=== PATIENT | female | born 1940 | race Caucasian/White ===

== ENCOUNTER → 2017-10-20 09:51 | Outpatient (CLI) | payer MEDICARE, SELFPAY ==
--- NOTE | 2017-10-20 09:57 | HPBI_ITS ---
MAMMOGRAPHY - UNILATERAL SCREENING: RIGHT BREAST REASON FOR EXAM: Female, 77 years old. Routine annual screening examination (unilateral). PERTINENT HISTORY: Personal history of breast cancer. Prior left mastectomy. TECHNIQUE: Digital unilateral breast erika (3D mammographic acquisition) in the CC and MLO projections. 2-D mediolateral oblique (MLO) and craniocaudad (CC) views of both breasts were obtained. CAD: Full Field Digital Mammography with Computer Added Detection was performed. COMPARISON: Comparison is made with prior study dated October 05, 2016 and September 17, 2015. FINDINGS: Breast Composition: There are scattered areas of fibroglandular density. There are no dominant masses or suspicious calcifications. No other significant abnormalities are identified. There has been no significant change since the prior study. BI/UNILAT RT SCRN W/CAD IMPRESSION: Stable unilateral screening mammogram. Yearly follow-up mammogram recommended. (A) ASSESSMENT CATEGORY: BIRADS Category 1: Negative. A letter regarding these results will be sent to the patient by the facility within 30 days. Approximately 10% of breast cancers are not detected by mammography. A normal mammogram should not delay biopsy of a clinically suspicious abnormality. [id number] Electronically Signed: Marvin Merrill MD at 12:40 EST Tel [phone], Service support ,
== END ==
PROVIDERS: Family Provider Internal Medicine; PCP Internal Medicine; Visit Provider Internal Medicine
DX: Z12.31 Encounter for screening mammogram for malignant neoplasm of breast (principal); Z85.3 Personal history of malignant neoplasm of breast; Z90.12 Acquired absence of left breast and nipple
CPT/HCPCS: 77061; 77063; 77067; G0279

== ENCOUNTER → 2017-11-30 13:12 | Outpatient (CLI) | payer MEDICARE, SELFPAY ==
--- NOTE | 2017-11-30 13:18 | CT_ITS ---
STUDY: CT BRAIN WITH AND WITHOUT CONTRAST REASON FOR EXAM: Female, 77 years old. Memory loss. History of left breast cancer with left mastectomy. RADIATION DOSAGE (If Supplied By Facility): CTDIvol = ( 44.99 ) mGy, DLP = ( 1513.48 ) mGycm TECHNIQUE: Transaxial CT imaging of the brain was performed pre and post contrast administration. The examination was performed with intravenous administration of 50mL ml of Isovue 370 contrast material. Individualized dose optimization techniques were used for this CT. COMPARISON: None. FINDINGS: Normal soft tissue structures. Normal calvarium. There is mild cerebral atrophy with widening of the extra-axial spaces and ventricular dilatation. Normal white matter tracts of the cerebral hemispheres. Normal basal ganglia and thalami. Normal brainstem. Normal cerebellum. There is no intracranial hemorrhage. There are no findings of an acute ischemic infarction. Atherosclerotic calcification of the vertebral arteries and cavernous portions of the internal carotid arteries bilaterally. Normal visualized paranasal sinuses. CT/Brain/Head W/WO Contrast IMPRESSION: Chronic involutional changes of the brain. Electronically Signed: Marvin Merrill MD at 14:39 EDT Tel [phone], Service support ,
== END ==
PROVIDERS: Family Provider Internal Medicine; PCP Internal Medicine; Visit Provider Internal Medicine
DX: R41.3 Other amnesia (principal)
CPT/HCPCS: 70470; Q9967

== ENCOUNTER → 2018-10-04 12:49 | Outpatient (CLI) | payer MEDICARE, SELFPAY ==
[2018-10-04 14:31] LABS: Creatinine, Serum 1.44 mg/dL (0.55-1.02); EST Glomerular Filtration Rate 37 mL/min (>60); Est Glom Filt Rate - Afr Amer 45 mL/min (>60)
== END ==
PROVIDERS: Family Provider Internal Medicine; PCP Internal Medicine; Referring Provider Surgery Vascular Surgery; Visit Provider Surgery Vascular Surgery
DX: Z01.818 Encounter for other preprocedural examination (principal); I65.23 Occlusion and stenosis of bilateral carotid arteries
CPT/HCPCS: 36415; 82565

== ENCOUNTER → 2018-10-19 07:43 | Outpatient (CLI) | payer MEDICARE, SELFPAY ==
--- NOTE | 2018-10-19 07:46 | CT_ITS ---
STUDY: CTA NECK WITH CONTRAST REASON FOR EXAM: Female, 78 years old. History of carotid stenosis. RADIATION DOSAGE (If Supplied By Facility): CTDIvol = ( 14.90 ) mGy, DLP = ( 483.21 ) mGycm TECHNIQUE: CT angiography with multi-detector data acquisition was performed from the aortic arch to the skull base following intravenous administration of 75 ml of Isovue 370 contrast. MIP images were reconstructed from the axial data set. Post-processing of the angiographic images was performed, with multiplanar reformation and 3D reconstruction. Individualized dose optimization techniques were used for this CT. COMPARISON: None. FINDINGS: Subcentimeter cysts are seen in the left lobe of the thyroid. AORTIC ARCH: There is atherosclerotic calcific plaque formation of the aortic arch and great vessels arising from the aortic arch, without a hemodynamically significant stenosis. There is a normal origin of the brachiocephalic, left common carotid, and left subclavian arteries RIGHT CAROTID ARTERIES: Normal right common carotid artery (CCA). Normal right common carotid bulb. There is severe atherosclerotic plaque formation of the origin of the right internal carotid artery with a near complete occlusion. Normal visualized cervical portion of the right internal carotid artery. Normal origin of the right external carotid artery (ECA). LEFT CAROTID ARTERIES: Normal left common carotid artery (CCA). Normal left common carotid bulb. There is extensive atherosclerotic plaque formation of the origin of the left internal carotid artery with an estimated stenosis of greater than 70%. Normal visualized cervical portion of the left internal carotid artery. Normal origin of the left external carotid artery (ECA). VERTEBRAL ARTERIES: Normal bilateral vertebral arteries. CT/CTA Neck W/WO Contrast IMPRESSION: High-grade stenosis at the carotid bifurcations more prominent on the right side. Electronically Signed: Marvin Merrill MD at 9:50 EST , Service support ,
== END ==
PROVIDERS: Family Provider Internal Medicine; PCP Internal Medicine; Referring Provider Surgery Vascular Surgery; Visit Provider Surgery Vascular Surgery
DX: I65.23 Occlusion and stenosis of bilateral carotid arteries (principal)
CPT/HCPCS: 70498; Q9967

== ENCOUNTER → 2018-10-24 13:49 | Outpatient (CLI) | payer MEDICARE, SELFPAY ==
--- NOTE | 2018-10-24 13:53 | BI_ITS ---
MAMMOGRAPHY - UNILATERAL SCREENING: RIGHT BREAST REASON FOR EXAM: Female, 78 years old. Routine annual screening examination (unilateral). PERTINENT HISTORY: Personal history of breast cancer. Prior left mastectomy. TECHNIQUE: Digital unilateral breast erika (3D mammographic acquisition) in the CC and MLO projections. 2-D mediolateral oblique (MLO) and craniocaudad (CC) views of both breasts were obtained. CAD: Full Field Digital Mammography with Computer Added Detection was performed. COMPARISON: Comparison is made with prior examination dated October 20, 2017 and October 05, 2016. FINDINGS: Breast Composition: The breasts are heterogeneously dense, which may obscure small masses. There are no dominant masses or suspicious calcifications. No other significant abnormalities are identified. There has been no significant change since the prior study. BI/UNILAT RT SCRN W/CAD IMPRESSION: Stable unilateral screening mammogram. Yearly follow-up mammogram recommended. (A) ASSESSMENT CATEGORY: BIRADS Category 1: Negative. A letter regarding these results will be sent to the patient by the facility within 30 days. Approximately 10% of breast cancers are not detected by mammography. A normal mammogram should not delay biopsy of a clinically suspicious abnormality. [id number] Electronically Signed: Marvin Merrill MD at 8:35 EST , Service support ,
== END ==
PROVIDERS: Family Provider Internal Medicine; PCP Internal Medicine; Referring Provider Internal Medicine; Visit Provider Internal Medicine
DX: Z12.31 Encounter for screening mammogram for malignant neoplasm of breast (principal); Z85.3 Personal history of malignant neoplasm of breast; Z90.12 Acquired absence of left breast and nipple
CPT/HCPCS: 77061; 77063; 77067; G0279

== ENCOUNTER → 2018-11-30 09:54 | Outpatient (CLI) | payer MEDICARE, SELFPAY ==
--- NOTE | 2018-11-30 09:59 | BD_ITS ---
STUDY: DUAL ENERGY X-RAY ABSORPTIOMETRY / DXA REASON FOR EXAM: Female, 78 years old. The patient is postmenopausal. Loss of height. TECHNIQUE: Bone Mineral Density (BMD) measurements of lumbar spine and left hip were obtained. The patient is status post right hip replacement. COMPARISON: Comparison is made with prior examination dated November 26, 2016. FINDINGS: Lumbar Spine (L1-L4): g/cm2 (1.568) / T-score (3.1) / Z-score (4.9) Findings are suggestive of normal bone density with a low fracture risk. Left Femur Total: g/cm2 (1.078) / T-score (0.6) / Z-score (2.6) Left Femoral Neck: g/cm2 (1.192) / T-score (1.1) / Z-score (3.3) The T-Scores on the most recent prior examination were: Lumbar Spine (L1-L4): There has been worsening of bone density since the previous examination. Left Femur Total: which represents a worsening of 0.3%. BD/Dexa Bone Density Study IMPRESSION: The patient is considered normal as outlined below according to World [employer] Organization (WHO) criteria with a low fracture risk. There has been worsening of bone density since the previous examination. Reference Information: The T-score is the number of standard deviations above or below the standard which is normal for young adults at their peak bone mineral density. The World Health Organization (WHO) interprets the T-scores as follows: Above -1 Normal bone density Between -1 and -2.5 Osteopenia Equal to / or below -2.5 Osteoporosis As a practical clinical guideline, osteopenia may be graded as follows: Mild -1 through -1.5 Moderate -1.6 through -2.0 Severe -2.1 through -2.4 The Z-score is the number of standard deviations above or below age-matched controls. A Z-score of less than -1.5 would be considered abnormal. References: 1. NIH Osteoporosis and Related Bone Diseases http://www.osteo.org 2. International Society for Clinical Densitometry http://www.iscd.org 3. National Osteoporosis Foundation http://www.nof.org Electronically Signed: Marvin Merrill, at 14:59 EDT , Service support ,
== END ==
PROVIDERS: Family Provider Internal Medicine; PCP Internal Medicine; Visit Provider Internal Medicine
DX: Z78.0 Asymptomatic menopausal state (principal)
CPT/HCPCS: 77080

== ENCOUNTER → 2019-08-10 10:28 | Outpatient (CLI) | payer MEDICARE, SELFPAY ==
--- NOTE | 2019-08-10 10:31 | RAD_ITS ---
STUDY: X-RAY - LUMBAR SPINE REASON FOR EXAM: Female, 79 years old. Radiculopathy TECHNIQUE: 5 view(s) of the lumbar spine were obtained. COMPARISON: None FINDINGS: Normal lumbar lordosis. There is no substantial scoliosis. There is a grade 1 anterolisthesis of L4 relative to L5. There is old moderately severe compression deformity of L3. There is diffuse endplate spondylosis and generalized osteopenia. There is multi-level degenerative disc disease with multi-level disc space narrowing. There are calcified plaques of the abdominal aorta. RAD/L/S Spine Min 4 Views IMPRESSION: Grade 1 anterolisthesis of L4 relative to L5. Old moderately severe compression deformity of L3. Multilevel degenerative changes and disc space narrowing as detailed above. Electronically Signed: Agustín Durand MD at 23:01 EST , Service support ,
== END ==
PROVIDERS: Family Provider Internal Medicine; PCP Internal Medicine; Referring Provider Anesthesiology Pain Medicine; Visit Provider Anesthesiology Pain Medicine
DX: M51.16 Intervertebral disc disorders with radiculopathy, lumbar region (principal)
CPT/HCPCS: 72110

== ENCOUNTER → 2019-10-19 09:45 | Outpatient (CLI) | payer MEDICARE, SELFPAY ==
--- NOTE | 2019-10-19 09:49 | CDU_ITS ---
Reason For Study: Bilateral carotid stenosis Rt. Velocities/BP Lt. Velocities/BP Prox CCA 82.6/9.5 cm/sec. Prox CCA 80.9/11.5 cm/sec. Mid CCA 78.6/12.1 cm/sec. Mid CCA 58.6/6.9 cm/sec. Dist CCA 83.8/10.2 cm/sec. Dist CCA 57.5/80 cm/sec. Prox ICA 132.3/24.8 cm/sec. Prox ICA 66.2/17.9 cm/sec. Mid ICA 243.4/46.2 cm/sec. Mid ICA 112/18.8 cm/sec. Dist ICA 256.3/30.1 cm/sec. Dist ICA 86.3/21.2 cm/sec. Rt. ICA/CCA = 3.10. Lt. ICA/CCA = 1.91. Prox ECA 272.5/7.4 cm/sec. Prox ECA 76.1 cm/sec. Rt. Vert. 54.2/9.1 cm/sec. Lt. Vert. 64.1/10.2 cm/sec. Right Extracranial There is intimal thickening but no significant atherosclerotic plaque noted in the right common carotid artery. There is heterogeneous, irregular atherosclerotic plaque noted in the right internal carotid artery. There is heterogeneous, irregular atherosclerotic plaque noted in the right external carotid artery. Antegrade flow is noted in the right vertebral artery. Left Extracranial There is homogeneous, smooth atherosclerotic plaque noted in the left common carotid artery. There is heterogeneous, irregular atherosclerotic plaque noted in the left internal carotid artery. The atherosclerotic plaque causes acoustic shadowing. There is no significant atherosclerotic plaque noted in the left external carotid artery. Antegrade flow is noted in the left vertebral artery. Procedure Carotid Duplex [id number]. Exam performed in department. Interpretation Summary Moderate (50-69%) stenosis right extracranial internal carotid. Mild (<50%) stenosis left extracranial internal carotid. Flow within the vertebral arteries is antegrade bilaterally. Ordering Physician: John Ramirez Referring Physician: Cat Sauceda M.D. Performed By: Perla Lopez RVT
== END ==
PROVIDERS: PCP Internal Medicine; Referring Provider Surgery Vascular Surgery; Visit Provider Surgery Vascular Surgery
DX: I65.23 Occlusion and stenosis of bilateral carotid arteries (principal)
CPT/HCPCS: 93880

== ENCOUNTER → 2019-10-25 10:55 | Outpatient (CLI) | payer MEDICARE, SELFPAY ==
--- NOTE | 2019-10-25 11:03 | MRI_ITS ---
STUDY: MRI LUMBAR SPINE WITHOUT CONTRAST REASON FOR EXAM: Female, 79 years old. RT LEG NUMBNESS -- NKI, pain low back and rt leg numbness x several months TECHNIQUE: Standardized fat and water weighted pulse sequences were obtained in the sagittal and axial planes. COMPARISON: 02/27/2010 FINDINGS: T12-L1: Normal endplates. Normal disc height, hydration and morphology. Normal bilateral facet joints. Normal central canal and bilateral lateral recesses. Normal bilateral intervertebral neural foramina. Normal lumbar lordosis. Mild levoscoliosis. Normal conus medullaris that terminates at the T12/L1. Interval development of a moderate compression fracture of L3 without marrow edema consistent with a chronic compression fracture. No retropulsion into the spinal canal. L1-2: Interval development of mild bilobed disc protrusion which produces mild spinal stenosis and mild bilateral neural foraminal stenosis. L2-3: Moderate bilateral facet hypertrophy and ligament flavum hypertrophy. Worsening broad disc osteophyte complex produces moderate spinal stenosis with moderate bilateral lateral recess stenosis and mild bilateral neural foraminal stenosis. L3-4: Moderate the lateral facet hypertrophy with fluid in the facet joints consistent with instability and severe ligament flavum hypertrophy. Worsening broad disc protrusion which is now moderate in size with moderate spinal stenosis and moderate bilateral lateral recess stenosis and mild bilateral neural foraminal stenosis. L4-5: Severe bilateral facet hypertrophy and moderate ligament flavum hypertrophy. Increase in the anterolisthesis of L4 and L5 from 5 mm to 8 mm with a moderate broad disc protrusion which produces severe spinal stenosis and severe bilateral lateral recess stenosis with effacement of the L5 nerve roots bilaterally as well as moderate bilateral neural foraminal stenosis with abutment of the exiting L4 nerve roots bilaterally. L5-S1: Normal endplates. Normal disc height, hydration and morphology. Normal bilateral facet joints. Normal central canal and bilateral lateral recesses. Normal bilateral intervertebral neural foramina. Normal visualized sacral ala. Normal visualized paraspinous soft tissue structures. MRI/Spine Lumbar (Routine) IMPRESSION: Interval development of a chronic moderate compression fracture of L3 without retropulsion into the spinal canal. Worsening degenerative disc disease throughout the lumbar spine particularly at L4/L5 with worsening anterolisthesis of L4 on L5. Electronically Signed: Trey Cedillo MD at 15:52 EST Tel , Service support ,
--- NOTE | 2019-10-25 14:18 | US_ITS ---
STUDY: RENAL ULTRASOUND - COMPLETE REASON FOR EXAM: Female, 79 years old. CKD3 TECHNIQUE: Ultrasound evaluation of the kidneys was performed with real-time and static restrepo-scale imaging. COMPARISON: None. FINDINGS: RIGHT KIDNEY: Normal location of the right kidney, which is normal in size. The right kidney measures 9.8 cm in length. There is a normal cortex of the right kidney. There is no right renal mass or cyst. There are no right renal calculi. There is no right hydronephrosis. DISTAL RIGHT URETER: There is no demonstrated right ureteral jet. LEFT KIDNEY: Normal location of the left kidney, which is normal in size. The left kidney measures 10.4 cm in length. There is a normal cortex of the left kidney. There is no left renal mass or cyst. There are no left renal calculi. There is no left hydronephrosis. DISTAL LEFT URETER: There is a visualized left ureteral jet. BLADDER: The incompletely distended urinary bladder has a volume of 54.4 ml. There is a normal wall thickness of the distended urinary bladder. There is no demonstrated mass within the urinary bladder. There are no demonstrated bladder calculi. US/Kidney and Bladder IMPRESSION: Within normal limits ultrasound of the kidneys and urinary bladder. Electronically Signed: Magdalena Muhammad MD at 23:16 EST Tel , Service support ,
== END ==
PROVIDERS: PCP Internal Medicine; Referring Provider Anesthesiology Pain Medicine; Visit Provider Anesthesiology Pain Medicine
DX: M51.37 Other intervertebral disc degeneration, lumbosacral region (principal); R20.0 Anesthesia of skin; N18.9 Chronic kidney disease, unspecified
CPT/HCPCS: 72148; 76770

== ENCOUNTER → 2019-10-30 13:35 | Outpatient (CLI) | payer MEDICARE, SELFPAY ==
--- NOTE | 2019-10-30 13:38 | BI_ITS ---
MAMMOGRAPHY - UNILATERAL SCREENING: RIGHT BREAST REASON FOR EXAM: Female, 79 years old. Routine annual screening examination (unilateral). PERTINENT HISTORY: Personal history of breast cancer. Prior left mastectomy. TECHNIQUE: Digital unilateral breast jagruti (3D mammographic acquisition) in the CC and MLO projections. 2-D mediolateral oblique (MLO) and craniocaudad (CC) views of both breasts were obtained. CAD: Full Field Digital Mammography with Computer Added Detection was performed. COMPARISON: Comparison is made with prior examination dated October 24, 2018 and April 19, 2018. FINDINGS: Breast Composition: The breasts are heterogeneously dense, which may obscure small masses. There are no dominant masses or suspicious calcifications. No other significant abnormalities are identified. There has been no significant change since the prior study. BI/SCREEN MAMM (CAD) W/JAGRUTI UNI R IMPRESSION: Stable unilateral screening mammogram. Yearly follow-up mammogram recommended. (A) ASSESSMENT CATEGORY: BIRADS Category 1: Negative. A letter regarding these results will be sent to the patient by the facility within 30 days. Approximately 10% of breast cancers are not detected by mammography. A normal mammogram should not delay biopsy of a clinically suspicious abnormality. [id number] Electronically Signed: Marvin Merrill, at 14:33 EST , Service support ,
== END ==
PROVIDERS: PCP Internal Medicine; Referring Provider Internal Medicine; Visit Provider Internal Medicine
DX: Z12.31 Encounter for screening mammogram for malignant neoplasm of breast (principal); Z85.3 Personal history of malignant neoplasm of breast; Z90.12 Acquired absence of left breast and nipple
CPT/HCPCS: 77063; 77067

== ENCOUNTER → 2019-11-16 10:56 | Outpatient (CLI) | payer MEDICARE, SELFPAY ==
[2019-11-20 20:07] LABS: Cytoplasmic Ab (C-ANCA) <1:20 titer (Neg:<1:20); PROEL- A/G Ratio 1.2 (0.7-1.7); PROEL- Albumin 3.7 g/dL (2.9-4.4); PROEL- Alpha-1 Globulin 0.2 g/dL (0.0-0.4); PROEL- Beta Globulin 1.2 g/dL (0.7-1.3); PROEL- Gamma Globulin 0.6 g/dL (0.4-1.8); PROEL- TOTAL PROTEIN 6.7 g/dL (6.0-8.5)
[2019-11-20 20:28] LABS: Complement C3 129 mg/dL (82-167); Perinuclear Ab (P-ANCA) <1:20 titer (Neg:<1:20)
== END ==
PROVIDERS: PCP Internal Medicine; Referring Provider Internal Medicine Nephrology; Visit Provider Internal Medicine Nephrology
DX: N18.3 Chronic kidney disease, stage 3 (moderate) (principal); R39.9 Unspecified symptoms and signs involving the genitourinary system
CPT/HCPCS: 36415; 84165; 86160; 86256; 87086; 87088

== ENCOUNTER → 2020-02-14 08:05 | Outpatient (CLI) | payer MEDICARE, SELFPAY ==
[2020-02-14 08:48] LABS: Protein, Urine (Random) 11.3 mg/dL (<11.9); Protein:Creat Ratio 117 mg/g CRE (0-200)
[2020-02-14 09:02] LABS: Anion Gap 7 (5-15); BUN 27 mg/dL (7-18); BUN/Creat Ratio 17.2 RATIO (10-20); Calcium,Total 9.1 mg/dL (8.5-10.1); Chloride 103 mmol/L (98-107); Creatinine, Serum 1.57 mg/dL (0.55-1.02); EST Glomerular Filtration Rate 34 mL/min (>60); Est Glom Filt Rate - Afr Amer 41 mL/min (>60); Glucose 107 mg/dL (74-106); Potassium 3.9 mmol/L (3.5-5.1); Sodium Level 138 mmol/L (136-145)
== END ==
PROVIDERS: PCP Internal Medicine; Referring Provider Internal Medicine Nephrology; Visit Provider Internal Medicine Nephrology
DX: N18.3 Chronic kidney disease, stage 3 (moderate) (principal)
CPT/HCPCS: 36415; 80048; 82570; 84156

== ENCOUNTER → 2020-02-21 13:53 | Outpatient (CLI) | payer MEDICARE, SELFPAY ==
--- NOTE | 2020-02-21 13:54 | ECHOD_ITS ---
Reason For Study: AORTIC STENOSIS Procedure This was a 2D Doppler, Color Flow transthoracic echocardiogram. Exam performed in department. Left Ventricle Normal size and thickness. The estimated ejection fraction is 65 %. Stage 1 diastolic dysfunction. No regional wall motion abnormalities noted. Right Ventricle Normal size and thickness. Normal systolic function. Atria Normal left atrium. Normal right atrium. Normal atrial septum. Mitral Valve The mitral valve is structurally normal. No prolapse or stenosis seen. Tricuspid Valve Normal tricuspid valve. Unable to estimate RV systolic pressure due to insufficient tricuspid regurgitant envelope. Aortic Valve Trisinus/trileaflet aortic valve. Mild diffuse aortic valve thickening. Moderate focal aortic valve thickening. Mild restriction of the aortic valve. Mild to moderate aortic stenosis. Peak aortic valve gradient 27 mmHg. Mean aortic valve gradient 18 mmHg. Calculated aortic valve area (continuity equation) is 1.4 cm2. Pulmonic Valve Normal pulmonic valve. Great Vessels Normal aortic root. Moderate atherosclerosis of the aortic arch. Normal inferior vena cava. Inferior vena cava collapse with sniff. Pericardium/Pleural No pericardial effusion. MMode/2D Measurements & Calculations LVIDd: 4.7 cm IVSd: 1.1 cm LVOT diam: 1.9 cm LVIDs: 2.9 cm LVPWd: 1.2 cm LVOT area: 2.9 cm2 RVDd: 3.2 cm FS: 38.4 % Ao root diam: 2.7 cm LAV(MOD-bp): 50.1 ml LA A4 area: 18.4 cm2 LAV(MOD-bp) Indexed: 28.6 ml/m2 LAV(MOD-sp2): 51.0 ml LAV(MOD-sp4): 47.7 ml LA dimension(2D): 4.0 cm RA A4 area: 13.7 cm2 Time Measurements MV dec time: 0.25 sec Doppler Measurements & Calculations MV E max [place]: 88.5 cm/sec Lat Peak E' [place]: 5.6 cm/sec Med Peak E' [place]: 5.8 cm/sec MV A max [place]: 115.2 cm/sec E/E' lat: 15.8 E/E' med: 15.4 MV E/A: 0.77 Ao V2 max: 254.6 cm/sec LV V1 max: 124.3 cm/sec SV(LVOT): 80.7 ml Ao max P.6 mmHg LV V1 max P.2 mmHg Ao V2 mean: 189.0 cm/sec LV V1 mean P.7 mmHg Ao mean P.5 mmHg LV V1 mean: 92.3 cm/sec Ao V2 VTI: 55.8 cm LV V1 VTI: 28.1 cm ARMANDO(I,D): 1.4 cm2 ARMANDO(V,D): 1.4 cm2 PA V2 max: 158.7 cm/sec PA V2 mean: 105.8 cm/sec PA V2 VTI: 30.9 cm Interpretation Summary The estimated ejection fraction is 65 %. Stage 1 diastolic dysfunction. Unable to estimate RV systolic pressure due to insufficient tricuspid regurgitant envelope. Mild to moderate aortic stenosis. Apparent fised non coronary cusp. Peak aortic valve gradient 27 mmHg. Mean aortic valve gradient 18 mmHg. Calculated aortic valve area (continuity equation) is 1.4 cm2. Echo report dated 01/01/2017, no appreciable changes noted. Ordering Physician: Cat Sauceda Referring Physician: Cat Sauceda Performed By: Lisa Hernandez, ANGELINA, RVT
== END ==
PROVIDERS: PCP Internal Medicine; Referring Provider Internal Medicine; Visit Provider Internal Medicine
DX: I35.0 Nonrheumatic aortic (valve) stenosis (principal)
CPT/HCPCS: 93306

== ENCOUNTER → 2020-08-19 09:15 | Outpatient (CLI) | payer MEDICARE, SELFPAY ==
[2020-08-19 09:40] LABS: Absolute Lymphocyte Count 2.34 X10^3/uL (0.83-4.51); Absolute Neutrophil Count 4.8 X10^3/uL (2.0-7.7); Basophil# 0.06 X10^3/uL; Basophil% 0.7 % (0-1); Eosinophils% 1.2 % (0-5); Hematocrit 38.8 % (37-47); Hemoglobin 11.8 g/dL (12.0-15.0); Lymphocyte # 2.34 X10^3/ul (4.0); Mean Corp Hgb Conc 30.4 g/dL (32-36); Mean Corpuscular Hgb 27.3 pg (27.0-32.0); Mean Corpuscular Volume 89.6 fL (81-99); Mean Platelet Vol. 8.4 fl (6.2-12.0); Monocyte# 0.76 X10^3/uL; Monocyte% 9.4 % (0-10); NRBC Flagged by Analyzer 0 % (0-5); Neutrophil % 59.5 % (47-70); Platelet Count 278 K/mm3 (150-450); RBC Distribution Width CV 13.8 % (11.6-14.6); RBC Distribution Width SD 45.4 fl (35.1-43.9); Red Blood Count 4.33 M/mm3 (4.2-5.4); White Blood Count 8.1 K/mm3 (4.4-11.0)
[2020-08-19 09:51] LABS: Protein, Urine (Random) 13.2 mg/dL (<11.9); Protein:Creat Ratio 143 mg/g CRE (0-200)
[2020-08-19 10:00] LABS: Albumin, Serum 3.6 g/dL (3.2-5.0); BUN 27 mg/dL (7-18); BUN/Creat Ratio 18.6 RATIO (10-20); Calcium,Total 9.4 mg/dL (8.5-10.1); Chloride 106 mmol/L (98-107); Creatinine, Serum 1.45 mg/dL (0.55-1.02); EST Glomerular Filtration Rate 37 mL/min (>60); Est Glom Filt Rate - Afr Amer 45 mL/min (>60); Glucose 101 mg/dL (74-106); Phosphorus 3.4 mg/dL (2.5-4.9); Sodium Level 139 mmol/L (136-145)
[2020-08-19 10:02] LABS: PTHIN 51.5 pg/mL (18.4-80.1)
== END ==
PROVIDERS: PCP Internal Medicine; Referring Provider Internal Medicine Nephrology; Visit Provider Internal Medicine Nephrology
DX: N18.30 Chronic kidney disease, stage 3 unspecified (principal)
CPT/HCPCS: 36415; 80069; 82306; 82570; 83970; 84156; 85025

== ENCOUNTER → 2020-11-04 11:25 | Outpatient (CLI) | payer MEDICARE, SELFPAY ==
--- NOTE | 2020-11-04 11:31 | BI_ITS ---
MAMMOGRAPHY - UNILATERAL SCREENING: RIGHT BREAST REASON FOR EXAM: Female, 80 years old. Routine annual screening examination (unilateral). PERTINENT HISTORY: Personal history of breast cancer. Prior left mastectomy. TECHNIQUE: Digital unilateral breast jagruti (3D mammographic acquisition) in the CC and MLO projections. 2-D mediolateral oblique (MLO) and craniocaudad (CC) views of both breasts were obtained. CAD: Full Field Digital Mammography with Computer Added Detection was performed. COMPARISON: Comparison is made with prior study dated 10/30/2019 and 10/24/2018. FINDINGS: Breast Composition: The breasts are heterogeneously dense, which may obscure small masses. There are no dominant masses or suspicious calcifications. No other significant abnormalities are identified. There has been no significant change since the prior study. BI/SCREEN MAMM (CAD) W/JAGRUTI UNI R IMPRESSION: Stable unilateral screening mammogram. Yearly follow-up mammogram recommended. (A) ASSESSMENT CATEGORY: BIRADS Category 1: Negative. A letter regarding these results will be sent to the patient by the facility within 30 days. Approximately 10% of breast cancers are not detected by mammography. A normal mammogram should not delay biopsy of a clinically suspicious abnormality. [id number] Electronically Signed: Marvin Merrill MD at 12:02 EST , Service support ,
== END ==
PROVIDERS: PCP Internal Medicine; Referring Provider Internal Medicine; Visit Provider Internal Medicine
DX: Z12.31 Encounter for screening mammogram for malignant neoplasm of breast (principal)
CPT/HCPCS: 77063; 77067

== ENCOUNTER → 2020-11-26 09:44 | Outpatient (CLI) | payer MEDICARE, SELFPAY ==
--- NOTE | 2020-11-26 09:46 | CDU_ITS ---
Reason For Study: Bilateral carotid stenosis Rt. Velocities/BP Lt. Velocities/BP Prox CCA 89.1/16 cm/sec. Prox CCA 79.5/11.3 cm/sec. Mid CCA 78.6/14.7 cm/sec. Mid CCA 83.8/16.8 cm/sec. Dist CCA 65.6/13.4 cm/sec. Dist CCA 82.7/16.8 cm/sec. Prox ICA 166.6/34.5 cm/sec. Prox ICA 115.6/24.3 cm/sec. Mid ICA 243.4/55.9 cm/sec. Mid ICA 137.5/29.8 cm/sec. Dist ICA 245/63.1 cm/sec. Dist ICA 141.2/33.6 cm/sec. Rt. ICA/CCA = 3.12. Lt. ICA/CCA = 1.71. Prox ECA 282.1/7.4 cm/sec. Prox ECA 71.7/5.8 cm/sec. Rt. Vert. 73.6/13.3 cm/sec. Lt. Vert. 59.7/13.5 cm/sec. Right Extracranial There is intimal thickening but no significant atherosclerotic plaque noted in the right common carotid artery. There is heterogeneous, irregular atherosclerotic plaque noted in the right internal carotid artery. There is heterogeneous, irregular atherosclerotic plaque noted in the right external carotid artery. Antegrade flow is noted in the right vertebral artery. Left Extracranial There is homogeneous, smooth atherosclerotic plaque noted in the left common carotid artery. There is heterogeneous, irregular atherosclerotic plaque noted in the left internal carotid artery. The atherosclerotic plaque causes acoustic shadowing. There is intimal thickening but no significant atherosclerotic plaque noted in the left external carotid artery. Antegrade flow is noted in the left vertebral artery. Procedure Carotid Duplex [id number]. This is a Carotid Duplex examination using B-mode, color flow and specral Doppler. Exam performed in department. Interpretation Summary Moderate (50-69%) stenosis right extracranial internal carotid. Moderate (50-69%) stenosis left extracranial internal carotid. Flow within the vertebral arteries is antegrade bilaterally. Ordering Physician: John Ramirez Referring Physician: Cat Sauceda M.D. Performed By: Perla Lopez RVT
== END ==
PROVIDERS: PCP Internal Medicine; Referring Provider Surgery Vascular Surgery; Visit Provider Surgery Vascular Surgery
DX: I65.23 Occlusion and stenosis of bilateral carotid arteries (principal)
CPT/HCPCS: 93880

== ENCOUNTER 2020-12-07 04:54 | Inpatient (IN) | payer MEDICARE, SELFPAY ==
[2020-12-07] VITALS (14 sets, daily range): BP systolic 136–151; BP diastolic 48–89; PULSE 56–81; RESP 15–18; TEMP 36.4–37.4; O2SAT 95–97; BMI 34.3; BMI 32.8
--- NOTE | 2020-12-07 04:55 | ED.RN ---
CALLED FOR EKG, PULLED OLD EKGS FOR
--- NOTE | 2020-12-07 04:57 | EKG12_ITS ---
Test Reason : CP Blood Pressure : / mmHG Vent. Rate : 079 BPM Atrial Rate : 079 BPM P-R Int : 164 ms QRS Dur : 084 ms QT Int : 348 ms P-R-T Axes : 073 -02 020 degrees QTc Int : 399 ms Normal sinus rhythm Possible Left atrial enlargement Nonspecific ST abnormality Abnormal ECG Confirmed by MAICOL RENTERIA, CARROL ([id number]), offline editor IZABEL MICHEL ([id number]) on 12/10/2020 8:50:31 AM Referred By: FREYA Confirmed By:CARROL MILIAN MD
[2020-12-07 05:03] LABS: Absolute Lymphocyte Count 2.59 X10^3/uL (0.83-4.51); Absolute Neutrophil Count 17.1 X10^3/uL (2.0-7.7); Basophil# 0.02 X10^3/uL; Basophil% 0.1 % (0-1); Hematocrit 38.4 % (37-47); Hemoglobin 12.3 g/dL (12.0-15.0); Lymphocyte # 2.59 X10^3/ul (4.0); Lymphocyte % 12.7 % (19-41); Mean Corpuscular Hgb 28.2 pg (27.0-32.0); Mean Corpuscular Volume 88.1 fL (81-99); Mean Platelet Vol. 8.9 fl (6.2-12.0); Monocyte# 0.57 X10^3/uL; Monocyte% 2.8 % (0-10); NRBC Flagged by Analyzer 0 % (0-5); Neutrophil % 83.6 % (47-70); Platelet Count 383 K/mm3 (150-450); RBC Distribution Width CV 14.3 % (11.6-14.6); RBC Distribution Width SD 46.4 fl (35.1-43.9); Red Blood Count 4.36 M/mm3 (4.2-5.4); White Blood Count 20.4 K/mm3 (4.4-11.0)
--- NOTE | 2020-12-07 05:06 | ED.VISSUMM ---
- ER Visit Summary Date of Service: 12/07/20 Chief Complaint: Chest pain History of Present Illness: The patient is a [address] Sauceda. She reports that at 3:00 this morning she was awakened from sleep by a left-sided chest pain that she describes as dull and aching. It was 7 out of 10 at worst and she is pain-free currently. Was worsened by nothing including exertion, deep breaths, or movement of her torso. It was also relieved by nothing. She denies any radiation of the pain. No associated nausea, vomiting, diaphoresis, or shortness of breath. Patient denies any chest pain or change in dyspnea exertion in the past month. She has never had a stress test or heart catheterization. Physical Examination: Vitals: Stable. Afebrile. General: Well-nourished and well-developed. Head: Normocephalic atraumatic. Neck: Supple, no lymphadenopathy. No JVD. Nontender. Cardiovascular: Regular rate and rhythm. 3 out of 6 systolic murmur. Respiratory: No respiratory distress. Clear to auscultation bilaterally. Abdominal: Soft, nontender, nondistended, normal bowel sounds. No guarding, rebound, or peritoneal signs. Back: Nontender. Extremities: Nontender, no edema. Skin: Normal color, no rash. Neurologic: Alert and oriented ?3. Cranial nerves II through XII are intact. Normal strength and sensation. Psych: Normal affect. Test Results: EKG is sinus at [address] depression. This is a change from 2012. CBC shows a white count of 20.4 with 84 segmented neutrophils and 13 lymphocytes. Chem-7 shows a BUN of 38, creatinine 1.59, glucose 168. Troponin is 0.653. Chest x-ray shows chronic changes. Emergency Department Course and Treatment: Patient received aspirin by EMS. This was not repeated in the emergency department. She is resting comfortably and is pain-free. When the patient's troponin returned she was discussed with cardiology and will be started on heparin with a bolus. Treatment Plan: Patient will be discussed with Dr. Schmidt and admitted to the hospital for further evaluation and treatment. Disposition: Admitted in improved condition. Impression: 1. Non-ST elevation OR. 2. Heart score of 9. 3. Critical care time 33 minutes. This note was generated with Dragon dictation software. It may contain incorrect words, spelling, and punctuation that were not noted in review of the chart prior to signing ED Disposition - Plan for ED Patient: Referrals: Cat Sauceda DO [Primary Care Provider] -
--- NOTE | 2020-12-07 05:08 | RAD_ITS ---
STUDY: X-RAY CHEST REASON FOR EXAM: Female, 80 years old. Chest pain TECHNIQUE: Single AP portable view of the chest. COMPARISON: None. FINDINGS: The lungs are clear and expanded. There is no demonstrated pleural abnormality. Normal size heart. Normal mediastinum and tiki. Normal visualized pulmonary arteries. There is atherosclerotic calcification of the aortic arch with tortuosity. There are diffuse degenerative changes of the visualized thoracic spine. There is degenerative osteoarthritis of the bilateral shoulders. There is no demonstrated abnormality of the visualized soft tissue structures of the upper abdomen. RAD/Chest 1 View (Portable) IMPRESSION: Degenerative changes, as described above. No demonstrated acute cardiopulmonary process. Electronically Signed: Claire Piedra MD at 5:36 EDT Tel , Service support ,
[2020-12-07 05:27] LABS: Anion Gap 10 (5-15); BUN 38 mg/dL (7-18); BUN/Creat Ratio 23.9 RATIO (10-20); Calcium,Total 9.3 mg/dL (8.5-10.1); Chloride 104 mmol/L (98-107); Creatinine, Serum 1.59 mg/dL (0.55-1.02); EST Glomerular Filtration Rate 33 mL/min (>60); Est Glom Filt Rate - Afr Amer 40 mL/min (>60); Estimated Creatinine Clearance 20.58 ml/min; Glucose 168 mg/dL (74-106); Potassium 4.1 mmol/L (3.5-5.1); Sodium Level 138 mmol/L (136-145)
[2020-12-07 05:50] LABS: Partial Thromboplast Time 27.1 Seconds (24.1-36.2)
--- NOTE | 2020-12-07 05:52 | PCM.HP.STD ---
Problem List (1) NSTEMI (non-ST elevated myocardial infarction) Status: Acute (2) HTN (hypertension) Status: Chronic (3) Hypothyroidism Status: Chronic History of Present Illness Date of Admission: 12/07/20 Chief Complaint: chest pain The patient is a 80 year old F with a significant history of hypertension; hyperlipidemia; hypothyroidism; left breast cancer status post mastectomy who presents to emergency department with excruciating pain under her left breast area. The pain woke her from her sleep at about 3 AM. The pain was steady and it improved with aspirin and nitroglycerin given by paramedics. She denies any aggravating factors to the pain. The pain was nonradiating. She denies any nausea, vomiting, diaphoresis or shortness of breath. Of note patient's mother had more than 1 heart attacks with her first heart attack in her 40s. Patient's father had heart attack when he was about 45. Patient sister had heart attack in her late 50s. Past Medical History Past Medical History (Chronic Problems): Chronic Problems HTN (hypertension) (Chronic) Hypothyroidism (Chronic) Allergies No Known Allergies Allergy (Verified 12/07/20 05:00) Home Medications: Ambulatory Orders Medication Instructions Recorded Ezetimibe [Zetia] 10 mg PO DAILY 06/19/13 Folic Acid 1 mg PO DAILY@0800 06/19/13 Hydrochlorothiazide [Hctz] 25 mg PO DAILY 06/19/13 Levothyroxine [Synthroid] 25 mcg PO DAILY 06/19/13 Multivitamins,Ther W-Minerals 1 tablet PO DAILY 06/19/13 [Multivitamin With Minerals ([facility])] Niacin SA [Niaspan] 500 mg PO QHS 06/19/13 Ranitidine [Zantac] 150 mg PO DAILY 06/19/13 Rosuvastatin Calcium [Crestor] 40 mg PO DAILY 06/19/13 Verapamil HCl [Verelan] 240 mg PO DAILY 06/19/13 Aspirin E.C. [Ecotrin] 81 mg PO DAILY@0800 #0 06/21/13 Hydrocodone Bitart/Apap 5-325 1 - 2 tablet PO Q6H PRN PRN #30 06/21/13 [[place] 5/325] tablet Naproxen Sodium [Aleve] 220 mg PO Q12H PRN PRN #0 06/21/13 Loratadine [Claritin] 10 mg PO DAILY 05/18/14 Surgical History: total hip arthroplasty - Right hip, total knee arthroplasty - Bilateral, - - Left breast mastectomy Smoking Status: Never smoker - *Family History Maternal Family History: Family History (Last Updated 12/07/20 @ 06:[address] Alfredo Schmidt MD) Father Myocardial infarction Mother Myocardial infarction Hypertension Sister Myocardial infarction Review of Systems Constitutional: Denies: Chills, Fever, Weight Change HEENT: Denies: Head Aches, Sinus Congestion, Sinus Drainage Cardiovascular: Reports: Chest Pain. Denies: Palpitations Respiratory: Denies: Cough, Shortness of breath at rest, Sputum production Gastrointestinal: Denies: Abdominal Pain, Nausea, Vomiting Genitourinary: Denies: Dysuria Musculoskeletal: Denies: Joint Pain, Joint Tenderness Skin: Denies: Rash, Wounds Neurological: Denies: Numbness, Tingling, Focal weakness Psychiatric: Denies: Anxiety, Depression, Homicidal Ideations, Suicidal Ideations Hematologic/ Lymphatic: Denies: Easy Bruising, Easy Bleeding VTE Information - Inpt Only VTE Present on Admission: No VTE Mechan Device Prophylaxis: None VTE Pharm Prophylaxis ordered?: No Reason prophylaxis not ordered:: Treatment Not Indicated - Started on heparin drip for non-ST elevation [place] Patient Problems: Active and Suspected Problems NSTEMI (non-ST elevated myocardial infarction) (Acute) - Physical Exam Vitals/I&O's: Vital Signs Temp Pulse Resp BP Pulse Ox 99.3 F H 81 16 150/64 H 97 12/07/20 04:55 12/07/20 04:55 12/07/20 04:55 12/07/20 04:55 12/07/20 05:01 Oxygen Delivery Method Room Air Weight: 82.5 kg Body Mass Index (BMI) 34.3 General: Alert, Oriented x3, Cooperative HEENT: Atraumatic, PERRLA, EOMI, Normocephalic Neck: Supple, No JVD, Negative Carotid Bruits Lungs: Clear to auscultation, Normal air movement Cardiovascular: Regular rate, Normal S2, Murmur Abdomen: Bowel Sounds Present, Soft, Non Tender Extremities: No edema, Capillary Refill Less than 3 Seconds Skin: No rashes, No breakdown Musculoskeletal: No Tenderness to Palpation of Joints or Extremities Neurological: Cranial nerves II-XII grossly intact Psych/Mental Status: Normal Affect, Appropriate Laboratory Results 12/07/20 04:42: WBC 20.4 H, RBC 4.36, Hgb 12.3, Hct 38.4, MCV 88.1, MCH 28.2, MCHC 32.0, RDW Std Deviation 46.4 H, RDW Coeff of [place] 14.3, Plt Count 383, MPV 8.9, Immature Gran % (Auto) 0.800, Neut % (Auto) 83.6 H, Lymph % (Auto) 12.7 L, [place] % (Auto) 2.8, Eos % (Auto) 0.0, Baso % (Auto) 0.1, Absolute Neuts (auto) 17.1 H, Absolute Lymphs (auto) 2.59, Nucleated RBC % 0 12/07/20 04:42: Sodium 138, Potassium 4.1, Chloride 104, Carbon Dioxide 24.0, Anion Gap 10, BUN 38 H, Creatinine 1.59 H, Estim Creat Clear Calc 20.58, Est GFR (MDRD) Af Amer 40 L, Est GFR (MDRD) Non-Af 33 L, BUN/Creatinine Ratio 23.9 H, Glucose 168 H, Calcium 9.3, Troponin I 0.653 H* 12/07/20 04:42: APTT 27.1 Current Medications Heparin Sodium (Porcine) (Heparin Injection (Vial) 5,000 Unit/Ml Vial) 0 unit IV UD PRN; Protocol PRN Reason: dose adjustment Heparin Sodium/Dextrose () 25,000 units in 250 mls @ 12 mls/hr IV .[id number] RAVIN; Protocol Assessment/Plan All Active Problems NSTEMI (non-ST elevated myocardial infarction) (Acute) The patient is a 80 year old F with a significant history of hypertension; hyperlipidemia; hypothyroidism; left breast cancer status post mastectomy who presents to the emergency department with non radiating excruciating pain under her left breast area and with severely elevated troponin. Non-STEMI Chest pain. Review of medical department labs show troponin of 0.653; trend We will admit to progressive care unit. Radiologist impression of chest x-ray: Degenerative changes. No demonstrated acute abdominal process. Actual CXR image was independently visualized. No acute cardiopulmonary process was noted. Of note patient has atherosclerotic calcification of the aortic with tortuosity also seen on chest x-ray. Actual EKG tracing was independently visualized. EKG tracing showed ST depressions in inferolateral leads. EKG from [facility] also showed ST depression inferior lateral leads more prominent than one obtained at emergency department. Reportedly received full dose of aspirin and nitroglycerin from paramedics. ASA 81 mg p.o. daily continued. Nitro paste ordered at the emergency department and continued. We will check lipid panel. Stat EKG as needed for chest pain Emergent department doctor discussed the case with cardiology who will recommended heparin drip and accepted to follow patient while inpatient. Cardiology consult placed. Continue heparin drip started emergency department. Leukocytosis with low-grade fever Likely reactive Trend CBC Rapid Covid test ordered emergency department. Patient symptomatology does not look like Covid. Chest x-ray does not look like Covid. Urinalysis ordered at the emergency department; follow. 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 Stable Elevated BUN BUN of 38. Review of old records shows that this is above baseline. Likely secondary to dehydration. Will start gentle IV hydration. Trend BMP Hypertension Blood pressure is stable in regard to her age. Continue home blood pressure medications. Trend blood pressure and adjust blood pressure medications. Hyperlipidemia Continue home lipid-lowering agents. Check fasting lipids. Hypothyroidism Continue home thyroid medications. DVT prophylaxis Heparin drip started for non-STEMI Inpatient E&M: 11086 Init Hosp L3
[2020-12-07] MEDS: Heparin Injection (Vial) 5,000 UNIT/ML VIAL 6000 UNIT IV (05:54)
[2020-12-07] MEDS: HEPARIN/D5w 25,000 UNITS 25,000 UNITS/250 ML IV.SOLN. 12 UNITS IV (05:57)
[2020-12-07] MEDS: Nitroglycerin Oint 1 INCH PACKET TD ×4 (06:11→23:21)
--- NOTE | 2020-12-07 06:45 | EKG12_ITS ---
Test Reason : PCI Blood Pressure : / mmHG Vent. Rate : 058 BPM Atrial Rate : 058 BPM P-R Int : 162 ms QRS Dur : 080 ms QT Int : 392 ms P-R-T Axes : 065 000 031 degrees QTc Int : 384 ms Sinus bradycardia Otherwise normal ECG When compared with ECG of 09-DEC-2020 05:14, MANUAL COMPARISON REQUIRED, DATA IS UNCONFIRMED Confirmed by MAICOL RENTERIA, CARROL ([id number]), slot editor IZABEL MICHEL ([id number]) on 12/10/2020 9:07:39 AM Referred By: MAICOL Confirmed By:CARROL MILIAN MD
[2020-12-07] MEDS: 0.9% Normal Saline 1,000 ML 75 ML IV ×2 (07:10→19:09)
[2020-12-07] MEDS: Aspirin E.C. 81 MG Tablet PO (07:48)
[2020-12-07 09:18] LABS: Partial Thromboplast Time > 250.0 Seconds (24.1-36.2)
[2020-12-07] MEDS: Carvedilol 3.125 MG TABLET PO ×2 (09:29→21:27)
--- NOTE | 2020-12-07 10:07 | ECHOCS_ITS ---
Reason For Study: Elevated Troponins Procedure This was a 2D Doppler, Color Flow transthoracic echocardiogram. The study was technically difficult. Contrast injection was performed. Exam performed portable in patient room. Left Ventricle Mild concentric left ventricular hypertrophy. The estimated ejection fraction is EF 55-60% %. Right Ventricle Normal right ventricle. Normal systolic function. Atria Normal left atrium. Normal right atrium. Mitral Valve There is mild to moderate mitral annular calcification. No mitral valve insufficiency. Tricuspid Valve Normal tricuspid valve. Aortic Valve Aortic valve area Mild -Moderate calcific AV stenosis.ARMANDO 1,2 cm2 . Pulmonic Valve The pulmonic valve is not well visualized. Great Vessels Normal aortic root. Normal inferior vena cava. Pericardium/Pleural No pericardial effusion. Medication Diluted definity 3ml given slow IV push to enhance endocardial definition. MMode/2D Measurements & Calculations LVIDd: 4.5 cm IVSd: 1.4 cm LVOT diam: 1.9 cm LVIDs: 3.0 cm LVPWd: 1.0 cm FS: 32.1 % LVOT area: 2.7 cm2 Ao root diam: 2.8 cm LAV(MOD-bp): 50.4 ml LA A4 area: 16.5 cm2 LA dimension: 3.9 cm LAV(MOD-bp) Indexed: 28.4 ml/m2 LAV(MOD-sp2): 59.1 ml LAV(MOD-sp4): 40.6 ml RA A4 area: 16.0 cm2 Time Measurements MV dec time: 0.23 sec Doppler Measurements & Calculations MV E max [place]: 92.6 cm/sec Lat Peak E' [place]: 6.7 cm/sec Med Peak E' [place]: 5.7 cm/sec MV A max [place]: 118.1 cm/sec E/E' lat: 13.8 E/E' med: 16.3 MV E/A: 0.78 MV V2 max: 146.4 cm/sec MV P1/2t max [place]: 133.9 cm/sec Ao V2 max: 258.6 cm/sec MV max P.6 mmHg MV P1/2t: 91.8 msec Ao max P.8 mmHg MV V2 mean: 72.8 cm/sec MV dec slope: 426.9 cm/sec2 Ao V2 mean: 168.7 cm/sec MV mean P.6 mmHg Ao mean P.4 mmHg MV V2 VTI: 43.2 cm MVA(P1/2t): 2.4 cm2 Ao V2 VTI: 58.6 cm MVA(VTI): 1.6 cm2 ARMANDO(I,D): 1.2 cm2 ARMANDO(V,D): 1.2 cm2 LV V1 max: 110.7 cm/sec SV(LVOT): 68.6 ml PA V2 max: 101.1 cm/sec LV V1 max P.0 mmHg LV V1 mean P.4 mmHg LV V1 mean: 70.4 cm/sec LV V1 VTI: 25.2 cm Interpretation Summary Normal LV systolic function The estimated ejection fraction is EF 55-60% %. Aortic valve area Mild -Moderate calcific AV stenosis.ARMANDO 1,2 cm2 . in comparison to previous echo February 2020 Mild change in ARMANDO area Ordering Physician: Hector Whitman Referring Physician: Cat Sauceda M.D. Performed By: Mateo Arrington RCS
--- NOTE | 2020-12-07 12:20 | PCM.PN.BLA ---
Progress Note This is an 80 years old female patient admitted for acute non-ST elevation [place]. This morning, she mentioned that her chest pain is getting better, still kind of mild nagging pain. Denied shortness of breath. Her EKG revealed no acute ST elevation. Troponin is elevated and trending up. Her vital signs are stable. She is on IV heparin drip. Cardiology consulted. 2D echocardiogram ordered. Plan to add aspirin, statins and Coreg. STROKE Vital Signs/Narrative: Vital Signs Pulse BP 12/07/20 11:14 60 138/66 H
--- NOTE | 2020-12-07 12:44 | CON.PCM_ITS ---
Reason for Consult Date of Consultation: 12/07/20 History of Present Illness: The patient is a 80 year old F [] Past Medical History Allergies/Adverse Reactions: Allergies No Known Allergies Allergy (Verified 12/07/20 05:00) Home Medications: Ambulatory Orders Medication Instructions Recorded Folic Acid 1 mg PO DAILY@0800 06/19/13 Hydrochlorothiazide [Hctz] 25 mg PO DAILY 06/19/13 Levothyroxine [Synthroid] 37.5 mcg PO DAILY 06/19/13 Multivitamins,Ther W-Minerals 1 tablet PO DAILY 06/19/13 [Multivitamin With Minerals ([facility])] Niacin SA [Niaspan] 500 mg PO QHS 06/19/13 Naproxen Sodium [Aleve] 220 mg PO Q12H PRN PRN #0 06/21/13 Aspirin E.C. [Ecotrin] 81 mg PO DAILY@0800 12/07/20 Atorvastatin Calcium [Lipitor] 40 mg PO QHS 12/07/20 Diltiazem HCl [Cartia Xt] 120 mg PO DAILY 12/07/20 Donepezil HCl 5 mg PO DAILY 12/07/20 Vitamin B6 100 mg PO DAILY 12/07/20 Vitamin D3 1,000 iu PO DAILY 12/07/20 Past Medical History (Chronic Problems): Chronic Problems HTN (hypertension) (Chronic) Hypothyroidism (Chronic) Surgical History: total hip arthroplasty - Right hip, total knee arthroplasty - Bilateral, - - Left breast mastectomy - *Family History Maternal Family History: Family History (Last Updated 12/07/20 @ 06:[address] Alfredo Schmidt MD) Father Myocardial infarction Mother Myocardial infarction Hypertension Sister Myocardial infarction Smoking Status: Never smoker Objective: Vital Signs Temp Pulse Resp BP Pulse Ox 98.5 F 60 16 138/66 H 95 12/07/20 06:12 12/07/20 11:14 12/07/20 06:17 12/07/20 11:14 12/07/20 08:17 Oxygen Delivery Method Room Air Weight: 173 lb 8.061 oz Body Mass Index (BMI) 32.8 Intake and Output for Last 24 Hours 12/05/20 12/06/20 12/07/20 23:59 23:59 23:59 Intake Total 441.6 / 441.6 Balance 441.6 / 441.6 General: Awake, Alert, Oriented x 3 HEENT: PERRL, EOMI, Sclera Non Icteric Neck: Supple, Good ROM, No Lymph Node Enlargement Lungs: Clear to auscultation Cardiovascular: Regular Rhythm, Normal S1, Normal S2, No Murmurs, No Rubs, No Gallops Abdomen: Bowel Sounds Present, Soft, Non Tender, No HSM, No Organomegaly Extremities: No Cyanosis, No Clubbing, No edema Neurological: No Focal Motor or Sensory Deficit 12/07/20 04:42: WBC 20.4 H, RBC 4.36, Hgb 12.3, Hct 38.4, MCV 88.1, MCH 28.2, MCHC 32.0, Plt Count 383, MPV 8.9, Immature Gran % (Auto) 0.800, Neut % (Auto) 83.6 H, Lymph % (Auto) 12.7 L, [place] % (Auto) 2.8, Eos % (Auto) 0.0, Baso % (Auto) 0.1, Absolute Neuts (auto) 17.1 H, Nucleated RBC % 0 12/07/20 04:42: Sodium 138, Potassium 4.1, Chloride 104, Carbon Dioxide 24.0, Anion Gap 10, BUN 38 H, Creatinine 1.59 H, Est GFR (MDRD) Af Amer 40 L, Est GFR (MDRD) Non-Af 33 L, BUN/Creatinine Ratio 23.9 H, Glucose 168 H, Calcium 9.3, Troponin I 0.653 H* 12/07/20 04:42: APTT 27.1 12/07/20 08:20: Troponin I 1.780 H* 12/07/20 08:20: APTT > 250.0 H* 12/07/20 10:52: Troponin I 3.120 H* Rhythm: Sinus rhythm EKG: ST depression noted in the inferior lead. ECHO: Function preserved with ejection fraction in the range of 55-60%, mild to moderate calcific aortic valve stenosis as a specified Aortic valve area calculated 1.2 cm?, with a mean gradient of 13 and a maximum gradient across aortic valve of 26. Assessment/Plan 80 year-old female, cardiac consultation requested to evaluate for CAD as patient has a symptoms of chest pain on presentation described as left-sided with Radiation to the left neck. Mild elevation of cardiac biomarkers with high sensitive troponin I also patient had change in the EKG which is nonspecific T wave abnormality mainly in the inferior leads including V2 [address] depression. Her symptoms of chest pain improved since admission she had a very mild left- sided chest discomfort with some radiation to the neck also patient had a history of carotid artery disease and awaiting further evaluation by the vascular surgeon. at bedside he is a patient of her Dr. Urbano and also had a history of CAD Other medical problems include history of hypertension, Patient denied any symptoms of dizziness lightheadedness or palpitation prior echocardiogram showed mild to moderate aortic stenosis at that time aortic valve area was 1.4 She had history of aortic valve stenosis on a prior echocardiogram and a repeat echocardiogram today revealed LV systolic function is preserved with mild to moderate aortic valve stenosis/calcific aortic valve stenosis with aortic valve area of 1.2 cm? with a mean gradient of 13,and maximum gradient across aortic valve area is a 26 mmHg. On physical exam she had an ejection systolic murmur, in the aortic valve area and her cardiac nurse specialist showed underlying normal sinus rhythm Assessment and plan;. 1. We will continue on the current medical treatment with heparin IV rest of her current medication. Including aspirin and statin. We will check a cardiac biomarker high sensitive troponin in the morning Echocardiographic evaluation showed LV function is preserved there is mild to moderate aortic valve stenosis Patient will need further evaluation with cardiac catheterization on Wednesday by pipeline gang supervisor
--- NOTE | 2020-12-07 14:44 | CM.UR ---
RN CM Assessment Introduced role of RN CM to patient.? Patient is alert, oriented and able?to participate in RN CM Assessment. ? at bedside. Care providers, pharmacy, and demographics verified. Presentation: Chest pain Admit Dx: NSTEMI Re-Admit: No Barriers/Issues: none PCP: [facility] Specialists: renal, couldn't remember his name. Dr. Ramirez Preferred Pharmacy: [facility] Insurance: [employer] MCR Rx Benefit:? Yes ?LNOK: , Francesco LW/HPOA: Yes , Francesco is HCPOA Living Arrangements:? 2 story home with 2nd floor bedroom. ADL?s: Independent Transportation: self/ DME: Walker, elevated toilet seat, shower chair, grab bars. No preference for company if DME is needed HHC: None SNF: none Goal: Home DC PLAN: Home, no needs anticipated. Did discussed potential order or expensive medication and how we handle that process. Alerted patient that case management will remain available should any needs arise. Verb understanding. Yaneth Blanca RN, CCM.
[2020-12-07] MEDS: Atorvastatin Calcium 40 MG Tablet PO (21:27)
[2020-12-08] VITALS (13 sets, daily range): BP systolic 108–164; BP diastolic 46–53; PULSE 50–68; RESP 18; TEMP 36.4–36.7; O2SAT 94–99
[2020-12-08 01:31] LABS: Bacteria 0 SEEN /hpf (None Seen); Mucous, Urine 0 SEEN /hpf (<or=2+); Red Blood Cells-Urine 0 SEEN /hpf (0-5); Squamous Epithelial Cells - UA 0 SEEN /hpf (5-10); White Blood Cells 0 SEEN /hpf (0-5)
[2020-12-08 01:45] LABS: Absolute Lymphocyte Count 1.86 X10^3/uL (0.83-4.51); Absolute Neutrophil Count 12.6 X10^3/uL (2.0-7.7); Basophil# 0.02 X10^3/uL; Basophil% 0.1 % (0-1); Hematocrit 33.3 % (37-47); Hemoglobin 10.8 g/dL (12.0-15.0); Lymphocyte # 1.86 X10^3/ul (4.0); Mean Corp Hgb Conc 32.4 g/dL (32-36); Mean Corpuscular Hgb 28.9 pg (27.0-32.0); Mean Platelet Vol. 8.8 fl (6.2-12.0); Monocyte% 5.8 % (0-10); NRBC Flagged by Analyzer 0 % (0-5); Neutrophil # 12.64 X10^3/uL (2.7-7.7); Neutrophil % 81.6 % (47-70); Platelet Count 306 K/mm3 (150-450); RBC Distribution Width CV 14.6 % (11.6-14.6); RBC Distribution Width SD 48.1 fl (35.1-43.9); Red Blood Count 3.74 M/mm3 (4.2-5.4); White Blood Count 15.5 K/mm3 (4.4-11.0)
[2020-12-08 01:51] LABS: Color, Urine Yellow (Yellow); Glucose, Dipstick NEGATIVE (Normal); Ketone-Dipstick Negative (Negative); Leukocyte Esterase-Dipstick 25 /ul (Negative); Nitrite-Dipstick Negative (Negative); Occult Blood-Urine Negative /ul (Negative); Protein-Dipstick Negative (Negative); Urine Bilirubin Dipstick Negative (Negative); Urine Clarity Clear (Clear); Urine Urobilinogen Normal (Normal); Urine pH 6.5 (5.0 - 8.0)
[2020-12-08 02:07] LABS: Anion Gap 8 (5-15); BUN 41 mg/dL (7-18); BUN/Creat Ratio 23.7 RATIO (10-20); Calcium,Total 8.4 mg/dL (8.5-10.1); Chloride 111 mmol/L (98-107); Cholesterol 177 mg/dL (200); Creatinine, Serum 1.73 mg/dL (0.55-1.02); EST Glomerular Filtration Rate 30 mL/min (>60); Est Glom Filt Rate - Afr Amer 36 mL/min (>60); Estimated Creatinine Clearance 18.92 ml/min; Glucose 116 mg/dL (74-106); High Density Lipoprotein 70 mg/dL; Potassium 4.3 mmol/L (3.5-5.1); Sodium Level 141 mmol/L (136-145); Triglycerides 122 mg/dL; Very Low Density Lipoprotein 24 mg/dL (5-40)
[2020-12-08 02:09] LABS: Partial Thromboplast Time 55.9 Seconds (24.1-36.2)
[2020-12-08] MEDS: Nitroglycerin Oint 1 INCH PACKET TD ×4 (05:16→23:08)
[2020-12-08] MEDS: 0.9% Normal Saline 1,000 ML 75 ML IV ×2 (07:55→21:04)
[2020-12-08] MEDS: Aspirin E.C. 81 MG Tablet PO (07:55)
--- NOTE | 2020-12-08 08:03 | PN_ITS ---
Patient Problems: Active and Suspected Problems NSTEMI (non-ST elevated myocardial infarction) (Acute) Subjective: Chief complaint: Follow-up after admission for acute non-ST elevation UT. Patient seen and examined. No acute events overnight. Today, she has no more chest pain. No shortness of breath. No other complaints. She is on IV heparin drip. Apart from mild bradycardia, other vital signs are stable, afebrile, on room air. - Physical Exam Vitals/I&O's: Vital Signs Temp Pulse Resp BP Pulse Ox 97.8 F 51 L 18 122/53 H 98 12/08/20 03:25 12/08/20 06:34 12/08/20 03:25 12/08/20 03:25 12/08/20 03:25 Oxygen Delivery Method Room Air Weight: 173 lb 8.061 oz Body Mass Index (BMI) 32.8 Intake and Output for Last 24 Hours 12/06/20 12/07/20 12/08/20 23:59 23:59 23:59 Intake Total 1799.60 / 1799.60 997.5 / 997.5 Balance 1799.60 / 1799.60 997.5 / 997.5 General: Alert, Oriented x3, Cooperative, No apparent distress HEENT: Atraumatic, PERRLA, EOMI, Normocephalic Oral: Moist Mucosa, No Gingival or Mucosal Lesions/ Ulcerations Neck: Supple, No JVD, Negative Carotid Bruits, Trachea Midline, Thyroid Normal Size and Texture Lungs: Clear to auscultation, No rhonchi, No wheeze, No rales, Diminished Cardiovascular: Regular rate, Normal S1, Normal S2, PMI Normal, Murmur - Systolic murmur. Abdomen: Bowel Sounds Present, Soft, Non Tender, Non-Distended, No Hepato- splenomegaly Extremities: No clubbing, No cyanosis, No edema Skin: No rashes, No breakdown Lymphatic: No Cervical, Supraclavicular, or Inguinal Adenopathy Neurological: Cranial nerves II-XII grossly intact, Neuro grossly intact Psych/Mental Status: Normal Affect, Appropriate, Alert and oriented to time, place, person, mood and affect Microbiology Past 72 Hours 12/07/20 06:15 Mucosa - Nasopharyngeal SARS-CoV-2 Antigen (Rapid) - Final Laboratory Results 12/07/20 08:20: Troponin I 1.780 H* 12/07/20 08:20: APTT > 250.0 H* 12/07/20 10:52: Troponin I 3.120 H* 12/07/20 17:18: APTT 163.0 H* 12/08/20 01:25: Urine Color Yellow, Urine Clarity Clear, Urine pH 6.5, Ur Specific [place] 1.010, Urine Protein Negative, Urine Glucose (UA) NEGATIVE, Urine Ketones Negative, Urine Occult Blood Negative, Urine Nitrite Negative, Urine Bilirubin Negative, Urine Urobilinogen Normal, Ur Leukocyte Esterase 25 H, Urine RBC 0 SEEN, Urine WBC 0 SEEN, Ur Squamous Epith Cells 0 SEEN, Urine Bacteria 0 SEEN, Urine Mucus 0 SEEN 12/08/20 01:30: WBC 15.5 H, RBC 3.74 L, Hgb 10.8 L, Hct 33.3 L, MCV 89.0, MCH 28.9, MCHC 32.4, RDW Std Deviation 48.1 H, RDW Coeff of [place] 14.6, Plt Count 306, MPV 8.8, Immature Gran % (Auto) 0.500, Neut % (Auto) 81.6 H, Lymph % (Auto) 12.0 L, [place] % (Auto) 5.8, Eos % (Auto) 0.0, Baso % (Auto) 0.1, Absolute Neuts (auto) 12.6 H, Absolute Lymphs (auto) 1.86, Nucleated RBC % 0 12/08/20 01:30: Sodium 141, Potassium 4.3, Chloride 111 H, Carbon Dioxide 22.0, Anion Gap 8, BUN 41 H, Creatinine 1.73 H, Estim Creat Clear Calc 18.92, Est GFR (MDRD) Af Amer 36 L, Est GFR (MDRD) Non-Af 30 L, BUN/Creatinine Ratio 23.7 H, Glucose 116 H, Calcium 8.4 L, Troponin I 3.810 H*, Triglycerides 122, Cholesterol 177, LDL Cholesterol 83, VLDL Cholesterol 24, HDL Cholesterol 70 12/08/20 01:30: APTT 55.9 H 12/08/20 07:45: APTT Pending Current Medications Acetaminophen (Acetaminophen 325 Mg Tablet) 650 mg PO Q6H PRN PRN PRN Reason: Pain Score 1-10/Temp > 100.7 F Aspirin (Aspirin E.C. 81 Mg Tablet) 81 mg PO DAILY@0800 [facility] Last Admin: 12/08/20 07:55 Dose: 81 mg Documented by: Atorvastatin Calcium (Atorvastatin Calcium 40 Mg Tablet) 40 mg PO QHS [facility] Last Admin: 12/07/20 21:27 Dose: 40 mg Documented by: Carvedilol (Carvedilol 3.125 Mg Tablet) 3.125 mg PO BID [facility] Last Admin: 12/07/20 21:27 Dose: 3.125 mg Documented by: Heparin Sodium (Porcine) (Heparin Injection (Vial) 5,000 Unit/Ml Vial) 0 unit IV UD PRN; Protocol PRN Reason: dose adjustment Heparin Sodium/Dextrose () 25,000 units in 250 mls @ 12 mls/hr IV .[id number] [facility]; Protocol Last Titration: 12/08/20 02:40 Dose: 600 units/hr, 6 mls/hr Documented by: Sodium Chloride () 1,000 mls @ 75 mls/hr IV .[id number] [facility] Last Admin: 12/08/20 07:55 Dose: 75 mls/hr Documented by: Sodium Chloride () 250 mls @ 15 mls/hr IV .[id number] PRN PRN Reason: Saline Flush Influenza Virus Vaccine Quadrival (Influenza Vaccine (6mos+)/Pf 0.5 Ml Syringe) 0.5 ml IM .ONCE ONE Stop: 12/08/20 10:01 Melatonin (Melatonin 3 Mg Tablet) 3 mg PO QHS PRN PRN PRN Reason: INSOMNIA Nitroglycerin (Nitroglycerin Oint 1 Inch Packet) 1 inch TD Q6 [facility] Last Admin: 12/08/20 05:16 Dose: 1 inch Documented by: Ondansetron HCl (Ondansetron 4 Mg/2 Ml Vial) 4 mg IV Q8H PRN PRN PRN Reason: NAUSEA/VOMITING Senna/Docusate Sodium (Senna/Docusate Sodium 1 Tablet) 2 tablet PO BID PRN PRN PRN Reason: Constipation Sodium Chloride (0.9% Saline Lock 10 Ml Syringe) 10 - 40 ml IV UD PRN PRN Reason: SALINE FLUSH Medical Necessity - Tobacco Use Smoking Status: Never smoker Assessment/Plan All Active Problems NSTEMI (non-ST elevated myocardial infarction) (Acute) This is an 80 years old female patient presented to the emergency room because of chest pain, found to have acute non-ST elevation UT. #1 acute non-ST elevation UT: She is on IV heparin drip, aspirin, statins and Coreg. EKG without acute ischemic changes. Troponin is elevated, last troponin was 3.81. She is chest pain-free this morning. Her vitals are stable. 2D echocardiogram revealed ejection fraction of 55 to 60%, mild to moderate aortic stenosis. Cardiology on the case, plan for cardiac catheterization tomorrow morning. #2 hypertension: Blood pressure stable, continue Coreg. She was on HCTZ and Cardizem at home and both are on hold. #3 stage IIIb chronic kidney disease: Baseline creatinine has been around 1.1 to 1.5 mg/dL. Today's creatinine is 1.73, slightly up from baseline. Patient is already on IV fluids. Nephrotoxic drugs held. Plan to repeat BMP tomorrow morning. #4 hyperlipidemia: Stable, continue statins. #5 hypothyroidism: Continue levothyroxine. #6 DVT prophylaxis: She is on IV heparin drip. This note was generated with [employer] dictation software. It may contain incorrect words, spelling, and punctuation that were not noted in checking the note before signing. Inpatient E&M: 02237 Subs Hosp L2
[2020-12-08 08:21] LABS: Partial Thromboplast Time 58.7 Seconds (24.1-36.2)
[2020-12-08] MEDS: Carvedilol 3.125 MG TABLET PO ×2 (09:48→21:03)
[2020-12-08] MEDS: Donepezil HCl 5 MG Tablet PO (09:49)
--- NOTE | 2020-12-08 11:28 | PN.CARD_ITS ---
Objective: Vital Signs Temp Pulse Resp BP Pulse Ox 97.8 F 61 18 137/51 H 99 12/08/20 09:43 12/08/20 09:43 12/08/20 09:43 12/08/20 09:43 12/08/20 09:43 Oxygen Delivery Method Room Air Weight: 173 lb 8.061 oz Body Mass Index (BMI) 32.8 Intake and Output for Last 24 Hours 12/06/20 12/07/20 12/08/20 23:59 23:59 23:59 Intake Total 1799.60 / 1799.60 997.5 / 997.5 Balance 1799.60 / 1799.60 997.5 / 997.5 General: Awake, Alert, Oriented x 3 HEENT: PERRL, EOMI, Sclera Non Icteric Neck: Supple, Good ROM, No Lymph Node Enlargement Lungs: Clear to auscultation Cardiovascular: Regular Rhythm, Normal S1, Normal S2, No Murmurs, No Rubs, No Gallops Abdomen: Bowel Sounds Present, Soft, Non Tender, No HSM, No Organomegaly Extremities: No Cyanosis, No Clubbing, No edema Neurological: No Focal Motor or Sensory Deficit Psych/Mental Status: Appropriate 12/07/20 10:52: Troponin I 3.120 H* 12/07/20 17:18: APTT 163.0 H* 12/08/20 01:25: Urine Color Yellow, Urine Clarity Clear, Urine pH 6.5, Ur Specific [place] 1.010, Urine Protein Negative, Urine Glucose (UA) NEGATIVE, Urine Ketones Negative, Urine Occult Blood Negative, Urine Nitrite Negative, Urine Bilirubin Negative, Urine Urobilinogen Normal, Ur Leukocyte Esterase 25 H, Urine RBC 0 SEEN, Urine WBC 0 SEEN 12/08/20 01:30: WBC 15.5 H, RBC 3.74 L, Hgb 10.8 L, Hct 33.3 L, MCV 89.0, MCH 28.9, MCHC 32.4, Plt Count 306, MPV 8.8, Immature Gran % (Auto) 0.500, Neut % (Auto) 81.6 H, Lymph % (Auto) 12.0 L, [place] % (Auto) 5.8, Eos % (Auto) 0.0, Baso % (Auto) 0.1, Absolute Neuts (auto) 12.6 H, Nucleated RBC % 0 12/08/20 01:30: Sodium 141, Potassium 4.3, Chloride 111 H, Carbon Dioxide 22.0, Anion Gap 8, BUN 41 H, Creatinine 1.73 H, Est GFR (MDRD) Af Amer 36 L, Est GFR (MDRD) Non-Af 30 L, BUN/Creatinine Ratio 23.7 H, Glucose 116 H, Calcium 8.4 L, Troponin I 3.810 H*, Triglycerides 122, Cholesterol 177, LDL Cholesterol 83, VLDL Cholesterol 24, HDL Cholesterol 70 12/08/20 01:30: APTT 55.9 H 12/08/20 07:45: APTT 58.7 H Rhythm: EKG: ECHO: Stress Test: Cardiac Cath: PCI: CT Surgery: Holter monitor: EPS: PPM: CXR: Chest CT Scan: Medical Necessity - Tobacco Use Smoking Status: Never smoker Assessment/Plan 80-year-old patient seen and evaluated today at bedside along with the nursing staff Patient presented with symptoms of chest pain And a clinical diagnosis of CAD with non-ST elevation myocardial infarction On the echocardiogram her LV function is preserved She has mild to moderate aortic valve stenosis with aortic valve area of 1.2 Today she denied any symptoms of chest pain Assessment and plan;. 1. I discussed current medication in detail Continue current treatment Patient is scheduled to undergo further evaluation by left heart catheterization. Risk and benefit of the procedure explained in detail to the patient and she is scheduled in the morning.
[2020-12-08] MEDS: HEPARIN/D5w 25,000 UNITS 25,000 UNITS/250 ML IV.SOLN. 6 UNITS IV (18:02)
[2020-12-08] MEDS: Atorvastatin Calcium 40 MG Tablet PO (21:03)
[2020-12-08] MEDS: 0.9% Saline Lock 10 ML Syringe IV (23:07)
[2020-12-09] VITALS (21 sets, daily range): BP systolic 125–179; BP diastolic 50–64; PULSE 54–76; RESP 14–20; TEMP 36.4–37.2; O2SAT 94–98
--- NOTE | 2020-12-09 05:00 | EKG12_ITS ---
Test Reason : AM EKG Blood Pressure : / mmHG Vent. Rate : 059 BPM Atrial Rate : 059 BPM P-R Int : 156 ms QRS Dur : 074 ms QT Int : 370 ms P-R-T Axes : 075 010 022 degrees QTc Int : 366 ms Sinus bradycardia Septal infarct , age undetermined Abnormal ECG When compared with ECG of 07-DEC-2020 07:14, MANUAL COMPARISON REQUIRED, DATA IS UNCONFIRMED Confirmed by MAICOL RENTERIA, CARROL ([id number]), acquisitions editor IZABEL MICHEL ([id number]) on 12/10/2020 9:09:03 AM Referred By: BRIDGETT Confirmed By:CARROL MILIAN MD
[2020-12-09] MEDS: Nitroglycerin Oint 1 INCH PACKET TD ×2 (06:04→11:17)
[2020-12-09] MEDS: Aspirin E.C. 81 MG Tablet PO (06:04)
[2020-12-09] MEDS: Levothyroxine 75 MCG Tablet 37.5 MCG PO (06:04)
[2020-12-09] MEDS: Carvedilol 3.125 MG TABLET PO ×2 (06:04→21:11)
[2020-12-09 06:47] LABS: Absolute Neutrophil Count 8.5 X10^3/uL (2.0-7.7); Basophil# 0.03 X10^3/uL; Basophil% 0.2 % (0-1); Eosinophil# 0.14 X10^3/uL; Eosinophils% 1.1 % (0-5); Hematocrit 34.5 % (37-47); Hemoglobin 10.8 g/dL (12.0-15.0); Lymphocyte % 19.3 % (19-41); Mean Corp Hgb Conc 31.3 g/dL (32-36); Mean Corpuscular Hgb 28.1 pg (27.0-32.0); Mean Corpuscular Volume 89.6 fL (81-99); Monocyte# 1.29 X10^3/uL; Monocyte% 10.4 % (0-10); NRBC Flagged by Analyzer 0 % (0-5); Neutrophil % 68.5 % (47-70); Platelet Count 293 K/mm3 (150-450); RBC Distribution Width CV 14.7 % (11.6-14.6); Red Blood Count 3.85 M/mm3 (4.2-5.4); White Blood Count 12.4 K/mm3 (4.4-11.0)
[2020-12-09 06:56] LABS: Partial Thromboplast Time 47.3 Seconds (24.1-36.2)
[2020-12-09 07:10] LABS: Anion Gap 7 (5-15); BUN 33 mg/dL (7-18); BUN/Creat Ratio 26.8 RATIO (10-20); Calcium,Total 8.2 mg/dL (8.5-10.1); Chloride 113 mmol/L (98-107); Creatinine, Serum 1.23 mg/dL (0.55-1.02); EST Glomerular Filtration Rate 44 mL/min (>60); Est Glom Filt Rate - Afr Amer 54 mL/min (>60); Estimated Creatinine Clearance 26.61 ml/min; Glucose 92 mg/dL (74-106); Potassium 4.6 mmol/L (3.5-5.1); Sodium Level 142 mmol/L (136-145)
[2020-12-09] MEDS: Heparin Injection (Vial) 5,000 UNIT/ML VIAL IV (07:24)
[2020-12-09] MEDS: Acetaminophen 325 MG Tablet 650 MG PO (07:25)
--- NOTE | 2020-12-09 08:16 | PN.CARD_ITS ---
Subjectve: Patient seen and evaluated. Underwent cardiac catheterization today. Objective: Vital Signs Temp Pulse Resp BP Pulse Ox 97.8 F 74 18 152/61 H 95 12/09/20 06:00 12/09/20 07:29 12/09/20 06:00 12/09/20 06:04 12/09/20 07:00 Oxygen Delivery Method Room Air Weight: 173 lb 8.061 oz Body Mass Index (BMI) 32.8 Intake and Output for Last 24 Hours 12/07/20 12/08/20 12/09/20 23:59 23:59 23:59 Intake Total 1799.60 / 1799.60 2875.95 / 2995.95 261.48 / 261.48 Balance 1799.60 / 1799.60 2875.95 / 2995.95 261.48 / 261.48 General: Awake, Alert, Oriented x 3 HEENT: PERRL, EOMI, Sclera Non Icteric Neck: Supple, Good ROM, No Lymph Node Enlargement Lungs: Clear to auscultation Cardiovascular: Regular Rhythm, Normal S1, Normal S2, No Murmurs, No Rubs, No Gallops Vascular: No Carotid Bruits, Normal Femoral Pulses, Normal Radial Pulses, Normal Dorsalis Pedal Pulse, Normal Posterior Tibial Pulses Abdomen: Bowel Sounds Present, Soft, Non Tender, No HSM, No Organomegaly Extremities: No Cyanosis, No Clubbing, No edema Neurological: No Focal Motor or Sensory Deficit 12/08/20 07:45: APTT 58.7 H 12/09/20 05:40: WBC 12.4 H, RBC 3.85 L, Hgb 10.8 L, Hct 34.5 L, MCV 89.6, MCH 28.1, MCHC 31.3 L, Plt Count 293, MPV 9.0, Immature Gran % (Auto) 0.500, Neut % (Auto) 68.5, Lymph % (Auto) 19.3, [place] % (Auto) 10.4 H, Eos % (Auto) 1.1, Baso % (Auto) 0.2, Absolute Neuts (auto) 8.5 H, Nucleated RBC % 0 12/09/20 05:40: Sodium 142, Potassium 4.6, Chloride 113 H, Carbon Dioxide 22.0, Anion Gap 7, BUN 33 H, Creatinine 1.23 H, Est GFR (MDRD) Af Amer 54 L, Est GFR (MDRD) Non-Af 44 L, BUN/Creatinine Ratio 26.8 H, Glucose 92, Calcium 8.2 L 12/09/20 05:40: PT 13.0, INR 1.0, APTT 47.3 H Rhythm: EKG: ECHO: Stress Test: Cardiac Cath: PCI: CT Surgery: Holter monitor: EPS: PPM: CXR: Chest CT Scan: Medical Necessity - Tobacco Use Smoking Status: Never smoker Assessment/Plan 1. Abnormal cardiac enzymes non-ST elevation myocardial infarction * Patient underwent cardiac catheterization which demonstrated the following. * Normal left main coronary artery * Left anterior descending artery with moderate calcification and mild obstructive coronary disease * Left circumflex artery with no high-grade stenosis * Dominant right coronary artery with mid 95% stenosis and distal 80% stenosis and 70% stenosis of the ostium of the posterior descending artery * Preserved ejection fraction estimated at 75% * Will consider PCI to the right coronary artery * 2. Hypertension * We will continue with aggressive blood pressure reduction * 3. Hyperlipidemia * Continue aggressive risk factor modification * * Thank you for allowing me to participate in the care of your patient. Please don't hesitate to call if any issues arise.
--- NOTE | 2020-12-09 08:23 | CL.D_ITS ---
Patient Name: STORM MENCHACA Study Date: 12/09/2020 Performing: Torres Urbano MD Ht: 61.02 inches 155 cm : 1940 Wt: 174.17 lbs 79 kg Age: 80 Gender: female BSA: 1.78 PROCEDURE(S) PERFORMED [id number]/LV CLINICAL PROFILE AND INDICATIONS Indications: ACS <= 24 hrs Heart Failure: None Stress/Imaging Stress/Image Study Performed: No CONCLUSIONS Significant single-vessel disease involving the right coronary artery with a high-grade mid 90 to 95% stenosis in the distal 80% stenosis involving the main distal RCA as well as the ostium of the poste rior descending artery. Preserved ejection fraction. RECOMMENDATIONS Referred for immediate PCI DESCRIPTION OF PROCEDURE The patient arrived to the procedure lab. The risks and benefits of the procedure as well as a full d escription of our services here and current unavailability of surgical backup were fully explained to the patient and/or their significant other prior to the catheterization. The Timeout was completed, verifying the correct patient and procedure. The patient's procedural site was prepped and draped in the usual fashion. Local anesthetic was given subcutaneously to right radial region with Lidocaine 2% . Using a modified Seldinger technique, arterial access was obtained via the right radial artery, a 6 Fr sheath was inserted. Left Coronary Artery selective angiography was performed in multiple views u sing a 5 Fr. 4.0 [place] catheter. Right Coronary Artery selective angiography was then performed in mu ltiple views using a 5 Fr. 4.0 [place] catheter. Left Ventriculography was performed in PEÑA projection using a 5 Fr. Pigtail catheter. LV to AO pullback pressures were then recorded. CORONARY ANGIOGRAPHY DOMINANCE: Right Dominant LEFT HEART ASSESSMENT Left Ventricular Ejection Fraction: by LV Gram 75 % Normal LV wall motion Normal Left Ventricular systolic function LEFT MAIN: Mild calcification, Angiographically normal LEFT ANTERIOR DESCENDING ARTERY: Moderate calcification MID LAD: Mild luminal irregularities less than 30% CIRCUMFLEX ARTERY: Mild calcification, Mild luminal irregularities RIGHT CORONARY ARTERY: MID RCA: 95 % Stenosis DISTAL RCA: 80 % Stenosis RT PDA: Ostial - 70 % Stenosis COMPLICATIONS PROCEDURE MEDICATIONS Versed 1 mg IV Fentanyl 50 mcg IV Versed 1 mg IV Oxygen: 2 L/min via nasal cannula Heparin diluted in 23cc Heparinized saline. Patient given 10cc IA of this solution. 12/09/2020 08:00: 59 Heparin 4000 unit(s) IV 12/09/2020 08:18:34 Verapamil 2.5mg, Ntg 100mcgs, 2000 units of Heparin diluted in 23cc Heparinized saline. Patient give n 10cc IA of this solution. 12/09/2020 08:00:59 SUMMARY OF HEMODYNAMIC DATA Time AIR REST ECG 07:51:23 AO 137/55 (83) SA 08:05:46 LV 173/8, 18 08:11:00 LV 169/8, 21 08:11:06 LV 163/11, 22 08:11:36 LVp 149/21, 33 08:11:43 AOp 164/61 (99) 08:11:48 Signed By Torres Urbano MD On 12/09/2020 08:22:55 Torres Urbano MD
[2020-12-09] MEDS: 0.9% Normal Saline 1,000 ML 80 ML IV (09:20)
--- NOTE | 2020-12-09 10:03 | EKG12_ITS ---
Test Reason : ADMISSION Blood Pressure : / mmHG Vent. Rate : 059 BPM Atrial Rate : 059 BPM P-R Int : 160 ms QRS Dur : 080 ms QT Int : 386 ms P-R-T Axes : 067 002 -01 degrees QTc Int : 382 ms Sinus bradycardia Nonspecific ST abnormality Abnormal ECG When compared with ECG of 07-DEC-2020 04:57, MANUAL COMPARISON REQUIRED, DATA IS UNCONFIRMED Confirmed by MAICOL RENTERIA, CARROL ([id number]), manager editorial IZABEL MICHEL ([id number]) on 12/10/2020 9:10:51 AM Referred By: SKY Confirmed By:CARROL MILIAN MD
--- NOTE | 2020-12-09 10:08 | CL.I_ITS ---
Patient Name: STORM MENCHACA Study Date: 12/09/2020 Performing: Kacy Delgado MD Ht: 61 inches 155 cm : 1940 Wt: 174.4 lbs 79 kg Age: 80 Gender: female BSA: 1.78 PROCEDURE(S) PERFORMED [id number] W OR WO PTCA, SINGLE CORONARY ARTERY [id number] W OR WO PTCA, EACH ADD'L ARTERY, SAME MAJOR CLINICAL PROFILE AND CO-MORBIDITIES Indications: ACS <= 24 hrs Heart Failure: None Stress/Imaging Stress/Image Study Performed: No CONCLUSIONS Successful SARA to mid RCA, distal RCA and ostial RPDA RECOMMENDATIONS ASA Indefinitley Brilinta for at least 12 months DESCRIPTION OF PROCEDURE The patient arrived to the procedure lab. The risks and benefits of the procedure as well as a full d escription of our services here and current unavailability of surgical backup were fully explained to the patient and/or their significant other prior to the catheterization. The Timeout was completed, verifying the correct patient and procedure. The patient's procedural site was prepped and draped in the usual fashion. Local anesthetic was given subcutaneously to right radial region with Lidocaine 2% Using a modified Seldinger technique,arterial access was obtained via the right radial artery, a 6Fr sheath was inserted. Left Coronary Artery selective angiography was performed in multiple views usin g a 5 Fr. 4.0 [place] catheter. Right Coronary Artery selective angiography was then performed in multi ple views using a 5 Fr. 4.0 [place] catheter. Left Ventriculography was performed in PEÑA projection usi ng a 5 Fr. Pigtail catheter. LV to AO pullback pressures were then recorded.The images were reviewed and options discussed. A decision was then made to proceed with an Intervention, IVUS o r other adjunct procedure. AR 1.0 Guide catheter was inserted and engaged into the RCA. BMW Guide wire was advanced to the R CA. 2 x 12 Emerge Balloon catheter was advanced across lesion in the right coronary, mid. Angiogram p erformed pre balloon dilatation. PTCA balloon inflated at 10 atms for 14 secs. Balloon catheter was r epositioned to additional lesion in the right coronary, distal. PTCA balloon inflated at 8 atms for 3 0 secs. PTCA balloon inflated at 10 atms for 15 secs. 2.25 x 8 Synergy Drug Eluting stent was inserte d. Drug Eluting stent was advanced across the lesion in the posterior descending, ostial. Angiogram p erformed pre stent deployment. Angiogram performed post stent deployment. Balloon catheter was reposi tioned to additional lesion in the right coronary, distal. Angiogram performed post balloon dilatatio n. 2.75 x 16 Synergy Drug Eluting stent was inserted. Drug Eluting stent was advanced across the lesi on in the right coronary, mid. Angiogram performed pre stent deployment. Angiogram performed post stent deployment. 2.5 x 12 Synergy Drug Eluting stent was inserted. Drug Eluting stent was advanced across the lesion in the right coronary, distal. Angiogram performed post stent deploym ent. 3.0 x 38 Synergy Drug Eluting stent was inserted. Drug Eluting stent was advanced across the les ion in the right coronary, mid. Angiogram performed post stent deployment. 3.0 x 30 NC Emerge Balloon catheter was inserted post stent. Angiogram performed post balloon dilatation. The arterial sheath was pulled and a TR Band was applied for hemostasis INTERVENTION INFORMATION LESION SITE: RCA (Mid) Lesion Complexity: High/C, chronic total occlusion: No, lesion at bifurcation: No, thrombus present: No, lesion length: 15 mm, culprit lesion: Yes, Previously treated lesion: No Pre Stenosis: 95 % Pre intervention GENARO flow: 3 PROCEDURE: Drug Eluting Stent with pre and post dilatation Post Stenosis: 0 % Post intervention GENARO flow: 3 Lesion Devices: [place] .014 BMW [place] Straight 190cm Cardinal 6 Fr AR1 100cm Guide Catheter [employer] Solutions 6 Kenyan GuideLiner Kevin Sci EMERGE MR 2.00x12 BALLOON Kevin Sci Synergy MR SARA 2.75x16 Kevin Sci Synergy MR SARA 3.00x38 Kevin Sci NC EMERGE MR 3.00x30 BALLOON LESION SITE: RCA (Distal) Lesion Complexity: High/C, chronic total occlusion: No, lesion at bifurcation: No, thrombus present: No, lesion length: 7 mm, culprit lesion: Yes, Previously treated lesion: No Pre Stenosis: 80 % Pre intervention GENARO flow: 3 PROCEDURE: Drug Eluting Stent with pre dilatation. Post Stenosis: 0 % Post intervention GENARO flow: 3 Lesion Devices: [place] .014 BMW [place] Straight 190cm Cardinal 6 Fr AR1 100cm Guide Catheter [employer] 6 Kenyan GuideLiner Kevin Sci EMERGE MR 2.00x12 BALLOON Kevin Sci Synergy MR SARA 2.50x12 LESION SITE: RT PDA (Ostial) Lesion Complexity: High/C, chronic total occlusion: No, lesion at bifurcation: Yes, thrombus present: No, lesion length: 7 mm, culprit lesion: Yes, Previously treated lesion: No Pre Stenosis: 90 % Pre intervention GENARO flow: 3 PROCEDURE: Drug Eluting Stent with pre dilatation. 0 % Post intervention GENARO flow: 3 Lesion Devices: [place] .014 BMW [place] Straight 190cm Cardinal 6 Fr AR1 100cm Guide Catheter [employer] 6 [place]yan GuideLiner Kevin Sci EMERGE MR 2.00x12 BALLOON Kevin Sci Synergy MR SARA 2.25x08 COMPLICATIONS No Complications PROCEDURE MEDICATIONS Versed 1 mg IV Fentanyl 50 mcg IV Versed 1 mg IV Oxygen: 2 L/min via nasal cannula Brilinta 180 mg PO @ 12/09/2020 09:14:20 Heparin diluted in 23cc Heparinized saline. Patient given 10cc IA of this solution. 12/09/2020 08:00: 59 Heparin 4000 unit(s) IV 12/09/2020 08:18:34 Verapamil 2.5mg, Ntg 100mcgs, 2000 units of Heparin diluted in 23cc Heparinized saline. Patient give n 10cc IA of this solution. 12/09/2020 08:00:59 SUMMARY OF HEMODYNAMIC DATA Time AIR REST ECG 07:51:23 AO 137/55 (83) SA 08:05:46 LV 173/8, 18 08:11:00 LV 169/8, 21 08:11:06 LV 163/11, 22 08:11:36 LVp 149/21, 33 08:11:43 AOp 164/61 (99) 08:11:48 Signed By Kacy Delgado MD On 12/09/2020 10:07:23 Kacy Delgado MD
[2020-12-09 10:12] LABS: Hemoglobin 10.7 g/dL (12.0-15.0); Mean Corp Hgb Conc 31.5 g/dL (32-36); Mean Corpuscular Hgb 28.1 pg (27.0-32.0); Mean Corpuscular Volume 89.2 fL (81-99); Mean Platelet Vol. 8.7 fl (6.2-12.0); Platelet Count 285 K/mm3 (150-450); RBC Distribution Width CV 14.8 % (11.6-14.6); RBC Distribution Width SD 48.2 fl (35.1-43.9); Red Blood Count 3.81 M/mm3 (4.2-5.4); White Blood Count 12.5 K/mm3 (4.4-11.0)
[2020-12-09] MEDS: Donepezil HCl 5 MG Tablet PO (10:44)
--- NOTE | 2020-12-09 10:51 | CASEMGMT ---
RN CM Note: [facility] Tertiary care facilities if transfer is recommended. [facility], [facility], [facility], [facility], [facility], [place], [facility]
[2020-12-09 13:43] LABS: Partial Thromboplast Time 34.7 Seconds (24.1-36.2)
--- NOTE | 2020-12-09 13:46 | CRPHASE1_ITS ---
Patient Communication PHII Cardiac Rehab Discussed with Patient:: Yes Cardiac Rehab Facility Choice List Given to Patient:: Yes Choice Program [facility] CR PHII:: Communication Given to CR, Refer to [facility] Personal Care Assistant:: Ted Delgado Cardiac Rehabilitation Info Cardiac Rehabilitation Program Information: Cardiac Rehabilitation is important for patients like you who are recovering from a heart problem. Cardiac rehabilitation programs are recognized as integral to the continued care of the patient with coronary heart disease. The cardiac rehabilitation program is designed to optimize a patient's physical, psychological, and social functioning. Health career advisor work in cardiac rehabilitation programs and assist you with getting the treatments you need to get stronger and healthier - like exercise, healthy eating habits, and medications. Cardiac rehabilitation has been show to help people with heart problems live longer and have better life enjoyment than people who do not go to cardiac rehabilitation. Please contact the Cardiac Rehabilitation Program at [facility] at in two weeks if you have not heard from them.
--- NOTE | 2020-12-09 13:46 | CRPHASE1_ITS ---
Patient Communication PHII Cardiac Rehab Discussed with Patient:: Yes Guide to Cardiac Rehab Given to Patient:: Yes Cardiac Rehab Facility Choice List Given to Patient:: Yes Choice Program [facility] PHII:: Communication Given to CR, Refer to [facility] Title Examiner:: Ted Delgado - Intervention doctor Refer Phase II Cardiac Rehab:: Yes Sessions:: 36 sessions - 3 days/wk, 12 weeks Cardiac Rehabilitation Info Cardiac Rehabilitation Program Information: Cardiac Rehabilitation is important for patients like you who are recovering from a heart problem. Cardiac rehabilitation programs are recognized as integral to the continued care of the patient with coronary heart disease. The cardiac rehabilitation program is designed to optimize a patient's physical, psychological, and social functioning. Health manager long term care work in cardiac rehabilitation programs and assist you with getting the treatments you need to get stronger and healthier - like exercise, healthy eating habits, and medications. Cardiac rehabilitation has been show to help people with heart problems live longer and have better life enjoyment than people who do not go to cardiac rehabilitation. Please contact the Cardiac Rehabilitation Program at [facility] at in two weeks if you have not heard from them.
--- NOTE | 2020-12-09 13:48 | CRPH1.INSTRU ---
General Education CAD and cardiac anatomy and function:: Patient communicates acknowledgment Explanation of diagnoses and procedures:: Patient communicates acknowledgment Sign/Symptoms of SC:: Patient communicates acknowledgment Antiplatelet therapy: Patient communicates acknowledgment Proper use of NTG-SL: Patient communicates acknowledgment Emergency procedures and activation of EMS: Patient communicates acknowledgment Compliance of all prescribed medications: Patient communicates acknowledgment Dyslipidemia Patient Dyslipidemia Risk Factors Are:: Total Cholesterol - 177, Triglycerides - 122, HDL - 70, LDL - 83 Recommendations Include:: Lipid profile provided, Reviewed NCEP/ATP guidelines, Therapeutic Lifestyle Change dietary guidelines Dyslipidemia Response Code:: Patient communicates acknowledgment Overweight/Obesity Patient Overweight/Obesity Risk Factors Are:: Obesity - > or = 30 Recommendations Include:: Weight loss of 5-10%, Reduced calorie diet, Exercise 5-7 times/week Overweight/Obesity:: Patient communicates acknowledgment Hypertension Recommendations Include:: Maintain BP <130/85, DASH dietary guidelines, Decrease/maintain normal body weight, Moderation of ETOH Hypertension:: Patient communicates acknowledgment Heart Disease Patient Heart Disease Risk Factors Are:: Family history of heart disease < 65 years old Recommendations Include:: Educated family members of their risk, Educated family members of importance of prevention of heart disease Heart Disease Response Code:: Patient communicates acknowledgment Sedentary Recommendations Include:: Aerobic exercise 5-7 times/week for 20-30 minutes continuously, Benefits of regular exercise, Discussed home walking program, Monitored Outpatient Cardiac Rehab Sedentary Response Code:: Patient communicates acknowledgment
--- NOTE | 2020-12-09 14:18 | CASEMGMT ---
Pt had informed RN upon admission that Francesco is medical POA. Forms not on file, pt had indicated at time of admission would bring in the forms. ARABELLA Dominguez
--- NOTE | 2020-12-09 14:18 | CASEMGMT ---
SARKIS CM Note: reviewed Brilinta on dc and savings card given to patient and explained. 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 Discussed importance of compliant medication regimine with this medication. Judith SHARMA RN ACM
[2020-12-09] MEDS: 0.9% Normal Saline 1,000 ML 75 ML IV (15:17)
--- NOTE | 2020-12-09 18:03 | PN_ITS ---
Patient Problems: Active and Suspected Problems (Last Updated 12/09/20 @ 09:15 by Teresita Rust) NSTEMI (non-ST elevated myocardial infarction) (Acute 12/07/20) Subjective: Patient was seen and examined today, she underwent cardiac catheterization with insertion of stents in the right coronary artery today, it appears that a total of 3 stents were placed-1 in the med RCA, 1 in the distal RCA, and 1 in the ostial right posterior descending artery. Patient denies any chest discomfort at this time or any shortness of breath. Patient's is in the room at the time of my examination. - Physical Exam Vitals/I&O's: Vital Signs Temp Pulse Resp BP Pulse Ox 98 F 62 14 156/59 H 97 12/09/20 11:29 12/09/20 15:46 12/09/20 11:47 12/09/20 11:47 12/09/20 11:47 Oxygen Delivery Method Room Air Weight: 78.7 kg Body Mass Index (BMI) 32.8 Intake and Output for Last 24 Hours 12/07/20 12/08/20 12/09/20 23:59 23:59 23:59 Intake Total 1799.60 / 1799.60 2875.95 / 2995.95 2223.25 / 2223.25 Balance 1799.60 / 1799.60 2875.95 / 2995.95 2223.25 / 2223.25 General: Alert, Oriented x3, Cooperative, No apparent distress, Well developed, Well nourished HEENT: Atraumatic, PERRLA, EOMI, Normocephalic Oral: Moist Mucosa Neck: Supple, No JVD, No Nuchal Rigidity, Trachea Midline, Thyroid Normal Size and Texture Lungs: Clear to auscultation, Normal air movement, No rhonchi, No wheeze, No rales Cardiovascular: Regular rate, Regular Rhythm, Normal S1, Normal S2, No murmurs Abdomen: Bowel Sounds Present, Soft, Non Tender, Non-Distended Extremities: No clubbing, No cyanosis, No edema, Capillary Refill Less than 3 Seconds Skin: No rashes, No breakdown Musculoskeletal: No Tenderness to Palpation of Joints or Extremities Neurological: Cranial nerves II-XII grossly intact, Neuro grossly intact, Sensory exam intact to light touch and pain Psych/Mental Status: Normal Affect, Appropriate, Alert and oriented to time, place, person, mood and affect Microbiology Past 72 Hours 12/07/20 06:15 Mucosa - Nasopharyngeal SARS-CoV-2 Antigen (Rapid) - Final Laboratory Results 12/09/20 05:40: WBC 12.4 H, RBC 3.85 L, Hgb 10.8 L, Hct 34.5 L, MCV 89.6, MCH 28.1, MCHC 31.3 L, RDW Std Deviation 48.0 H, RDW Coeff of Troy 14.7 H, Plt Count 293, MPV 9.0, Immature Gran % (Auto) 0.500, Neut % (Auto) 68.5, Lymph % (Auto) 19.3, [place] % (Auto) 10.4 H, Eos % (Auto) 1.1, Baso % (Auto) 0.2, Absolute Neuts (auto) 8.5 H, Absolute Lymphs (auto) 2.40, Nucleated RBC % 0 12/09/20 05:40: Sodium 142, Potassium 4.6, Chloride 113 H, Carbon Dioxide 22.0, Anion Gap 7, BUN 33 H, Creatinine 1.23 H, Estim Creat Clear Calc 26.61, Est GFR (MDRD) Af Amer 54 L, Est GFR (MDRD) Non-Af 44 L, BUN/Creatinine Ratio 26.8 H, Glucose 92, Calcium 8.2 L 12/09/20 05:40: PT 13.0, INR 1.0, APTT 47.3 H 12/09/20 10:04: WBC 12.5 H, RBC 3.81 L, Hgb 10.7 L, Hct 34.0 L, MCV 89.2, MCH 28.1, MCHC 31.5 L, RDW Std Deviation 48.2 H, RDW Coeff of [place] 14.8 H, Plt Count 285, MPV 8.7 12/09/20 13:25: APTT 34.7 Current Medications Acetaminophen (Acetaminophen 325 Mg Tablet) 650 mg PO Q6H PRN PRN PRN Reason: Pain Score 1-10/Temp > 100.7 F Last Admin: 12/09/20 07:25 Dose: 650 mg Documented by: Aspirin (Aspirin E.C. 81 Mg Tablet) 81 mg PO DAILY@0800 RAVIN Last Admin: 12/09/20 06:04 Dose: 81 mg Documented by: Atorvastatin Calcium (Atorvastatin Calcium 40 Mg Tablet) 40 mg PO QHS [facility] Last Admin: 12/08/20 21:03 Dose: 40 mg Documented by: Atropine Sulfate (Atropine Sulfate 1 Mg/10 Ml Syringe) 0.5 mg IV UD PRN PRN Reason: HR <50 bpm Carvedilol (Carvedilol 3.125 Mg Tablet) 3.125 mg PO BID [facility] Last Admin: 12/09/20 06:04 Dose: 3.125 mg Documented by: Donepezil HCl (Donepezil Hcl 5 Mg Tablet) 5 mg PO DAILY [facility] Last Admin: 12/09/20 10:44 Dose: 5 mg Documented by: Heparin Sodium (Beef Lung) (Heparin Lock 500 Unit/5 Ml In 10 Ml Syringe) 500 unit IV UD PRN PRN Reason: HEPARIN FLUSH Sodium Chloride () 1,000 mls @ 75 mls/hr IV .[id number] [facility] Last Admin: 12/09/20 15:17 Dose: 75 mls/hr Documented by: Sodium Chloride () 250 mls @ 15 mls/hr IV .[id number] PRN PRN Reason: Saline Flush Sodium Chloride () 1,000 mls @ 0 mls/hr IV .Q0M [facility] Labetalol HCl (Labetalol (Prefilled) 20 Mg/4 Ml) 5 mg IV X1 PRN PRN Reason: SBP >160 when pulling sheath Stop: 12/11/20 09:42 Levothyroxine Sodium (Levothyroxine 75 Mcg Tablet) 37.5 mcg PO DAILY@0600 [facility] Last Admin: 12/09/20 06:04 Dose: 37.5 mcg Documented by: Melatonin (Melatonin 3 Mg Tablet) 3 mg PO QHS PRN PRN PRN Reason: INSOMNIA Nitroglycerin (Nitroglycerin Oint 1 Inch Packet) 1 inch TD Q6 [facility] Last Admin: 12/09/20 11:17 Dose: 1 inch Documented by: Ondansetron HCl (Ondansetron 4 Mg/2 Ml Vial) 4 mg IV Q8H PRN PRN PRN Reason: NAUSEA/VOMITING Senna/Docusate Sodium (Senna/Docusate Sodium 1 Tablet) 2 tablet PO BID PRN PRN PRN Reason: Constipation Sodium Chloride (0.9% Saline Lock 10 Ml Syringe) 10 - 40 ml IV UD PRN PRN Reason: SALINE FLUSH Last Admin: 12/08/20 23:07 Dose: 10 ml Documented by: Sodium Chloride (0.9% Normal Saline 500 Ml Iv.Soln.) 500 ml IV BOLUS PRN PRN Reason: VASO-VAGAL PROTOCOL Ticagrelor (Ticagrelor 90 Mg Tablet) 90 mg PO BID RAVIN Medical Necessity - Tobacco Use Smoking Status: Never smoker Assessment/Plan All Active Problems (Last Updated 12/09/20 @ 09:15 by Teresita Rust) History of coronary artery stent placement (Acute 12/09/20) NSTEMI (non-ST elevated myocardial infarction) (Acute 12/07/20) #1 non-STEMI #2 obstructive coronary artery disease with SARA placement in the right coronary artery in 3 different areas-patient will need to remain on aspirin and Brilinta as well as a statin #3 chronic kidney disease stage IIIb #4 hypothyroidism #5 essential hypertension #6 hyperlipidemia Inpatient E&M: 48183 Subs Hosp L2
[2020-12-09] MEDS: Isosorbide Mononitrate 60 MG Tablet PO (18:56)
[2020-12-09] MEDS: TICAGRELOR 90 MG TABLET PO (21:11)
[2020-12-09] MEDS: Atorvastatin Calcium 40 MG Tablet PO (21:11)
[2020-12-10 03:00] VITALS: PULSE 58
[2020-12-10 03:05] VITALS: BP 129/46; PULSE 64; RESP 16; TEMP 36.7; O2SAT 97
[2020-12-10] MEDS: 0.9% Normal Saline 1,000 ML 75 ML IV (04:59)
[2020-12-10 05:29] LABS: Hematocrit 30.8 % (37-47); Hemoglobin 9.8 g/dL (12.0-15.0); Mean Corp Hgb Conc 31.8 g/dL (32-36); Mean Corpuscular Hgb 28.7 pg (27.0-32.0); Mean Corpuscular Volume 90.1 fL (81-99); Platelet Count 265 K/mm3 (150-450); RBC Distribution Width SD 49.1 fl (35.1-43.9); Red Blood Count 3.42 M/mm3 (4.2-5.4); White Blood Count 11.6 K/mm3 (4.4-11.0)
[2020-12-10 05:45] LABS: AST(SGOT) 17 U/L (15-37); Alanine Aminotransfer ALT/SGPT 22 U/L (13-56); Albumin, Serum 2.7 g/dL (3.2-5.0); Alkaline Phosphatase 60 U/L (45-117); Anion Gap 7 (5-15); BUN 26 mg/dL (7-18); BUN/Creat Ratio 21.3 RATIO (10-20); Calcium,Total 8.3 mg/dL (8.5-10.1); Chloride 112 mmol/L (98-107); Creatinine, Serum 1.22 mg/dL (0.55-1.02); EST Glomerular Filtration Rate 45 mL/min (>60); Est Glom Filt Rate - Afr Amer 54 mL/min (>60); Estimated Creatinine Clearance 26.83 ml/min; Globulin 2.7 g/dL (2.2-4.2); Glucose 87 mg/dL (74-106); Potassium 4.6 mmol/L (3.5-5.1); Protein, Total 5.4 g/dL (6.4-8.2); Sodium Level 142 mmol/L (136-145)
[2020-12-10] MEDS: Levothyroxine 75 MCG Tablet 37.5 MCG PO (06:09)
[2020-12-10 07:03] VITALS: O2SAT 95
[2020-12-10 07:14] VITALS: PULSE 59
--- NOTE | 2020-12-10 07:47 | PN.CARD_ITS ---
Subjectve: Patient seen and evaluated. Appears to be doing well. No chest pain overnight. Objective: Vital Signs Temp Pulse Resp BP Pulse Ox 98.0 F 59 L 16 129/46 H 95 12/10/20 03:05 12/10/20 07:14 12/10/20 03:05 12/10/20 03:05 12/10/20 07:03 Oxygen Delivery Method Room Air Weight: 173 lb 8.061 oz Body Mass Index (BMI) 32.8 Intake and Output for Last 24 Hours 12/08/20 12/09/20 12/10/20 23:59 23:59 23:59 Intake Total 2875.95 / 2995.95 3545.75 / 3545.75 397.5 / 397.5 Balance 2875.95 / 2995.95 3545.75 / 3545.75 397.5 / 397.5 General: Awake, Alert, Oriented x 3 HEENT: PERRL, EOMI, Sclera Non Icteric Neck: Supple, Good ROM, No Lymph Node Enlargement Lungs: Clear to auscultation Cardiovascular: Regular Rhythm, Normal S1, Normal S2, No Murmurs, No Rubs, No Gallops Vascular: No Carotid Bruits, Normal Femoral Pulses, Normal Radial Pulses, Normal Dorsalis Pedal Pulse, Normal Posterior Tibial Pulses Abdomen: Bowel Sounds Present, Soft, Non Tender, No HSM, No Organomegaly Extremities: No Cyanosis, No Clubbing, No edema Musculoskeletal: No Erythema Skin: No Rashes Lymphatic: No Lymph Node Enlargement Neurological: No Focal Motor or Sensory Deficit Psych/Mental Status: Appropriate 12/09/20 10:04: WBC 12.5 H, RBC 3.81 L, Hgb 10.7 L, Hct 34.0 L, MCV 89.2, MCH 28.1, MCHC 31.5 L, Plt Count 285, MPV 8.7 12/09/20 13:25: APTT 34.7 12/10/20 05:00: WBC 11.6 H, RBC 3.42 L, Hgb 9.8 L, Hct 30.8 L, MCV 90.1, MCH 28.7, MCHC 31.8 L, Plt Count 265, MPV 9.0 12/10/20 05:00: Sodium 142, Potassium 4.6, Chloride 112 H, Carbon Dioxide 23.0, Anion Gap 7, BUN 26 H, Creatinine 1.22 H, Est GFR (MDRD) Af Amer 54 L, Est GFR (MDRD) Non-Af 45 L, BUN/Creatinine Ratio 21.3 H, Glucose 87, Calcium 8.3 L, Total Bilirubin 0.40 Rhythm: EKG: ECHO: Stress Test: Cardiac Cath: PCI: CT Surgery: Holter monitor: EPS: PPM: CXR: Chest CT Scan: Medical Necessity - Tobacco Use Smoking Status: Never smoker Assessment/Plan 1. Abnormal cardiac enzymes non-ST elevation myocardial infarction * Patient underwent cardiac catheterization which demonstrated the following. * Normal left main coronary artery * Left anterior descending artery with moderate calcification and mild obstructive coronary disease * Left circumflex artery with no high-grade stenosis * Dominant right coronary artery with mid 95% stenosis and distal 80% stenosis and 70% stenosis of the ostium of the posterior descending artery * Preserved ejection fraction estimated at 75% * Patient underwent PCI of the right coronary artery successfully. * Doing better this morning. Will be discharged on medical therapy and antiplatelet therapy and will follow up as an outpatient. 2. Hypertension * We will continue with aggressive blood pressure reduction * 3. Hyperlipidemia * Continue aggressive risk factor modification * * Thank you for allowing me to participate in the care of your patient. Please don't hesitate to call if any issues arise.
[2020-12-10 08:27] VITALS: BP 142/65; PULSE 67; RESP 14; TEMP 36.8; O2SAT 97
[2020-12-10] MEDS: Aspirin E.C. 81 MG Tablet PO (08:34)
[2020-12-10] MEDS: Donepezil HCl 5 MG Tablet PO (08:34)
[2020-12-10] MEDS: Isosorbide Mononitrate 60 MG Tablet PO (08:35)
[2020-12-10] MEDS: Carvedilol 3.125 MG TABLET PO (08:35)
[2020-12-10] MEDS: TICAGRELOR 90 MG TABLET PO (08:35)
--- NOTE | 2020-12-10 09:23 | PCM.DC ---
- Discharge Diagnoses Current Active Problems: Current Active and Chronic Problems (Last Updated 12/09/20 @ 09:15 by Teresita Rust) NSTEMI (non-ST elevated myocardial infarction) (Acute 12/07/20) Hypothyroidism (Chronic) You will use the following diet at home:: No restrictions Your food should be the consistency of: Regular Your liquids should be the consistency of: Regular/Thin Discharge Activity: Return to Normal Activity Weight Bearing Status: Full weight bearing Additional Instructions: Do not take Naproxen, Aleve, or Ibuprofen for pain, take Tylenol Allergies/Adverse Reactions: Allergies No Known Allergies Allergy (Verified 12/07/20 05:00) Medications to take at Discharge Folic Acid 1 mg PO DAILY@0800 06/19/13 Levothyroxine [Synthroid] 37.5 mcg PO DAILY 06/19/13 Multivitamins,Ther W-Minerals [Multivitamin With Minerals (BKC)] 1 tablet PO DAILY 06/19/13 Aspirin E.C. [Ecotrin] 81 mg PO DAILY@0800 12/07/20 Atorvastatin Calcium [Lipitor] 40 mg PO QHS 12/07/20 Diltiazem HCl [Cartia Xt] 120 mg PO DAILY 12/07/20 Vitamin B6 100 mg PO DAILY 12/07/20 Vitamin D3 1,000 iu PO DAILY 12/07/20 Carvedilol [Coreg (Beta Eileen)] 3.125 mg PO BID #60 tablet 12/10/20 Donepezil HCl [Aricept] 10 mg PO QHS #30 tablet 12/10/20 Hydrochlorothiazide [Hctz] 12.5 mg PO DAILY #1 tablet 12/10/20 Isosorbide Mononitrate [Imdur] 60 mg PO DAILY #30 tablet 12/10/20 Ticagrelor [Brilinta] 90 mg PO BID #60 tablet 12/10/20 The following prescriptions were given: Donepezil HCl [Aricept] 10 mg PO QHS #30 tablet Transmission Status: Pending to [facility] #30 Ticagrelor [Brilinta] 90 mg PO BID #60 tablet Transmission Status: Pending to [facility] #30 Carvedilol [Coreg (Beta Eileen)] 3.125 mg PO BID #60 tablet Transmission Status: Pending to [facility] #30 Hydrochlorothiazide [Hctz] 12.5 mg PO DAILY #1 tablet Isosorbide Mononitrate [Imdur] 60 mg PO DAILY #30 tablet Transmission Status: Pending to [facility] #30 Orders to be completed after discharge: Phase II, Outpatient Cardiac Rehab Location: None Selected Primary Care Physician: Cat Sauceda DO [Primary Care Provider] - Please follow up with your Primary Care Physician in: in 2 weeks Test Results: Test results from this visit will be discussed in further detail at your follow-up appointment, if applicable. Please Follow Up With: Torres Urbano MD When: in 3-4 weeks-call for appointment [phone]
--- NOTE | 2020-12-10 09:45 | EKG12_ITS ---
Test Reason : AM EKG Blood Pressure : / mmHG Vent. Rate : 058 BPM Atrial Rate : 058 BPM P-R Int : 158 ms QRS Dur : 080 ms QT Int : 400 ms P-R-T Axes : 061 -07 011 degrees QTc Int : 392 ms Sinus bradycardia Otherwise normal ECG When compared with ECG of 09-DEC-2020 09:46, MANUAL COMPARISON REQUIRED, DATA IS UNCONFIRMED Confirmed by MAICOL RENTERIA, CARROL ([id number]), news copy editor IZABEL MICHEL ([id number]) on 12/11/2020 10:15:11 AM Referred By: DEBBIE Confirmed By:CARROL MILIAN MD
--- NOTE | 2020-12-10 11:24 | PHA.DC.MC ---
Pharmacy Service has performed discharge medication reconciliation and counseling for this patient. 1. CARVEDILOL 3.125MG PO BIDCM 2. ISOSORBIDE MONONITRATE 60MG PO DAILY 3. TICAGRELOR 90MG PO BID The patient's discharge medication list was reviewed for discrepancies and discrepancies were resolved. Home Medications Folic Acid 1 mg PO DAILY@0800 06/19/13 Levothyroxine [Synthroid] 37.5 mcg PO DAILY 06/19/13 Multivitamins,Ther W-Minerals [Multivitamin With Minerals ([facility])] 1 tablet PO DAILY 06/19/13 Aspirin E.C. [Ecotrin] 81 mg PO DAILY@0800 12/07/20 Atorvastatin Calcium [Lipitor] 40 mg PO QHS 12/07/20 Diltiazem HCl [Cartia Xt] 120 mg PO DAILY 12/07/20 Vitamin B6 100 mg PO DAILY 12/07/20 Vitamin D3 1,000 iu PO DAILY 12/07/20 Carvedilol [Coreg (Beta Eileen)] 3.125 mg PO BID #60 tablet 12/10/20 Donepezil HCl [Aricept] 10 mg PO QHS #30 tablet 12/10/20 Hydrochlorothiazide [Hctz] 12.5 mg PO DAILY #1 tablet 12/10/20 Isosorbide Mononitrate [Imdur] 60 mg PO DAILY #30 tablet 12/10/20 Ticagrelor [Brilinta] 90 mg PO BID #60 tablet 12/10/20 The patient was counseled on the following discharge medications and changes in medications for homegoing were reviewed. The Reason for Use, instructions for use, and potential side effects were reviewed for all new medications. The patient's questions regarding all of their medications were answered. The patient was able to verbally demonstrate an understanding of their discharge medications.
--- NOTE | 2020-12-11 11:12 | NURSING ---
ARIES DC F/U Call: Discharge Date: 12.10.20 Discharge Diagnosis: NSTEMI (non-ST elevated myocardial infarction) (Acute 12/07/20), Hypothyroidism (Chronic) Discharge Destination: Home on Brilinta-free 30 day card Lace/Kim: 07/23 Called patient listed home number, Introduced self and role to patient. Patient states that she is doing good. Confirmed picked up DC medications and denies any issues, questions, or concerns with f/u, medications or aftercare instructions. Thanked patient for choosing [facility] for care and phone conversation ended. ARIES Umana
--- NOTE | 2020-12-12 10:07 | DS.PCM_ITS ---
Discharge Date and Diagnosis - Problem List Patient Problems: Active and Suspected Problems (Last Updated 12/09/20 @ 09:15 by Teresita Rust) NSTEMI (non-ST elevated myocardial infarction) (Acute 12/07/20) Date of Admission: 12/07/20 Date of Discharge: 12/10/20 - Primary Discharge Diagnosis Acute Problems: Active Problems (Last Updated 12/09/20 @ 09:15 by Teresita Rust) #1 non-STEMI #2 obstructive coronary artery disease with SARA placement in the right coronary artery in 3 different areas #3 chronic kidney disease stage IIIb #4 hypothyroidism #5 essential hypertension #6 hyperlipidemia #7 hypokalemia - Secondary Discharge Diagnosis Chronic Problems: Chronic Problems (Last Updated 12/09/20 @ 09:15 by Teresita Rust) Atherosclerotic heart disease of [place] coronary artery without angina pectoris (Chronic) Essential (primary) hypertension (Chronic) Hypothyroidism (Chronic) Hospital Course and Treatment Operations: None Procedures: 2-D Echocardiogram, Cardiac catheterization Summary of Care Provided: The patient is a 80 year old F was seen in the emergency room at [facility] with chief complaint left-sided chest pain, work-up in the emergency room included an EKG which showed a sinus rhythm with some ST depression in the inferior lateral areas, troponin was 0.653, creatinine was 1.59, BUN was 38 and glucose was 168. Chest x-ray showed chronic changes, patient received aspirin by EMS, she was started on IV heparin and the case was discussed with cardiology, she was admitted to PCU for non-STEMI, she was seen in consultation by cardiology and had an echocardiogram which showed a normal EF. Cardiac catheterization was performed which showed occlusive coronary disease and 3 SARA were placed. On 12/10/2020, patient was seen and examined: On examination she appeared in good health and spirits, she does not appear to be in any distress. Vital signs as documented. Skin warm and dry and without overt rashes. Neck without JVD, thyroid appears normal, trachea is midline, neck is supple. Lungs clear, normal air movement was noted. Heart exam notable for regular rhythm, normal sounds and absence of murmurs, rubs or gallops. Abdomen unremarkable and without evidence of organomegaly, masses, or abdominal aortic enlargement, bowel sounds are present in all 4 quadrants, no abdominal tenderness was noted. Extremities nonedematous, no cyanosis was noted, no clubbing was noted. Neuro: Cranial nerves II through XII are grossly intact, no focal motor deficits were noted, sensation to light touch and pinprick is intact, motor exam 5/5 throughout. Psych: Patient is alert and oriented x3, she does not appear anxious or depressed, she does not appear agitated. Patient appears stable for discharge on 12/10/2020. Patient Problems: Active and Suspected Problems (Last Updated 12/09/20 @ 09:15 by Teresita Rust) NSTEMI (non-ST elevated myocardial infarction) (Acute 12/07/20) - Physical Exam Vitals/I&O's: Vital Signs Temp Pulse Resp BP Pulse Ox 98.2 F 67 14 142/65 H 97 12/10/20 08:27 12/10/20 08:27 12/10/20 08:27 12/10/20 08:27 12/10/20 08:27 Oxygen Delivery Method Room Air Weight: 78.7 kg Body Mass Index (BMI) 32.8 Intake and Output for Last 24 Hours 12/10/20 12/11/20 12/12/20 23:59 23:59 23:59 Intake Total 667.5 / 667.5 Balance 667.5 / 667.5 Discharge Activity: Return to Normal Activity Weight Bearing Status: Full weight bearing Home Medications: Medications to take at Discharge Folic Acid 1 mg PO DAILY@0800 06/19/13 Levothyroxine [Synthroid] 37.5 mcg PO DAILY 06/19/13 Multivitamins,Ther W-Minerals [Multivitamin With Minerals ([facility])] 1 tablet PO DAILY 06/19/13 Aspirin E.C. [Ecotrin] 81 mg PO DAILY@0800 12/07/20 Atorvastatin Calcium [Lipitor] 40 mg PO QHS 12/07/20 Diltiazem HCl [Cartia Xt] 120 mg PO DAILY 12/07/20 Vitamin B6 100 mg PO DAILY 12/07/20 Vitamin D3 1,000 iu PO DAILY 12/07/20 Carvedilol [Coreg (Beta Eileen)] 3.125 mg PO BID #60 tablet 12/10/20 Donepezil HCl [Aricept] 10 mg PO QHS #30 tablet 12/10/20 Hydrochlorothiazide [Hctz] 12.5 mg PO DAILY #1 tablet 12/10/20 Isosorbide Mononitrate [Imdur] 60 mg PO DAILY #30 tablet 12/10/20 Ticagrelor [Brilinta] 90 mg PO BID #60 tablet 12/10/20 Following Prescriptions Were Given to Patient: Donepezil HCl [Aricept] 10 mg PO QHS #30 tablet Transmission Status: Received by [facility] #30 Ticagrelor [Brilinta] 90 mg PO BID #60 tablet Transmission Status: Received by [facility] #30 Carvedilol [Coreg (Beta Eileen)] 3.125 mg PO BID #60 tablet Transmission Status: Received by [facility] #30 Hydrochlorothiazide [Hctz] 12.5 mg PO DAILY #1 tablet Isosorbide Mononitrate [Imdur] 60 mg PO DAILY #30 tablet Transmission Status: Received by [facility] #30 Other Amb Orders: Phase II, Outpatient Cardiac Rehab Location: None Selected Primary Care Physician: Cat Sauceda DO [Primary Care Provider] - Please follow up with your Primary Care Physician in: in 2 weeks Please Follow Up With: Bozena Harris, PA When: in 3-4 weeks-call for appointment [phone] Please Follow Up With: Ermelinda Castillo NP, [employer] Disposition: Home Minutes spent on discharge:: 33 Patient Condition:: Stable Medical Necessity - Tobacco Use Smoking Status: Never smoker Meaningful Use Info Meaningful Use Diagnoses (Choose all that apply): AMI - AMI/Post PCI/Angioplasty Aspirin given w/in 24hrs of arrival?: Yes ASA at discharge?: Yes Antiplatelet Therapy at Discharge:: Yes Statins at discharge?: Yes Abhay/ARB at discharge?: No Reason Abhay/ARB not ordered:: Not indicated Beta Eileen at discharge?: Yes Done w/ Acute ME measure.: Yes Documented LVEF (%): 60 Inpatient E&M: 11822 Disch Hosp
== END 2020-12-10 12:05 | disposition home or self-care (01) | DRG 246 ==
LOC: ED 05:09 → PCU 07:03
PROVIDERS: Hospitalist; Internal Medicine Interventional Cardiology; Specialist; Admitting Provider Hospitalist; Emergency Provider Emergency Medicine; PCP Internal Medicine; Visit Provider Internal Medicine
DX: I21.4 Non-ST elevation (NSTEMI) myocardial infarction (principal); I25.10 Atherosclerotic heart disease of native coronary artery without angina pectoris; I12.9 Hypertensive chronic kidney disease with stage 1 through stage 4 chronic kidney disease, or unspecified chronic kidney disease; N18.32 Chronic kidney disease, stage 3b; E86.0 Dehydration; I35.0 Nonrheumatic aortic (valve) stenosis; E78.5 Hyperlipidemia, unspecified; E03.9 Hypothyroidism, unspecified; Z23 Encounter for immunization; Z79.82 Long term (current) use of aspirin; Z79.890 Hormone replacement therapy; Z79.899 Other long term (current) drug therapy; Z85.3 Personal history of malignant neoplasm of breast; Z90.12 Acquired absence of left breast and nipple; Z96.653 Presence of artificial knee joint, bilateral; Z96.641 Presence of right artificial hip joint
CPT/HCPCS: 36415; 71045; 80048; 80053; 80061; 81001; 84484; 85025; 85027; 85610; 85730; 87426; 92928; 92929; 93005; 93306; 93458; 99152; 99153; 99285; C1887; G0008; J7030; J7040; Q9957; 90686; A4216; C1725; C1769; C1874; C1894; C8929; C9600; C9601; J1327; Q9967

== ENCOUNTER → 2020-12-20 08:12 | Outpatient (CLI) | payer MEDICARE, SELFPAY ==
[2020-12-07 06:53] VITALS: BMI 32.8
--- NOTE | 2020-12-20 08:19 | CR.ITP_ITS ---
Diagnosis - General Information Admitting Diagnosis: 80/F of Dr. Urbano who presented to emergency room wiht chest pain. Diagnosed Non-STEMI and subsequent PCI intervention with coronary stenting was completed. Personal Learning Style:: Audio/Visual, Written Barriers to Learning: Hearing Impairment, Vision Impairment Stage of change r/t lifestyle modifications:: Action Gave educational material for:: Treating Heart Disease, Emotions & Heart Disease, Stress Management & Relaxation, Sleep Disorders & Heart Disease, How The Heart Works, What it means to have Heart Disease, How Coronary Artery Disease is Diagnosed, Heart Procedures, What Heart Medications Do, Risk Factors & Modifications, Living an Active Life, Nutrition - Education/Goals Individual Counseling: Initial Assessment: Abnormal Cholesterol Levels, High Blood Pressure Cardiac Rehabilitation Goals: 1. Maintain the individual as the primary focus of care. 2. To improve the patient's quality of life. 3. Identification of cardiac risk factors and provide cardiac risk factor management. 4. Enhance the psychosocial status of the patient. 5. Reconditioning enough to allow the patient to resume customary activities. 6. Control symptoms of cardiac disease Personal Goals: Initial Assessment: Improve energy level, Get back to work, or to resume activities faster, Improve muscle strength and endurance, Improve diet and eating habits (eat healthier) - Lose some weight, Control risk factors (learn risk factor modification) Scale for measuring improvement of personal goals: Enter appropriate number in Comments. 2 = Unchanged. 3 = Slightly Better. 4 = Moderate Improvement. 5 = Met my Goal - Diagnosis & Disease Process Outcomes/Goals: Pt IDs own risk factors & lifestyle modifications by Session 10, Verbalizes symptoms of angina & response by session 3., Pt independently manages Plan/Interventions: Assist Pt to ID & engage in lifestyle modification to reduce CVD risk, Instruct on individual risk factors, Review symptoms of angina & emergency actions, Review secondary diagnosis & identify educational needs. - Safety Referral to Physical Therapy: No Referral to [facility] Case Management: No Fall Risk Assessed:: Yes Assistive Devices:: None Exercise - Initial Assessment - Visit Date of Eval: 12/20/20 Session #:: 0 - pre-cardiac rehab evaluation Mets: Pre-: >5 METS for 30 minutes by discharge - Physician Prescribed Exercise Modalities: Treadmill, Airdyne, NuStep, SciFit Frequency: 3x/week for 12 weeks [36 sessions] Intensity: 60-80% of age predicted maximum heart rate reserve Current METSs:: 2.0 Target Heart Rate:: 90-117 Resting Blood Pressure: 128/46 EKG Type: [place] Bradycardia - Outcomes & Goals Goals:: Verbalizes understanding of THR, RPE & goal METS by session 6, Documents in home exercise log/reports 30 min aerobic 5 day/wk by DC, Demonstrates accurate pulse taking by DC - Intervention & Plan Exercise Program Goals: Instruct on personal THR & RPE, Instruct on MET level & personal MET goal, Show patient to take own pulse /validate performance until accurate, Instruct on home exercise - Physical Activity Home Exercise Physical Activity - Home Exercise: Safe Exercise, Warm-up, Self-monitoring, Cool-Down, Home Exercise > 30 min Daily, Sitting Time <3 hours/daily - Outcomes & Goals Outcomes/Goals: Demonstrates correct Warm-up/exercise Cool-Down (S3) if = 2.5 METs, Verbalizes symptoms of exercise intolerance by Session 3 (S3), Demonstrate safe equipment use (S3) & follows exercise prescrition (6) - Intervention & Plan Plan/Intervention: Instruct warm-up & cool-down if exercising at > 2 METs, Instruct on symptoms of exercise intolerance & actions to take, Instruct & monitor on saf, Assess intial functional capacity & safety risk Nutrition - Initial Assessment - Program Goals Nutrition Program Goals: LDL <100 optimal. 100 - 129 Near optimal. 130 - 159 Borderline High. 160 - 189 High. Total Cholesterol <200 desirable. 200 - 239 Borderline High. >/= 240 High. HDL < 40 Low >/=60 High. Triglycerides <150 desirable. <199 optimal. VlDL 5 - 40. HgbA1C <7%. BMI <25 Patient has diagnosis of Hyperlipidemia (ICD E78)?: Yes - Visit Date of Assessment:: 12/20/20 Session #:: 0 - Pre-cardiac rehab evaluation - Cholesterol/Lipids Triglycerides (mg/dL): 122 - 12/08/2020 Total Cholesterol (mg/dL): 150 LDL Cholesterol (mg/dL): 83 HDL Cholesterol (mg/dL): 70 Determine presence & major risk factors that modify LDL goal: Hypertension or hypertensive medication, Family history of premature CHD in Male < 55 years: female <65 yearsFa, Age men > 45 years; women >/= 55 years Outcomes/Goals: Pt IDs own risk factors & lifestyle modifications by Session 10, Verbalizes symptoms of angina & response by session 3., Pt independently manages Intervention/Plan: Instruct on personal lipid levels & lipid goals/NCEP guidelines, Instruct on cholesterol Referral to dietitian:: Yes - Medical Nutrition Therapy - Diabetes (Other Core Measures) Diabetes Type: Not Applicable - Weight Mgt (Other Care) Not Applicable: No Height: 5 ft 1 in Weight:: 173 lb BMI: 32.6 Diagnosis Overweight/Obesity BMI> 30% ICD-10 E66: Yes Diagnosis High BMI/Morbid Obesity BMI> 35% ICD-10 Z68: No Outcomes/Goals: Pt sets, maintains & shows weight loss goal & trend during rehab Intervention/Plan: Instruct on ideal BMI & set weight loss goal w/patient, Assist pt to ID & incorporate diet changes for weight loss by S9, Refer to S tructured Weight Loss program as appropriate, Encourage goal of using 250- 300dcal per session for weight loss - Healthy Eating Habits Will attend diet classes:: Yes Outcomes/Goals:: Consume diet rich in vegs,fruits,whole grain/high fiber,fish,lean meat, Limit sat/trans fats,cholesterol & added salts & sugars Intervention/Plan:: Assess current eating habits Medical - Initial Assessment - Visit Date of Eval: 12/20/20 Session #:: 0 - Pre-cardiac rehab evaluation - Medication Compliance Preventative Medication(s):: Aspirin, Ticagrelor/P2Y12 inhibitor, Statin/lipid, Beta keron H/O mental health issues: depression, anxiety, or addiction?: No Doesn?t believe in the benefits of treatment?: No Believes medications are unnecessary or harmful?: No Has a concern about medication side effects?: No Expresses concern over the cost of medications?: No Outcomes/Goals: Verbalizes medications,desired effect & common side effects @ DC, Pt self-reports following medication regimen, Keeps card in wallet w/medications listed by DC Interventions/plans: Instruct on medication effects & side effects, Review medication list w/patient every two weeks, Instruct importance of taking meds as ordered & assist problem solving - Tobacco Use Tobacco Use: Non-smoker - Hypertension Hypertension Diagnosis:: Hypertension ICD-10 I10 Resting Blood Pressure:: 128/46 [place] [employer] Hypertension Guidelines: [place] [employer] Hypertension Guidelines. Normal BP Less than 120/80. Elevated BP 120/80. Hypertension Stage 1: BP 130-139/80-89. Hypertesnion Stage 2: BP 140 or higher/90 or higher. Hypertension Crisis: BP higher than 180/120 Peak Exercise Blood Pressure:: 150/64 Outcomes/Goals: Able to verbalize/achieve optimal blood pressure <130/80, Incorporates diet changes & exercise for blood pressure control by DC Interventions/plan: Instruct on optimal blood pressure, hypertension & medications, Instruct on effects of sodium, alcohol, stress, exercise &hypertension - Tobacco Cessation Referral Smoking Cessation Referral:: No Individual Education/Counseling:: No Education Schedule Given:: Yes Psychosocial - Initial Assess - VIsit Date of Eval: 12/20/20 Session #:: 0 - Pre-cardiac rehab evaluation Not Applicable: Yes History of previous Mental disease:: No - Target Goals Target Goals: Assess presence or absence of depression. Using a valid screening tool, maximizes coping skills. Positive support system - Psychosocial Test Tool Used:: Kevin Gonzalez QOL Cardiac, PHQ-9 Questionnaire phq-9 Severity: Severity. 1-4 Minimal Depression. 5-9 Mild Depression. 10-14 Moderate Depression. 15-19 Moderately Sever Depression. 20-27 Severe Depression. Rule: - Referral to Behavioral Health PS - Interventions: Yes Attend Stress Management Classes, No Referral to Behavioral Health if PHQ-9 score >9:, No Referral to [facility], No Referral to Physician if PHQ-9 if score is 5-9: - Outcomes/Goals: See list Psychosocial Outcomes/Goals:: ID's personal stressors & 2 strategies to manage stress by discharge - Intervention/Plan: See List Interventions/Plan:: Assess stressors,coping strategies & signs of derpression on admission, Instruct/assist pt to develop coping & personal stress Mgt strategies, Instruct patient to recognize signs & symptoms of depression, Instruct patient to recog Patient Health Questionnaire Initial Assessment 1. Little interest or pleasure in doing things: Not at all 2. Feeling down, depressed, or hopeless: Not at all 3. Trouble falling or staying asleep, or sleeping too much: Several days 4. Feeling tired or having little energy: Several days 5. Poor appetite or overeating: Not at all 6. Feeling bad about yourself -- or that you are a failure or have let yourself or your family down: Not at all 7. Trouble concentrating on things, such as reading the newspaper or watching television: Not at all 8. Moving or speaking so slowly that other people could have noticed. Or the opposite - being so fidgety or restless that you have been moving around a lot more than usual: Not at all 9. Thoughts that you would be better off , or of hurting yourself in some way: Not at all How difficult have these problems made it for you to do your work, take care of things at home, or get along with other people?: Not difficult at all Total Score: 2 CARMELINA-Q SV Test - Statements CAD is a disease of the arteries in the heart: False Examples of risk factors for heart disease: True Angina is chest pain or discomfort: True The benefits of resistance training include: True Eating more meat and dairy products: False Anti-platelet medications such as aspirin are important: I Don't Know The only effective way to manage stress: False An exercise warm-up slowly increases heart rate: True Prepared, processed foods usually have high sodium: True Depression is common after a heart attack: I Don't Know The statin medications lower cholesterol: True To control blood pressure, lower the amount of sodium: True If someone gets chest discomfort during walking: False Transfats are partially hydrogenated vegetable oils: I Don't Know Sleep apnea that is not treated increases the risk: True To control cholesterol, one should become a vegetarian: False Someone knows if he/she is exercising at the right level: True Diabetes cannot be prevented with exercise & health eating: False Stress is a large risk for heart attack: True A diet that can help lower blood pressure is rich in: True - Total Score Total Correct Responses: 16 Self-Efficacy Initial Assessment We would like to know how confident you are in doing certain activities. Please select your confidence level for:: Select your confidence level for the following using the scale 1-10 where 1 is not at all confident and 10 is totally confident. Your score is the average of all 6 responses. Fatigue: How confident are you that you can keep the fatigue caused by your disease from interfering with the things you want to do? Select Number: 7 Physical Discomfort or Pain: How confident are you that you can keep the physical discomfort or pain of your disease from interfering with the things you want to do? Select Number: 8 Emotional Distress: How confident are you that you can keep the emotional distress caused by your disease from interfering with the things you want to do? Select Number: 8 Other Symptoms or Health Problems: How confident are you that you can keep other symptoms or health problems from interfering with the things you want to do? Select Number: 8 Different Tasks and Activities: How confident are you that you can do the different tasks and activities needed to manage your health condition so as to reduce your need to see a doctor? Select Number: 8 Medication: How confident are you that you can do things other than just taking medication to reduce how much your illness affects your everyday life? Select Number: 8 Total Score:: 7 Nutrition Survey - Nutrition Survey Instructions Scoring Instructions: Scoring is as follows: Yes = 1 points. No = 0 point. Patient score that is >/=12 is considered to be at potential nutritional risk and could benefit from a referral to a registered dietitian. - Nutrition Survey Initial Have you lost >10 lbs over the past 2 months without trying?: No Are you following a special diet at home for diabetes, low fat, or low salt?: No Are you interested in meeting with a dietitian for help understanding your diet?: No Do you eat less than 3 meals a day?: No Do you eat fatty meats (sarabia, sausage, ribs, etc), fried foods, desserts, large amounts of salad dressings, margarine, butter, or cheese most days?: No Do you have food allergies? [Enter types in comment field]: Yes Do you eat in restaurants more than 3 times a week?: No Do you season food with salt, seasoning salt, or garlic salt?: Yes - very little Do you used canned, boxed, frozen meals, or soups, seasoning packets?: No Total Score:: 2
--- NOTE | 2020-12-20 08:20 | CR.HP_ITS ---
CR - History & Physical - General Arrival date:: 12/20/20 Arrival time:: 08:23 Date of Referral:: 12/09/20 Date of CR Evaluation:: 12/20/20 Referring Physician: Dr. Torres Urbano Primary Diagnosis: NSTEMI, PCI w/coroanry stenting - History of Present Cardiac Event Onset Date: Enter Onset Date of cardiac illnesses in Comment field below Acute Myocardial Infarction within 12 months:: Yes - Non-STEMI on 12/09/2020 PTCA or coronary stenting:: Yes - 12/09/2020 Type of Symptoms:: chest pain/ DULL ACHING/ funny feeling Interventions with present event:: heart cath/ PCI intervention with stenting Were there any complications?: none - Medications Home Medications: Ambulatory Orders Medication Instructions Recorded Folic Acid 1 mg PO DAILY@0800 06/19/13 Levothyroxine [Synthroid] 37.5 mcg PO DAILY 06/19/13 Multivitamins,Ther W-Minerals 1 tablet PO DAILY 06/19/13 [Multivitamin With Minerals ([facility])] Aspirin E.C. [Ecotrin] 81 mg PO DAILY@0800 12/07/20 Atorvastatin Calcium [Lipitor] 40 mg PO QHS 12/07/20 Diltiazem HCl [Cartia Xt] 120 mg PO DAILY 12/07/20 Vitamin B6 100 mg PO DAILY 12/07/20 Vitamin D3 1,000 iu PO DAILY 12/07/20 Carvedilol [Coreg (Beta Eileen)] 3.125 mg PO BID #60 tablet 12/10/20 Donepezil HCl [Aricept] 10 mg PO QHS #30 tablet 12/10/20 Hydrochlorothiazide [Hctz] 12.5 mg PO DAILY #1 tablet 12/10/20 Isosorbide Mononitrate [Imdur] 60 mg PO DAILY #30 tablet 12/10/20 Ticagrelor [Brilinta] 90 mg PO BID #60 tablet 12/10/20 - Allergies Allergies/Adverse Reactions: Allergies No Known Allergies Allergy (Verified 12/07/20 05:00) - Sleep Disorder Evaluation Hx of Sleep Apnea: No Do you snore loudly (louder than talking or can be heard through closed doors)?: Yes - occasionally; if go to bed really tired. Do you often feel tired/ fatigued/ sleepy during daytime?: Yes - like to lay down int eh afternoon adn take a little nap. Has anyone observed you stop breathing during sleep?: No History of Hypertension (for STOP score): Yes STOP Results: Positive Advanced Directives - Advanced Directives Power of Dye Winch Operator: Yes Living Will: Yes Advance Directives Information Provided: No Advance Directives on File: No DNR Order?:: No - MOLST See MOLST form: No Past Medical History - Covid-19 Screening Fever: No - Has had both vaccine Pfeizer Unexplained muscle aches: No Current respiratory symptoms: No Upper respiratory infections symptoms: No Gastro-intestinal symptoms: No Loz-Bcvz-Mleuey symptoms: No Has tested positive for COVID-19 in last 30 days: No Had contact w/person w/symptoms or Covid-19 (+) last 14 days: No Has High Risk Exposures ID'd by Health dept/Inf Control team: No 65 years or older:: Yes Lives in Assisted Living facility:: No Has a chronic lung disease or moderate to severe asthma:: No Has a serious heart condition:: No Immunocompromised:: No Severely obese (Body Mass Index of 40 or higher):: No Diabetic:: No Has chronic kidney disease undergoing dialysis:: No Has liver disease:: No - Past Medical Illness Medical History: Past Medical History (Last Updated 12/09/20 @ 09:15 by Teresita Rust) Atherosclerotic heart disease of [place] coronary artery without angina pectoris (Chronic) I25.10 NSTEMI (non-ST elevated myocardial infarction) (Acute) Onset Date: 12/07/20 I21.4 Essential (primary) hypertension (Chronic) I10 Hypothyroidism (Chronic) E03.9 - Past Surgical History Surgical History: Past Surgical History (Last Updated 12/09/20 @ 13:15 by Teresita Rust) History of coronary artery stent placement (Acute) Onset Date: 12/09/20 Z95.5 PCI-SARA-Mid RCA w/ 2.75 x 16 mm and 3.00 x 38 mm Synergy MR Stents, Distal RCA w/ 2.5 x 12 mm Synergy MR Stent and Ostium of RPDA w/ 2.25 x 8 mm Synergy MR Stent 12/09/20 Surgical History: total hip arthroplasty - Right hip, total knee arthroplasty - Bilateral, - - Left breast mastectomy - Family History Summary Family History: Family History (Last Updated 12/07/20 @ 06:[address] Alfredo Schmidt MD) Father Myocardial infarction Mother Myocardial infarction Hypertension Sister Myocardial infarction Social History - Smoking History Smoking Status: Never smoker Hx Tobacco Use: No Hx Smoking Exposure: No - Alcohol Use Alcohol Usage: No - Substance Abuse Hx Substance Use: No - Occupation Occupation (List type of work in comments):: Retired - Hobbies, Recreation, Social Activities Hobbies: Sewing, Reading, Other - gardening, springer, crafts, sewing Recreational Activities: I am able to engage in most, but not all activities Social Environment - Status Marital Status: - Current Living Arrangements Living Environment:: Spouse - Children How many children do you have?: 2 Do any of your children live nearby?: Yes - [place], [place] - other son is in [place]. - Safety Do you feel safe in your surroundings?: Yes - Assistance Do you need any assistance at home?: none Review of Systems - Review of Systems Hints: Right click = Denies ([place]ash). Left click = Reports ([place]) Review of Present Symptoms: Reports: Appetite - Normal, Appetite - Special Diet, Sleep - Normal. Denies: Shortness of Breath at Rest, Shortness of Breath with Exertion, Angina, Dizziness/Lightheadedness, Fatigue - likes top take a nap in the afternoons., Heart Arrhythmia/Irregularities, Sexual Changes - Pain Is Patient Pain Free?: Yes Pain Location: none Pain Level: 0/10 Risk Factor Assessment - Chief Complaint Chief Complaint: 80/F of Dr[address] Urbano's who presented to emergency room on 12/09/2020 with chest pain. She described as being dull and aching. Stated she wqas awakened from her sleep at around 3:00 am, by the time she arrived in [facility] emergency room the pain had subsided. - Vital Signs Temperature: 97.2 F Respiratory Rate: 16 Pulse Ox: 95 Blood Pressure: 130/46 - Pulse Pulse Rate: 60 Pulse Rhythm: Regular - Hypertension Blood Pressure Sitting - Left Arm: 130/46 - Blood Cholesterol/Lipids Total Cholesterol (mg/dL) Goal = less than 200 mg/dL: 150 - 12/08/2020 HDL Cholesterol (mg/dL) Goal = less than 40 mg/dL: 70 LDL Cholesterol (mg/dL) Goal = less than 70 mg/dL: 83 Triglycerides (mg/dL) Goal = less than 150 mg/dL: 122 - Diabetes Nutrition Referral for Diabetes: No - Obesity Height: 5 ft 1 in Weight:: 173 lb Weight in Pounds: 173.0 lbs Body Mass Index (BMI): 32.6 Nutritional Referral for Obesity: Yes - Physical Inactivity Physical Inactivity: Recreational activity - Risk Stratification Risk Guidelines: Lowest Risk: Risk Factor for Smoking, Risk Factor for Diabetes, Moderate Risk: Risk Factor for Dyslipidemia, Risk Factor for Hypertension, Highest Risk: Risk Factor for Obesity - For Smoking Smoking Risk Guidelines: Smoking Low Risk: None or quit greater than 6 months ago. Smoking Moderate Risk: Smoker or quit 6 months or less ago. Smoking High Risk: Smoker - For Dyslipidemia Dyslipidemia Risk Guidelines: Low Risk: Moderate Risk: High Risk: 15-25% fat 25.1-29% fat >/= 30% fat. <7% sat fat 7-9% sat fat >9% sat fat. <150 mg chol 150-299 mg chol >/= 300 mg chol. LDL <100 LDL 100-129 LDL >/= 130. Chol/HDL ratio <5.0 Chol/HDL ratio 5.0-6.0 Chol/HDL ratio >6.0. Triglycerides <100 Triglycerides 100- 149 Triglycerides >/= 150 - For Diabetes Mellitus Diabetes Risk Guidelines: Diabetes Low Risk: HgA1c <6.5% and/or FBG <120. Diabetes Moderate Risk: HgA1c 6.6-7.9% and/or FBG 120-180. Diabetes High Risk: HgA1c >/= 8% and/or FBG >180 - For Obesity/Overweight Obesity/Overweight Risk Guidelines: Obesity Low Risk: BMI <25.0. Obesity Moderate Risk: BMI 25-29.9. Obesity High Risk: BMI >/= 30.0 - For Hypertension Hypertension Risk Guidelines: Hypertension Low Risk: Systolic <120 and Diastolic <80. Hypertension Moderate Risk: Systolic 120-139 and Diastolic 80-89. Hypertension High Risk: Systolic >/= 140 and Diastolic >/= 90 - For Sedentary Lifestyle Sedentary Lifestyle Risk Guidelines: Sedentary Lifestyle Low Risk: >/= 1,500 kcal/week. Sedentary Lifestyle Moderate Risk: 700-1,499 kcal/week. S edentary Lifestyle High Risk: < 700 kcal/week - For Depression Depression Risk Guidelines: Depression Low Risk: Not clinically depressed. Depression Moderate Risk: Mildly depressed. Depression High Risk: Clinically depressed - Family History Family History: Family History (Last Updated 12/07/20 @ 06:[address] Alfredo Schmidt MD) Father Myocardial infarction Mother Myocardial infarction Hypertension Sister Myocardial infarction Motivation - Motivation to Participate On a scale of 1 to 10, how prepared are you to commit to attending program?: 8 What do you see as barriers to successfully being able to complete the program?: none What do you see as the benefits of succesfully completing the program? In other words, what do you hope to get out of participating in the program?: getting stronger, healthier, be able to resume activities Are there issues you are dealing with that will interfere with completing the program?: none Do you have a spouse or signficant other, family or friends who will help support you to complete the program?: Yes
[2020-12-20 08:39] VITALS: BP 128/46; BP 150/64; BMI 32.6
[2020-12-20 08:49] VITALS: BP 130/46; PULSE 60; RESP 16; TEMP 36.2; O2SAT 95; BMI 32.6
== END ==
PROVIDERS: PCP Internal Medicine; Referring Provider Internal Medicine Cardiovascular Disease; Visit Provider Internal Medicine Cardiovascular Disease
DX: I25.10 Atherosclerotic heart disease of native coronary artery without angina pectoris (principal); I25.2 Old myocardial infarction; I10 Essential (primary) hypertension; E03.9 Hypothyroidism, unspecified; Z95.5 Presence of coronary angioplasty implant and graft

== ENCOUNTER 2021-01-17 11:30 | Outpatient (RCR) | payer MEDICARE, SELFPAY ==
[2020-12-20 08:39] VITALS: BMI 32.6
[2020-12-20 08:49] VITALS: BMI 32.6
== END 2021-01-17 23:59 ==
LOC: CR 11:30
PROVIDERS: PCP Internal Medicine; Visit Provider Internal Medicine Cardiovascular Disease
DX: I25.10 Atherosclerotic heart disease of native coronary artery without angina pectoris (principal); I25.2 Old myocardial infarction; I10 Essential (primary) hypertension; E03.9 Hypothyroidism, unspecified; Z95.5 Presence of coronary angioplasty implant and graft
CPT/HCPCS: 93798

== ENCOUNTER 2021-02-14 11:30 | Outpatient (RCR) | payer MEDICARE, SELFPAY ==
[2020-12-20 08:39] VITALS: BMI 32.6
[2020-12-31 10:58] VITALS: BMI 31.7
--- NOTE | 2021-01-20 08:22 | PCM.CR.ITP ---
Diagnosis Exercise - 30-day Assessment - Visit Date of Eval: 01/20/21 Session #:: 12 - Physician Prescribed Exercise Modalities: Treadmill, Airdyne, NuStep, SciFit Frequency: 3x/week for 12 weeks [36 sessions] Intensity: 60-80% of age predicted maximum heart rate reserve Current METSs:: 3.5 increase from 2.5 Target Heart Rate:: 90-117 Current RPE:: 13-14 Maximum Excercise HR:: 100 Resting Blood Pressure: 152/42 - elevated BPs reported to cardiology Maximum Exercise Blood Pressure: 160/48 EKG Type: NSR to sinus tach w/occas. PACs and PVCs - Outcomes & Goals Goals:: Verbalizes understanding of THR, RPE & goal METS by session 6, Documents in home exercise log/reports 30 min aerobic 5 day/wk by DC, Demonstrates accurate pulse taking by DC - Intervention & Plan Exercise Program Goals: Instruct on personal THR & RPE, Instruct on MET level & personal MET goal, Show patient to take own pulse /validate performance until accurate, Instruct on home exercise - 30-day Reassessments 30 day Reassessments:: Progressing - Physical Activity Home Exercise Physical Activity - Home Exercise: Safe Exercise, Warm-up, Self-monitoring, Cool-Down, Home Exercise > 30 min Daily, Sitting Time <3 hours/daily - Outcomes & Goals Outcomes/Goals: Demonstrates correct Warm-up/exercise Cool-Down (S3) if = 2.5 METs, Verbalizes symptoms of exercise intolerance by Session 3 (S3), Demonstrate safe equipment use (S3) & follows exercise prescrition (6) - Intervention & Plan Plan/Intervention: Instruct warm-up & cool-down if exercising at > 2 METs, Instruct on symptoms of exercise intolerance & actions to take, Instruct & monitor on saf, Assess intial functional capacity & safety risk - 30-day Reassessments 30 day Reassessments:: Progressing Nutrition - Initial Assessment Nutrition - 30-Day Assessment - Program Goals Nutrition Program Goals: LDL <100 optimal. 100 - 129 Near optimal. 130 - 159 Borderline High. 160 - 189 High. Total Cholesterol <200 desirable. 200 - 239 Borderline High. >/= 240 High. HDL < 40 Low >/=60 High. Triglycerides <150 desirable. <199 optimal. VlDL 5 - 40. HgbA1C <7%. BMI <25 Patient has diagnosis of Hyperlipidemia (ICD E78)?: Yes - Visit Date of Assessment:: 01/20/21 Session #:: 12 - Cholesterol/Lipids Triglycerides (mg/dL): 122 - 12/08/2020 Total Cholesterol (mg/dL): 177 LDL Cholesterol (mg/dL): 83 HDL Cholesterol (mg/dL): 70 Determine presence & major risk factors that modify LDL goal: Hypertension or hypertensive medication, Family history of premature CHD in Male < 55 years: female <65 yearsFa, Age men > 45 years; women >/= 55 years Outcomes/Goals: Pt IDs own risk factors & lifestyle modifications by Session 10, Verbalizes symptoms of angina & response by session 3., Pt independently manages Intervention/Plan: Instruct on personal lipid levels & lipid goals/NCEP guidelines, Instruct on cholesterol Referral to dietitian:: Yes - Medical Nutrition Therapy 30-day Reassessments:: Progressing - Diabetes (Other Core Measures) Diabetes Type: Not Applicable - Weight Mgt (Other Care) Height: 5 ft 1 in Weight:: 168 lb 8 oz BMI: 31.8 Diagnosis Overweight/Obesity BMI> 30% ICD-10 E66: Yes Diagnosis High BMI/Morbid Obesity BMI> 35% ICD-10 Z68: No Outcomes/Goals: Pt sets, maintains & shows weight loss goal & trend during rehab Intervention/Plan: Instruct on ideal BMI & set weight loss goal w/patient, Assist pt to ID & incorporate diet changes for weight loss by S9, Refer to Structured Weight Loss program as appropriate, Encourage goal of using 250-300dcal per session for weight loss 30 day Reassessments:: Progressing - Healthy Eating Habits Will attend diet classes:: Yes Outcomes/Goals:: Consume diet rich in vegs,fruits,whole grain/high fiber,fish,lean meat, Limit sat/trans fats,cholesterol & added salts & sugars Intervention/Plan:: Assess current eating habits 30-day Reassessments:: Progressing Nutrition - 60-Day Assessment Nutrition - 90-Day Assessment Nutrition - Final Assessment Medical - Initial Assessment Medical- 30-Day Assessment - Visit Date of Eval: 01/20/21 Session #:: 12 - Medication Compliance Preventative Medication(s):: Aspirin, Ticagrelor/P2Y12 inhibitor, Statin/lipid, Beta keron H/O mental health issues: depression, anxiety, or addiction?: No Doesn?t believe in the benefits of treatment?: No Believes medications are unnecessary or harmful?: No Has a concern about medication side effects?: No Expresses concern over the cost of medications?: No Outcomes/Goals: Verbalizes medications,desired effect & common side effects @ DC, Pt self-reports following medication regimen, Keeps card in wallet w/medications listed by DC Interventions/plans: Instruct on medication effects & side effects, Review medication list w/patient every two weeks, Instruct importance of taking meds as ordered & assist problem solving 30-day Reassessments:: Progressing - Tobacco Use Tobacco Use: Non-smoker - Hypertension Hypertension Diagnosis:: Hypertension ICD-10 I10 Resting Blood Pressure:: 152/42 [place] [employer] Hypertension Guidelines: [place] [employer] Hypertension Guidelines. Normal BP Less than 120/80. Elevated BP 120/80. Hypertension Stage 1: BP 130-139/80-89. Hypertesnion Stage 2: BP 140 or higher/90 or higher. Hypertension Crisis: BP higher than 180/120 Peak Exercise Blood Pressure:: 160/48 Outcomes/Goals: Able to verbalize/achieve optimal blood pressure <130/80, Incorporates diet changes & exercise for blood pressure control by DC Interventions/plan: Instruct on optimal blood pressure, hypertension & medications, Instruct on effects of sodium, alcohol, stress, exercise &hypertension 30 day Reassessments:: Progressing - Tobacco Cessation Referral Smoking Cessation Referral:: No Individual Education/Counseling:: No Education Schedule Given:: Yes Medical- 60-Day Assessment Medical- 90-Day Assessment Medical - Final Assessment Psychosocial - Initial Assess Psychosocial - 30-Day Assess - VIsit Date of Eval: 01/20/21 Session #:: 12 Not Applicable: Yes History of previous Mental disease:: No - Psychosocial Test Tool Used:: PHQ-9 Questionnaire phq-9 Severity: Severity. 1-4 Minimal Depression. 5-9 Mild Depression. 10-14 Moderate Depression. 15-19 Moderately Sever Depression. 20-27 Severe Depression. Rule: - Referral to Behavioral Health PS - Interventions: Yes Attend Stress Management Classes, No Referral to Behavioral Health if PHQ-9 score >9:, No Referral to [facility], No Referral to Physician if PHQ-9 if score is 5-9: - Outcomes/Goals: See list Psychosocial Outcomes/Goals:: ID's personal stressors & 2 strategies to manage stress by discharge - Intervention/Plan: See List Interventions/Plan:: Assess stressors,coping strategies & signs of derpression on admission, Instruct/assist pt to develop coping & personal stress Mgt strategies, Instruct patient to recognize signs & symptoms of depression, Instruct patient to recog - 30-day Reassessments: 30 day Reassessments:: Progressing Psychosocial - 60-Day Assess Psychosocial - 90-Day Assess Psychosocial - Final Assessmen Patient Health Questionnaire 30-Day Re-eval Assessment 1. Little interest or pleasure in doing things: Not at all 2. Feeling down, depressed, or hopeless: Not at all 3. Trouble falling or staying asleep, or sleeping too much: Not at all 4. Feeling tired or having little energy: Several days 5. Poor appetite or overeating: Not at all 6. Feeling bad about yourself -- or that you are a failure or have let yourself or your family down: Not at all 7. Trouble concentrating on things, such as reading the newspaper or watching television: Not at all 8. Moving or speaking so slowly that other people could have noticed. Or the opposite - being so fidgety or restless that you have been moving around a lot more than usual: Not at all 9. Thoughts that you would be better off , or of hurting yourself in some way: Not at all How difficult have these problems made it for you to do your work, take care of things at home, or get along with other people?: Not difficult at all Total Score: 1 Self-Efficacy 30-Day Re-eval Assessment We would like to know how confident you are in doing certain activities. Please select your confidence level for:: Select your confidence level for the following using the scale 1-10 where 1 is not at all confident and 10 is totally confident. Your score is the average of all 6 responses. Fatigue: How confident are you that you can keep the fatigue caused by your disease from interfering with the things you want to do? Select Number: 8 Physical Discomfort or Pain: How confident are you that you can keep the physical discomfort or pain of your disease from interfering with the things you want to do? Select Number: 9 Emotional Distress: How confident are you that you can keep the emotional distress caused by your disease from interfering with the things you want to do? Select Number: 9 Other Symptoms or Health Problems: How confident are you that you can keep other symptoms or health problems from interfering with the things you want to do? Select Number: 8 Different Tasks and Activities: How confident are you that you can do the different tasks and activities needed to manage your health condition so as to reduce your need to see a doctor? Select Number: 8 Medication: How confident are you that you can do things other than just taking medication to reduce how much your illness affects your everyday life? Select Number: 9 Total Score:: 8 Nutrition Survey
[2021-01-20 08:30] VITALS: BP 152/42; BP 160/48; BMI 31.8
--- NOTE | 2021-02-18 07:17 | CR.ITP_ITS ---
Diagnosis Exercise - 60-day Assessment - Visit Date of Eval: 02/18/21 Session #:: 23 - Physician Prescribed Exercise Modalities: Treadmill, NuStep, SciFit Frequency: 3x/week for 12 weeks [36 sessions] Intensity: 60-80% of age predicted maximum heart rate reserve Current METSs:: 3.5 Target Heart Rate:: 90-117 Current RPE:: 13-14 Maximum Excercise HR:: 92 Resting Blood Pressure: 128/68 Maximum Exercise Blood Pressure: 150/44 EKG Type: NSR - Outcomes & Goals Goals:: Verbalizes understanding of THR, RPE & goal METS by session 6, Documents in home exercise log/reports 30 min aerobic 5 day/wk by DC, Demonstrates accurate pulse taking by DC - Intervention & Plan Exercise Program Goals: Instruct on personal THR & RPE, Instruct on MET level & personal MET goal, Show patient to take own pulse /validate performance until accurate, Instruct on home exercise - 30-day Reassessments 30 day Reassessments:: Progressing - Physical Activity Home Exercise Physical Activity - Home Exercise: Safe Exercise, Warm-up, Self-monitoring, Cool-Down, Home Exercise > 30 min Daily, Sitting Time <3 hours/daily - Outcomes & Goals Outcomes/Goals: Demonstrates correct Warm-up/exercise Cool-Down (S3) if = 2.5 METs, Verbalizes symptoms of exercise intolerance by Session 3 (S3), Demonstrate safe equipment use (S3) & follows exercise prescrition (6) - Intervention & Plan Plan/Intervention: Instruct warm-up & cool-down if exercising at > 2 METs, Instruct on symptoms of exercise intolerance & actions to take, Instruct & monitor on saf, Assess intial functional capacity & safety risk - 30-day Reassessments 30 day Reassessments:: Progressing Nutrition - Initial Assessment Nutrition - 30-Day Assessment Nutrition - 60-Day Assessment - Program Goals Nutrition Program Goals: LDL <100 optimal. 100 - 129 Near optimal. 130 - 159 Borderline High. 160 - 189 High. Total Cholesterol <200 desirable. 200 - 239 Borderline High. >/= 240 High. HDL < 40 Low >/=60 High. Triglycerides <150 desirable. <199 optimal. VlDL 5 - 40. HgbA1C <7%. BMI <25 Patient has diagnosis of Hyperlipidemia (ICD E78)?: Yes - Visit Date of Assessment:: 02/18/21 Session #:: 23 - Cholesterol/Lipids Triglycerides (mg/dL): 122 Total Cholesterol (mg/dL): 177 LDL Cholesterol (mg/dL): 83 HDL Cholesterol (mg/dL): 70 Determine presence & major risk factors that modify LDL goal: Hypertension or hypertensive medication, Family history of premature CHD in Male < 55 years: female <65 yearsFa, Age men > 45 years; women >/= 55 years Outcomes/Goals: Pt IDs own risk factors & lifestyle modifications by Session 10, Verbalizes symptoms of angina & response by session 3., Pt independently manages Intervention/Plan: Instruct on personal lipid levels & lipid goals/NCEP guideli giuliano, Instruct on cholesterol Referral to dietitian:: Yes 30-day Reassessments:: Progressing - Diabetes (Other Core Measures) Diabetes Type: Not Applicable - Weight Mgt (Other Care) Height: 5 ft 1 in Weight:: 169 lb BMI: 31.9 Diagnosis Overweight/Obesity BMI> 30% ICD-10 E66: Yes Diagnosis High BMI/Morbid Obesity BMI> 35% ICD-10 Z68: No Outcomes/Goals: Pt sets, maintains & shows weight loss goal & trend during rehab Intervention/Plan: Instruct on ideal BMI & set weight loss goal w/patient, Assist pt to ID & incorporate diet changes for weight loss by S9, Refer to Structured Weight Loss program as appropriate, Encourage goal of using 250- 300dcal per session for weight loss 30 day Reassessments:: Progressing - Healthy Eating Habits Will attend diet classes:: Yes Outcomes/Goals:: Consume diet rich in vegs,fruits,whole grain/high fiber,fish,lean meat, Limit sat/trans fats,cholesterol & added salts & sugars Intervention/Plan:: Assess current eating habits 30-day Reassessments:: Progressing Nutrition - 90-Day Assessment Nutrition - Final Assessment Medical - Initial Assessment Medical- 30-Day Assessment Medical- 60-Day Assessment - Visit Date of Eval: 02/18/21 Session #:: 23 - Medication Compliance Preventative Medication(s):: Aspirin, Ticagrelor/P2Y12 inhibitor, Statin/lipid, Beta keron H/O mental health issues: depression, anxiety, or addiction?: No Doesn?t believe in the benefits of treatment?: No Believes medications are unnecessary or harmful?: No Has a concern about medication side effects?: No Expresses concern over the cost of medications?: No Outcomes/Goals: Verbalizes medications,desired effect & common side effects @ DC, Pt self-reports following medication regimen, Keeps card in wallet w/medications listed by DC Interventions/plans: Instruct on medication effects & side effects, Review medication list w/patient every two weeks, Instruct importance of taking meds as ordered & assist problem solving 30-day Reassessments:: Progressing - Tobacco Use Tobacco Use: Non-smoker - Hypertension Hypertension Diagnosis:: Hypertension ICD-10 I10 Resting Blood Pressure:: 128/68 [place] [employer] Hypertension Guidelines: [place] [employer] Hypertension Guidelines. Normal BP Less than 120/80. Elevated BP 120/80. Hypertension Stage 1: BP 130-139/80-89. Hypertesnion Stage 2: BP 140 or higher/90 or higher. Hypertension Crisis: BP higher than 180/120 Peak Exercise Blood Pressure:: 150/44 Outcomes/Goals: Able to verbalize/achieve optimal blood pressure <130/80, Incorporates diet changes & exercise for blood pressure control by DC Interventions/plan: Instruct on optimal blood pressure, hypertension & medications, Instruct on effects of sodium, alcohol, stress, exercise &hypertension 30 day Reassessments:: Progressing - Tobacco Cessation Referral Smoking Cessation Referral:: No Individual Education/Counseling:: No Education Schedule Given:: Yes Medical- 90-Day Assessment Medical - Final Assessment Psychosocial - Initial Assess Psychosocial - 30-Day Assess Psychosocial - 60-Day Assess - VIsit Date of Eval: 02/18/21 Session #:: 23 Not Applicable: Yes History of previous Mental disease:: No - Psychosocial Test Tool Used:: PHQ-9 Questionnaire phq-9 Severity: Severity. 1-4 Minimal Depression. 5-9 Mild Depression. 10-14 Moderate Depression. 15-19 Moderately Sever Depression. 20-27 Severe Depression. Rule: - Referral to Behavioral Health PS - Interventions: Yes Attend Stress Management Classes, No Referral to Behavioral Health if PHQ-9 score >9:, No Referral to [facility], No Referral to Physician if PHQ-9 if score is 5-9: - Outcomes/Goals: See list Psychosocial Outcomes/Goals:: ID's personal stressors & 2 strategies to manage stress by discharge - Intervention/Plan: See List Interventions/Plan:: Assess stressors,coping strategies & signs of derpression on admission, Instruct/assist pt to develop coping & personal stress Mgt strategies, Instruct patient to recognize signs & symptoms of depression, Instruct patient to recog - 30-day Reassessments: 30 day Reassessments:: Progressing Psychosocial - 90-Day Assess Psychosocial - Final Assessmen Patient Health Questionnaire 60-Day Re-eval Assessment 1. Little interest or pleasure in doing things: Not at all 2. Feeling down, depressed, or hopeless: Not at all 3. Trouble falling or staying asleep, or sleeping too much: Not at all 4. Feeling tired or having little energy: Several days 5. Poor appetite or overeating: Not at all 6. Feeling bad about yourself -- or that you are a failure or have let yourself or your family down: Not at all 7. Trouble concentrating on things, such as reading the newspaper or watching television: Not at all 8. Moving or speaking so slowly that other people could have noticed. Or the opposite - being so fidgety or restless that you have been moving around a lot more than usual: Not at all 9. Thoughts that you would be better off , or of hurting yourself in some way: Not at all Total Score: 1 Self-Efficacy 60-Day Re-eval Assessment We would like to know how confident you are in doing certain activities. Please select your confidence level for:: Select your confidence level for the following using the scale 1-10 where 1 is not at all confident and 10 is totally confident. Your score is the average of all 6 responses. Fatigue: How confident are you that you can keep the fatigue caused by your disease from interfering with the things you want to do? Select Number: 9 Physical Discomfort or Pain: How confident are you that you can keep the physical discomfort or pain of your disease from interfering with the things you want to do? Select Number: 9 Emotional Distress: How confident are you that you can keep the emotional distress caused by your disease from interfering with the things you want to do? Select Number: 9 Other Symptoms or Health Problems: How confident are you that you can keep other symptoms or health problems from interfering with the things you want to do? Select Number: 9 Different Tasks and Activities: How confident are you that you can do the different tasks and activities needed to manage your health condition so as to r educe your need to see a doctor? Select Number: 9 Medication: How confident are you that you can do things other than just taking medication to reduce how much your illness affects your everyday life? Select Number: 9 Total Score:: 9 Nutrition Survey
[2021-02-18 07:24] VITALS: BP 128/68; BP 150/44; BMI 31.9
== END 2021-02-17 23:59 ==
LOC: CR 11:30
PROVIDERS: PCP Internal Medicine; Visit Provider Internal Medicine Cardiovascular Disease
DX: I25.10 Atherosclerotic heart disease of native coronary artery without angina pectoris (principal); I25.2 Old myocardial infarction; I10 Essential (primary) hypertension; E03.9 Hypothyroidism, unspecified; Z95.5 Presence of coronary angioplasty implant and graft
CPT/HCPCS: 93798

== ENCOUNTER 2021-03-19 11:15 | Outpatient (RCR) | payer MEDICARE, SELFPAY ==
[2020-12-31 10:58] VITALS: BMI 31.7
[2021-01-20 08:30] VITALS: BMI 31.8
[2021-02-18 00:33] VITALS: BP 152/42; BP 160/48
== END 2021-03-19 23:59 ==
LOC: CR 11:15
PROVIDERS: PCP Internal Medicine; Visit Provider Internal Medicine Cardiovascular Disease
DX: I25.10 Atherosclerotic heart disease of native coronary artery without angina pectoris (principal); I25.2 Old myocardial infarction; I10 Essential (primary) hypertension; E03.9 Hypothyroidism, unspecified; Z95.5 Presence of coronary angioplasty implant and graft
CPT/HCPCS: 93798

== ENCOUNTER 2021-05-24 11:00 | Emergency (ER) | payer MEDICARE, SELFPAY ==
[2021-03-20 00:25] VITALS: BMI 31.8
[2021-05-24 11:00] VITALS: BP 155/61; PULSE 62; RESP 16; TEMP 36.3; O2SAT 98; BMI 30.6
--- NOTE | 2021-05-24 11:18 | EDS_ITS ---
HPI History of Present Illness Chief Complaint: Complaint Narrative Narrative: 80-year-old female presenting with dysuria and hematuria. She states she feels otherwise well. She denies any nausea, vomiting, abdominal pain. She states that this just started this morning. She is concerned she might have a UTI. She states that she gets these every tomato season from eating too many tomatoes. She denies fever or chills. She states she feels otherwise well. [facility] Medical History Aortic stenosis, moderate Atherosclerotic heart disease of [place] coronary artery without angina pectoris Carotid stenosis, bilateral Essential (primary) hypertension Hyperlipidemia Hypothyroidism NSTEMI (non-ST elevated myocardial infarction) (12/07/20) Home Medications levothyroxine 37.5 mcg PO DAILY 06/19/13 [History Last Taken Unknown] Vitamin B6 50 mg PO DAILY 12/07/20 [History Last Taken Unknown] Vitamin D3 1,000 iu PO DAILY 12/07/20 [History Last Taken Unknown] atorvastatin 40 mg PO QHS 12/07/20 [History Last Taken Unknown] donepezil 10 mg PO QHS #30 tablet 12/10/20 [Rx Last Taken Unknown] carvedilol 3.125 mg tablet 3.125 mg PO BID #180 tablet 12/31/20 [Rx Last Taken Unknown] cholecalciferol (vitamin D3) 50 mcg (2,000 unit) capsule 50 mcg PO DAILY 12/31/20 [History Last Taken Unknown] hydrochlorothiazide 25 mg tablet 25 mg PO DAILY tablet 12/31/20 [History Last Taken Unknown] isosorbide mononitrate 60 mg tablet,extended release 24 hr 60 mg PO DAILY #90 tablet 12/31/20 [Rx Last Taken Unknown] losartan 50 mg tablet 50 mg PO DAILY 12/31/20 [History Last Taken Unknown] multivitamin 1 tablet PO DAILY 12/31/20 [History Last Taken Unknown] clopidogrel 75 mg tablet 75 mg PO DAILY #90 tab 01/20/21 [Rx Last Taken Unknown] diltiazem HCl [Cartia XT] 120 mg PO DAILY 05/24/21 [History Last Taken Unknown] Allergy/AdvReac Type Severity Reaction Status Date / Time No Known Allergies Allergy Verified 05/24/21 11:00 Family History Father Myocardial infarction Mother Myocardial infarction Hypertension Sister Myocardial infarction Surgical History History of coronary artery stent placement (12/09/20) Social History Smoking Status: Never smoker ROS ROS ED Constitutional Constitutional ED: Denies chills, fever(s) or sweats Eyes Eyes: Denies blurry vision or diplopia ENT ENT ED: Denies rhinorrhea or sore throat Cardiovascular Cardiovascular: Denies chest pain or palpitations Respiratory/Chest Respiratory/Chest: Denies cough, dyspnea or sputum Gastrointestinal Gastrointestinal: Denies abdominal pain, diarrhea, nausea or vomiting Genitourinary Genitourinary ED: Reports dysuria, hematuria and urinary frequency Musculoskeletal Musculoskeletal: Denies arthralgias, back pain, myalgias or neck pain Integumentary Denies Abrasions or rash Neurologic Neurologic: Denies headache(s) EXAM Physical Exam Const Vital Signs: 05/24/21 11:00 Temperature 97.4 F L Temperature Source Temporal Pulse Rate 62 Respiratory Rate 16 Blood Pressure 155/61 H Blood Pressure Mean 92 Pulse Ox 98 Oxygen Delivery Method Room Air MDM MDM MDM Narrative Medical decision making narrative: 80-year-old female presenting with hematuria another 5 she feels well. She has no other symptoms. I initially checked her urine which was negative for infection but did show hematuria. I did check a CBC and BMP and she does have a slight leukocytosis although she does not have a urinary infection. Renal function is at baseline. Hemoglobin is actually elevated higher than previous. I did obtain a CT of the abdomen pelvis to rule out kidney stone given the white blood cell count however this was negative as well. Patient still feels well and I will give her follow-up with urology due to the hematuria. She is given return precautions. Patient discharged home in stable condition. Impression: 1. Hematuria 2. Leukocytosis Lab Data Labs: Laboratory Results - last 24 hr 05/24/21 05/24/21 05/24/21 11:09 12:42 12:42 WBC 15.2 H RBC 3.80 L Hgb 10.5 L Hct 32.7 L MCV 86.1 MCH 27.6 MCHC 32.1 RDW Std Deviation 43.8 RDW Coeff of [place] 13.9 Plt Count 318 MPV 8.8 Immature Gran % (Auto) 0.500 Neut % (Auto) 76.6 H Lymph % (Auto) 11.6 L [place] % (Auto) 9.7 Eos % (Auto) 0.9 Baso % (Auto) 0.7 Absolute Neuts (auto) 11.7 H Absolute Lymphs (auto) 1.76 Nucleated RBC % 0 Sodium 139 Potassium 4.4 Chloride 108 H Carbon Dioxide 26.0 Anion Gap 5 BUN 35 H Creatinine 1.61 H Estim Creat Clear Calc 20.33 Est GFR (MDRD) Af Amer 39 L Est GFR (MDRD) Non-Af 33 L BUN/Creatinine Ratio 21.7 H Glucose 97 Calcium 9.0 Total Bilirubin 0.40 AST 17 ALT 22 Alkaline Phosphatase 92 Total Protein 6.7 Albumin 3.2 Globulin 3.5 Albumin/Globulin Ratio 0.9 Urine Color Red Urine Clarity Turbid Urine pH 7.0 Ur Specific [place] 1.010 Urine Protein 500 H Urine Glucose (UA) Normal Urine Ketones 5 H Urine Occult Blood 250 H Urine Nitrite Negative Urine Bilirubin Negative Urine Urobilinogen Normal Ur Leukocyte Esterase 25 H Urine RBC > 100 SEEN Urine WBC 0-5 SEEN Ur Squamous Epith Cells 0 SEEN Urine Bacteria 0 SEEN Urine Mucus 0 SEEN Radiography Diagnostic Testing: Radiology Impression Abdomen/Pelvis CT 05/24/21 12:21 IMPRESSION: 1. No urinary calculi. 2. Refer to further evaluation of urinary tract for detection of source of hematuria which can be done with contrast CT renal protocol. 3. 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 Neurosurgical evaluation advised. 4. Osteoporosis and L3 chronic compression fracture. 5. Aortic valve stenosis, echocardiography confirmation is advised. 6. Severe coronary artery disease, cardiology attention advised. Electronically Signed: Arian Loredo MD at 13:58 EDT Tel , Service support , Discharge Plan Triage Chief Complaint: Complaint ED Provider: Blake Salvador Dx/Rx/DC Orders Instructions: ED Hematuria Prescriptions: No Action hydrochlorothiazide 25 mg tablet 25 mg PO DAILY RF: 0 losartan 50 mg tablet 50 mg PO DAILY RF: 0 multivitamin [Daily Multi-Vitamin] Tablet 1 tablet PO DAILY RF: 0 cholecalciferol (vitamin D3) 50 mcg (2,000 unit) capsule 50 mcg PO DAILY RF: 0 carvedilol 3.125 mg tablet 3.125 mg PO BID Qty: 180 RF: 3 isosorbide mononitrate 60 mg tablet extended release 24 hr 60 mg PO DAILY Qty: 90 RF: 3 levothyroxine 25 MCG tablet 37.5 mcg PO DAILY RF: 0 atorvastatin 40 MG tablet 40 mg PO QHS RF: 0 Vitamin B6 50 mg PO DAILY RF: 0 Vitamin D3 1,000 iu PO DAILY RF: 0 donepezil 10 MG tablet 10 mg PO QHS Qty: 30 RF: 0 diltiazem HCl [Cartia XT] 120 mg Capsule,Extended Release 24hr 120 mg PO DAILY RF: 0 clopidogrel 75 mg tablet 75 mg PO DAILY Qty: 90 RF: 3 Primary Care Provider: Cat Sauceda Referrals: Shyann Olson MD [STAFF PHYSICIAN] - As soon as possible Cat Sauceda DO [Primary Care Provider] - Disposition Disposition: Home, Self Care Discharge Date/Time: 05/24/21 15:18
[2021-05-24 11:28] LABS: Bacteria 0 SEEN /hpf (None Seen); Mucous, Urine 0 SEEN /hpf (<or=2+); Squamous Epithelial Cells - UA 0 SEEN /hpf (5-10)
[2021-05-24 11:29] LABS: Color, Urine Red (Yellow); Glucose, Dipstick Normal (Normal); Ketone-Dipstick 5 mg/dl (Negative); Leukocyte Esterase-Dipstick 25 /ul (Negative); Nitrite-Dipstick Negative (Negative); Occult Blood-Urine 250 /ul (Negative); Protein-Dipstick 500 mg/dl (Negative); Urine Bilirubin Dipstick Negative (Negative); Urine Clarity Turbid (Clear); Urine Urobilinogen Normal (Normal)
[2021-05-24 11:35] LABS: Red Blood Cells-Urine > 100 SEEN /hpf (0-5)
[2021-05-24 11:36] LABS: White Blood Cells 0-5 SEEN /hpf (0-5)
--- NOTE | 2021-05-24 12:21 | CT_ITS ---
STUDY: CT ABDOMEN AND PELVIS WITHOUT CONTRAST REASON FOR EXAM: Female, 80 years old. Hematuria RADIATION DOSAGE (If Supplied By Facility): CTDIvol = ( 8.53 ) mGy, DLP = ( 417.72 ) mGycm TECHNIQUE: Transaxial images were obtained from the dome of the diaphragm to the symphysis pubis without oral contrast, and without intravenous contrast. Sagittal and coronal images were reconstructed. Individualized dose optimization techniques were used for this CT. COMPARISON: 25 October 2019. FINDINGS: The visualized lung bases are unremarkable. There is probably moderate aortic valve stenosis. Coronary arteries are severely diseased. Cardiac chambers are normal in size and shape.. Normal liver. Normal gallbladder and extrahepatic biliary system. Normal spleen. Normal pancreas. There are benign chronic punctate calcified splenic and liver granulomata. These are benign, chronic postinflammatory and require no further clinical attention. Normal bilateral adrenal glands. There are no urinary calculi or hydronephrosis. There are no lesions on noncontrast CT. However, renal parenchyma and remainder of the urinary tract is suboptimally evaluated due to lack of IV contrast. Normal visualized stomach. Normal small intestine. Normal colon. The appendix is visualized and appears normal. Normal abdominal aorta. Normal inferior vena cava. Normal retroperitoneum. Normal urinary bladder. Normal abdominal wall. There is osteoporosis with chronic compression fracture of L3 and degenerative anterolisthesis of L4 on L5, grade 1. Thecal sac is moderately stenotic at L1-L2, severe at L2-L3, L3-L4 and L4-L5. Right hip is surgically replaced. CT/Abdomen/Pelvis without Cont IMPRESSION: 1. No urinary calculi. 2. Refer to further evaluation of urinary tract for detection of source of hematuria which can be done with contrast CT renal protocol. 3. 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 Neurosurgical evaluation advised. 4. Osteoporosis and L3 chronic compression fracture. 5. Aortic valve stenosis, echocardiography confirmation is advised. 6. Severe coronary artery disease, cardiology attention advised. Electronically Signed: Arian Loredo MD at 13:58 EDT Tel , Service support ,
[2021-05-24 12:51] LABS: Absolute Lymphocyte Count 1.76 X10^3/uL (0.83-4.51); Absolute Neutrophil Count 11.7 X10^3/uL (2.0-7.7); Basophil# 0.11 X10^3/uL; Basophil% 0.7 % (0-1); Eosinophil# 0.14 X10^3/uL; Eosinophils% 0.9 % (0-5); Hematocrit 32.7 % (37-47); Hemoglobin 10.5 g/dL (12.0-15.0); Lymphocyte # 1.76 X10^3/ul (0.83-4.51); Lymphocyte % 11.6 % (19-41); Mean Corp Hgb Conc 32.1 g/dL (32-36); Mean Corpuscular Hgb 27.6 pg (27.0-32.0); Mean Corpuscular Volume 86.1 fL (81-99); Mean Platelet Vol. 8.8 fl (6.2-12.0); Monocyte# 1.47 X10^3/uL; Monocyte% 9.7 % (0-10); NRBC Flagged by Analyzer 0 % (0-5); Neutrophil # 11.67 X10^3/uL (2.7-7.7); Neutrophil % 76.6 % (47-70); Platelet Count 318 K/mm3 (150-450); RBC Distribution Width CV 13.9 % (11.6-14.6); RBC Distribution Width SD 43.8 fl (35.1-43.9); White Blood Count 15.2 K/mm3 (4.4-11.0)
[2021-05-24 13:08] LABS: ALB/GLOB Ratio 0.9 RATIO (0.9-2.4); AST(SGOT) 17 U/L (15-37); Alanine Aminotransfer ALT/SGPT 22 U/L (13-56); Albumin, Serum 3.2 g/dL (3.2-5.0); Alkaline Phosphatase 92 U/L (45-117); Anion Gap 5 (5-15); BUN 35 mg/dL (7-18); BUN/Creat Ratio 21.7 RATIO (10-20); Chloride 108 mmol/L (98-107); Creatinine, Serum 1.61 mg/dL (0.55-1.02); EST Glomerular Filtration Rate 33 mL/min (>60); Est Glom Filt Rate - Afr Amer 39 mL/min (>60); Estimated Creatinine Clearance 20.33 ml/min; Globulin 3.5 g/dL (2.2-4.2); Glucose 97 mg/dL (74-106); Potassium 4.4 mmol/L (3.5-5.1); Protein, Total 6.7 g/dL (6.4-8.2); Sodium Level 139 mmol/L (136-145)
[2021-05-24] MEDS: 0.9% Normal Saline 1,000 ML 999 ML IV (13:33)
== END 2021-05-24 15:18 | disposition home or self-care (01) ==
PROVIDERS: Emergency Provider Student in an Organized Health Care Education/Training Program; PCP Internal Medicine
DX: R31.9 Hematuria, unspecified (principal); D72.829 Elevated white blood cell count, unspecified; I25.2 Old myocardial infarction; I25.10 Atherosclerotic heart disease of native coronary artery without angina pectoris; E03.9 Hypothyroidism, unspecified; E78.5 Hyperlipidemia, unspecified; I10 Essential (primary) hypertension; Z79.899 Other long term (current) drug therapy
CPT/HCPCS: 74176; 80053; 81001; 85025; 99283; J7030; A4216

== ENCOUNTER → 2021-05-29 | Outpatient (CLI) | payer MEDICARE, SELFPAY ==
[2021-03-20 00:25] VITALS: BMI 31.8
--- NOTE | 2021-05-28 | CYSPIN_PTH ---
PATIENT: STORM MENCHACA LOC: [facility] U#:[id number] AGE/SX: 80/F ROOM: RE05/29/[address]: Dr. Shyann Olson MD : 1940 BED: DIS: 05/29/2021 SPEC #: [id number] RECD: 05/29/21 08:43 STATUS: GOKUL RERosenda #: [id number] CLAUDETTE: 05/28/21 00:[address]: Shyann Olson DEPT: CYTOLOGY RECD BY: Oliverio Obando ENTERED: 05/29/21 08:44 SP TYPE: CYSPIN FL OTHR DR: Dr. Cat Sauceda, DO Tissues: Urine Procedures: Pap Stain (control) Special Stain Group II Cytospin Fluid HEADER OPERATION: Not noted PRE-OP DIAGNOSIS: Gross hematuria TISSUE SUBMITTED: Urine DIAGNOSIS CYTOLOGY Urine for cytology (cytospins): Negative for malignant cells. Acute inflammatory cells. Occasional bacterial colonies. AM:am 05/30/21 CYTOLOGY STUDY Slides are reviewed. CYTOLOGY GROSS Received is 50 ml of cloudy brown fluid labeled with the patient's name and and designated per the requisition as urine. Submitted for cytology preparation. /BURTON:burton 05/29/21 TC:5 CPT: 28429
[2021-05-28 18:19] LABS: Cytology, Body Fluid / CSF SEE PATHOLOGY REPORT
== END | disposition home or self-care (01) ==
LOC: LABSPEC 08:37
PROVIDERS: PCP Internal Medicine; Referring Provider Urology; Visit Provider Urology
DX: R31.0 Gross hematuria (principal)
CPT/HCPCS: 88108; 88313

== ENCOUNTER → 2021-07-17 08:27 | Outpatient (CLI) | payer MEDICARE, SELFPAY ==
[2021-03-20 00:25] VITALS: BMI 31.8
[2021-07-17 09:43] LABS: Anion Gap 5 (5-15); BUN 27 mg/dL (7-18); BUN/Creat Ratio 15.4 RATIO (10-20); Calcium,Total 9.4 mg/dL (8.5-10.1); Chloride 106 mmol/L (98-107); Creatinine, Serum 1.75 mg/dL (0.55-1.02); EST Glomerular Filtration Rate 30 mL/min (>60); Est Glom Filt Rate - Afr Amer 36 mL/min (>60); Glucose 101 mg/dL (74-106); Potassium 4.2 mmol/L (3.5-5.1); Sodium Level 140 mmol/L (136-145)
[2021-07-17 10:38] LABS: Protein, Urine (Random) 16.4 mg/dL (<11.9); Protein:Creat Ratio 189 mg/g CRE (0-200)
== END ==
PROVIDERS: PCP Internal Medicine; Referring Provider Internal Medicine Nephrology; Visit Provider Internal Medicine Nephrology
DX: N18.32 Chronic kidney disease, stage 3b (principal)
CPT/HCPCS: 36415; 80048; 82570; 84156

== ENCOUNTER 2021-12-05 15:08 | Outpatient (CLI) | payer MEDICARE, SELFPAY ==
[2021-03-20 00:25] VITALS: BMI 31.8
[2021-12-05 17:20] LABS: AST(SGOT) 19 U/L (15-37); Alanine Aminotransfer ALT/SGPT 23 U/L (13-56); Albumin, Serum 3.6 g/dL (3.2-5.0); Alkaline Phosphatase 93 U/L (45-117); Anion Gap 4 (5-15); BUN 48 mg/dL (7-18); BUN/Creat Ratio 23.3 RATIO (10-20); Calcium,Total 8.8 mg/dL (8.5-10.1); Chloride 109 mmol/L (98-107); Cholesterol 172 mg/dL (200); Creatinine, Serum 2.06 mg/dL (0.55-1.02); EST Glomerular Filtration Rate 24 mL/min (>60); Est Glom Filt Rate - Afr Amer 30 mL/min (>60); Globulin 3.2 g/dL (2.2-4.2); Glucose 108 mg/dL (74-106); High Density Lipoprotein 47 mg/dL; Potassium 4.6 mmol/L (3.5-5.1); Protein, Total 6.8 g/dL (6.4-8.2); Sodium Level 140 mmol/L (136-145); Triglycerides 329 mg/dL; Very Low Density Lipoprotein 66 mg/dL (5-40)
== END 2021-12-05 23:59 | disposition home or self-care (01) ==
LOC: LAB 15:10
PROVIDERS: PCP Internal Medicine; Referring Provider Internal Medicine Cardiovascular Disease; Visit Provider Internal Medicine Cardiovascular Disease
DX: I25.2 Old myocardial infarction (principal); Z95.5 Presence of coronary angioplasty implant and graft
CPT/HCPCS: 36415; 80048; 80061; 80076

== ENCOUNTER 2021-12-08 12:54 | Outpatient (CLI) | payer MEDICARE, SELFPAY ==
[2021-03-20 00:25] VITALS: BMI 31.8
--- NOTE | 2021-12-08 12:56 | BI_ITS ---
MAMMOGRAPHY - UNILATERAL SCREENING: RIGHT BREAST REASON FOR EXAM: Female, 81 years old. Routine annual screening examination (unilateral). PERTINENT HISTORY: Personal history of breast cancer. Prior left mastectomy. TECHNIQUE: Digital unilateral breast jagruti (3D mammographic acquisition) in the CC and MLO projections. 2-D mediolateral oblique (MLO) and craniocaudad (CC) views of both breasts were obtained. CAD: Full Field Digital Mammography with Computer Added Detection was performed. COMPARISON: Comparison is made with prior study dated 11/04/2020 and 10/30/2019. FINDINGS: Breast Composition: The breasts are heterogeneously dense, which may obscure small masses. There are no dominant masses or suspicious calcifications. No other significant abnormalities are identified. There has been no significant change since the prior study. BI/SCREEN MAMM (CAD) W/JAGRUTI UNI R IMPRESSION: Stable unilateral screening mammogram. Yearly follow-up mammogram recommended. (A) ASSESSMENT CATEGORY: BIRADS Category 1: Negative. A letter regarding these results will be sent to the patient by the facility within 30 days. Approximately 10% of breast cancers are not detected by mammography. A normal mammogram should not delay biopsy of a clinically suspicious abnormality. [id number] Electronically Signed: Marvin Merrill MD at 13:32 EDT ,
== END 2021-12-08 23:59 | disposition home or self-care (01) ==
LOC: OPBI 12:54
PROVIDERS: PCP Internal Medicine; Visit Provider Internal Medicine
DX: Z12.31 Encounter for screening mammogram for malignant neoplasm of breast (principal)
CPT/HCPCS: 77063; 77067

== ENCOUNTER → 2022-03-30 | Outpatient (CLI) | payer MEDICARE, SELFPAY ==
[2021-03-20 00:25] VITALS: BMI 31.8
--- NOTE | 2022-03-30 09:44 | CDU_ITS ---
Reason For Study: Bilateral carotid stenosis Rt. Velocities/BP Lt. Velocities/BP Prox CCA 89.1/14.7 cm/sec. Prox CCA 70.6/12.6 cm/sec. Mid CCA 89.1/14.7 cm/sec. Mid CCA 80.2/13.9 cm/sec. Dist CCA 68.2/10.8 cm/sec. Dist CCA 66.7/11.4 cm/sec. Prox ICA 166.6/37 cm/sec. Prox ICA 110.4/24.8 cm/sec. Mid ICA 311.1/60 cm/sec. Mid ICA 137.5/29.8 cm/sec. Dist ICA 127.7/24.1 cm/sec. Dist ICA 121.1/24.3 cm/sec. Rt. ICA/CCA = 3.49. Lt. ICA/CCA = 1.95. Prox ECA 322.8 cm/sec. Prox ECA 101.1/5.3 cm/sec. Rt. Vert. 73.6/13.3 cm/sec. Lt. Vert. 61.9/14.6 cm/sec. Right Extracranial There is intimal thickening but no significant atherosclerotic plaque noted in the right common carotid artery. There is heterogeneous, irregular atherosclerotic plaque noted in the right internal carotid artery. There is heterogeneous, irregular atherosclerotic plaque noted in the right external carotid artery. Antegrade flow is noted in the right vertebral artery. Left Extracranial There is homogeneous, smooth atherosclerotic plaque noted in the left common carotid artery. There is heterogeneous, irregular atherosclerotic plaque noted in the left internal carotid artery. The atherosclerotic plaque causes acoustic shadowing. There is intimal thickening but no significant atherosclerotic plaque noted in the left external carotid artery. Antegrade flow is noted in the left vertebral artery. Procedure Carotid Duplex [id number]. This is a Carotid Duplex examination using B-mode, color flow and specral Doppler. Exam performed in department. VL/Carotid Duplex Ultrasound Interpretation Summary Moderate (50-69%) stenosis right extracranial internal carotid. Moderate (50-69 %) stenosis left extracranial internal carotid. Flow within the vertebral arteries is antegrade bilaterally. Ordering Physician: John Ramirez Referring Physician: Cat Sauceda M.D. Performed By: Perla Lopez RVT
== END | disposition home or self-care (01) ==
LOC: CVS 09:43
PROVIDERS: PCP Internal Medicine; Referring Provider Surgery Vascular Surgery; Visit Provider Surgery Vascular Surgery
DX: I65.23 Occlusion and stenosis of bilateral carotid arteries (principal)
CPT/HCPCS: 93880

== ENCOUNTER → 2022-07-15 | Outpatient (CLI) | payer MEDICARE, SELFPAY ==
[2021-03-20 00:25] VITALS: BMI 31.8
[2022-07-15 10:50] LABS: Hematocrit 33.8 % (37-47); Hemoglobin 10.6 g/dL (12.0-15.0); Mean Corp Hgb Conc 31.4 g/dL (32-36); Mean Corpuscular Hgb 26.6 pg (27.0-32.0); Mean Corpuscular Volume 84.7 fL (81-99); Mean Platelet Vol. 9.4 fl (6.2-12.0); Platelet Count 341 K/mm3 (150-450); RBC Distribution Width CV 14.9 % (11.6-14.6); RBC Distribution Width SD 46.1 fl (35.1-43.9); Red Blood Count 3.99 M/mm3 (4.2-5.4); White Blood Count 8.7 K/mm3 (4.4-11.0)
[2022-07-15 11:03] LABS: Protein, Urine (Random) 17.2 mg/dL (<11.9); Protein:Creat Ratio 155 mg/g CRE (0-200)
[2022-07-15 11:21] LABS: PTHIN 56.5 pg/mL (18.4-80.1)
[2022-07-15 11:24] LABS: Albumin, Serum 3.4 g/dL (3.2-5.0); BUN 44 mg/dL (7-18); BUN/Creat Ratio 19.6 RATIO (10-20); Calcium,Total 9.2 mg/dL (8.5-10.1); Chloride 106 mmol/L (98-107); Creatinine, Serum 2.24 mg/dL (0.55-1.02); EST Glomerular Filtration Rate 22 mL/min (>60); Est Glom Filt Rate - Afr Amer 27 mL/min (>60); Glucose 141 mg/dL (74-106); Phosphorus 3.9 mg/dL (2.5-4.9); Potassium 4.3 mmol/L (3.5-5.1); Sodium Level 139 mmol/L (136-145)
[2022-07-15 11:25] LABS: Vitamin D,25 Hydroxy 33.5 ng/mL
== END | disposition home or self-care (01) ==
LOC: LAB 09:33
PROVIDERS: PCP Internal Medicine; Referring Provider Nurse Practitioner Adult Health; Visit Provider Nurse Practitioner Adult Health
DX: N18.32 Chronic kidney disease, stage 3b (principal)
CPT/HCPCS: 36415; 80069; 82306; 82570; 83970; 84156; 85027

== ENCOUNTER → 2022-12-09 | Outpatient (CLI) | payer MEDICARE, SELFPAY ==
[2021-03-20 00:25] VITALS: BMI 31.8
--- NOTE | 2022-12-09 10:05 | BI_ITS ---
MAMMOGRAPHY - UNILATERAL SCREENING: RIGHT BREAST REASON FOR EXAM: Female, 82 years old. Routine annual screening examination (unilateral). PERTINENT HISTORY: Personal history of breast cancer. Prior left mastectomy. TECHNIQUE: Digital unilateral breast jagruti (3D mammographic acquisition) in the CC and MLO projections. 2-D mediolateral oblique (MLO) and craniocaudad (CC) views of both breasts were obtained. CAD: Full Field Digital Mammography with Computer Added Detection was performed. COMPARISON: Comparison is made with prior study dated December 08, 2021 and November 04, 2020. FINDINGS: Breast Composition: The breasts are heterogeneously dense, which may obscure small masses. There are no dominant masses or suspicious calcifications. No other significant abnormalities are identified. There has been no significant change since the prior study. BI/SCREEN MAMM (CAD) W/JAGRUTI UNI R IMPRESSION: Stable unilateral screening mammogram. Yearly follow-up mammogram recommended. (A) ASSESSMENT CATEGORY: BIRADS Category 1: Negative. A letter regarding these results will be sent to the patient by the facility within 30 days. Approximately 10% of breast cancers are not detected by mammography. A normal mammogram should not delay biopsy of a clinically suspicious abnormality. [id number] Electronically Signed: Marvin Merrill MD at 11:19 EDT ,
== END | disposition home or self-care (01) ==
LOC: OPBI 10:02
PROVIDERS: PCP Internal Medicine; Referring Provider Internal Medicine; Visit Provider Internal Medicine
DX: Z12.31 Encounter for screening mammogram for malignant neoplasm of breast (principal); Z85.3 Personal history of malignant neoplasm of breast; Z90.12 Acquired absence of left breast and nipple
CPT/HCPCS: 77063; 77067

== ENCOUNTER → 2023-02-01 | Outpatient (CLI) | payer MEDICARE, SELFPAY ==
[2021-03-20 00:25] VITALS: BMI 31.8
--- NOTE | 2023-02-01 12:55 | ECHOD_ITS ---
Reason For Study: MURMUR Procedure This was a 2D Doppler, Color Flow transthoracic echocardiogram. Exam performed in department. Left Ventricle Normal LV size. Left ventricular systolic function is normal. The estimated ejection fraction is 65 %. Stage 1 diastolic dysfunction. No regional wall motion abnormalities noted. Right Ventricle Normal RV size. Normal systolic function. Atria Normal left atrium. Normal right atrium. Mitral Valve Normal mitral valve. Tricuspid Valve Normal tricuspid valve. Mild (1+) tricuspid valve insufficiency. Pulmonary artery systolic pressure is 34 mmHg. Aortic Valve Trisinus/trileaflet aortic valve. Moderate focal aortic valve calcification. Peak aortic valve gradient 32 mmHg. Mean aortic valve gradient 18 mmHg. Mild to moderate aortic stenosis. Pulmonic Valve Normal pulmonic valve. Great Vessels Normal aortic root. The pulmonary artery is normal size. Normal inferior vena cava. Pericardium/Pleural No pericardial effusion. MMode/2D Measurements & Calculations LVIDd: 5.3 cm IVSd: 0.80 cm LVOT diam: 2.0 cm LVIDs: 3.7 cm LVPWd: 1.0 cm LVOT area: 3.1 cm2 RVDd: 2.8 cm FS: 30.3 % Ao root diam: 3.1 cm LAV(MOD-bp): 69.6 ml LVAd ap4: 21.4 cm2 LAV(MOD-bp) Indexed: 39.5 ml/m2 LVLd ap4: 6.7 cm LAV(MOD-sp2): 84.5 ml EDV(MOD-sp4): 54.9 ml LAV(MOD-sp4): 56.3 ml EDV(sp4-el): 57.7 ml LVAs ap4: 10.0 cm2 LVLs ap4: 5.2 cm ESV(MOD-sp4): 17.5 ml ESV(sp4-el): 16.4 ml EF(MOD-sp4): 68.2 % EF(sp4-el): 71.6 % SV(MOD-sp4): 37.5 ml SV(sp4-el): 41.3 ml LA A4 area: 20.1 cm2 LA dimension(2D): 4.6 cm RA A4 area: 18.2 cm2 Time Measurements MV dec time: 0.23 sec Doppler Measurements & Calculations MV E max [place]: 97.7 cm/sec Lat Peak E' [place]: 6.0 cm/sec Med Peak E' [place]: 6.3 cm/sec MV A max [place]: 117.3 cm/sec E/E' lat: 16.2 E/E' med: 15.6 MV E/A: 0.83 MV V2 max: 130.9 cm/sec Ao V2 max: 282.8 cm/sec MV max P.9 mmHg MV dec slope: 434.3 cm/sec2 Ao max P.0 mmHg MV V2 mean: 71.3 cm/sec Ao V2 mean: 196.7 cm/sec MV mean P.4 mmHg Ao mean P.8 mmHg MV V2 VTI: 49.9 cm Ao V2 VTI: 73.1 cm AV (velocity ratio): 0.52 MVA(VTI): 2.4 cm2 ARMANDO(I,D): 1.6 cm2 ARMANDO(V,D): 1.5 cm2 LV V1 max: 140.6 cm/sec SV(LVOT): 117.8 ml PA V2 max: 126.8 cm/sec LV V1 max P.9 mmHg PA V2 mean: 83.0 cm/sec LV V1 mean P.6 mmHg LV V1 mean: 100.8 cm/sec LV V1 VTI: 38.0 cm TR max [place]: 280.0 cm/sec TR max P.4 mmHg ECHO/Echo Complete Interpretation Summary Normal LV size. Left ventricular systolic function is normal. The estimated ejection fraction is 65 %. Stage 1 diastolic dysfunction. Pulmonary artery systolic pressure is 34 mmHg. Mild to moderate aortic stenosis. Mean aortic valve gradient 18 mmHg. Ordering Physician: Bozena Harris Referring Physician: Bozena Harris Performed By: Blanquita Saeed RCS
== END | disposition home or self-care (01) ==
PROVIDERS: PCP Internal Medicine; Referring Provider Physician Assistant Medical; Visit Provider Physician Assistant Medical
DX: I21.4 Non-ST elevation (NSTEMI) myocardial infarction (principal); I35.0 Nonrheumatic aortic (valve) stenosis
CPT/HCPCS: 93306

== ENCOUNTER → 2023-02-12 | Outpatient (CLI) | payer MEDICARE, SELFPAY ==
[2021-03-20 00:25] VITALS: BMI 31.8
--- NOTE | 2023-02-12 08:55 | CDU_ITS ---
Reason For Study: Other specified symptoms and signs involving the circulatory and respiratory systems Rt. Velocities/BP Lt. Velocities/BP Prox CCA 75.9/6.9 cm/sec. Prox CCA 91.5/11.1 cm/sec. Mid CCA 57.9/9.7 cm/sec. Mid CCA 77.7/11.4 cm/sec. Dist CCA 55.1/8.8 cm/sec. Dist CCA 66.7/12.6 cm/sec. Prox ICA 187.4/42.2 cm/sec. Prox ICA 103.5/22.5 cm/sec. Mid ICA 285.4/75.3 cm/sec. Mid ICA 93.3/19.3 cm/sec. Dist ICA 182.9/35.8 cm/sec. Dist ICA 92.5/16.3 cm/sec. Rt. ICA/CCA = 4.93. Lt. ICA/CCA = 1.33. Prox ECA 409.9 cm/sec. Prox ECA 77.7 cm/sec. Rt. Vert. 56.9/11.4 cm/sec. Lt. Vert. 59.3/15.1 cm/sec. Right Extracranial There is intimal thickening but no significant atherosclerotic plaque noted in the right common carotid artery. There is heterogeneous, irregular atherosclerotic plaque noted in the right internal carotid artery. The atherosclerotic plaque causes acoustic shadowing. There is heterogeneous, irregular atherosclerotic plaque noted in the right external carotid artery. Antegrade flow is noted in the right vertebral artery. Left Extracranial There is homogeneous, smooth atherosclerotic plaque noted in the left common carotid artery. There is heterogeneous, irregular atherosclerotic plaque noted in the left internal carotid artery. The atherosclerotic plaque causes acoustic shadowing. There is intimal thickening but no significant atherosclerotic plaque noted in the left external carotid artery. Antegrade flow is noted in the left vertebral artery. Procedure Carotid Duplex [id number]. This is a Carotid Duplex examination using B-mode, color flow and specral Doppler. The study was technically difficult. Exam performed in department. VL/Carotid Duplex Ultrasound Interpretation Summary Severe (>70%) stenosis right extracranial internal carotid. Mild (<50%) stenosi s left extracranial internal carotid. Flow within the vertebral arteries is antegrade bilaterally. Ordering Physician: Cat Sauceda Referring Physician: Cat Sauceda Performed By: Perla Lopez RVT
== END | disposition home or self-care (01) ==
LOC: CVS 08:54
PROVIDERS: PCP Internal Medicine; Referring Provider Internal Medicine; Visit Provider Internal Medicine
DX: R09.89 Other specified symptoms and signs involving the circulatory and respiratory systems (principal)
CPT/HCPCS: 93880

== ENCOUNTER 2023-03-16 09:33 | Emergency (ER) | payer MEDICARE, SELFPAY ==
[2021-03-20 00:25] VITALS: BMI 31.8
[2023-03-16 09:34] VITALS: BP 151/60; PULSE 65; RESP 18; TEMP 36.6; O2SAT 96; BMI 32.8
--- NOTE | 2023-03-16 09:58 | RAD_ITS ---
INDICATION: Injury/Pain EXAMINATION/TECHNIQUE: X-RAY - RIGHT XR Shoulder Min 2 Views 4 VIEWS COMPARISON: No prior examinations are available for comparison. FINDINGS: SOFT TISSUES: No soft tissue swelling or gas. No radiopaque foreign body. BONES/JOINTS: No acute fracture or subluxation.. Normal alignment. Narrowing of the space between the acromion process and humeral head which may impinge on the rotator cuff. The acromial clavicular joint appears unremarkable. No sclerotic or destructive changes observed. RAD/Shoulder min 2 Views IMPRESSION: Degenerative changes of the right shoulder as described above. Electronically Signed: James Small MD at 11:19 EDT ,
[2023-03-16] MEDS: HYDROcodone Bitartrate/Apap 5/325 Tablet PO (10:25)
--- NOTE | 2023-03-16 11:57 | EX.ED.UPPERE ---
HPI History of Present Illness HPI Narrative: Patient presents with right shoulder pain that began yesterday. Patient states that she felt a pop in her right shoulder 4 days ago. Patient states she did not have any pain immediately. Patient states that the pain started yesterday. Patient states it came on gradually. Patient states it has been constant. Patient has been using ice and heat which has been helping. Patient describes her pain as aching. Patient denies any paresthesias or weakness. Patient denies any other injuries. Chief Complaint: Upper Extremity Injury Informant: patient Onset/Context/Timing Onset: Yesterday Context: Gradual Onset Timing: Continuous Quality of Pain: Aching Location: Right shoulder Worsened by: Nothing Relieved by: Ice and heat Associated Symptoms Associated Symptoms: Negative for Parasthesia, Weakness or Loss of Funtion [facility] Medical History Aortic stenosis, moderate Atherosclerotic heart disease of [place] coronary artery without angina pectoris Carotid stenosis, bilateral Essential (primary) hypertension Hyperlipidemia Hypothyroidism NSTEMI (non-ST elevated myocardial infarction) (12/07/20) Home Medications levothyroxine 25 mcg tablet 37.5 mcg PO DAILY THYROID 06/19/13 [History Last Taken Unknown] atorvastatin 40 mg tablet 40 mg PO QHS cholesterol 12/07/20 [History Last Taken Unknown] donepezil 10 mg tablet 10 mg PO QHS #30 tabs 12/10/20 [Rx Last Taken Unknown] cholecalciferol (vitamin D3) 50 mcg (2,000 unit) capsule 50 mcg PO DAILY 12/31/20 [History Last Taken Unknown] losartan 50 mg tablet 50 mg PO DAILY 12/31/20 [History Last Taken Unknown] multivitamin (Daily Multi-Vitamin tablet) 1 tablet PO DAILY 12/31/20 [History Last Taken Unknown] diltiazem HCl 120 mg capsule,extended release 24 hr (Cartia XT) 120 mg PO DAILY 05/24/21 [History Last Taken Unknown] pyridoxine (vitamin B6) 50 mg tablet 50 mg PO DAILY 12/05/21 [History Last Taken Unknown] clopidogrel 75 mg tablet 75 mg PO DAILY #90 tabs 08/04/22 [Rx Last Taken Unknown] carvedilol 3.125 mg tablet See Rx Instructions .Route .COMPLEX #180 tabs 11/04/22 [Rx Last Taken Unknown] isosorbide mononitrate 60 mg tablet,extended release 24 hr 60 mg PO DAILY #90 tabs 11/04/22 [Rx Last Taken Unknown] hydrochlorothiazide 25 mg tablet 25 mg PO DAILY 12/07/22 [History Last Taken Unknown] hydrocodone-acetaminophen 5-325mg 5mg-325mg 1 tab PO Q6H PRN PRN Pain 3 days #10 TABLETS 03/16/23 [Rx Last Taken Unknown] Allergy/AdvReac Type Severity Reaction Status Date / Time milk Allergy Intermediate GI upset Verified 03/16/23 09:37 Family History Father Myocardial infarction Mother Myocardial infarction Hypertension Sister Myocardial infarction Surgical History History of coronary artery stent placement (12/09/20) Social History Smoking Status: Never smoker alcohol intake: never substance use type: does not use caffeine: Yes Type: carbonated beverages ROS ROS ED Constitutional Constitutional ED: Denies chills or fever(s) Eyes Eyes: Denies blurry vision or change in vision ENT ENT ED: Denies rhinorrhea or sore throat Cardiovascular Cardiovascular: Denies chest pain or palpitations Respiratory/Chest Respiratory/Chest: Denies cough or dyspnea Gastrointestinal Gastrointestinal: Denies nausea or vomiting Genitourinary Genitourinary ED: Denies dysuria or hematuria Musculoskeletal Musculoskeletal: Reports neck pain; Denies back pain Integumentary Denies abscess or rash Neurologic Neurologic: Denies headache(s) or weakness Allergic/Immunologic Allergic/Immunologic ED: Denies mouth swelling or urticaria EXAM Physical Exam Const Vital Signs: 03/16/23 09:34 Temperature 97.9 F Temperature Source Temporal Pulse Rate 65 Respiratory Rate 18 Blood Pressure 151/60 H Blood Pressure Mean 90 Pulse Ox 96 Oxygen Delivery Method Room Air Positive well nourished and well developed General Appearance ED: well developed and NAD HEENT Reports moist mucous membranes Neck full ROM and supple Extremity Extremity Narrative: There is diffuse tenderness over the shoulder and acromioclavicular joint. There is no bony crepitance or step-off. There is no obvious deformity noted. Range of motion was limited in all motions of the right shoulder secondary to pain. Radial pulses are equal bilateral. Strength is 5/5 in the radial, median, and ulnar areas. Sensation was intact to light touch in the radial, median, ulnar, and axillary areas. Neuro oriented x3, CN's II-XII intact bilaterally, moves all extremities, no focal motor deficits and no sensory deficits noted Sensorium / Orientation: alert Motor Exam: strength 5/5 throughout Psych mental status grossly normal MDM MDM MDM Narrative Medical decision making narrative: Differential diagnosis includes degenerative arthritis, shoulder sprain, tendinitis, and occult fracture. X-rays of the right shoulder will be obtained to assess for degenerative arthritis and occult fracture. Radiography Diagnostic Testing: Clinical Impression(s) from Imaging Studies Shoulder X-Ray 03/16/23 09:58 IMPRESSION: Degenerative changes of the right shoulder as described above. Electronically Signed: James Small MD at 11:19 EDT , X-rays of the right shoulder were obtained. There are 4 views. On my independent interpretation, there is no acute fracture. There are degenerative changes noted. Radiologist also interpreted the x-rays and agrees. Treatment and Re-Evaluation Narrative: Patient was given a dose of [place] here. Patient was given a prescription for a short course of [place]. Patient was instructed to continue using ice to the area. Patient was instructed to do range of motion exercises. Patient was instructed to follow-up with her primary care physician in 5 to 7 days for reevaluation. Patient understood and was agreeable with the plan. All questions were answered. Discharge Plan Triage Chief Complaint: Upper Extremity Injury ED Provider: Abe Lentz Dx/Rx/DC Orders Clinical Impression: Right shoulder strain, Essential (primary) hypertension Instructions: ED Shoulder Sprain Prescriptions: New hydrocodone-acetaminophen [hydrocodone-acetaminophen] 5-325 mg tablet 1 tab PO Q6H PRN PRN (Reason: Pain) 3 Days Qty: 10 0RF No Action losartan 50 mg tablet 50 mg PO DAILY multivitamin [Daily Multi-Vitamin] Tablet 1 tablet PO DAILY cholecalciferol (vitamin D3) 50 mcg (2,000 unit) capsule 50 mcg PO DAILY pyridoxine (vitamin B6) 50 mg tablet 50 mg PO DAILY levothyroxine 25 MCG tablet 37.5 mcg PO DAILY atorvastatin 40 MG tablet 40 mg PO QHS donepezil 10 MG tablet 10 mg PO QHS Qty: 30 0RF diltiazem HCl [Cartia XT] 120 mg Capsule,Extended Release 24hr 120 mg PO DAILY clopidogrel 75 mg tablet 75 mg PO DAILY Qty: 90 3RF isosorbide mononitrate 60 mg tablet extended release 24 hr 60 mg PO DAILY Qty: 90 3RF carvedilol 3.125 mg tablet See Rx Instructions .ROUTE .COMPLEX Qty: 180 3RF Dose Instruction: TAKE 1 TABLET TWICE A DAY Rx Instructions: TAKE 1 TABLET TWICE A DAY hydrochlorothiazide 25 mg tablet 25 mg PO DAILY Primary Care Provider: Cat Sauceda Referrals: Cat Sauceda DO [Primary Care Provider] - 5-7 Days Disposition Disposition: Home, Self Care
== END 2023-03-16 12:18 | disposition home or self-care (01) ==
PROVIDERS: Emergency Provider Emergency Medicine; PCP Internal Medicine; Visit Provider Emergency Medicine
DX: S46.911A Strain of unspecified muscle, fascia and tendon at shoulder and upper arm level, right arm, initial encounter (principal); I25.10 Atherosclerotic heart disease of native coronary artery without angina pectoris; E78.5 Hyperlipidemia, unspecified; I10 Essential (primary) hypertension; X58.XXXA Exposure to other specified factors, initial encounter
CPT/HCPCS: 73030; 99283

== ENCOUNTER → 2023-04-07 | Outpatient (CLI) | payer MEDICARE, SELFPAY ==
[2021-03-20 00:25] VITALS: BMI 31.8
[2023-04-07 13:03] LABS: PTHIN 29.8 pg/mL (18.4-80.1)
[2023-04-07 13:21] LABS: Albumin, Serum 3.3 g/dL (3.2-5.0); BUN 51 mg/dL (7-18); BUN/Creat Ratio 22.3 RATIO (10-20); Calcium,Total 9.5 mg/dL (8.5-10.1); Chloride 105 mmol/L (98-107); Creatinine, Serum 2.29 mg/dL (0.55-1.02); EST Glomerular Filtration Rate 22 mL/min (>60); Est Glom Filt Rate - Afr Amer 26 mL/min (>60); Glucose 128 mg/dL (74-106); Iron Binding Capacity,Total 282 ug/dL (250-450); Phosphorus 3.7 mg/dL (2.5-4.9); Potassium 4.6 mmol/L (3.5-5.1); Sodium Level 138 mmol/L (136-145)
== END | disposition home or self-care (01) ==
PROVIDERS: PCP Internal Medicine; Referring Provider Internal Medicine Nephrology; Visit Provider Internal Medicine Nephrology
DX: N18.4 Chronic kidney disease, stage 4 (severe) (principal); D64.9 Anemia, unspecified
CPT/HCPCS: 36415; 80069; 83540; 83550; 83970

== ENCOUNTER → 2023-04-08 | Outpatient (CLI) | payer MEDICARE, SELFPAY ==
[2021-03-20 00:25] VITALS: BMI 31.8
[2023-04-08 16:29] LABS: Ferritin 148 ng/mL (8-252)
== END | disposition home or self-care (01) ==
LOC: LAB 15:34
PROVIDERS: PCP Internal Medicine; Referring Provider Internal Medicine Nephrology; Visit Provider Internal Medicine Nephrology
DX: N18.4 Chronic kidney disease, stage 4 (severe) (principal)
CPT/HCPCS: 82728

== ENCOUNTER → 2023-04-21 | Outpatient (CLI) | payer MEDICARE, SELFPAY ==
[2021-03-20 00:25] VITALS: BMI 31.8
--- NOTE | 2023-04-21 08:53 | CDU_ITS ---
Reason For Study: STENOSIS Rt. Velocities/BP Lt. Velocities/BP Prox CCA 91.6/10.2 cm/sec. Prox CCA 94.1/9.3 cm/sec. Mid CCA 81.7/12.4 cm/sec. Mid CCA 78.1/14.2 cm/sec. Dist CCA 50.4/12.0 cm/sec. Dist CCA 73.2/14.2 cm/sec. Prox ICA 221.7/44.0 cm/sec. Prox ICA 150.6/40.8 cm/sec. Mid ICA 299.3/53.7 cm/sec. Mid ICA 250.8/44.0 cm/sec. Dist ICA 228.2/44.0 cm/sec. Dist ICA 133.7/28.3 cm/sec. Rt. ICA/CCA = 299.3/81.7=3.7. Lt. ICA/CCA = 250.8/78.1=3.2. Prox ECA 416.0/0.0 cm/sec. Prox ECA 126.4/5.7 cm/sec. Rt. Vert. 60.0/12.7 cm/sec. Lt. Vert. 109.5/26.1 cm/sec. Right Extracranial There is intimal thickening but no significant atherosclerotic plaque noted in the right common carotid artery. There is heterogeneous, irregular atherosclerotic plaque noted in the right internal carotid artery. There is heterogeneous, irregular atherosclerotic plaque noted in the right external carotid artery. Antegrade flow is noted in the right vertebral artery. Left Extracranial There is homogeneous, smooth atherosclerotic plaque noted in the left common carotid artery. There is heterogeneous, irregular atherosclerotic plaque noted in the left internal carotid artery. The atherosclerotic plaque causes acoustic shadowing. There is intimal thickening but no significant atherosclerotic plaque noted in the left external carotid artery. Antegrade flow is noted in the left vertebral artery. Procedure Carotid Duplex 29408. This is a Carotid Duplex examination using B-mode, color flow and specral Doppler. Exam performed in department. VL/Carotid Duplex Ultrasound Interpretation Summary Severe (>70%) stenosis right extracranial internal carotid. Severe (>70%) steno sis left extracranial internal carotid. Flow within the vertebral arteries is antegrade bilaterally. Ordering Physician: John Ramirez Referring Physician: Cat Sauceda Performed By: Lisa Hernandez, ANGELINA, RVT
== END | disposition home or self-care (01) ==
LOC: CVS 08:52
PROVIDERS: PCP Internal Medicine; Referring Provider Surgery Vascular Surgery; Visit Provider Surgery Vascular Surgery
DX: I65.23 Occlusion and stenosis of bilateral carotid arteries (principal)
CPT/HCPCS: 93880

== ENCOUNTER 2023-04-23 13:00 | Outpatient (RCR) | payer MEDICARE, SELFPAY ==
[2021-03-20 00:25] VITALS: BMI 31.8
--- NOTE | 2023-03-30 13:02 | HP.PTEVAL_ITS ---
Patient's Visit Information Visit Information Visit Information: STORM MENCHACA is a 82 year old F referred to Physical Therapy by YU Mayer with a diagnosis of NECK PAIN. Date of Evaluation: 03/30/23 Physical Therapist: Cande Rodriguez PT, Cert MDT Visit Plan Frequency: 2-3x /Week Duration: 4-6 Weeks Plan: CERVICAL US AND STM X 6-8 SESSIONS. POSTURE CORRECTION/STRENGTHENING, INSTRUCTION IN APPROPRIATE BODY MECHANICS AND ACTIVITY MODIFICATIONS. BUNNY UE ROM, STRETCHING AND STRENGTHENING. HEP INSTRUCTION. Subjective Subjective: Work/Leisure: RETIRED Present symptoms: NECK PAIN AND STIFFNESS. INTERMITTENT PAIN DOWN R UE. PATIENT DENIES R UE NUMBNESS AND TINGLING. Present since: OVER A WEEK Pain Scale: Worst - 7/10 Least - 0/10 Currently: 0/10 Commenced as a result of: NO APPARENT REASON Symptoms at onset: NECK STIFFNESS AND INABILITY TO TURN HEAD LIKE USUAL Worse: TURNING HEAD RIGHT AND LEFT Better: PILLS Disturbed sleep: NO Previous history/Previous treatment: H/O EPISODE OF NECK PAIN AND STIFFNESS IN 2007 TREATED WITH PT AND RESOLVED This episode: PILLS Dizziness: NO Tinnitis: NO Nausea: NO Shortness of Breath: NO Difficulty Swollowing: NO Gait: NORMAL Accidents: NO Unexplained weight loss: NO Imaging: NO PMH/Recent major surgery: SEE BELOW Objective Objective: Sitting Posture/Standing Posture: POOR. FH. RSHL'S (LEFT > RIGHT). Active Correction of posture: NE Other Observations: INDEP GAIT AND TRANSFERS Sensory deficit: BUNNY UE LIGHT TOUCH SENSATION GROSSLY INTACT AND SYNMMETRICAL ROM deficit: BUNNY SHLD ROM DEFICITS LEFT GREATER THAN R. DURING TESTING PATIENT REPORTS HAVING AN UNREPAIRED L ROTATOR CUFF TEAR. SHE IS R HAND DOMINANT. MAJOR BUNNY SHLD ER LIMITATION. BUNNY SHLD FLEX MODERATELY LIMITED. BUNNY ELBOW ROM WFL. VERY ARTHRITIC BUNNY HANDS AND WRISTS AND UNABLE TO MAKE FULL FISTS. Motor deficit: R UE: SHLD 4-/5, ELBOW 4/5. L UE: SHLD 3-/5, ELBOW 4-/5. Reflexes: 1/3 BUNNY UE'S. Dural Signs: POSITIVE RIGHT UE Cervical Mvmt Loss: Flex: NIL Pro: NIL Ext: MOD TO LENI Ret: LENI RSB: MOD LSB: LENI R Rot: LENI L Rot: MOD PATIENT C/O NECK PAIN WITH CERVICAL ROM TESTING ALL PLANES AND RIGHT SHLD, UPPER ARM AND FOREARM PAIN WITH R ROTATION TESTING. Postural strength: POOR Palpation: INCREASED MUSCLE TONE BUNNY CERVICAL MUSCULATURE. R OCCIPUT TENDERNESS BUT OTHERWISE NO ACUTE UPPER THORACIC OR CERVICAL SPINE TENDERNESS. Balance/Special Test Scores Oswestry Neck Score: 2 Goals Goal 1:: DECREASE C/O NECK AND R UE SX'S. Goal Time Frame: 4-6 Weeks Goal 2:: INCREASE PAINFREE NECK ROTATION ROM TO EASE ADL'S. Goal Time Frame: 4-6 Weeks Goal 3:: INSTRUCT IN PROPHYLAXIS Goal Time Frame: 4-6 Weeks Anticipated Interventions Patient/Client Instruction: Educate patient on: Condition, Plan of Care and Ris k Factors For the Purpose of:: To improve self management Therapeutic Exercise to Include: Strength training, Postural training, Flexibilty training and Scapular Strength/Stabilization For the Purpose of:: To decrease pain, To increase ROM, To improve muscle performance and motor function, To increase tolerance to activity/con dition/position and To improve ability of physical actions for home/community/work/leisure Manual Therapy Techniques to Include: Soft tissue mobilization For the Purpose of:: To decrease pain and To improve nutrient delivery to tissue Thermo therapy (hot pack): Yes Ultrasound (thermal/non thermal): Yes For the Purpose of:: To decrease pain and To improve nutrient delivery to tissue Text: Thank you for the opportunity to evaluate your patient. For Medicare and Medicare HMO plans, please review the plan of care and approve it. It will need to be FAXED BACK to us at [phone] for Medicare purposes. For Medicare only, by signing this I certify the plan of care. Please let me know if there are questions or concerns regarding this plan of care. Physician Signature: Date:
--- NOTE | 2023-04-23 13:17 | HP.PTDCSUM ---
Discharge Summary D/C summary: It has been my pleasure to treat STORM MENCHACA referred by Carmelita Beyer NP-C, with the diagnosis of NECK PAIN for a total of 11 visit(s). Discharge Date: 04/23/23 Please see the following information for a summary of their discharge status. Subjective Subjective: PATIENT REPORTS THERAPY HAS DEFINATELY HELPED. PATIENT REPORTS COMPLIANCE WITH HEP AND FEELS SHE CAN MANAGE ON HER OWN NOW. PATIENT REPORTS A LITTLE TENDERNESS WHEN SHE TURNS HER HEAD R. PATIENT DENIES BUNNY UE SX'S. Pain c-spine: Pain Intensity (Out of 10): 0 Overall Improvement % Improvement: 90 Objective Objective/Function: PATIENT WAS SEEN TODAY FOR RE-ASSESSMENT OF PROGRESS TOWARD THE SET PT GOALS AND THE NEED FOR FURTHER PHYSICAL THERAPY VS READINESS FOR DISCHARGE. PATIENT HAS RESPONDED VERY WELL TO PT AND IS DOING MUCH BETTER. UPON EXAM TODAY: Dural Signs: NEGATIVE BUNNY UE'S Cervical Mvmt Loss: Flex: NIL Pro: NIL Ext: MOD TO LENI Ret: LENI RSB: MIN LSB: MOD R Rot: MOD L Rot: MIN TO MOD PATIENT DENIES NECK PAIN WITH CERVICAL ROM TESTING ALL PLANES TODAY UNLESS SHE TRIES TO ROTATE TO THE RIGHT FAR POSSIBLE THEN SHE FEELS IT IN THE LEFT SIDE OF HER NECK BUT MIDLY. Goals Goal 1:: DECREASE C/O NECK AND R UE SX'S. Goal Progress: Goal Met Goal 2:: INCREASE PAINFREE NECK ROTATION ROM TO EASE ADL'S. Goal Progress: Goal Met Goal 3:: INSTRUCT IN PROPHYLAXIS Goal Progress: Goal Met Plan Plan: D/C TO HEP. PATIENT AGREEABLE. D/C Information d/c sentence: If there are questions or concerns regarding this patient's physical therapy, please feel free to call me at [phone]. Thank you for the referral of this patient. Sincerely, Cande Rodriguez, PT, Cert MDT Balance/Gait/Functional tests Balance/Special Test Scores Oswestry Neck Score: 3
== END 2023-04-23 14:19 | disposition home or self-care (01) ==
LOC: PT 13:00
PROVIDERS: PCP Internal Medicine; Referring Provider Nurse Practitioner Family; Visit Provider Nurse Practitioner Family
DX: M54.2 Cervicalgia (principal)
CPT/HCPCS: 97035; 97110; 97140; 97162; 97164

== ENCOUNTER → 2023-08-04 | Outpatient (CLI) | payer MEDICARE, SELFPAY ==
[2021-03-20 00:25] VITALS: BMI 31.8
[2023-08-04 09:12] LABS: Hematocrit 33.8 % (37-47); Hemoglobin 10.5 g/dL (12.0-15.0); Mean Corp Hgb Conc 31.1 g/dL (32-36); Mean Corpuscular Hgb 27.1 pg (27.0-32.0); Mean Corpuscular Volume 87.3 fL (81-99); Mean Platelet Vol. 9.2 fl (6.2-12.0); Platelet Count 297 K/mm3 (150-450); RBC Distribution Width CV 14.6 % (11.6-14.6); RBC Distribution Width SD 46.6 fl (35.1-43.9); Red Blood Count 3.87 M/mm3 (4.2-5.4); White Blood Count 8.2 K/mm3 (4.4-11.0)
[2023-08-04 09:46] LABS: Albumin, Serum 3.5 g/dL (3.2-5.0); BUN 37 mg/dL (7-18); BUN/Creat Ratio 19.5 RATIO (10-20); Calcium,Total 8.6 mg/dL (8.5-10.1); Chloride 109 mmol/L (98-107); EST Glomerular Filtration Rate 27 mL/min (>60); Est Glom Filt Rate - Afr Amer 32 mL/min (>60); Glucose 96 mg/dL (74-106); Phosphorus 3.3 mg/dL (2.5-4.9); Potassium 4.6 mmol/L (3.5-5.1); Sodium Level 142 mmol/L (136-145)
== END | disposition home or self-care (01) ==
LOC: LAB 08:18
PROVIDERS: PCP Internal Medicine; Referring Provider Internal Medicine Nephrology; Visit Provider Internal Medicine Nephrology
DX: N18.4 Chronic kidney disease, stage 4 (severe) (principal); D50.9 Iron deficiency anemia, unspecified
CPT/HCPCS: 36415; 80069; 85027

== ENCOUNTER → 2023-09-06 | Outpatient (CLI) | payer MEDICARE, SELFPAY ==
[2021-03-20 00:25] VITALS: BMI 31.8
[2023-09-06 13:55] VITALS: BP 180/51; PULSE 63; RESP 18; O2SAT 96; BMI 33.0
[2023-09-06] MEDS: 0.9% Saline Lock 10 ML Syringe IV (14:00)
[2023-09-06] MEDS: 0.9% Normal Saline (500mL Bag) 500 ML IV (14:03)
[2023-09-06 15:16] VITALS: BP 163/65; PULSE 65; RESP 16; O2SAT 97
--- NOTE | 2023-09-06 15:40 | CT_ITS ---
INDICATION: R ICA stenosis -- Will need IVF EXAMINATION: CTA Head and Neck W/ Contrast Injection (and W/O Contrast Images if performed) TECHNIQUE: Routine unenhanced CT brain performed then CTA of the head and neck was performed with post processing of the angiographic images for volumetric reconstructions. In addition, images were obtained of the [place] of [place]. Nascet criteria using the distal ICAs for comparison were used for evaluation of stenoses. 2-D and 3-D reconstructions were reviewed. A radiation dose optimization technique was used for this scan. IV Contrast dosage and agent: 100 cc [id number] COMPARISON: CTA of neck from 10/19/2018 FINDINGS: --UNENHANCED BRAIN: Chronic cerebral involutional changes and mild chronic periventricular white matter lucencies. No intracranial hemorrhage, edema, mass effect or midline shift. No evidence of acute major territorial infarct. No hydrocephalus. Intracranial atherosclerotic calcifications. Calvarium is intact. Paranasal sinuses with no acute findings. Mastoid air cells are well-pneumatized. Postop cataract surgery bilaterally. --NECK: AORTIC ARCH AND BRANCHES: Atherosclerotic plaque with no aneurysm, dissection, occlusion or significant stenosis. RIGHT CCA: No occlusion, significant stenosis or dissection. Calcified plaque at bifurcation. RIGHT ICA: Atherosclerotic plaque resulting in approximately 70% stenosis at origin of internal carotid artery and over 80% stenosis at origin of external carotid artery. LEFT CCA: No occlusion, significant stenosis or dissection. Calcified plaque at bifurcation. LEFT ICA: Calcified plaque resulting in approximately 50% stenosis proximally. RIGHT VERTEBRAL ARTERY: No occlusion, significant stenosis or dissection. LEFT VERTEBRAL ARTERY: No occlusion, significant stenosis or dissection. NECK SOFT TISSUES: A few subcentimeter thyroid cysts again noted, with no additional follow-up recommended. No acute findings. LUNG APICES: No acute findings. BONES: Skeletal degenerative changes with no acute osseous abnormality. --HEAD: --Anterior circulation: ICAs: Calcified plaque bilaterally resulting in up to 70% stenosis. ACAs: No significant stenosis at the visualized segments. ACOM: Present. MCAs: No significant stenosis at the visualized segments. --Posterior circulation: PCOMs: Absent. customer support coordinator: No significant stenosis at the visualized segments. BASILAR ARTERY: No significant stenosis. VERTEBRAL ARTERIES: Calcified plaque bilaterally resulting in up to 70% stenosis. No evidence of intracranial aneurysm or vascular malformation. CT/CTA Head AND Neck W/ Contrast IMPRESSION: 1. Multifocal atherosclerotic disease notable for severe stenosis at origin of right external iliac artery, high-grade stenosis origin of right internal carotid artery, high-grade stenosis bilateral distal/intracranial internal carotid arteries, high-grade stenosis bilateral distal/intracranial vertebral arteries and moderate stenosis proximal left internal carotid artery. 2. Cerebral atrophy and chronic small vessel white matter disease. Electronically Signed: Jax Monteiro MD at 6:15 EST ,
== END | disposition home or self-care (01) ==
LOC: CT 13:41
PROVIDERS: PCP Internal Medicine; Referring Provider Physician Assistant; Visit Provider Physician Assistant
DX: I65.21 Occlusion and stenosis of right carotid artery (principal)
CPT/HCPCS: 70496; 70498; Q9967

== ENCOUNTER → 2023-09-29 | Outpatient (CLI) | payer MEDICARE, SELFPAY ==
[2021-03-20 00:25] VITALS: BMI 31.8
--- NOTE | 2023-09-29 08:53 | BD_ITS ---
STUDY: DUAL ENERGY X-RAY ABSORPTIOMETRY / DXA REASON FOR EXAM: Female, 83 years old. [id number] TECHNIQUE: Bone Mineral Density (BMD) measurements of lumbar spine and left hip were obtained. COMPARISON: Comparison is made with prior study dated November 30, 2018. FINDINGS: Lumbar Spine (L1-L4): g/cm2 (1.125) / T-score (1.3) / Z-score (4.0) Findings are suggestive of normal bone density with a low fracture risk. Left Femur Total: g/cm2 (1.004) / T-score (0.5) / Z-score (2.8) Left Femoral Neck: g/cm2 (0.987) / T-score (1.2) / Z-score (3.8) The T-Scores on the most recent prior examination were: Lumbar Spine (L1-L4): There has been improvement of bone density since the previous examination. Left Femur Total: which represents a worsening of 0.6%. BD/Dexa Bone Density Study IMPRESSION: The patient is considered normal as outlined below according to World Lal[employer] Organization (WHO) criteria with a low fracture risk. There has been improvement of bone density since the previous examination. Reference Information: The T-score is the number of standard deviations above or below the standard which is normal for young adults at their peak bone mineral density. The World Health Organization (WHO) interprets the T-scores as follows: Above -1 Normal bone density Between -1 and -2.5 Osteopenia Equal to / or below -2.5 Osteoporosis As a practical clinical guideline, osteopenia may be graded as follows: Mild -1 through -1.5 Moderate -1.6 through -2.0 Severe -2.1 through -2.4 The Z-score is the number of standard deviations above or below age-matched controls. A Z-score of less than -1.5 would be considered abnormal. References: 1. NIH Osteoporosis and Related Bone Diseases www osteo.org 2. International Society for Clinical Densitometry www iscd.org 3. National Osteoporosis Foundation www nof.org Electronically Signed: Marvin Merrill MD at 13:46 EST ,
== END | disposition home or self-care (01) ==
LOC: OPBD 08:47
PROVIDERS: PCP Internal Medicine; Referring Provider Internal Medicine; Visit Provider Internal Medicine
DX: Z78.0 Asymptomatic menopausal state (principal)
CPT/HCPCS: 77080

== ENCOUNTER 2023-11-29 10:00 | Outpatient (RCR) | payer MEDICARE, SELFPAY ==
[2021-03-20 00:25] VITALS: BMI 31.8
--- NOTE | 2023-12-01 10:36 | HP.PTEVAL_ITS ---
Patient's Visit Information Visit Information Visit Information: STORM MENCHACA is a 83 year old F referred to Physical Therapy by Dr. Cat Sauceda DO with a diagnosis of R greater trochanteric bursitis. Date of Evaluation: 11/29/23 Physical Therapist: Sean Borja DPT Visit Plan Frequency: 1x/Week Duration: 4 Weeks Plan: Storm's symptoms have been slowly resolving. I gave her some light st retching and core stability exercises that I would like her to try for the next week then follow up. If she is doing well next visit I will DC. If not improving I will have her work on more ROM and core stability. Consider manual techniques to reduce tissue irritation. Subjective Subjective: Pt. is here today for her initial evaluation with diagnosis of R greater trochanteric bursitis. Pt. is sleeping well. Pain comes and goes. Intermittent pain. She reports her pain is only on the right side, but mostly in her R flank. No mech of injury. Pt. reports that her pain has improve since her her initial symptoms. Pt. reports increased pain with deep breathing as well. Pt. is not having much hip pain today. Increases symptoms: pt. had a hard time determining, but felt was more with prolonged standing and lifting. Decreases symptoms: heat, not much else. PMH: R ROGELIO, B TKA, R shoulder surgery. Pt. 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 Pain R side of lumbar spine: Pain Intensity (Out of 10): 4 Pain Intensity Range: 0 and 8 Objective Objective: POSTURE: Pt. has decent posture in stance. Slight forward head with rounded shoulders. Pt. has fairly normal lumbar positioning. PALPATION: Pt. does not have any pain with palpation throughout R greater trochanter, R gluteal region, no groin pain or IT band pain. She does have increased pain at R distal few ribs. No pain with spring testing throughout thoracic and lumbar spine. NEURO: normal throughout BLEs. ROM: Pt. has normal B hip ROM normal without increase in symptoms. Pt. has slight tightness in IT band, but not much. Pt. has good HS length, without increase in symptoms. LUMBAR SPINE: flexion nil loss NE, ext mod loss NE, SB R min loss increase NW, SB L min loss increase NW, rotation min/mod loss increase NW. MMT: Pt. has 5/5 strength throughout BLEs. NO major pain with any testing. Core strength: poor+ Special Tests Thoracic Sitting: Flexion - Mechanical Response: No effect Thoracic Sitting: Flexion - Symptoms During Testing: No effect Thoracic Sitting: Flexion - Symptoms After Testing: No effect Thoracic Sitting: Extension - Mechanical Response: No effect Thoracic Sitting: Extension - Symptoms During Testing: No effect Thoracic Sitting: Extension - Symptoms After Testing: No effect Thoracic Sitting: Right rotation - Mechanical Response: No effect Thoracic Sitting: Right Rotation - Symptoms During Testing: No effect Thoracic Sitting: Right Rotation - Symptoms After Testing: No effect Thoracic Sitting: Left rotation - Mechanical Response: No effect Thoracic Sitting: Left Rotation - Symptoms During Testing: No effect Thoracic Sitting: Left Rotation - Symptoms After Testing: No effect L/S Slump test left side: Negative L/S Slump test right side: Negative L/S Left Straight Leg Raise: Negative L/S Right Straight Leg Raise: Negative R Hip Scour: Negative R Hip TIESHA - Intraarticular Pathology: Negative R Hip FADDIR - Labrum: Negative R Hip Trendelenberg - Glut Medius: Negative R Hip Batool - IT Band: Negative Balance/Special Test Scores Lower Extremity Functional Score: 69 Goals Goal Time Frame: 1 Week Rehabilitation Potential Physical Therapy Diagnosis: Pt. has signs and symptoms consistent with R flank pain. Her R lateral hip pain seems to have resolved, but is left with more R sided flank pain, closer to her lower ribs. She did not have pain pain with palpation of R hip or with any movements, but was more at her posterior lateral ribs. No pain with spring testing to thoracic and lumbar spine. She did have increased pain with deep breathing and with lateral pressure to her ribs. Anticipated Interventions Patient/Client Instruction: Educate patient on: Condition, Plan of Care, Risk Factors and Benefits of Fitness Program For the Purpose of:: To improve decision making, To facilitate caregiver knowledge, To improve self management, To prevent re-injury and To improve ability to perform tasks related to life management Therapeutic Exercise to Include: Strength training, Postural training, Flexibilty training, Passive ROM, Active ROM and Dynamic Lumbar Stabilization For the Purpose of:: To decrease pain, To increase ROM, To improve nutrient delivery to tissue, To increase oxygenation perfusion, To improve muscle performance and motor function, To improve ability to perform ADL's, To increase tolerance to activity/condition/position and To improve performance and independence with ADL's Manual Therapy Techniques to Include: Mobilization and Soft tissue mobilization For the Purpose of:: To decrease pain, To decrease swelling/inflammation, To increase ROM and To improve nutrient delivery to tissue Text: Thank you for the opportunity to evaluate your patient. For Medicare and Medicare HMO plans, please review the plan of care and approve it. It will need to be FAXED BACK to us at [phone] for Medicare purposes. For Medicare only, by signing this I certify the plan of care. Please let me know if there are questions or concerns regarding this plan of care. Physician Signatu re: Date:
== END 2023-11-29 19:00 | disposition home or self-care (01) ==
LOC: PT 10:00
PROVIDERS: PCP Internal Medicine; Referring Provider Internal Medicine; Visit Provider Internal Medicine
DX: M70.61 Trochanteric bursitis, right hip (principal); M25.551 Pain in right hip
CPT/HCPCS: 97161

== ENCOUNTER 2023-12-25 14:20 | Emergency (ER) | payer MEDICARE, SELFPAY ==
[2021-03-20 00:25] VITALS: BMI 31.8
[2023-12-25 14:20] VITALS: BP 171/55; PULSE 69; RESP 18; TEMP 36.4; O2SAT 95; BMI 32.3
--- NOTE | 2023-12-25 14:42 | EX.ED.DYSGE1 ---
HPI <FLAOK Mccray - Last Filed: 12/25/23 15:37> History of Present Illness Chief Complaint: Cellulitis Narrative Narrative: 83-year-old female states over the last week she had a tingly sleep feeling in her right lateral upper calf would occasionally go down to the entire foot. This morning she developed similar symptoms in the left calf and it seemed more intense prompting her to come in. She thought it might be a blood clot. It is not painful. She has no motor changes. She has no back pain or radicular pain. She has had no change in activity and no trauma. No fever or chills. She states her ankles are always mildly swollen by the end of the day and after sleeping with them propped up overnight it resolves. [facility] <FLAKO Mccray - Last Filed: 12/25/23 15:37> [facility] Medical History Aortic stenosis, moderate Atherosclerotic heart disease of [place] coronary artery without angina pectoris Carotid stenosis, bilateral Essential (primary) hypertension Hyperlipidemia Hypothyroidism NSTEMI (non-ST elevated myocardial infarction) (12/07/20) Home Medications levothyroxine 25 mcg tablet 37.5 mcg PO DAILY THYROID 06/19/13 [History Last Taken Unknown] atorvastatin 40 mg tablet 40 mg PO QHS cholesterol 12/07/20 [History Last Taken Unknown] donepezil 10 mg tablet 10 mg PO QHS #30 tabs 12/10/20 [Rx Last Taken Unknown] cholecalciferol (vitamin D3) 50 mcg (2,000 unit) capsule 50 mcg PO DAILY 12/31/20 [History Last Taken Unknown] losartan 50 mg tablet 50 mg PO DAILY 12/31/20 [History Last Taken Unknown] multivitamin (Daily Multi-Vitamin tablet) 1 tablet PO DAILY 12/31/20 [History Last Taken Unknown] diltiazem HCl 120 mg capsule,extended release 24 hr (Cartia XT) 120 mg PO DAILY 05/24/21 [History Last Taken Unknown] pyridoxine (vitamin B6) 50 mg tablet 50 mg PO DAILY 12/05/21 [History Last Taken Unknown] carvedilol 3.125 mg tablet See Rx Instructions .Route .COMPLEX #180 tabs 11/04/22 [Rx Last Taken Unknown] isosorbide mononitrate 60 mg tablet,extended release 24 hr 60 mg PO DAILY #90 tabs 11/04/22 [Rx Last Taken Unknown] hydrochlorothiazide 25 mg tablet 25 mg PO DAILY 12/07/22 [History Last Taken Unknown] hydrocodone-acetaminophen 5-325mg 5mg-325mg 1 tab PO Q6H PRN PRN Pain 3 days #10 TABLETS 03/16/23 [Rx Last Taken Unknown] clopidogrel 75 mg tablet 75 mg PO DAILY #90 tabs 09/02/23 [Rx Last Taken Unknown] Allergy/AdvReac Type Severity Reaction Status Date / Time milk Allergy Intermediate GI upset Verified 08/31/23 13:39 Family History Father Myocardial infarction Mother Myocardial infarction Hypertension Sister Myocardial infarction Surgical History History of coronary artery stent placement (12/09/20) Social History Smoking Status: Never smoker alcohol intake: never substance use type: does not use caffeine: Yes Type: carbonated beverages EXAM <FLAKO Mccray - Last Filed: 12/25/23 15:37> Physical Exam Narrative Exam Narrative: CONST: Patient sitting in no acute distress. EYES: Normal inspection. NECK: Normal inspection. RESP: No respiratory distress, CTAB. CVS: Regular rate and rhythm, no murmur, no gallop. Back: Normal inspection, no midline tenderness. SKIN: Color normal, no rash, warm, dry, intact. EXTREMITIES: Normal appearance of both lower extremities, trace pedal edema both ankles. Full ROM all joints, 5/5 strength in bilateral hip flexion, knee flexion/extension, and DF/PF. Normal sensation in all dermatomes. 2+ DP pulses. No tenderness over the deep venous system. No skin changes or warmth. NEURO: Alert and answering questions appropriately. PSYCH: Normal affect. Const Vital Signs: 12/25/23 14:20 Temperature 97.5 F L Temperature Source Temporal Pulse Rate 69 Respiratory Rate 18 Blood Pressure 171/55 H Blood Pressure Mean 93 Pulse Ox 95 Oxygen Delivery Method Room Air <Dr. Abe Lentz DO - Last Filed: 12/25/23 15:46> Physical Exam Const Vital Signs: 12/25/23 14:20 Temperature 97.5 F L Temperature Source Temporal Pulse Rate 69 Respiratory Rate 18 Blood Pressure 171/55 H Blood Pressure Mean 93 Pulse Ox 95 Oxygen Delivery Method Room Air [facility] <FLAKO Mccray - Last Filed: 12/25/23 15:37> [facility] Narrative Medical decision making narrative: History gathered from: Patient and spouse Patient has had 1 week of intermittent paresthesias that started in the right lateral calf and is now in the left. Occasionally into both feet. She has no back pain or other associated symptoms. She was concerned this could be a blood clot. She appears well and nontoxic and is stable vital signs. Lower extremities appear normal with no significant swelling or skin changes. There is no signs of infection. MSPs and reflexes are intact. She has no tenderness of the deep venous system and no risk factors for DVT/PE and her symptoms are not consistent with this. BMP was obtained to check her electrolytes which are normal. Her creatinine 1.98 is at baseline. I do not think her symptoms are related to a lumbar issue as she has no pain or radicular symptoms. I advise she follow-up with her primary care doctor and discussed new symptoms that would warrant evaluation in the ED. She was discharged in stable condition. Lab Data Attestation: I reviewed the patient's lab results. Labs: Laboratory Results - last 24 hr 12/25/23 14:58 Sodium 138 Potassium 4.7 Chloride 108 H Carbon Dioxide 25.0 Anion Gap 5 BUN 40 H Creatinine 1.98 H Estim Creat Clear Calc 19.58 Est GFR (MDRD) Af Amer 31 L Est GFR (MDRD) Non-Af 25 L BUN/Creatinine Ratio 20.2 H Glucose 144 H Calcium 9.2 <Dr. Abe Lentz, - Last Filed: 12/25/23 15:46> [facility] Lab Data Labs: Laboratory Results - last 24 hr 12/25/23 14:58 Sodium 138 Potassium 4.7 Chloride 108 H Carbon Dioxide 25.0 Anion Gap 5 BUN 40 H Creatinine 1.98 H Estim Creat Clear Calc 19.58 Est GFR (MDRD) Af Amer 31 L Est GFR (MDRD) Non-Af 25 L BUN/Creatinine Ratio 20.2 H Glucose 144 H Calcium 9.2 Treatment and Re-Evaluation :: I have personally performed a face to face assessment of the patient and have reviewed the ISAIAS Note. I performed a substantive portion of the visit including all aspects of the following. My medrano findings include: History: Patient presents with pain to her lower legs that has been getting progressively worse over the last week. Patient states the pain is mainly over the lateral aspect of her right leg. Patient states that today it developed in the lateral aspect of the left leg. Patient denies any trauma or injury. Patient states the pain is intermittent. Patient states nothing makes it better nothing makes it worse. Patient does admit to some intermittent tingling in her legs as well. Patient denies any fevers or chills. Patient denies any chest pain or shortness of breath. Exam: Vital signs are stable. Patient is afebrile. Patient is in no acute distress. Oral mucosa is pink and moist. Neck is supple. Trachea is midline. There is no JVD. Heart was regular rate and rhythm. Lungs are clear and equal bilaterally. Abdomen is soft. Bowel sounds are normal. There is no tenderness. Musculoskeletal exam reveals some mild tenderness over the lateral aspects of the lower legs bilaterally. There is no calf tenderness. There is good range of motion of the lower extremities bilaterally. There is no pain with dorsiflexion of the ankles. Pedal pulses are equal bilaterally. Sensation was intact to light touch in all digits bilaterally. Capillary refill was less than 2 seconds in all digits. Medical Decision Making: Patient was concerned that this could be from a DVT. I do not feel is from a DVT since there is no edema of the lower extremities and there is no tenderness over the calf muscles themselves. Differential diagnosis includes paresthesias, muscle strain, and electrolyte abnormality. Basic metabolic profile will be obtained to assess for electrolyte abnormality. Basic metabolic profile was reviewed. BUN was 40 and creatinine was 1.98. These are consistent with prior results. Electrolytes were within normal limits. Patient was advised that this could also be neuropathy starting. Patient was instructed to ice and elevate the legs. Patient was instructed to follow-up with her primary care physician in 5 to 7 days. Patient understood and was agreeable with the plan. All questions were answered. Discharge Plan Triage Chief Complaint: Cellulitis ED Midlevel Provider: Purnima Enciso ED Provider: Abe Lentz Dx/Rx/DC Orders Clinical Impression: Bilateral leg paresthesia Instructions: ED Paraesthesias Prescriptions: No Action losartan 50 mg tablet 50 mg PO DAILY multivitamin [Daily Multi-Vitamin] Tablet 1 tablet PO DAILY cholecalciferol (vitamin D3) 50 mcg (2,000 unit) capsule 50 mcg PO DAILY pyridoxine (vitamin B6) 50 mg tablet 50 mg PO DAILY levothyroxine 25 MCG tablet 37.5 mcg PO DAILY atorvastatin 40 MG tablet 40 mg PO QHS donepezil 10 MG tablet 10 mg PO QHS Qty: 30 0RF diltiazem HCl [Cartia XT] 120 mg Capsule,Extended Release 24hr 120 mg PO DAILY hydrocodone-acetaminophen [hydrocodone-acetaminophen] 5-325 mg tablet 1 tab PO Q6H PRN PRN (Reason: Pain) 3 Days Qty: 10 0RF isosorbide mononitrate 60 mg tablet extended release 24 hr 60 mg PO DAILY Qty: 90 3RF carvedilol 3.125 mg tablet See Rx Instructions .ROUTE .COMPLEX Qty: 180 3RF Dose Instruction: TAKE 1 TABLET TWICE A DAY Rx Instructions: TAKE 1 TABLET TWICE A DAY hydrochlorothiazide 25 mg tablet 25 mg PO DAILY clopidogrel 75 mg tablet 75 mg PO DAILY Qty: 90 3RF Primary Care Provider: Cat Sauceda Referrals: Cat Sauceda DO [Primary Care Provider] - Activity Restrictions/Additional Instructions: Today your screening blood work showed normal electrolytes. You have chronic kidney disease but the kidney function is stable. I recommend following up with your primary care doctor to further evaluate your leg symptoms. I do not think this is a blood clot. Disposition Disposition: Home, Self Care
[2023-12-25 15:25] LABS: Anion Gap 5 (5-15); BUN 40 mg/dL (7-18); BUN/Creat Ratio 20.2 RATIO (10-20); Calcium,Total 9.2 mg/dL (8.5-10.1); Chloride 108 mmol/L (98-107); Creatinine, Serum 1.98 mg/dL (0.55-1.02); EST Glomerular Filtration Rate 25 mL/min (>60); Est Glom Filt Rate - Afr Amer 31 mL/min (>60); Estimated Creatinine Clearance 19.58 ml/min; Glucose 144 mg/dL (74-106); Potassium 4.7 mmol/L (3.5-5.1); Sodium Level 138 mmol/L (136-145)
[2023-12-25 16:04] VITALS: BP 156/67; PULSE 71; RESP 16; TEMP 36.6; O2SAT 99
== END 2023-12-25 16:05 | disposition home or self-care (01) ==
PROVIDERS: Physician Assistant; Emergency Provider Emergency Medicine; PCP Internal Medicine; Visit Provider Emergency Medicine
DX: R20.2 Paresthesia of skin (principal); I25.10 Atherosclerotic heart disease of native coronary artery without angina pectoris; I10 Essential (primary) hypertension; E78.5 Hyperlipidemia, unspecified; E03.9 Hypothyroidism, unspecified; I25.2 Old myocardial infarction; Z79.02 Long term (current) use of antithrombotics/antiplatelets; Z79.890 Hormone replacement therapy; Z79.899 Other long term (current) drug therapy; Z95.5 Presence of coronary angioplasty implant and graft
CPT/HCPCS: 80048; 99284; A4216

== ENCOUNTER → 2024-02-15 | Outpatient (CLI) | payer MEDICARE, SELFPAY ==
[2021-03-20 00:25] VITALS: BMI 31.8
[2024-02-15 09:37] LABS: Hematocrit 35.3 % (37-47); Hemoglobin 11.1 g/dL (12.0-15.0); Mean Corp Hgb Conc 31.4 g/dL (32-36); Mean Corpuscular Hgb 27.7 pg (27.0-32.0); Mean Platelet Vol. 9.1 fl (6.2-12.0); Platelet Count 316 K/mm3 (150-450); RBC Distribution Width CV 15.5 % (11.6-14.6); RBC Distribution Width SD 50.3 fl (35.1-43.9); Red Blood Count 4.01 M/mm3 (4.2-5.4); White Blood Count 7.8 K/mm3 (4.4-11.0)
[2024-02-15 10:32] LABS: Albumin, Serum 3.5 g/dL (3.2-5.0); BUN 30 mg/dL (7-18); BUN/Creat Ratio 15.4 RATIO (10-20); Calcium,Total 9.2 mg/dL (8.5-10.1); Chloride 110 mmol/L (98-107); Creatinine, Serum 1.95 mg/dL (0.55-1.02); EST Glomerular Filtration Rate 26 mL/min (>60); Est Glom Filt Rate - Afr Amer 31 mL/min (>60); Ferritin 97 ng/mL (8-252); Glucose 102 mg/dL (74-106); Iron 53 ug/dL (50-170); Iron Binding Capacity,Total 287 ug/dL (250-450); PERCENT IRON SATURATION 18.5 % (15.0-55.0); Phosphorus 3.2 mg/dL (2.5-4.9); Potassium 4.7 mmol/L (3.5-5.1); Sodium Level 141 mmol/L (136-145)
== END | disposition home or self-care (01) ==
LOC: LAB 08:29
PROVIDERS: PCP Internal Medicine; Referring Provider Internal Medicine Nephrology; Visit Provider Internal Medicine Nephrology
DX: N18.4 Chronic kidney disease, stage 4 (severe) (principal); D50.9 Iron deficiency anemia, unspecified
CPT/HCPCS: 36415; 80069; 82728; 83540; 83550; 85027

== ENCOUNTER → 2024-02-29 | Outpatient (CLI) | payer MEDICARE, SELFPAY ==
[2021-03-20 00:25] VITALS: BMI 31.8
--- NOTE | 2024-02-29 08:42 | CDU_ITS ---
Reason For Study: Right ICA stenosis Rt. Velocities/BP Lt. Velocities/BP Prox CCA 69.1/11.4 cm/sec. Prox CCA 83.9/11.4 cm/sec. Mid CCA 54.4/10.2 cm/sec. Mid CCA 63/11.4 cm/sec. Dist CCA 49.5/7.7 cm/sec. Dist CCA 77.7/9 cm/sec. Prox ICA 204.6/36.5 cm/sec. Prox ICA 124.7/20.6 cm/sec. Mid ICA 344.9/57.1 cm/sec. Mid ICA 149.9/22.6 cm/sec. Dist ICA 126.3/27.1 cm/sec. Dist ICA 91.2/24.9 cm/sec. Rt. ICA/CCA = 6.34. Lt. ICA/CCA = 2.38. Prox ECA 419.2 cm/sec. Prox ECA 95.5 cm/sec. Rt. Vert. 55.3/8 cm/sec. Lt. Vert. 51.9/11.4 cm/sec. Right Extracranial There is intimal thickening but no significant atherosclerotic plaque noted in the right common carotid artery. There is heterogeneous, irregular atherosclerotic plaque noted in the right internal carotid artery. There is heterogeneous, irregular atherosclerotic plaque noted in the right external carotid artery. Antegrade flow is noted in the right vertebral artery. Left Extracranial There is homogeneous, smooth atherosclerotic plaque noted in the left common carotid artery. There is heterogeneous, irregular atherosclerotic plaque noted in the left internal carotid artery. The atherosclerotic plaque causes acoustic shadowing. There is heterogeneous, irregular atherosclerotic plaque noted in the left external carotid artery. Antegrade flow is noted in the left vertebral artery. Procedure Carotid Duplex [id number]. This is a Carotid Duplex examination using B-mode, color flow and specral Doppler. Exam performed in department. VL/Carotid Duplex Ultrasound Interpretation Summary Severe (>70%) stenosis right extracranial internal carotid. Moderate (50-69%) stenosis left extracranial internal carotid. Patent and antegrade vertebrals bilaterally. Ordering Physician: Helen Montoya Referring Physician: Cat Sauceda M.D. Performed By: Perla Lopez RVT
== END | disposition home or self-care (01) ==
LOC: CVS 08:41
PROVIDERS: PCP Internal Medicine; Referring Provider Physician Assistant; Visit Provider Physician Assistant
DX: I65.23 Occlusion and stenosis of bilateral carotid arteries (principal)
CPT/HCPCS: 93880

== ENCOUNTER 2024-04-25 09:51 | Inpatient (IN) | payer MEDICARE, SELFPAY ==
--- NOTE | 2024-04-11 08:54 | EKG12_ITS ---
Test Reason : PREOP Blood Pressure : / mmHG Vent. Rate : 056 BPM Atrial Rate : 056 BPM P-R Int : 140 ms QRS Dur : 070 ms QT Int : 380 ms P-R-T Axes : 050 -24 023 degrees QTc Int : 366 ms Sinus bradycardia Otherwise normal ECG Confirmed by MAICOL RENTERIA, CARROL ([id number]), medical editor MEGHNA DILLARD ([id number]) on 04/11/2024 1:07:18 PM Referred By: Abe Carmichael Confirmed By:CARROL MILIAN MD
[2024-04-11 09:32] LABS: Hematocrit 35.4 % (37-47); Hemoglobin 11.2 g/dL (12.0-15.0); Mean Corp Hgb Conc 31.6 g/dL (32-36); Mean Corpuscular Hgb 26.9 pg (27.0-32.0); Mean Corpuscular Volume 84.9 fL (81-99); Mean Platelet Vol. 8.9 fl (6.2-12.0); Platelet Count 347 K/mm3 (150-450); RBC Distribution Width CV 13.7 % (11.6-14.6); RBC Distribution Width SD 42.4 fl (35.1-43.9); Red Blood Count 4.17 M/mm3 (4.2-5.4); White Blood Count 12.2 K/mm3 (4.4-11.0)
[2024-04-11 10:12] LABS: Anion Gap 7 (5-15); BUN 43 mg/dL (7-18); BUN/Creat Ratio 17.6 RATIO (10-20); Calcium,Total 9.1 mg/dL (8.5-10.1); Chloride 108 mmol/L (98-107); Creatinine, Serum 2.45 mg/dL (0.55-1.02); EST Glomerular Filtration Rate 20 mL/min (>60); Est Glom Filt Rate - Afr Amer 24 mL/min (>60); Glucose 167 mg/dL (74-106); Potassium 4.1 mmol/L (3.5-5.1); Sodium Level 138 mmol/L (136-145)
[2024-04-11 13:19] LABS: Thyroid Stim Hormone (TSH) 3.03 uIU/mL (0.358-3.74)
[2024-04-12 09:59] VITALS: BMI 31.8
[2024-04-25] VITALS (28 sets, daily range): BP systolic 101–161; BP diastolic 34–57; PULSE 57–77; RESP 14–20; TEMP 36.2–36.8; O2SAT 94–100; BMI 31.3; BMI 31.8
[2024-04-25] MEDS: Lactated Ringers 1,000 ML 15 ML IV (06:17)
--- NOTE | 2024-04-25 07:17 | PCM.PRE.AN2 ---
ASA Classification* ASA Classification ASA Classification: 3 Assessment & Plan Anesthesia* Anesthesia Assessment Anesthesia Assessment: Discussed sedation and/or anesthesia options, risks, benefits, and alternatives with patient/parents/legal guardian/POA. Questions invited. The patient/parents/legal guardian/POA seems to understand and agrees to proceed with anesthesia plan. Reviewed the physical assessment, medical history, allergy history and patient home medications list prior to surgery/procedure/anesthetic and documented any changes. Performed airway and anesthesia risk assessments. Anesthesia Type Anesthesia Type: General (*see written preanesthesia record for full assessment) Anesthesia Focused Assessment* Temperature: 98.3 F Pulse Rate: 57 Blood Pressure: 161/43 Respiratory Rate: 16 Pulse Ox: 98 Airway Assessment Mouth opens: >3 cm Mallampati Score: II Focused Labs Anesthesia Preop lab: CBC WBC 12.2 K/mm3 (4.4-11.0) H 04/11/24 09:17 RBC 4.17 M/mm3 (4.2-5.4) L 04/11/24 09:17 Hgb 11.2 g/dL (12.0-15.0) L 04/11/24 09:17 Hct 35.4 % (37-47) L 04/11/24 09:17 Plt Count 347 K/mm3 (150-450) 04/11/24 09:17 CHEMISTRY Potassium 4.1 mmol/L (3.5-5.1) 04/11/24 09:17 Sodium 138 mmol/L (136-145) 04/11/24 09:17 Phosphorus 3.2 mg/dL (2.5-4.9) 02/15/24 08:31 BUN 43 mg/dL (7-18) H 04/11/24 09:17 Creatinine 2.45 mg/dL (0.55-1.02) H 04/11/24 09:17 Glucose 167 mg/dL (74-106) H 04/11/24 09:17 TSH 3.03 uIU/mL (0.358-3.74) 04/11/24 09:17 COAG PT 13.0 SECONDS (11.7-14.9) 12/09/20 05:40 Pre-Assessment Diagnosis/Proposed Procedure Planned Operative Procedure(s): (R) Carotid Artery Stent in Roller Print Tender, OR staff, Anes Anesthesia History Anesthesia History - floor space allocator: Anesthesia History - floor space allocator Hx Hospitalization No 04/12/24 09:59 Any Problems With Anesthesia No 04/12/24 09:59 Cholinesterase deficiency No 04/12/24 09:59 You/Your Family Experience No 04/12/24 09:59 fever (hyperthermia) with Relationship Recent Exposure to Contagious No 04/25/24 06:12 Disease Does patient have nerve No 04/12/24 09:59 stimulator Patient instructed to have device shut off --Does patient have Pacemaker No 04/25/24 06:12 or ICD? When Was Last Pacemaker Check QUESTION #4 FULL TEXT: You/Your Family Experience fever (hyperthermia) with Anesthesia Last Oral Intake Last Oral intake: Last Oral Intake NPO since Meds taken in AM with sips of water? Meds patient instructed to take am of surgery PONV PONV - floor space allocator: PONV - floor space allocator Female Yes 04/10/24 11:23 HX of Motion Sickness No 04/10/24 11:23 HX of N/V After Surgery No 04/10/24 11:23 Non-Smoker Yes 04/10/24 11:23 Duration of Surgery greater Yes 04/10/24 11:23 than 60 minutes Number of Risk Factors 3 04/10/24 11:23 PONV Score Moderate Risk 04/10/24 11:23 Height & Weight Height & Weight: Anesthesia: Height & Weight Height 5 ft 1 in 04/25/24 06:12 Weight: 75.2 kg 04/25/24 06:12 Body Mass Index (BMI) 31.3 04/25/24 06:12 Respiratory Assessment Respiratory Assessment - floor space allocator: Respiratory Tract Infection Hx - floor space allocator Hx Respiratory Tract Infection No 04/12/24 09:59 STOP Sleep Apnea STOP Sleep Apnea - floor space allocator: STOP Sleep Apnea - floor space allocator Hx Hypertension Yes: CONTROLLED ON MED 04/12/24 09:59 Hx Sleep Apnea No 04/12/24 09:59 CPAP BIPAP Do you snore loudly (louder No 04/10/24 11:23 than talking or can be heard Do you often feel tired/ No 04/10/24 11:23 fatigued/ sleepy during daytime? Has anyone observed you stop No 04/10/24 11:23 breathing during sleep? STOP Results Negative 04/10/24 11:23 QUESTION #5 FULL TEXT : Do you snore loudly (louder than talking or can be heard through closed doors)? 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 Specify any problems Hx of Preganancy in last 3 No 04/10/24 11:23 Months Nurse Filling Out Transfusion VCHRISTIN 04/10/24 11:23 & Questions: Date: 04/10/24 04/10/24 11:23 Time: :04/10/24 11:23 Patient unable to answer at this time (ie. confused, unrespo /Reproduction History /Reproductive History - floor space allocator: /Reproductive Hx- floor space allocator Hx Now Gestational Age (in weeks): EDC: Hx Hx Para Hx Section SAB Active Medications Active Medications: Current Medications Generic Name Dose Route Start Last Admin Trade Name Freq PRN Reason Stop Dose Admin Cefazolin Sodium 2 gm/ Sodium 110 mls @ 150 mls/hr 04/25/24 07:00 Chloride IV 04/25/24 07:43 PREOP ONE Lactated Ringer's 1,000 mls @ 15 mls/hr 04/25/24 06:00 04/25/24 06:17 IV 15 mls/hr .Q48H RAVIN Administration PFSH Medical History Wears glasses Post-menopausal Cancer Thyroid disease Arthritis History of renal disease Anemia History of edema History of echocardiogram Cardiology follow-up encounter Carotid stenosis, bilateral Aortic stenosis, moderate Hyperlipidemia Atherosclerotic heart disease of [place] coronary artery without angina pectoris Essential (primary) hypertension Hypothyroidism NSTEMI (non-ST elevated myocardial infarction) (12/07/20) Home Medications ?Medication ?Instructions ?Recorded ?Last Taken ?Type levothyroxine 25 mcg tablet 37.5 mcg PO DAILY THYROID 06/19/13 04/24/24 History atorvastatin 40 mg tablet 40 mg PO QHS cholesterol 12/07/20 04/24/24 History donepezil 10 mg tablet 10 mg PO QHS MEMORY #30 tabs 12/10/20 04/24/24 Rx cholecalciferol (vitamin D3) 50 50 mcg PO DAILY SUPPLEMENT 12/31/20 04/24/24 History mcg (2,000 unit) capsule losartan 50 mg tablet 50 mg PO DAILY BP 12/31/20 04/24/24 History multivitamin (Daily Multi-Vitamin 1 tablet PO DAILY SUPPLEMENT 12/31/20 04/24/24 History tablet) diltiazem HCl 120 mg 120 mg PO DAILY BP 05/24/21 04/24/24 History capsule,extended release 24 hr (Cartia XT) pyridoxine (vitamin B6) 50 mg 50 mg PO DAILY SUPPLEMENT 12/05/21 04/24/24 History tablet isosorbide mononitrate 60 mg 60 mg PO DAILY HEART #90 tabs 11/04/22 04/24/24 Rx tablet,extended release 24 hr hydrochlorothiazide 25 mg tablet 25 mg PO DAILY BP 12/07/22 04/24/24 History clopidogrel 75 mg tablet 75 mg PO DAILY BLOOD THINNER #90 09/02/23 04/25/24 04:10 Rx tabs carvedilol 3.125 mg tablet 3.125 mg PO BID BID 04/10/24 04/24/24 History Allergy/AdvReac Type Severity Reaction Status Date / Time milk Allergy Intermediate GI upset Verified 04/25/24 06:09 Family History Father Myocardial infarction Mother Myocardial infarction Hypertension Sister Myocardial infarction Surgical History History of cardiac catheterization Hx of shoulder surgery Hx of mastectomy Hx of total hip arthroplasty Hx of total knee replacement History of coronary artery stent placement (12/09/20) Social History Smoking Status: Never smoker alcohol intake: never substance use type: does not use caffeine: Yes Type: carbonated beverages Review of Systems (Anesthesia) ROS Narrative System reviewed and no additional complaints, except as documented.
--- NOTE | 2024-04-25 07:25 | PCM.HP.BLA ---
History and Physical Allergies milk Allergy (Intermediate, Verified 03/29/24 15:30) GI upset Medications ?Medication ?Instructions ?Recorded ?Confirmed ?Type levothyroxine 25 mcg tablet 37.5 mcg PO DAILY THYROID 06/19/13 03/29/24 History atorvastatin 40 mg tablet 40 mg PO QHS cholesterol 12/07/20 03/29/24 History donepezil 10 mg tablet 10 mg PO QHS #30 tabs 12/10/20 03/29/24 Rx cholecalciferol (vitamin D3) 50 50 mcg PO DAILY 12/31/20 03/29/24 History mcg (2,000 unit) capsule losartan 50 mg tablet 50 mg PO DAILY 12/31/20 03/29/24 History multivitamin (Daily Multi-Vitamin 1 tablet PO DAILY 12/31/20 03/29/24 History tablet) diltiazem HCl 120 mg 120 mg PO DAILY 05/24/21 03/29/24 History capsule,extended release 24 hr (Cartia XT) pyridoxine (vitamin B6) 50 mg 50 mg PO DAILY 12/05/21 03/29/24 History tablet carvedilol 3.125 mg tablet See Rx Instructions .Route 11/04/22 03/29/24 Rx .COMPLEX #180 tabs isosorbide mononitrate 60 mg 60 mg PO DAILY #90 tabs 11/04/22 03/29/24 Rx tablet,extended release 24 hr hydrochlorothiazide 25 mg tablet 25 mg PO DAILY 12/07/22 03/29/24 History hydrocodone-acetaminophen 5-325mg 1 tab PO Q6H PRN PRN Pain 3 days 03/16/23 03/29/24 Rx 5mg-325mg #10 TABLETS clopidogrel 75 mg tablet 75 mg PO DAILY #90 tabs 09/02/23 03/29/24 Rx Have you fallen in the past year?: No PFSH Medical History Carotid stenosis, bilateral Aortic stenosis, moderate Hyperlipidemia Atherosclerotic heart disease of [place] coronary artery without angina pectoris Essential (primary) hypertension Hypothyroidism NSTEMI (non-ST elevated myocardial infarction) (12/07/20) Surgical History History of coronary artery stent placement (12/09/20) Family History Father Myocardial infarctionMother Myocardial infarction HypertensionSister Myocardial infarction Social History Smoking Status: Never smoker alcohol intake: never substance use type: does not use caffeine: Yes Type: carbonated beverages HPI HPI HPI: STORM MENCHACA, is a 83 F who presents to the office today for follow up of right carotid stenosis, asymptomatic. She has been followed with serial duplex with gradually increasing velocities over recent studies. She had a CTA in Aug 2023 which correlated with duplex at the time (70% by ECST, long lesion distal to origin). No episodes of numbness/weakness/vision loss/speech difficulty. No neck surgery/XRT. ROS General General: No weight change, appetite, fatigue, colon cancer, breast cancer or weakness HEENT HEENT: No difficulty swallowing, eye injury, eye surgery, swollen glands or hoarseness Endo Endocrine: Yes diabetes mellitus; No thyroid disease, thyroid cancer, Hair loss, heat intolerance or cold intolerance Skin Skin: No rash or changing moles Musc Musculoskeletal: Yes arthritis; No back problems, rheumatoid arthritis, gout or joint pain Cardio Cardiovascular: Yes high blood pressure, heart attack and heart stent; No murmur, pacemaker, heart disease, atrial fibrillation, palpitations, shortness of breat with exertion or chest pain Psych Psychiatric: No depression, anxiety or hearing voices Resp Respiratory: No shortness of breath, No sleep apnea, No cough, No COPD, No asthma, No emphysema and No wheezing Gastro Gastrointestinal: No abdominal pain, No nausea or vomiting, No diarrhea, No constipation, No blood in stool, No acid reflux, No hemorrhoids, No ulcers, No gallbladder problem and No black,tarry stools Waqar Hematologic: Yes blood thinners, No blood disorders, No bleeding, No anemia and No blood clots Neuro Neurologic: No system reviewed and no additional complaints, except as documented, No as per HPI, No abnormal gait, No abnormal hearing, No abnormal movements, No abnormal speech, No behavioral changes, No burning sensations, No confusion, No convulsions, No disequilibrium, No dizziness, No localized weakness, No frequent falls, No headache(s), No lack of coordination, No loss of vision, No memory loss, No numbness, No other visual disturbances, No radicular pain, No restless legs, No sensory deficit, No syncope, No tingling, No tremor(s), No weakness and No other Exam Const General: cooperative, healthy appearing, comfortable, no acute distress and well developed Nutritional Appearance: well nourished Orientation: alert, awake and oriented [facility] Head: normocephalic and atraumatic Ears: hearing grossly normal bilaterally Nose: external nose normal Eyes General: appearance normal, both eyes and all related structures EOM: EOM intact bilaterally Neck Neck: normal visual inspection, full ROM, no lymphadenopathy and trachea midline Thyroid: thyroid normal Lymphatic: no lymphadenopathy noted Resp Effort & Inspection: normal respiratory effort, able to speak in complete sentences, symmetric chest movement, no audible wheezes, not labored, no stridor and no use of accessory muscles Cardio Rate: regular rate Rhythm: regular rhythm Pulses: brachial pulses present and radial pulses present Skin General: no rashes or lesions noted and no erythema Wounds: no wounds Neuro Cranial Nerves: CN's II-XI intact bilaterally and EOM intact bilaterally Speech: speech normal Gait: normal gait Motor: strength 5/5 throughout Sensory Exam: no sensory deficits noted Psych Appearance: grossly normal and well kempt Mental Status: mental status grossly normal Mood: congruent mood Speech and Movement: speech and movement normal Thought Content: normal Judgment: judgment good Coding Level of Care Code Off vis,est,level 3 Diagnoses Carotid stenosis, bilateral I65.23 Assessment and Plan Assessment and Plan (1) Carotid stenosis, bilateral: Status: Chronic Plan: -right TCAR
[2024-04-25] MEDS: Cefazolin 2 GM in 0.9% Normal Saline (100mL Bag) 100 ML IV (08:00)
--- NOTE | 2024-04-25 09:49 | PCM.OPRPT ---
Report of Operation Date of Procedure: 04/25/24 Pre-Operative Diagnosis: right carotid stenosis Post-Operative Diagnosis: same Surgery/Procedure Performed:: right carotid artery stent Surgeon: Abe Carmichael Type of Anesthesia: General Drains: 19 Fr KELLY Estimated Blood Loss (mL): 25 Description of Procedure: HPI: Patient is an 83-year-old female with right carotid artery stenosis that has been followed with serial imaging. Most recent duplex revealed elevating velocities consistent with greater than 70% stenosis. She had CTA which revealed a high bifurcation and plaque that was appropriate for stenting. She presents now for manage carotid artery stenting. Description of procedure: Upon obtaining form consent and verification correct patient procedure site patient was taken to the Professor Of Literature where he was placed under general anesthesia. She was then positioned prepped and draped in usual sterile fashion timeout performed. Transverse incision was made 1 fingerbreadth superior to the clavicle and Bovie electrocautery was dissect down through subcutaneous tissue to the level the platysma. The platysma was divided and self-retaining retractor put in position. Further dissection carried down to the sternocleidomastoid which was mobilized along its medial and lateral borders to be retracted. There is a large internal jugular vein anterior to the common carotid artery which was lying directly behind the space between the sternal and clavicular head. The best visualization and approach was actually between the 2 heads of the sternocleidomastoid as above electrocautery was dissect through this plane and self-retaining retractors were repositioned. Once the common carotid artery was visualized sharp dissection used to dissect free with care taken to identify protect the vagus nerve. Patient was then heparinized with subsequent doses made based on ACT results. A right angle was replaced vessel proximally and a 5-0 Prolene pursestring suture was placed at the intended site of access. Next under ultrasound guidance the right common femoral vein was accessed with a micropuncture needle wire. This then exchanged for micropuncture sheath through which a J-wire was advanced and the micropuncture sheath exchanged for an 8 [place] flow reversal return sheath. ACT was obtained the common carotid artery was accessed with a micropuncture needle and wire which was then exchanged for the silk Road micropuncture sheath. This is advanced to the vessel and digital subtraction carotid angiogram performed revealing satisfactory placement with no extravasation or dissection. The proximal extent of the carotid plaque was then marked J-wire advanced after which time the micropuncture was exchanged for the flow reversal sheath. Once with this was in position it was secured with silk suture of oblique views obtained subtraction angiography which confirmed satisfactory position course of the internal carotid artery was marked. The flow reversal system was then attached and confirmed to be functional. Carotid artery was then occluded with a vessel loop used to navigate across the carotid lesion. A silk [address] angioplasty balloon 5 x 25% advanced in the position inflated to nominal and then deflated and withdrawn. A tapered stent 9 to 7 x 30 was then advanced in position and deployed. After 2 minutes of flow reversal repeat imaging was obtained which revealed satisfactory stent wall apposition with no extravasation or dissection and no residual stenosis. Carotid vessel loop was then released and additional flow reversal time after which point flow reversal tubing was detached and venous return of the blood performed. The arterial 8 [place] sheath was then withdrawn the pursestring secured. The venous 8 [place] sheath was then withdrawn and manual pressure held for 5 minutes with satisfactory stasis noted. Then reversed with protamine and Floseal topical hemostatic after which a 19 [place] channel KELLY was placed. The incision was closed with 3-0 Vicryl followed 4 Monocryl and Dermabond for the skin. The case patient was awakened from anesthesia moving all extremities to command and cranial nerves intact.
[2024-04-25 10:03] LABS: ACT Activated Clotting Time 305 sec (74-137)
[2024-04-25 10:03] LABS: ACT Activated Clotting Time 152 sec (74-137)
--- NOTE | 2024-04-25 10:23 | PCM.POST.ANE ---
Anesthesia: Postop Eval I Current Vital Signs Temperature: 97.2 F Pulse Rate: 58 Blood Pressure: 136/40 (cuff pressure, a-line reading 156/51 (90)) Respiratory Rate: 18 Pulse Ox: 100 Oxygen Delivery Method: Simple Mask Oxygen Flow Rate (L/min): 6 Assessment Airway patent: Yes Spontaneous unlabored respirations: Yes Mental status: Awake and Calm nausea: No Vomiting: No Anesthesia Complication: No Fluid Hydration Crystalloid volume administer (ml): 1,500 Total IV fluid infused: 1,500 Progress Note Anesthesia document: Postop Eval 1 completed: Yes
--- NOTE | 2024-04-25 10:52 | POSTOPAN2_ITS ---
Anesthesia Postop Eval I Sum Postop Eval Completion status Anesthesia document: Postop Eval 1 completed: Yes Anesthesia Postop Eval I Summary Anesthesia Postop Eval I Summary: Anesthesia Postop Eval I: Assessment Summary Airway patent Yes 04/25/24 10:25 LOW ALTITUDE AIR DEFENSE GUNNER.SKOBY Spontaneous unlabored Yes 04/25/24 10:25 LOW ALTITUDE AIR DEFENSE GUNNER.HASMUKH respirations Mental status Awake,Calm 04/25/24 10:25 LOW ALTITUDE AIR DEFENSE GUNNER.[email or web address] nausea No 04/25/24 10:25 LOW ALTITUDE AIR DEFENSE GUNNER.[email or web address] Vomiting No 04/25/24 10:25 LOW ALTITUDE AIR DEFENSE GUNNER.HASMUKH Anesthesia Postop Eval I: Fluid Summary Crystalloid volume administer 1,500 04/25/24 10:25 LOW ALTITUDE AIR DEFENSE GUNNER.SKOBY (ml) Colloids volume administered ( ml) Blood Product volume administered (ml) Total IV fluid infused 1,500 04/25/24 10:25 LOW ALTITUDE AIR DEFENSE GUNNER.HASMUKH Anesthesia Postop Eval I: Summary Notes Anesthesia Complication No 04/25/24 10:25 LOW ALTITUDE AIR DEFENSE GUNNER.HASMUKH Anesthesia Complication Comment: Post-operative progress note Anesthesia: Postop Eval II Evaluation Mental status: Awake Pain Level: 0 nausea: No Vomiting: No
--- NOTE | 2024-04-25 10:52 | PCM.POSTANE2 ---
Anesthesia Postop Eval I Sum Postop Eval Completion status Anesthesia document: Postop Eval 1 completed: Yes Anesthesia Postop Eval I Summary Anesthesia Postop Eval I Summary: Anesthesia Postop Eval I: Assessment Summary Airway patent Yes 04/25/24 10:25 TAX ANALYST.[email or web address] Spontaneous unlabored Yes 04/25/24 10:25 TAX ANALYST.HASMUKH respirations Mental status Awake,Calm 04/25/24 10:25 TAX ANALYST.[email or web address] nausea No 04/25/24 10:25 TAX ANALYST.[email or web address] Vomiting No 04/25/24 10:25 TAX ANALYST.HASMUKH Anesthesia Postop Eval I: Fluid Summary Crystalloid volume administer 1,500 04/25/24 10:25 TAX ANALYST.SKOBY (ml) Colloids volume administered ( ml) Blood Product volume administered (ml) Total IV fluid infused 1,500 04/25/24 10:25 TAX ANALYST.HASMUKH Anesthesia Postop Eval I: Summary Notes Anesthesia Complication No 04/25/24 10:25 TAX ANALYST.HASMUKH Anesthesia Complication Comment: Post-operative progress note Anesthesia: Postop Eval II Evaluation Mental status: Awake Pain Level: 0 nausea: No Vomiting: No
[2024-04-25] MEDS: 0.45% Normal Saline 1,000 ML 75 ML IV ×2 (12:20→23:17)
[2024-04-25] MEDS: Carvedilol 3.125 MG TABLET PO ×2 (12:23→20:53)
[2024-04-25] MEDS: Levothyroxine 25 MCG TABLET 37.5 MCG PO (12:23)
[2024-04-25] MEDS: Isosorbide Mononitrate 60 MG Tablet PO (12:23)
[2024-04-25] MEDS: Cholecalciferol (VIT D3) 25 MCG TABLET (1,000 UNITS) 50 MCG PO (12:23)
[2024-04-25] MEDS: Acetaminophen 500 MG Tablet 1000 MG PO ×2 (12:24→20:54)
[2024-04-25] MEDS: Pyridoxine HCl 50 MG Tablet PO (12:24)
[2024-04-25] MEDS: Clopidogrel Bisulfate 75 MG Tablet PO (12:25)
[2024-04-25] MEDS: Multivitamins,Therapeutic Tablet 1 TABLET PO (12:25)
[2024-04-25] MEDS: Losartan Potassium 50 MG Tablet PO (12:26)
[2024-04-25] MEDS: hydroCHLOROthiazide 25 MG Tablet PO (12:26)
[2024-04-25] MEDS: Cefazolin 1 GM/50 ML BAG IV ×2 (16:04→23:17)
[2024-04-25] MEDS: Donepezil HCl 10 MG Tablet PO (20:53)
[2024-04-25] MEDS: Atorvastatin Calcium 40 MG Tablet PO (20:54)
[2024-04-26] VITALS (20 sets, daily range): BP systolic 91–149; BP diastolic 36–91; PULSE 44–88; RESP 12–23; TEMP 36.5–36.7; O2SAT 90–100; BMI 32.4
[2024-04-26] MEDS: Levothyroxine 25 MCG TABLET 37.5 MCG PO (04:47)
[2024-04-26] MEDS: Acetaminophen 500 MG Tablet 1000 MG PO ×2 (04:47→13:46)
[2024-04-26 05:19] LABS: Absolute Lymphocyte Count 1.31 X10^3/uL (0.83-4.51); Basophil# 0.02 X10^3/uL; Basophil% 0.2 % (0-1); Hematocrit 26.7 % (37-47); Hemoglobin 8.6 g/dL (12.0-15.0); Lymphocyte # 1.31 X10^3/ul (0.83-4.51); Mean Corp Hgb Conc 32.2 g/dL (32-36); Mean Corpuscular Hgb 27.5 pg (27.0-32.0); Mean Corpuscular Volume 85.3 fL (81-99); Monocyte% 4.6 % (0-10); NRBC Flagged by Analyzer 0 % (0-5); Neutrophil # 11.03 X10^3/uL (2.7-7.7); Neutrophil % 84.6 % (47-70); Platelet Count 276 K/mm3 (150-450); RBC Distribution Width CV 14.2 % (11.6-14.6); RBC Distribution Width SD 43.5 fl (35.1-43.9); Red Blood Count 3.13 M/mm3 (4.2-5.4)
[2024-04-26] MEDS: Losartan Potassium 50 MG Tablet PO (08:44)
[2024-04-26] MEDS: Multivitamins,Therapeutic Tablet 1 TABLET PO (08:44)
[2024-04-26] MEDS: Enoxaparin 40 MG/0.4 ML Syringe SC (08:44)
[2024-04-26] MEDS: Cholecalciferol (VIT D3) 25 MCG TABLET (1,000 UNITS) 50 MCG PO (08:44)
[2024-04-26] MEDS: Pyridoxine HCl 50 MG Tablet PO (08:45)
[2024-04-26] MEDS: Clopidogrel Bisulfate 75 MG Tablet PO (08:45)
--- NOTE | 2024-04-26 13:05 | NURSING ---
R radial ART line removed. Pressure held on site for 10 minutes. No bleeding or pain at the site. Covered with op site. Educated patient to call staff if she begins to feel intense pain, a bump, or see bleeding.
--- NOTE | 2024-04-26 14:00 | CASEMGMT ---
SARKIS PABON Face to Face with patient for initial transition planning/care coordination assessment. RN CM introduced self and role at [facility]. Patient sitting in chair, alert and oriented, at bedside. Patient willing to participate in assessment and is able to answer all questions appropriately. Care providers, pharmacy, and demographics verified. Lace: 7 Strata: 2 PCP: Komal Specialists: Amol, Vascular; Jas, ortho; Sundeep, museum exhibit technician; Preferred Pharmacy: [facility] Insurance: [facility] Prescription Benefit: yes Living Will/HPOA: yes, Francesco Remy LNOK: Living Arrangements: Patient lives with in a 2 story home with access on the first floor. Patient is normally able to ambulate stairs and is independent at home. Transportation: self, DME/HHC: Patient has shower chair, cane, grabs, walker, BP cuff. Patient denies previous HHC or SNF Patient wishes to discharge home, denies need for home health at this time. Patient states he has no further needs or concerns at this time. CM to follow for discharge planning needs that may arise. Disposition Plan: Patient to discharge home with family support and follow up plans in place. Perla SHARMA, RN, CM
--- NOTE | 2024-04-26 15:26 | PCM.PN.SRG ---
Subjective Subjective Suzy was seen resting comfortably in bed this morning and again in the bedside chair eating dinner. This morning she was bradycardic into the 40s but asymptomatic. Her blood pressures have also been on the lower side but again asymptomatic. Her usual HR is in the 60s. She reports her BPs typically run low 100s to 120 at home, though that is with her BP medications. Her HR improved through the afternoon and BP has remained on the lower side but stable. She has been tolerating a normal diet. She ambulated without difficulty. She has been voiding without difficulty. She has not had any DILL. No other complaints. Objective Data Objective Data Vital Signs: Vital Signs Temp Pulse Resp BP Pulse Ox O2 Del Method O2 Flow Rate 98.0 F 44 L 21 H 131/50 H 100 Room Air 6 04/26/24 12:00 04/26/24 13:00 04/26/24 13:00 04/26/24 13:00 04/26/24 13:00 04/26/24 13:00 04/25/24 10:25 Oxygen Flow Rate (L/min) 6 Oxygen Delivery Method Room Air Weight: 171 lb 11.841 oz Body Mass Index (BMI) 32.4 Intake & Output: Intake and Output for Last 24 Hours 04/24/24 04/25/24 04/26/24 23:59 23:59 23:59 Intake Total 2118.75 / 2118.75 632.5 / 632.5 Output Total 20 / 20 Balance 2098.75 / 2098.75 632.5 / 632.5 Lab / Micro Data 04/26/24 04:50 04/11/24 09:17 Labs: Laboratory Results - last 24 hr 04/26/24 04:50: WBC 13.0 H, RBC 3.13 L, Hgb 8.6 L, Hct 26.7 L, MCV 85.3, MCH 27.5, MCHC 32.2, RDW Std Deviation 43.5, RDW Coeff of [place] 14.2, Plt Count 276, MPV 9.0, Immature Gran % (Auto) 0.600, Neut % (Auto) 84.6 H, Lymph % (Auto) 10.0 L, [place] % (Auto) 4.6, Eos % (Auto) 0.0, Baso % (Auto) 0.2, Absolute Neuts (auto) 11.0 H, Absolute Lymphs (auto) 1.31, Nucleated RBC % 0 Physical Exam Const alert, oriented x3 and no apparent distress General Appearance: cooperative and comfortable HEENT normocephalic, head/scalp atraumatic, hearing grossly normal bilaterally, external ears normal and external nose normal Eyes EOMs intact bilaterally General Eye: normal appearance of both eyes Neck Neck Narrative: R neck incision site with surgical glue intact. Mild edema, soft and nontender to palpation. No significant ecchymosis. No erythema, warmth. Resp normal respiratory effort, normal air movement, no retractions and no use of accessory muscles Effort and Inspection: able to speak in complete sentences Cardio regular rate and regular rhythm Extremity no clubbing, cyanosis or edema Extremity Narrative: R groin access site without any significant swelling, ecchymosis, erythema, drainage. Skin no rashes or lesions noted Neuro CN's II-XII intact bilaterally, moves all extremities, no focal motor deficits and no sensory deficits noted Speech: speech normal Psych mental status grossly normal Appearance: grossly normal Attitude: calm and engaged Activity / Motor Behavior: appropriate eye contact Speech: normal speech Mood & Affect: euthymic mood Assessment & Plan Assessment/Plan (1) Carotid stenosis, bilateral: PLAN: Plan She is POD#1 s/p R TCAR. She tolerated the procedure well. Her HR has returned to her baseline and remained stable through the afternoon. Her BPs remain in the low 100s to 130s systolic. Her BP medications except for losartan have been held today. Will plan to continue losartan but hold all other BP meds at discharge and have her monitor BP closely at home. She has remained neurologically intact. The incision site is satisfactory in appearance. KELLY drain was removed today without issue. Will discharge home this afternoon.
--- NOTE | 2024-04-26 17:59 | PCM.DC.SUM ---
Providers Date of Admission: 04/25/24 Primary Care Physician: Dr. 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 Medications at Discharge Home Medications levothyroxine 25 mcg tablet 37.5 mcg PO DAILY THYROID 06/19/13 atorvastatin 40 mg tablet 40 mg PO QHS cholesterol 12/07/20 donepezil 10 mg tablet 10 mg PO QHS MEMORY #30 tabs 12/10/20 cholecalciferol (vitamin D3) 50 mcg (2,000 unit) capsule 50 mcg PO DAILY SUPPLEMENT 12/31/20 losartan 50 mg tablet 50 mg PO DAILY BP 12/31/20 multivitamin (Daily Multi-Vitamin tablet) 1 tablet PO DAILY SUPPLEMENT 12/31/20 diltiazem HCl 120 mg capsule,extended release 24 hr (Cartia XT) 120 mg PO DAILY BP 05/24/21 pyridoxine (vitamin B6) 50 mg tablet 50 mg PO DAILY SUPPLEMENT 12/05/21 isosorbide mononitrate 60 mg tablet,extended release 24 hr 60 mg PO DAILY HEART #90 tabs 11/04/22 hydrochlorothiazide 25 mg tablet 25 mg PO DAILY BP 12/07/22 clopidogrel 75 mg tablet 75 mg PO DAILY BLOOD THINNER #90 tabs 09/02/23 carvedilol 3.125 mg tablet 3.125 mg PO BID BID 04/10/24 aspirin 81 mg capsule 81 mg PO DAILY #30 caps 04/26/24 oxycodone 5 mg tablet 5 mg PO Q8H PRN PRN Pain Score 4-10 3 days #9 tabs 04/26/24 Weight / BMI Weight Weight: 171 lb 11.841 oz Body Mass Index (BMI) 32.4 ABG / Lab / Microbiology Data 04/26/24 04:50 04/11/24 09:17 Laboratory: Laboratory Results - last 24 hr 04/26/24 04:50: WBC 13.0 H, RBC 3.13 L, Hgb 8.6 L, Hct 26.7 L, MCV 85.3, MCH 27.5, MCHC 32.2, RDW Std Deviation 43.5, RDW Coeff of [place] 14.2, Plt Count 276, MPV 9.0, Immature Gran % (Auto) 0.600, Neut % (Auto) 84.6 H, Lymph % (Auto) 10.0 L, [place] % (Auto) 4.6, Eos % (Auto) 0.0, Baso % (Auto) 0.2, Absolute Neuts (auto) 11.0 H, Absolute Lymphs (auto) 1.31, Nucleated RBC % 0 D/C Instructions Discharge Diet: No restrictions May shower in (days): 1 Weight Bearing Status: Weight bearing as tolerated Lifting Restricted to (Lbs): 20 Lifting Restrictions: Do not lift greater than 20 pounds for 3 weeks Call your doctor if your incision/area has: Sudden Increased Bleeding, Increased Pain/ Swelling and Foul Smelling Discharge Call your doctor if you observe: Fever of 101 or Higher and Uncontrolled pain Remove Dressing in: 1 day Additional Instructions: You have a small bandage over the site from which the surgical drain was removed. You may remove this bandage tomorrow after you shower. As long as there is no residual drainage, you may leave this open to air. If you do notice some continued drainage, you may re-cover with a Band-Aid. Your incision site is covered with surgical glue which will continue to protect it. The surgical glue will peel/flake off on its own over the next few weeks. Please do not pick at it. You may shower tomorrow. It is okay for soap and water to rinse over the incision site, pat to dry. Do not submerge the incision site in water such as to take a bath or go swimming etc. for 3 weeks. Do not lift greater than 20 pounds for 3 weeks. Otherwise, please continue with activity as tolerated. Do not drive until you can turn your head comfortably and well enough to safely check your blind spots. Your blood pressure has been on the lower side following surgery. For now, please continue to hold the following medications: carvedilol (coreg), diltiazem (cardizem), isosorbide mononitrate, hydrochlorothiazide. Please continue to take you losartan. Please check your blood pressure twice daily or anytime you feel dizzy, lightheaded, or have other concerning symptoms. If your systolic blood pressure (top number) is less than 90 or greater than 140 please contact the office as we may need to further adjust your medications. I have prescribed a prescription pain medication oxycodone 5 mg tablets to be taken by mouth every 8 hours as needed for pain. Do not take in combination with any other prescription pain medications. You may take this in addition to Tylenol or ibuprofen as allowed. You are scheduled for follow-up in the office on 05/11/2024 at 11:30 AM. If you need to change this appointment or have any other questions or concerns please call the office at [phone]. Please Follow Up With: Helen Montoya PA When: 05/11/24 at 11:30 Meaningful Use Info Meaningful Use Meaningful Use Diagnoses (Choose all that apply): None applicable Ischemic Stroke Statin Dosing Therapy Reference: STATIN DOSE THERAPY REFERENCE: * Patients > 75 years receive moderate or high dose statin therapy. * Patients 75 years or YOUNGER should receive HIGH intensity statin dose unless contraindicated. You will be required to document reason for non-treatment if statin daily dose does not meet guidelines. HIGH DOSE STATIN THERAPY DAILY Atorvastatin > than or = to 40 mg Rosuvastatin > than or = to 20 mg Amlodipine + Atorvastatin > than or = to 2.5/40 mg Ezetimibe + Simvastatin 10/80 mg Simvastatin 80mg Discharge Plan Admission Admit Date/Time: 04/25/24 09:51 Primary Reason for Your Visit: Sarah VENTURA Attending Provider: Abe Carmichael Primary Care Provider: Cat Sauceda Instructions Additional Instructions / Restrictions: You have a small bandage over the site from which the surgical drain was removed. You may remove this bandage tomorrow after you shower. As long as there is no residual drainage, you may leave this open to air. If you do notice some continued drainage, you may re-cover with a Band-Aid. Your incision site is covered with surgical glue which will continue to protect it. The surgical glue will peel/flake off on its own over the next few weeks. Please do not pick at it. You have a small bandage over the groin access site. You may remove this tomorrow and then it is okay to leave this open to air. You may shower tomorrow. It is okay for soap and water to rinse over the incision site, pat to dry. Do not submerge the incision site in water such as to take a bath or go swimming etc. for 3 weeks. Do not lift greater than 20 pounds for 3 weeks. Otherwise, please continue with activity as tolerated. Do not drive until you can turn your head comfortably and well enough to safely check your blind spots. Your blood pressure has been on the lower side following surgery. For now, please continue to hold the following medications: carvedilol (coreg), diltiazem (cardizem), isosorbide mononitrate, hydrochlorothiazide. Please continue to take you losartan. Please check your blood pressure twice daily or anytime you feel dizzy, lightheaded, or have other concerning symptoms. If your systolic blood pressure (top number) is less than 90 or greater than 140 please contact the office as we may need to further adjust your medications. I have prescribed a prescription pain medication oxycodone 5 mg tablets to be taken by mouth every 8 hours as needed for pain. Do not take in combination with any other prescription pain medications. You may take this in addition to Tylenol or ibuprofen as allowed. You are scheduled for follow-up in the office on 05/11/2024 at 11:30 AM. If you need to change this appointment or have any other questions or concerns please call the office at [phone]. Discharge Orders/Prescriptions Prescriptions: New oxycodone 5 mg Tablet 5 mg PO Q8H PRN PRN (Reason: Pain Score 4-10) 3 Days Qty: 9 0RF aspirin 81 mg capsule 81 mg PO DAILY Qty: 30 0RF Continued losartan 50 mg tablet 50 mg PO DAILY multivitamin [Daily Multi-Vitamin] Tablet 1 tablet PO DAILY cholecalciferol (vitamin D3) 50 mcg (2,000 unit) capsule 50 mcg PO DAILY pyridoxine (vitamin B6) 50 mg tablet 50 mg PO DAILY levothyroxine 25 MCG tablet 37.5 mcg PO DAILY atorvastatin 40 MG tablet 40 mg PO QHS donepezil 10 MG tablet 10 mg PO QHS Qty: 30 0RF clopidogrel 75 mg tablet 75 mg PO DAILY Qty: 90 3RF Held diltiazem HCl [Cartia XT] 120 mg Capsule,Extended Release 24hr 120 mg PO DAILY Hold Instructions: Resume on 05/03/24. Hold until systolic blood pressure (top number) >140 carvedilol 3.125 mg tablet 3.125 mg PO BID Hold Instructions: Resume on 05/03/24. Hold until systolic blood pressure (top number) >140 Rx Instructions: TAKE 1 TABLET TWICE A DAY isosorbide mononitrate 60 mg tablet extended release 24 hr 60 mg PO DAILY Qty: 90 3RF Hold Instructions: Resume on 04/26/24. Hold until systolic blood pressure (top number) >140 hydrochlorothiazide 25 mg tablet 25 mg PO DAILY Hold Instructions: Resume on 05/03/24. Hold until systolic blood pressure (top number) >140 Referrals / Follow Up: Cat Sauceda DO [Primary Care Provider] - Disposition Disposition (needs filled in before D/C Order can be placed): Home, Self Care
== END 2024-04-26 18:21 | disposition home or self-care (01) | DRG 36 ==
LOC: ICU 12:57
PROVIDERS: Anesthesiology; Physician Assistant; Admitting Provider Surgery Trauma Surgery; PCP Internal Medicine; Referring Provider Surgery Trauma Surgery; Visit Provider Surgery Trauma Surgery
PROC: 037K3DZ Dilation of Right Internal Carotid Artery with Intraluminal Device, Percutaneous Approach (ICD-10-PCS; CPT 37236; principal; 2024-04-25 07:00)
DX: I65.23 Occlusion and stenosis of bilateral carotid arteries (principal); E03.9 Hypothyroidism, unspecified; I10 Essential (primary) hypertension; E78.5 Hyperlipidemia, unspecified; I25.10 Atherosclerotic heart disease of native coronary artery without angina pectoris; I25.2 Old myocardial infarction; Z95.5 Presence of coronary angioplasty implant and graft
CPT/HCPCS: 36415; 37215; 76937; 80048; 84443; 85025; 85027; 85347; 86850; 86900; 86901; 93005; 94668; 94762; 97802; 99252; A4648; C1725; C1769; C1876; C1884; C1894; J7030; J7120; Q9967; G0463; J2405

== ENCOUNTER 2024-05-08 11:47 | Emergency (ER) | payer MEDICARE, SELFPAY ==
[2024-04-12 09:59] VITALS: BMI 31.8
[2024-05-08 11:51] VITALS: BP 127/57; PULSE 55; RESP 16; TEMP 35.8; O2SAT 98; BMI 33.6
[2024-05-08 12:47] VITALS: BP 99/45; PULSE 57; RESP 16; O2SAT 98
--- NOTE | 2024-05-08 12:53 | CT_ITS ---
STUDY: CT BRAIN WITHOUT CONTRAST REASON FOR EXAM: Female, 83 years old. Unresponsive event RADIATION DOSAGE (If Supplied By Facility): CTDIvol = ( 44.99 ) mGy, DLP = ( 779.24 ) mGycm TECHNIQUE: Transaxial CT imaging of the brain was performed without administration of intravenous contrast material. Individualized dose optimization techniques were used for this CT. COMPARISON: Comparison is made with prior study dated September 06, 2023. FINDINGS: Normal soft tissue structures. There is hyperostosis frontalis internus. There is mild cerebral atrophy with widening of the extra-axial spaces and ventricular dilatation. There are areas of decreased attenuation within the white matter tracts of the supratentorial brain, consistent with microvascular disease changes. Normal basal ganglia and thalami. Normal brainstem. Normal cerebellum. There is no intracranial hemorrhage. There are no findings of an acute ischemic infarction. There is dense calcification of the vertebral arteries and basilar artery. Normal visualized paranasal sinuses. CT/Brain/Head without Contrast IMPRESSION: Chronic involutional changes of the brain. Stable examination. Electronically Signed: Marvin Merrill MD at 14:17 EDT ,
--- NOTE | 2024-05-08 12:53 | EKG12_ITS ---
Test Reason : SYNCOPE Blood Pressure : / mmHG Vent. Rate : 053 BPM Atrial Rate : 053 BPM P-R Int : 172 ms QRS Dur : 078 ms QT Int : 422 ms P-R-T Axes : 047 -30 029 degrees QTc Int : 395 ms Sinus bradycardia Left axis deviation Minimal voltage criteria for LVH, may be normal variant ( R in aVL ) Abnormal ECG Confirmed by GODWIN RENETRIA, CHON ([id number]), image editor IZABEL MICHEL ([id number]) on 05/12/2024 9:43:09 AM Referred By: Confirmed By:VALE CONNELLY MD
--- NOTE | 2024-05-08 12:54 | EX.ED.DYSGE1 ---
HPI History of Present Illness Chief Complaint: Syncope Informant: patient and spouse/S.O. Narrative Narrative: Who presents by EMS from home concerning unresponsive event questionable seizure by EMS. Spouse is currently present. Patient remembers sitting on the computer table around 11 AM. She awoken with her stating he called EMS. Per spouse is in the other room he heard with noises he came out she was slouched on the chair she did not fall off. He reported patient was taking she fell asleep. She did states she did have a good night sleep is currently noontime. She denies chest pain shortness of breath. Denies recent cough. Denies recent vomiting or diarrhea. Denies urinary symptoms. She is status post right carotid endarterectomy postop 2 weeks. Denies any exertional dyspnea recently. EMS had questionable seizure, however spouse states there was no postictal period. No previous similar symptoms in the past. Prior similar symptoms: No PFSH PFSH Medical History Wears glasses Post-menopausal Cancer Thyroid disease Arthritis History of renal disease Anemia History of edema History of echocardiogram Cardiology follow-up encounter Carotid stenosis, bilateral Aortic stenosis, moderate Hyperlipidemia Atherosclerotic heart disease of [place] coronary artery without angina pectoris Essential (primary) hypertension Hypothyroidism NSTEMI (non-ST elevated myocardial infarction) (12/07/20) Home Medications ?Medication ?Instructions ?Recorded ?Last Taken ?Type levothyroxine 25 mcg tablet 37.5 mcg PO DAILY THYROID 06/19/13 04/24/24 History atorvastatin 40 mg tablet 40 mg PO QHS cholesterol 12/07/20 04/24/24 History donepezil 10 mg tablet 10 mg PO QHS MEMORY #30 tabs 12/10/20 04/24/24 Rx cholecalciferol (vitamin D3) 50 50 mcg PO DAILY SUPPLEMENT 12/31/20 04/24/24 History mcg (2,000 unit) capsule losartan 50 mg tablet 50 mg PO DAILY BP 12/31/20 04/24/24 History multivitamin (Daily Multi-Vitamin 1 tablet PO DAILY SUPPLEMENT 12/31/20 04/24/24 History tablet) diltiazem HCl 120 mg 120 mg PO DAILY BP 05/24/21 04/24/24 History capsule,extended release 24 hr (Cartia XT) pyridoxine (vitamin B6) 50 mg 50 mg PO DAILY SUPPLEMENT 12/05/21 04/24/24 History tablet isosorbide mononitrate 60 mg 60 mg PO DAILY HEART #90 tabs 11/04/22 04/24/24 Rx tablet,extended release 24 hr hydrochlorothiazide 25 mg tablet 25 mg PO DAILY BP 12/07/22 04/24/24 History clopidogrel 75 mg tablet 75 mg PO DAILY BLOOD THINNER #90 09/02/23 04/25/24 04:10 Rx tabs carvedilol 3.125 mg tablet 3.125 mg PO BID BID 04/10/24 04/24/24 History aspirin 81 mg capsule 81 mg PO DAILY #30 caps 04/26/24 Unknown Rx oxycodone 5 mg tablet 5 mg PO Q8H PRN PRN Pain Score 04/26/24 Unknown Rx 4-10 3 days #9 tabs Allergy/AdvReac Type Severity Reaction Status Date / Time milk Allergy Intermediate GI upset Verified 05/08/24 11:49 Family History Father Myocardial infarction Mother Myocardial infarction Hypertension Sister Myocardial infarction Surgical History History of cardiac catheterization Hx of shoulder surgery Hx of mastectomy Hx of total hip arthroplasty Hx of total knee replacement History of coronary artery stent placement (12/09/20) Social History Smoking Status: Never smoker alcohol intake: never substance use type: does not use caffeine: Yes Type: carbonated beverages ROS ROS ED Constitutional Constitutional ED: Denies chills, fever(s) or sweats Eyes Eyes: Denies change in vision ENT ENT ED: Denies dysphagia or sore throat Cardiovascular Cardiovascular: Denies chest pain, leg edema, palpitations or racing heartbeat Respiratory/Chest Respiratory/Chest: Denies cough, dyspnea or dyspnea on exertion Gastrointestinal Gastrointestinal: Denies abdominal pain, diarrhea, nausea or vomiting Genitourinary Genitourinary ED: Denies dysuria, hematuria or urinary frequency Musculoskeletal Musculoskeletal: Denies back pain, extremity pain or neck pain Integumentary Denies rash or wounds Neurologic Neurologic: Denies headache(s), paresthesias or weakness EXAM Physical Exam Const Vital Signs: 05/08/24 11:51 05/08/24 11:57 05/08/24 12:47 Temperature 96.5 F L Temperature Source Temporal Pulse Rate 55 L 57 L Respiratory Rate 16 16 Respiratory Effort Normal Non-Labored Respiratory Pattern Normal Blood Pressure 127/57 H 99/45 L Blood Pressure Mean 80 63 Pulse Ox 98 98 Oxygen Delivery Method Room Air Room Air 05/08/24 13:00 05/08/24 14:00 Temperature Temperature Source Pulse Rate 51 L 50 L Respiratory Rate 16 16 Respiratory Effort Respiratory Pattern Blood Pressure 90/46 L 123/47 H Blood Pressure Mean 60 72 Pulse Ox 97 97 Oxygen Delivery Method Room Air Room Air Positive well nourished and well developed Constitutional Narrative: GCS 15. General Appearance ED: well developed and NAD HEENT Reports moist mucous membranes normocephalic and atraumatic Eyes EOMs intact bilaterally and conjunctivae normal General Eye ED: Yes normal appearance of both eyes Neck no lymphadenopathy and supple Neck Narrative: Right lower anterior neck incision with skin glue clean, dry, intact. General: Negative for tenderness Chest Wall Chest: Negative for tenderness Resp normal respiratory effort and normal air movement Effort and Inspection: symmetric chest movement; Negative for respiratory distress Cardio regular rate, regular rhythm and no murmurs Peripheral Pulses: pulses 2+ throughout GI normal to inspection, nondistended, normoactive bowel sounds and non-tender Palpation: Negative for guarding or rebound tenderness present Back/Spine no CVA tenderness and no thoracic nor lumbar tenderness Extremity normal to inspection General Extremety ED: Negative for edema or tenderness General Extremity: Negative for edema Neuro oriented x3, CN's II-XII intact bilaterally and no sensory deficits noted Sensorium / Orientation: awake and alert Skin no rashes or lesions noted and no wounds MDM MDM MDM Narrative Medical decision making narrative: Interventions / MDM: Differential diagnosis: Unresponsive event, syncope, electrolyte abnormalities Diagnosis considered but do not suspect: Pulmonary embolism however no dyspnea or any exertional dyspnea. No tachycardia. No hypoxia. Seizure, however history not likely. My EKG interpretation: Sinus rate of 53, no ST changes, isolated T wave version leads III nonspecific. QTc 395. Imaging independently reviewed and interpreted by myself: CT brain: No acute process. Two-view chest x-ray: No acute process. Is also read by radiology. External documents reviewed: N/A Test considered but not ordered:N/A ED course: Patient unresponsive event. Currently asymptomatic. Vital stable. Will check basic labs EKG. Patient was seizure by EMS in the differential, CT brain ordered due to unresponsive event however history lower suspicion for this. Chest x-ray ordered for further evaluation. Lab studies stable hemoglobin 10.9, stable creatinine at 2.23 comparison her previous labs. Image studies were negative. Reevaluation clinically stable with no return of symptoms. She was ambulated with no return of symptoms. Patient with a unresponsive event, syncope is in differential. Not likely seizure. Considered admission however stable no return of symptoms at this time. Stable to set up for 48-hour Holter monitor through the emergency room for further evaluation of her symptoms. Discussed with patient and spouse, they agree with plan. She will be discharged with strict return precautions. All questions were answered. Re-evaluation: stable Disposition discussed with patient/family/significant other: Patient and significant other Case discussed with consulting clinician: N/A This note was generated with [employer] dictation software. It may contain incorrect words, spelling, and punctuation that were not noted in checking the note before signing. Lab Data Attestation: I reviewed the patient's lab results. Labs: Laboratory Results - last 24 hr 05/08/24 11:35 WBC 10.0 RBC 3.92 L Hgb 10.9 L Hct 34.2 L MCV 87.2 MCH 27.8 MCHC 31.9 L RDW Std Deviation 47.5 H RDW Coeff of [place] 15.0 H Plt Count 377 MPV 8.9 Immature Gran % (Auto) 0.300 Neut % (Auto) 64.4 Lymph % (Auto) 23.4 [place] % (Auto) 8.3 Eos % (Auto) 2.4 Baso % (Auto) 1.2 H Absolute Neuts (auto) 6.5 Absolute Lymphs (auto) 2.34 Nucleated RBC % 0 Sodium 139 Potassium 4.5 Chloride 109 H Carbon Dioxide 25.0 Anion Gap 5 BUN 35 H Creatinine 2.23 H Estim Creat Clear Calc 17.76 Est GFR (MDRD) Af Amer 27 L Est GFR (MDRD) Non-Af 22 L BUN/Creatinine Ratio 15.7 Glucose 129 H Calcium 9.2 Radiography Diagnostic Testing: Clinical Impression(s) from Imaging Studies Brain CT 05/08/24 12:53 IMPRESSION: Chronic involutional changes of the brain. Stable examination. Electronically Signed: Marvin Merrill MD at 14:17 EDT , Chest X-Ray 05/08/24 13:40 IMPRESSION: No acute abnormality is seen. Electronically Signed: Marvin Merrill MD at 14:15 EDT , Discharge Plan Triage Chief Complaint: Syncope ED Provider: Jez Hinojosa Dx/Rx/DC Orders Clinical Impression: Unresponsive episode, CKD (chronic kidney disease), Anemia Instructions: Anemia, CKD Dc Prescriptions: No Action losartan 50 mg tablet 50 mg PO DAILY multivitamin [Daily Multi-Vitamin] Tablet 1 tablet PO DAILY cholecalciferol (vitamin D3) 50 mcg (2,000 unit) capsule 50 mcg PO DAILY pyridoxine (vitamin B6) 50 mg tablet 50 mg PO DAILY levothyroxine 25 MCG tablet 37.5 mcg PO DAILY atorvastatin 40 MG tablet 40 mg PO QHS donepezil 10 MG tablet 10 mg PO QHS Qty: 30 0RF diltiazem HCl [Cartia XT] 120 mg Capsule,Extended Release 24hr 120 mg PO DAILY carvedilol 3.125 mg tablet 3.125 mg PO BID Rx Instructions: TAKE 1 TABLET TWICE A DAY oxycodone 5 mg Tablet 5 mg PO Q8H PRN PRN (Reason: Pain Score 4-10) 3 Days Qty: 9 0RF aspirin 81 mg capsule 81 mg PO DAILY Qty: 30 0RF isosorbide mononitrate 60 mg tablet extended release 24 hr 60 mg PO DAILY Qty: 90 3RF hydrochlorothiazide 25 mg tablet 25 mg PO DAILY clopidogrel 75 mg tablet 75 mg PO DAILY Qty: 90 3RF Primary Care Provider: Cat Sauceda Referrals: Cat Sauceda DO [Primary Care Provider] - 3-5 Days Activity Restrictions/Additional Instructions: He had a brief unresponsive event. History lower concerns for any seizure. Your labs stable hemoglobin 10.9. Creatinine 2.23. Is all stable from your previous labs. CT brain negative. Chest x-ray negative. You are set up for 48-hour Holter monitor for possible syncope. Follow-up with your doctor. If symptoms recur, return to ED for reevaluation. Otherwise follow-up with your doctor. Print Language: Chinese Disposition Disposition: Home, Self Care
[2024-05-08 13:00] VITALS: BP 90/46; PULSE 51; RESP 16; O2SAT 97
[2024-05-08] MEDS: 0.9% Normal Saline (500mL Bag) 500 ML 1000 ML IV (13:17)
[2024-05-08 13:19] LABS: Absolute Lymphocyte Count 2.34 X10^3/uL (0.83-4.51); Absolute Neutrophil Count 6.5 X10^3/uL (2.0-7.7); Basophil# 0.12 X10^3/uL; Basophil% 1.2 % (0-1); Eosinophil# 0.24 X10^3/uL; Eosinophils% 2.4 % (0-5); Hematocrit 34.2 % (37-47); Hemoglobin 10.9 g/dL (12.0-15.0); Lymphocyte # 2.34 X10^3/ul (0.83-4.51); Lymphocyte % 23.4 % (19-41); Mean Corp Hgb Conc 31.9 g/dL (32-36); Mean Corpuscular Hgb 27.8 pg (27.0-32.0); Mean Corpuscular Volume 87.2 fL (81-99); Mean Platelet Vol. 8.9 fl (6.2-12.0); Monocyte# 0.83 X10^3/uL; Monocyte% 8.3 % (0-10); NRBC Flagged by Analyzer 0 % (0-5); Neutrophil # 6.46 X10^3/uL (2.7-7.7); Neutrophil % 64.4 % (47-70); Platelet Count 377 K/mm3 (150-450); RBC Distribution Width SD 47.5 fl (35.1-43.9); Red Blood Count 3.92 M/mm3 (4.2-5.4)
--- NOTE | 2024-05-08 13:40 | RAD_ITS ---
STUDY: X-RAY CHEST REASON FOR EXAM: Female, 83 years old. Syncopal episode. TECHNIQUE: PA and lateral views of the chest. COMPARISON: Comparison is made with prior study dated December 07, 2020. FINDINGS: EKG electrodes are seen. Stable mild elevation of the right hemidiaphragm. The lungs are clear. There is no demonstrated pleural abnormality. Normal size heart. Normal mediastinum and tiki. Normal visualized pulmonary arteries. There is atherosclerotic calcification of the aortic arch with tortuosity. There are diffuse degenerative changes of the visualized thoracic spine. Normal visualized ribs, clavicles, and shoulders. There is no demonstrated abnormality of the visualized soft tissue structures of the upper abdomen. RAD/Chest PA and Lateral IMPRESSION: No acute abnormality is seen. Electronically Signed: Marvin Merrill MD at 14:15 EDT ,
[2024-05-08 13:47] LABS: Anion Gap 5 (5-15); BUN 35 mg/dL (7-18); BUN/Creat Ratio 15.7 RATIO (10-20); Calcium,Total 9.2 mg/dL (8.5-10.1); Chloride 109 mmol/L (98-107); Creatinine, Serum 2.23 mg/dL (0.55-1.02); EST Glomerular Filtration Rate 22 mL/min (>60); Est Glom Filt Rate - Afr Amer 27 mL/min (>60); Estimated Creatinine Clearance 17.76 ml/min; Glucose 129 mg/dL (74-106); Potassium 4.5 mmol/L (3.5-5.1); Sodium Level 139 mmol/L (136-145)
[2024-05-08 14:00] VITALS: BP 123/47; PULSE 50; RESP 16; O2SAT 97
[2024-05-08 15:00] VITALS: BP 134/46; PULSE 53; RESP 18; O2SAT 97
== END 2024-05-08 15:42 | disposition home or self-care (01) ==
PROVIDERS: Emergency Provider Emergency Medicine; PCP Internal Medicine; Visit Provider Emergency Medicine
DX: R40.4 Transient alteration of awareness (principal); I12.9 Hypertensive chronic kidney disease with stage 1 through stage 4 chronic kidney disease, or unspecified chronic kidney disease; E78.5 Hyperlipidemia, unspecified; N18.9 Chronic kidney disease, unspecified; I25.10 Atherosclerotic heart disease of native coronary artery without angina pectoris; D64.9 Anemia, unspecified; R55 Syncope and collapse
CPT/HCPCS: 70450; 71046; 80048; 85025; 93005; 93225; 93226; 96360; 99284; J7030; J7040; A4216

== ENCOUNTER → 2024-05-08 | Outpatient (CLI) | payer MEDICARE, SELFPAY ==
[2024-04-12 09:59] VITALS: BMI 31.8
== END | disposition home or self-care (01) ==
LOC: PSN 14:48
PROVIDERS: PCP Internal Medicine; Visit Provider Emergency Medicine
DX: Z01.810 Encounter for preprocedural cardiovascular examination (principal)

== ENCOUNTER → 2024-05-23 | Outpatient (CLI) | payer MEDICARE, SELFPAY ==
[2024-04-12 09:59] VITALS: BMI 31.8
--- NOTE | 2024-05-23 10:47 | CDU_ITS ---
Reason For Study: s/p Rt TCAR Rt. Velocities/BP Lt. Velocities/BP Prox CCA 54/8 cm/sec. Prox CCA 70/8 cm/sec. Mid CCA 54/10 cm/sec. Mid CCA 64/16 cm/sec. Dist CCA 44/7 cm/sec. Dist CCA 71/12 cm/sec. Prox ICA 83/20 cm/sec. Prox ICA 103/23 cm/sec. Mid ICA 108/28 cm/sec. Mid ICA 124/25 cm/sec. Dist ICA 134/30 cm/sec. Dist ICA 93/27 cm/sec. Rt. ICA/CCA = 2.5. Lt. ICA/CCA = 1.9. Pre Stent: 44/7 cm/s Prox ECA 91/0 cm/sec. Prox Stent: 83/20 cm/s Lt. Vert. 71/20 cm/sec. Mid Stent: 108/28 cm/s Distal Stent: 96/23 cm/s Post Stent: 134/30 cm/s. Prox ECA 316/0 cm/sec. Rt. Vert. 48/10 cm/sec. Right Extracranial There is heterogeneous, irregular atherosclerotic plaque noted in the right common carotid artery. There is heterogeneous, irregular atherosclerotic plaque noted in the right internal carotid artery. There is heterogeneous, irregular atherosclerotic plaque noted in the right external carotid artery. Antegrade flow is noted in the right vertebral artery. Left Extracranial There is heterogeneous, irregular atherosclerotic plaque noted in the left common carotid artery. There is heterogeneous, irregular atherosclerotic plaque noted in the left internal carotid artery. The atherosclerotic plaque causes acoustic shadowing. There is heterogeneous, irregular atherosclerotic plaque noted in the left external carotid artery. Antegrade flow is noted in the left vertebral artery. Procedure Carotid Duplex [id number]. This is a Carotid Duplex examination using B-mode, color flow and specral Doppler. Exam performed in department. VL/Carotid Duplex Ultrasound Interpretation Summary Moderate (50-69%) stenosis right extracranial internal carotid distal to stent. Stent patent with normal velocities and no stenosis. Mild (<50%) stenosis left extracranial internal carotid. Patent and antegrade vertebrals bilaterally. Ordering Physician: Helen Montoya Referring Physician: Cat Sauceda Performed By: Ana M Delgado, ANGELINA, RVT
== END | disposition home or self-care (01) ==
PROVIDERS: PCP Internal Medicine; Referring Provider Physician Assistant; Visit Provider Physician Assistant
DX: Z48.812 Encounter for surgical aftercare following surgery on the circulatory system (principal); I65.23 Occlusion and stenosis of bilateral carotid arteries
CPT/HCPCS: 93880

== ENCOUNTER 2024-06-04 11:19 | Emergency (ER) | payer MEDICARE, SELFPAY ==
[2024-04-12 09:59] VITALS: BMI 31.8
[2024-06-04 11:20] VITALS: BP 124/45; PULSE 51; RESP 14; TEMP 36.4; O2SAT 98; BMI 31.2
--- NOTE | 2024-06-04 11:52 | CT_ITS ---
STUDY: CT BRAIN WITHOUT CONTRAST REASON FOR EXAM: Female, 83 years old. Syncope PER EMS, PT FAINTED AT [facility] DID NOT HIT HER HEAD BUT IS HAVING PAIN IN BACK OF HEAD RADIATION DOSAGE (If Supplied By Facility): CTDIvol = ( 44.99 ) mGy, DLP = ( 796.11 ) mGycm TECHNIQUE: Transaxial CT imaging of the brain was performed without administration of intravenous contrast material. Individualized dose optimization techniques were used for this CT. COMPARISON: Head CT dated May 08, 2024 FINDINGS: Normal soft tissue structures. There is hyperostosis frontalis internus. No demonstrated fracture or subdural hemorrhage or pneumocephalus. There is mild cerebral atrophy with widening of the extra-axial spaces and ventricular dilatation. There are areas of decreased attenuation within the white matter tracts of the supratentorial brain, consistent with microvascular disease changes. Normal basal ganglia and thalami. Normal brainstem. Normal cerebellum. There is no intracranial hemorrhage. There are no findings of an acute ischemic infarction. Normal visualized paranasal sinuses. CT/Brain/Head without Contrast IMPRESSION: Chronic involutional changes of the brain. Electronically Signed: Moreno Cowart MD at 13:10 EDT ,
--- NOTE | 2024-06-04 11:53 | EX.ED.DYSGE1 ---
HPI History of Present Illness Chief Complaint: Syncope Detail of Chief Complaint: Syncope Informant: patient Narrative Narrative: Patient presents with syncopal episode while in tenriism. She was sitting at a table with her when he heard a little gasp and when he looked over she was kind of swaying and unresponsive and this lasted for about 5 minutes. She spit up a little bit afterwards. She had a similar episode in April after a carotid endarterectomy. Currently patient essentially asymptomatic other than a mild dull headache to the back of her head. She did not have any fall or head injury. Patient on Plavix. Denies recent illness. Patient was seen for her first event in April and no etiology was found. [facility] Medical History Wears glasses Post-menopausal Cancer Thyroid disease Arthritis History of renal disease Anemia History of edema History of echocardiogram Cardiology follow-up encounter Carotid stenosis, bilateral Aortic stenosis, moderate Hyperlipidemia Atherosclerotic heart disease of [place] coronary artery without angina pectoris Essential (primary) hypertension Hypothyroidism NSTEMI (non-ST elevated myocardial infarction) (12/07/20) Home Medications ?Medication ?Instructions ?Recorded ?Last Taken ?Type levothyroxine 25 mcg tablet 37.5 mcg PO DAILY THYROID 06/19/13 04/24/24 History atorvastatin 40 mg tablet 40 mg PO QHS cholesterol 12/07/20 04/24/24 History donepezil 10 mg tablet 10 mg PO QHS MEMORY #30 tabs 12/10/20 04/24/24 Rx cholecalciferol (vitamin D3) 50 50 mcg PO DAILY SUPPLEMENT 12/31/20 04/24/24 History mcg (2,000 unit) capsule losartan 50 mg tablet 50 mg PO DAILY BP 12/31/20 04/24/24 History multivitamin (Daily Multi-Vitamin 1 tablet PO DAILY SUPPLEMENT 12/31/20 04/24/24 History tablet) diltiazem HCl 120 mg 120 mg PO DAILY BP 05/24/21 04/24/24 History capsule,extended release 24 hr (Cartia XT) pyridoxine (vitamin B6) 50 mg 50 mg PO DAILY SUPPLEMENT 12/05/21 04/24/24 History tablet isosorbide mononitrate 60 mg 60 mg PO DAILY HEART #90 tabs 11/04/22 04/24/24 Rx tablet,extended release 24 hr hydrochlorothiazide 25 mg tablet 25 mg PO DAILY BP 12/07/22 04/24/24 History clopidogrel 75 mg tablet 75 mg PO DAILY BLOOD THINNER #90 09/02/23 04/25/24 04:10 Rx tabs carvedilol 3.125 mg tablet 3.125 mg PO BID BID 04/10/24 04/24/24 History aspirin 81 mg capsule 81 mg PO DAILY #30 caps 04/26/24 Unknown Rx oxycodone 5 mg tablet 5 mg PO Q8H PRN PRN Pain Score 04/26/24 Unknown Rx 4-10 3 days #9 tabs Allergy/AdvReac Type Severity Reaction Status Date / Time milk Allergy Intermediate GI upset Verified 06/04/24 11:23 Family History Father Myocardial infarction Mother Myocardial infarction Hypertension Sister Myocardial infarction Surgical History History of cardiac catheterization Hx of shoulder surgery Hx of mastectomy Hx of total hip arthroplasty Hx of total knee replacement History of coronary artery stent placement (12/09/20) Social History Smoking Status: Never smoker alcohol intake: never substance use type: does not use caffeine: Yes Type: carbonated beverages ROS ROS ED ROS Narrative Syncope Review of Systems ROS Unobtainable: other Constitutional Constitutional ED: Reports lethargy; Denies chills, fever(s), sweats or weight loss Eyes Eyes: Denies blurry vision, change in vision or diplopia ENT ENT ED: Denies rhinorrhea or sore throat Cardiovascular Cardiovascular: Denies chest pain, orthopnea or racing heartbeat Respiratory/Chest Respiratory/Chest: Denies cough, dyspnea, dyspnea on exertion, orthopnea or sputum Gastrointestinal Gastrointestinal: Denies abdominal pain, diarrhea, nausea or vomiting Genitourinary Genitourinary ED: Denies dysuria, hematuria or urinary frequency Musculoskeletal Musculoskeletal: Denies arthralgias, back pain, myalgias or neck pain Integumentary Denies abscess, Abrasions or rash Neurologic Neurologic: Reports headache(s); Denies weakness Psychiatric Psychiatric: Denies anxiety, depression or suicidal thoughts Endocrine Endocrinology: Denies polydipsia, polyphagia or polyuria Hematologic/Lymphatic Hematologic/Lymphatic: Denies easy bleeding, easy bruising or lymphadenopathy Allergic/Immunologic Allergic/Immunologic ED: Denies mouth swelling, tongue swelling or urticaria EXAM Physical Exam Const Vital Signs: 06/04/24 11:20 06/04/24 11:20 06/04/24 13:20 Temperature 97.5 F L Temperature Source Temporal Pulse Rate 51 L 56 L Pulse Rate [Lying] Pulse Rate [Sitting (for 1 minute prior to obtaining)] Respiratory Rate 14 17 Respiratory Effort Normal Non-Labored Respiratory Pattern Normal Blood Pressure 124/45 H 131/53 H Blood Pressure [Lying] Blood Pressure [Sitting (for 1 minute prior to obtaining)] Blood Pressure [Standing (for 1 minute prior to obtaining)] Blood Pressure Mean 71 79 Blood Pressure Mean [Lying] Blood Pressure Mean [Sitting (for 1 minute prior to obtaining)] Blood Pressure Mean [Standing (for 1 minute prior to obtaining)] Pulse Ox 98 99 Oxygen Delivery Method Room Air Room Air 06/04/24 13:34 06/04/24 15:00 Temperature 97.5 F L Temperature Source Pulse Rate 66 Pulse Rate [Lying] 67 Pulse Rate [Sitting (for 1 minute prior to obtaining)] 63 Respiratory Rate 17 Respiratory Effort Respiratory Pattern Blood Pressure 123/48 H Blood Pressure [Lying] 137/51 H Blood Pressure [Sitting (for 1 minute prior to obtaining)] 149/58 H Blood Pressure [Standing (for 1 minute prior to obtaining)] 118/59 L Blood Pressure Mean 73 Blood Pressure Mean [Lying] 79 Blood Pressure Mean [Sitting (for 1 minute prior to obtaining)] 88 Blood Pressure Mean [Standing (for 1 minute prior to obtaining)] 78 Pulse Ox 97 Oxygen Delivery Method Positive well nourished and well developed General Appearance ED: well developed and NAD HEENT Reports TM's clear and moist mucous membranes normocephalic and atraumatic; Negative for trauma or tenderness Tympanic Membrane ED: Yes TM's clear Eyes PERRL and EOMs intact bilaterally General Eye ED: Negative for pale conjunctiva or scleral icterus Neck no lymphadenopathy, supple and no JVD General: Negative for tenderness Chest Wall inspection of chest normal and palpation of chest normal Chest: Negative for tenderness Resp normal respiratory effort and clear to auscultation bilaterally Effort and Inspection: Negative for respiratory distress or pain with movement Auscultation: Negative for rhonchi, wheezes or diminished lung sounds Cardio regular rate, regular rhythm, S1 normal heart sound, S2 normal heart sound and no murmurs Peripheral Pulses: pulses 2+ throughout GI normal to inspection, nondistended, normoactive bowel sounds, soft to palpation, non-tender, non-distended and no masses Back/Spine no CVA tenderness and no thoracic nor lumbar tenderness Extremity normal to inspection General Extremety ED: Negative for edema General Extremity: Negative for edema Neuro oriented x3, CN's II-XII intact bilaterally, no sensory deficits noted and gait normal Neuro Narrative: No focal weakness, no facial droop. A and O x 3. Sensorium / Orientation: awake, alert, oriented to person, oriented to place and oriented to time Motor Exam: strength 5/5 throughout and strength abnormal Psych mental status grossly normal Skin no rashes or lesions noted and no wounds MDM MDM MDM Narrative Medical decision making narrative: Patient presents the emergency department with an unresponsive episode. Suspect syncope based on description. Low suspicion for seizure activity as there was no bite wounds noted to the lip or tongue and no incontinence. She had similar episode in April x 2. Patient apparently had been sitting when this episode happened and with prior episode. She denied palpitations or chest pain. Currently she is essentially symptom-free. She looks well and nontoxic appearing. EKG obtained on arrival showed a sinus rhythm with rate of 53 bpm with no acute ST segment changes. CBC with differential white count 9.1 with hemoglobin of 10 and platelet count of 345. Chemistries unremarkable. BUN 45 and creatinine 2.46 which is a chronic finding for her. Troponin normal at 26. Urinalysis unremarkable. CT scan of the brain without contrast was unremarkable. Patient was given a liter [place] fluid bolus. Performed orthostatics and she was asymptomatic although her systolic did drop she did not have any symptoms with this and was able to ambulate without difficulty. At this point etiology of syncopal episode unclear if this was vagal possibly. Advised to follow-up with primary care physician within next 3 to 5 days. Patient to return if palpitations, syncope, or condition should worsen anyway. I did review her last echocardiogram from January 2023 which showed mild to moderate aortic stenosis. Lab Data Attestation: I reviewed the patient's lab results. Labs: Laboratory Results - last 24 hr 06/04/24 06/04/24 12:00 13:45 WBC 9.1 RBC 3.61 L Hgb 10.0 L Hct 31.5 L MCV 87.3 MCH 27.7 MCHC 31.7 L RDW Std Deviation 49.3 H RDW Coeff of [place] 15.5 H Plt Count 345 MPV 9.0 Immature Gran % (Auto) 0.300 Neut % (Auto) 68.3 Lymph % (Auto) 21.1 Ada % (Auto) 7.8 Eos % (Auto) 1.7 Baso % (Auto) 0.8 Absolute Neuts (auto) 6.2 Absolute Lymphs (auto) 1.92 Nucleated RBC % 0 Sodium 141 Potassium 4.7 Chloride 109 H Carbon Dioxide 25.0 Anion Gap 7 BUN 45 H Creatinine 2.46 H Estim Creat Clear Calc 15.50 Est GFR (MDRD) Af Amer 24 L Est GFR (MDRD) Non-Af 20 L BUN/Creatinine Ratio 18.3 Glucose 132 H Calcium 9.8 Troponin I High Sens 26 Urine Color Yellow Urine Clarity Clear Urine pH 6.0 Ur Specific [place] 1.015 Urine Protein 15 H Urine Glucose (UA) Normal Urine Ketones Negative Urine Occult Blood Negative Urine Nitrite Negative Urine Bilirubin Negative Urine Urobilinogen Normal Ur Leukocyte Esterase 25 H Urine RBC 0 SEEN Urine WBC 0-5 SEEN Ur Squamous Epith Cells 0-5 SEEN Urine Bacteria RARE Hyaline Casts 0-5 SEEN Urine Mucus 0 SEEN Radiography Diagnostic Testing: Clinical Impression(s) from Imaging Studies Brain CT 06/04/24 11:52 IMPRESSION: Chronic involutional changes of the brain. Electronically Signed: Moreno Cowart MD at 13:10 EDT Reading Location ID and State: [address] [place] [address] , Service support , EKG Initial EKG: Attestation: I personally reviewed and interpreted this EKG as follows: Comments: Sinus bradycardia with rate of 53 bpm with no acute ST segment changes Discharge Plan Triage Chief Complaint: Syncope ED Provider: Braulio Barlow Dx/Rx/DC Orders Clinical Impression: Syncope Instructions: ED Fainting, Uncertain Cause Prescriptions: No Action losartan 50 mg tablet 50 mg PO DAILY multivitamin [Daily Multi-Vitamin] Tablet 1 tablet PO DAILY cholecalciferol (vitamin D3) 50 mcg (2,000 unit) capsule 50 mcg PO DAILY pyridoxine (vitamin B6) 50 mg tablet 50 mg PO DAILY levothyroxine 25 MCG tablet 37.5 mcg PO DAILY atorvastatin 40 MG tablet 40 mg PO QHS donepezil 10 MG tablet 10 mg PO QHS Qty: 30 0RF diltiazem HCl [Cartia XT] 120 mg Capsule,Extended Release 24hr 120 mg PO DAILY carvedilol 3.125 mg tablet 3.125 mg PO BID Rx Instructions: TAKE 1 TABLET TWICE A DAY oxycodone 5 mg Tablet 5 mg PO Q8H PRN PRN (Reason: Pain Score 4-10) 3 Days Qty: 9 0RF aspirin 81 mg capsule 81 mg PO DAILY Qty: 30 0RF isosorbide mononitrate 60 mg tablet extended release 24 hr 60 mg PO DAILY Qty: 90 3RF hydrochlorothiazide 25 mg tablet 25 mg PO DAILY clopidogrel 75 mg tablet 75 mg PO DAILY Qty: 90 3RF Primary Care Provider: Cat Sauceda Referrals: Cat Sauceda DO [Primary Care Provider] - 3-5 Days Print Language: Palestinian Disposition Disposition: Home, Self Care Discharge Date/Time: 06/04/24 15:11
[2024-06-04] MEDS: 0.9% Normal Saline (1000mL) 1,000 ML 150 ML IV (12:01)
[2024-06-04 12:23] LABS: Absolute Lymphocyte Count 1.92 X10^3/uL (0.83-4.51); Absolute Neutrophil Count 6.2 X10^3/uL (2.0-7.7); Basophil# 0.07 X10^3/uL; Basophil% 0.8 % (0-1); Eosinophil# 0.15 X10^3/uL; Eosinophils% 1.7 % (0-5); Hematocrit 31.5 % (37-47); Lymphocyte # 1.92 X10^3/ul (0.83-4.51); Lymphocyte % 21.1 % (19-41); Mean Corp Hgb Conc 31.7 g/dL (32-36); Mean Corpuscular Hgb 27.7 pg (27.0-32.0); Mean Corpuscular Volume 87.3 fL (81-99); Monocyte# 0.71 X10^3/uL; Monocyte% 7.8 % (0-10); NRBC Flagged by Analyzer 0 % (0-5); Neutrophil # 6.21 X10^3/uL (2.7-7.7); Neutrophil % 68.3 % (47-70); Platelet Count 345 K/mm3 (150-450); RBC Distribution Width CV 15.5 % (11.6-14.6); RBC Distribution Width SD 49.3 fl (35.1-43.9); Red Blood Count 3.61 M/mm3 (4.2-5.4); White Blood Count 9.1 K/mm3 (4.4-11.0)
[2024-06-04 12:37] LABS: Anion Gap 7 (5-15); BUN 45 mg/dL (7-18); BUN/Creat Ratio 18.3 RATIO (10-20); Calcium,Total 9.8 mg/dL (8.5-10.1); Chloride 109 mmol/L (98-107); Creatinine, Serum 2.46 mg/dL (0.55-1.02); EST Glomerular Filtration Rate 20 mL/min (>60); Est Glom Filt Rate - Afr Amer 24 mL/min (>60); Glucose 132 mg/dL (74-106); Potassium 4.7 mmol/L (3.5-5.1); Sodium Level 141 mmol/L (136-145); Troponin-I HS 26 pg/mL (3.0-54.0)
[2024-06-04 13:20] VITALS: BP 131/53; PULSE 56; RESP 17; O2SAT 99
[2024-06-04 13:34] VITALS: BP 118/59; BP 137/51; BP 149/58; PULSE 63; PULSE 67
[2024-06-04 13:52] LABS: Mucous, Urine 0 SEEN /hpf (<or=2+); Red Blood Cells-Urine 0 SEEN /hpf (0-5)
[2024-06-04] MEDS: 0.9% Normal Saline (1000mL) 1,000 ML 999 ML IV (13:52)
[2024-06-04 13:58] LABS: Color, Urine Yellow (Yellow); Glucose, Dipstick Normal (Normal); Ketone-Dipstick Negative (Negative); Leukocyte Esterase-Dipstick 25 /ul (Negative); Nitrite-Dipstick Negative (Negative); Occult Blood-Urine Negative /ul (Negative); Protein-Dipstick 15 mg/dl (Negative); Specific Gravity, Urine 1.015 (1.002-1.030); Urine Bilirubin Dipstick Negative (Negative); Urine Clarity Clear (Clear); Urine Urobilinogen Normal (Normal)
[2024-06-04 14:23] LABS: Bacteria RARE /hpf (None Seen); Hyaline Cast 0-5 SEEN /lpf (0-5); Squamous Epithelial Cells - UA 0-5 SEEN /hpf (5-10); White Blood Cells 0-5 SEEN /hpf (0-5)
[2024-06-04 15:00] VITALS: BP 123/48; PULSE 66; RESP 17; TEMP 36.4; O2SAT 97
== END 2024-06-04 15:11 | disposition home or self-care (01) ==
PROVIDERS: Emergency Provider Emergency Medicine; PCP Internal Medicine; Visit Provider Emergency Medicine
DX: R55 Syncope and collapse (principal); I25.10 Atherosclerotic heart disease of native coronary artery without angina pectoris; I35.0 Nonrheumatic aortic (valve) stenosis; I10 Essential (primary) hypertension; E78.5 Hyperlipidemia, unspecified; E03.9 Hypothyroidism, unspecified; I25.2 Old myocardial infarction; Z79.02 Long term (current) use of antithrombotics/antiplatelets; Z79.82 Long term (current) use of aspirin; Z79.899 Other long term (current) drug therapy; Z95.5 Presence of coronary angioplasty implant and graft
CPT/HCPCS: 70450; 80048; 81001; 84484; 85025; 93005; 96360; 96361; 99285; J7030

== ENCOUNTER → 2024-06-08 | Outpatient (CLI) | payer MEDICARE, SELFPAY ==
[2024-04-12 09:59] VITALS: BMI 31.8
== END | disposition home or self-care (01) ==
PROVIDERS: PCP Internal Medicine; Referring Provider Internal Medicine; Visit Provider Internal Medicine
DX: R55 Syncope and collapse (principal)
CPT/HCPCS: 93225; 93226

== ENCOUNTER 2024-07-08 20:58 | Emergency (ER) | payer MEDICARE, SELFPAY ==
[2024-04-12 09:59] VITALS: BMI 31.8
[2024-07-08 20:59] VITALS: BP 160/66; PULSE 59; RESP 18; TEMP 36.6; O2SAT 97; BMI 31.3
[2024-07-08 21:00] VITALS: BP 159/51; PULSE 66; RESP 16; TEMP 37; O2SAT 95
--- NOTE | 2024-07-08 21:54 | EX.ED.DYSGE1 ---
HPI History of Present Illness Chief Complaint: Cellulitis Narrative Narrative: 83-year-old female who denies significant past medical history except hypertension, no diabetes, presents with pain and redness to her right lower extremity. She states that it developed today. She started having pain in the area, and then noticed patches of redness. She denies any recent trauma. No chest pain or shortness of breath, no exacerbating or alleviating factors. She started to develop pain on her left lower extremity as well. The redness is more on the distal portion of the anterior tibial area. She denies any foot swelling. No fevers or chills, no nausea or vomiting. [facility] Medical History Wears glasses Post-menopausal Cancer Thyroid disease Arthritis History of renal disease Anemia History of edema History of echocardiogram Cardiology follow-up encounter Carotid stenosis, bilateral Aortic stenosis, moderate Hyperlipidemia Atherosclerotic heart disease of [place] coronary artery without angina pectoris Essential (primary) hypertension Hypothyroidism NSTEMI (non-ST elevated myocardial infarction) (12/07/20) Home Medications ?Medication ?Instructions ?Recorded ?Last Taken ?Type levothyroxine 25 mcg tablet 37.5 mcg PO DAILY THYROID 06/19/13 04/24/24 History atorvastatin 40 mg tablet 40 mg PO QHS cholesterol 12/07/20 04/24/24 History donepezil 10 mg tablet 10 mg PO QHS MEMORY #30 tabs 12/10/20 04/24/24 Rx cholecalciferol (vitamin D3) 50 50 mcg PO DAILY SUPPLEMENT 12/31/20 04/24/24 History mcg (2,000 unit) capsule losartan 50 mg tablet 50 mg PO DAILY BP 12/31/20 04/24/24 History multivitamin (Daily Multi-Vitamin 1 tablet PO DAILY SUPPLEMENT 12/31/20 04/24/24 History tablet) diltiazem HCl 120 mg 120 mg PO DAILY BP 05/24/21 04/24/24 History capsule,extended release 24 hr (Cartia XT) pyridoxine (vitamin B6) 50 mg 50 mg PO DAILY SUPPLEMENT 12/05/21 04/24/24 History tablet isosorbide mononitrate 60 mg 60 mg PO DAILY HEART #90 tabs 11/04/22 04/24/24 Rx tablet,extended release 24 hr hydrochlorothiazide 25 mg tablet 25 mg PO DAILY BP 12/07/22 04/24/24 History clopidogrel 75 mg tablet 75 mg PO DAILY BLOOD THINNER #90 09/02/23 04/25/24 04:10 Rx tabs carvedilol 3.125 mg tablet 3.125 mg PO BID BID 04/10/24 04/24/24 History aspirin 81 mg capsule 81 mg PO DAILY #30 caps 04/26/24 Unknown Rx oxycodone 5 mg tablet 5 mg PO Q8H PRN PRN Pain Score 04/26/24 Unknown Rx 4-10 3 days #9 tabs amoxicillin 875 mg-potassium 1 tab PO BID #14 tabs 07/08/24 Unknown Rx clavulanate 125 mg tablet Allergy/AdvReac Type Severity Reaction Status Date / Time milk Allergy Intermediate GI upset Verified 07/08/24 20:59 Family History Father Myocardial infarction Mother Myocardial infarction Hypertension Sister Myocardial infarction Surgical History History of cardiac catheterization Hx of shoulder surgery Hx of mastectomy Hx of total hip arthroplasty Hx of total knee replacement History of coronary artery stent placement (12/09/20) Social History Smoking Status: Never smoker alcohol intake: never substance use type: does not use caffeine: Yes Type: carbonated beverages ROS ROS ED ROS Narrative Constitutional: No fever, no chills. HEENT: No sore throat. No neck pain. No loss of vision. No rhinorrhea. Cardiovascular: No chest pain. No palpitations. No pedal edema. Respiratory: No cough, no shortness of breath. Abdominal: No abdominal pain. No nausea. No vomiting. Musculoskeletal: No myalgias. No arthralgias. Neurologic: No headaches. No dizziness. No lightheadedness. Skin: No rash. Positive redness to right lower leg. No foot swelling. Psychiatric: No depression. No anxiety. EXAM Physical Exam Narrative Exam Narrative: Afebrile. Vital signs noted. Regular rate and rhythm. Lungs clear to auscultation bilaterally. Abdomen soft nontender with normoactive bowel sounds. Inspection of the right lower extremity does reveal palpable dorsalis pedis pulse and good color. There are areas which appear to be slight ulcerations of the skin without active bleeding. Mild erythema. No overt swelling, no palpable cord. She does have small areas that appear like folliculitis on the left lower extremity but once again palpable dorsalis pedis pulse and good color, no overt erythema. Const Vital Signs: 07/08/24 20:59 07/08/24 21:00 Temperature 97.9 F 98.6 F Temperature Source Temporal Oral Pulse Rate 59 L 66 Respiratory Rate 18 16 Blood Pressure 160/66 H 159/51 H Blood Pressure Mean 97 87 Pulse Ox 97 95 Oxygen Delivery Method Room Air Room Air MDM MDM MDM Narrative Medical decision making narrative: Differential diagnosis includes but not limited to venous stasis ulcers versus vasculitis versus DVT. I have low suspicion for DVT because her pain is bilateral, and the history and physical does not support this. I do not think she has an arterial occlusion as she has palpable dorsalis pedis pulses bilaterally. With the suspicion that she may have had slight ulceration of the skin and is developing cellulitis, she was given her first dose of Augmentin here and prescription written for the next week. She will follow-up with her primary care provider. I feel she can be discharged safely home and that she does not require any laboratory work or imaging currently. Return instructions to the emergency department were reviewed. Patient agreeable to the plan. Disposition is discharged home in stable condition. History & Record Review Discussion w/independent historian: Patient and Family (Spouse) Discharge Plan Triage Chief Complaint: Cellulitis ED Provider: Brayan Maloney Dx/Rx/DC Orders Clinical Impression: Leg ulcer, Cellulitis Instructions: ED Cellulitis, ED Wound Care Prescriptions: New amoxicillin-pot clavulanate 875-125 mg tablet 1 tab PO BID Qty: 14 0RF No Action losartan 50 mg tablet 50 mg PO DAILY multivitamin [Daily Multi-Vitamin] Tablet 1 tablet PO DAILY cholecalciferol (vitamin D3) 50 mcg (2,000 unit) capsule 50 mcg PO DAILY pyridoxine (vitamin B6) 50 mg tablet 50 mg PO DAILY levothyroxine 25 MCG tablet 37.5 mcg PO DAILY atorvastatin 40 MG tablet 40 mg PO QHS donepezil 10 MG tablet 10 mg PO QHS Qty: 30 0RF diltiazem HCl [Cartia XT] 120 mg Capsule,Extended Release 24hr 120 mg PO DAILY carvedilol 3.125 mg tablet 3.125 mg PO BID Rx Instructions: TAKE 1 TABLET TWICE A DAY oxycodone 5 mg Tablet 5 mg PO Q8H PRN PRN (Reason: Pain Score 4-10) 3 Days Qty: 9 0RF aspirin 81 mg capsule 81 mg PO DAILY Qty: 30 0RF isosorbide mononitrate 60 mg tablet extended release 24 hr 60 mg PO DAILY Qty: 90 3RF hydrochlorothiazide 25 mg tablet 25 mg PO DAILY clopidogrel 75 mg tablet 75 mg PO DAILY Qty: 90 3RF Primary Care Provider: Cat Sauceda Referrals: Cat Sauceda DO [Primary Care Provider] - 3-5 Days Print Language: Irish
[2024-07-08] MEDS: Amox/Clavulanate 875 MG Tablet PO (22:02)
[2024-07-08 22:04] VITALS: BP 134/51; PULSE 68; RESP 16; TEMP 36.6; O2SAT 98
== END 2024-07-08 22:13 | disposition home or self-care (01) ==
PROVIDERS: Emergency Provider Emergency Medicine; PCP Internal Medicine; Referring Provider Emergency Medicine; Visit Provider Emergency Medicine
DX: L03.115 Cellulitis of right lower limb (principal); L97.911 Non-pressure chronic ulcer of unspecified part of right lower leg limited to breakdown of skin; I25.10 Atherosclerotic heart disease of native coronary artery without angina pectoris; I10 Essential (primary) hypertension; E78.5 Hyperlipidemia, unspecified; M79.662 Pain in left lower leg; E03.9 Hypothyroidism, unspecified; I25.2 Old myocardial infarction; Z79.82 Long term (current) use of aspirin; Z79.02 Long term (current) use of antithrombotics/antiplatelets; Z79.890 Hormone replacement therapy; Z79.899 Other long term (current) drug therapy; Z95.5 Presence of coronary angioplasty implant and graft
CPT/HCPCS: 99282

== ENCOUNTER 2024-07-15 14:14 | Emergency (ER) | payer MEDICARE, SELFPAY ==
[2024-04-12 09:59] VITALS: BMI 31.8
[2024-07-15 14:15] VITALS: BP 167/54; PULSE 66; RESP 18; TEMP 36.7; O2SAT 99; BMI 30.5
[2024-07-15 14:18] VITALS: BP 167/54; PULSE 66; RESP 18; TEMP 36.7; O2SAT 99
--- NOTE | 2024-07-15 14:18 | EDS_ITS ---
HPI History of Present Illness Chief Complaint: Cellulitis [facility] Medical History Wears glasses Post-menopausal Cancer Thyroid disease Arthritis History of renal disease Anemia History of edema History of echocardiogram Cardiology follow-up encounter Carotid stenosis, bilateral Aortic stenosis, moderate Hyperlipidemia Atherosclerotic heart disease of [place] coronary artery without angina pectoris Essential (primary) hypertension Hypothyroidism NSTEMI (non-ST elevated myocardial infarction) (12/07/20) Home Medications ?Medication ?Instructions ?Recorded ?Last Taken ?Type levothyroxine 25 mcg tablet 37.5 mcg PO DAILY THYROID 06/19/13 04/24/24 History atorvastatin 40 mg tablet 40 mg PO QHS cholesterol 12/07/20 04/24/24 History donepezil 10 mg tablet 10 mg PO QHS MEMORY #30 tabs 12/10/20 04/24/24 Rx cholecalciferol (vitamin D3) 50 50 mcg PO DAILY SUPPLEMENT 12/31/20 04/24/24 History mcg (2,000 unit) capsule losartan 50 mg tablet 50 mg PO DAILY BP 12/31/20 04/24/24 History multivitamin (Daily Multi-Vitamin 1 tablet PO DAILY SUPPLEMENT 12/31/20 04/24/24 History tablet) diltiazem HCl 120 mg 120 mg PO DAILY BP 05/24/21 04/24/24 History capsule,extended release 24 hr (Cartia XT) pyridoxine (vitamin B6) 50 mg 50 mg PO DAILY SUPPLEMENT 12/05/21 04/24/24 History tablet isosorbide mononitrate 60 mg 60 mg PO DAILY HEART #90 tabs 11/04/22 04/24/24 Rx tablet,extended release 24 hr hydrochlorothiazide 25 mg tablet 25 mg PO DAILY BP 12/07/22 04/24/24 History clopidogrel 75 mg tablet 75 mg PO DAILY BLOOD THINNER #90 09/02/23 04/25/24 04:10 Rx tabs carvedilol 3.125 mg tablet 3.125 mg PO BID BID 04/10/24 04/24/24 History aspirin 81 mg capsule 81 mg PO DAILY #30 caps 04/26/24 Unknown Rx oxycodone 5 mg tablet 5 mg PO Q8H PRN PRN Pain Score 04/26/24 Unknown Rx 4-10 3 days #9 tabs amoxicillin 875 mg-potassium 1 tab PO BID #14 tabs 10/19/24 Unknown Rx clavulanate 125 mg tablet doxycycline hyclate 100 mg capsule 100 mg PO BID #14 caps 07/15/24 Unknown Rx Allergy/AdvReac Type Severity Reaction Status Date / Time milk Allergy Intermediate GI upset Verified 07/15/24 14:15 Family History Father Myocardial infarction Mother Myocardial infarction Hypertension Sister Myocardial infarction Surgical History History of cardiac catheterization Hx of shoulder surgery Hx of mastectomy Hx of total hip arthroplasty Hx of total knee replacement History of coronary artery stent placement (12/09/20) Social History Smoking Status: Never smoker alcohol intake: never substance use type: does not use caffeine: Yes Type: carbonated beverages EXAM Physical Exam Const Vital Signs: 07/15/24 14:15 07/15/24 14:18 Temperature 98.1 F 98.1 F Temperature Source Oral Oral Pulse Rate 66 66 Respiratory Rate 18 18 Blood Pressure 167/54 H 167/54 H Blood Pressure Mean 91 91 Pulse Ox 99 99 Oxygen Delivery Method Room Air Room Air MDM MDM MDM Narrative Medical decision making narrative: HISTORY OF PRESENT ILLNESS: 83-year-old female presents with concern for progressing cellulitis. States she was seen here last week for cellulitis of her right leg. States she has one half of a pill left of antibiotics but it is getting worse . She notes she is concern for another area on her left leg as well. Patient denies active cancer, being bedridden for greater than 3 days, denies unilateral leg swelling, denies any varicose veins, denies any calf tenderness, denies tenderness along deep venous system. Denies major surgery within 12 weeks, recent paralysis, previous DVT. REVIEW OF SYSTEMS: Pertinent positives: Cellulitis Pertinent negatives: Vomiting, fever PHYSICAL EXAM: Nursing triage notes reviewed, Vital signs reviewed Constitutional: please see mdm Lungs: Clear to auscultation, No wheezing or rales. No increased work of breathing, no conversational dyspnea, no accessory muscle use, no nasal flaring. No respiratory distress noted Heart: Regular rate and rhythm, No murmurs, No rubs and No gallops, 2+ distal pulses (radial, femoral, posterior tibial) in all extremities Extremities: No swelling, no crepitus, no bullae, compartments soft, no calf tenderness, no signs of joint involvement such as joint effusions Neuro: Intact sensation L1-S1 dermatomal distributions. Intact 5/5 strength in hip flexion (T12-L3). Knee extension (L2-L4). Ankle dorsiflexion (L4-L5). Ankle plantar flexion (S1). Great toe extension (L5). 2+ patellar and Achilles DTRs. Skin: Small area of excoriation, no obvious erythema, erythema, raised erythema, no fluctuance induration, crepitus or bullae MEDICAL DECISION MAKING: Chief Complaint: Cellulitis External records reviewed: Reviewed prior allergies, problem list, vital signs, current medications, prior inpatient outpatient notes. Seen on 07/08/2024. Diagnosis cellulitis. Prescribed Augmentin. Factors affecting care: Hypertension, hypothyroidism, CAD, Social determinants of health: none History obtained from others: none Consults: none MDM Narrative: The patient was initially hemodynamically stable, afebrile and nontoxic- appearing. Exam was reassuring. There may be some slight redness to the right lower extremity although patient notes this is improving. Left lower extremity has small excoriations/abrasions but no obvious cellulitic change, warmth or purulent discharge. No clinical evidence to suggest necrotizing fasciitis. Low risk profile for DVT. Pulses were intact. Compartments are soft. I considered the following differential diagnosis: Cellulitis, abscess, necrotizing fasciitis, arterial occlusion, DVT Had a shared decision-making discussion with the patient and spouse offered my clinical impression. Discussed additional alternative such as IV antibiotics admission. The patient was not having nausea or vomiting. The patient not appear toxic she had no fever. Exam was unremarkable. She has no immunocompromising states. She is appropriate for broadening spectrum antibiotic to cover MRSA, other gram-positive's. Patient as well as agreed with my clinical impression. He understood risk and benefits of admission versus discharge and agree that discharge is most appropriate course of action at this time. They agree to return if symptoms change or worsen. Given 1 week of doxycycline and close PCP follow-up. Strict return precautions were discussed. The patient and/or family, caregivers express understanding. The patient and/or family, caregivers agrees with the plan. Shared decision making: I will have a discussion with the patient and or visitors regarding risk/benefits of further testing or admission. They will be made aware of of the risk/benefits inherent in this decision they will be given the opportunity to voice understanding. Total critical care time today provided was at least 0 minutes. This excludes separately billable procedures. Critical care time (if documented) is secondary to the patient having high probability of clinically significant/life threatening deterioration in the patient's condition which required my urgent intervention. Impression: 1. Leg pain 2. Cellulitis Dispo: Discharge home This note was generated with [employer] dictation software. It may contain incorrect words, spelling, and punctuation that were not noted in review of the chart prior to signing. Discharge Plan Triage Chief Complaint: Cellulitis ED Provider: Jaydon Rutledge Dx/Rx/DC Orders Instructions: Cellulitis Dc Prescriptions: New doxycycline hyclate 100 mg capsule 100 mg PO BID Qty: 14 0RF No Action losartan 50 mg tablet 50 mg PO DAILY multivitamin [Daily Multi-Vitamin] Tablet 1 tablet PO DAILY cholecalciferol (vitamin D3) 50 mcg (2,000 unit) capsule 50 mcg PO DAILY pyridoxine (vitamin B6) 50 mg tablet 50 mg PO DAILY levothyroxine 25 MCG tablet 37.5 mcg PO DAILY atorvastatin 40 MG tablet 40 mg PO QHS donepezil 10 MG tablet 10 mg PO QHS Qty: 30 0RF diltiazem HCl [Cartia XT] 120 mg Capsule,Extended Release 24hr 120 mg PO DAILY carvedilol 3.125 mg tablet 3.125 mg PO BID Rx Instructions: TAKE 1 TABLET TWICE A DAY oxycodone 5 mg Tablet 5 mg PO Q8H PRN PRN (Reason: Pain Score 4-10) 3 Days Qty: 9 0RF aspirin 81 mg capsule 81 mg PO DAILY Qty: 30 0RF amoxicillin-pot clavulanate 875-125 mg tablet 1 tab PO BID Qty: 14 0RF isosorbide mononitrate 60 mg tablet extended release 24 hr 60 mg PO DAILY Qty: 90 3RF hydrochlorothiazide 25 mg tablet 25 mg PO DAILY clopidogrel 75 mg tablet 75 mg PO DAILY Qty: 90 3RF Primary Care Provider: Cat Sauceda Referrals: Cat Sauceda DO [Primary Care Provider] - Activity Restrictions/Additional Instructions: Thank you for trusting us with your care today! Your clinical exam was reassuring. There may be some component of infection or cellulitis however it does not appear to be severe does not require admission IV antibiotics at this time. I will broaden the spectrum of antibiotics to cover MRSA. Will give doxycycline for 7 days. Please take antibiotics until course is completed. Please take Tylenol (2 pills, 650 mg), ibuprofen (2 pills, 400 mg) every 6 hours as needed for pain and fever control. Please return to the emergency department if your symptoms change or worsen. Specifically develop sweating, fever, vomiting, confusion. These are signs of worsening infection Yon return to ED if the signs develop immediately. Please follow with your primary care physician for further outpatient evaluation and management. Print Language: Japanese Disposition Disposition: Home, Self Care
[2024-07-15] MEDS: Doxycycline 100 MG CAPSULE PO (14:42)
== END 2024-07-15 14:50 | disposition home or self-care (01) ==
PROVIDERS: Emergency Provider Emergency Medicine; PCP Internal Medicine; Visit Provider Emergency Medicine
DX: L03.115 Cellulitis of right lower limb (principal); M79.604 Pain in right leg; I25.10 Atherosclerotic heart disease of native coronary artery without angina pectoris; E03.9 Hypothyroidism, unspecified; I10 Essential (primary) hypertension; E78.5 Hyperlipidemia, unspecified; I25.2 Old myocardial infarction; Z79.82 Long term (current) use of aspirin; Z79.02 Long term (current) use of antithrombotics/antiplatelets; Z79.890 Hormone replacement therapy; Z79.899 Other long term (current) drug therapy
CPT/HCPCS: 99282

== ENCOUNTER → 2024-08-31 | Outpatient (CLI) | payer MEDICARE, SELFPAY ==
[2024-04-12 09:59] VITALS: BMI 31.8
--- NOTE | 2024-08-31 11:47 | BI_ITS ---
MAMMOGRAPHY - UNILATERAL SCREENING: RIGHT BREAST REASON FOR EXAM: Female, 84 years old. Routine annual screening examination (unilateral). PERTINENT HISTORY: Personal history of breast cancer. Prior left mastectomy. TECHNIQUE: Digital unilateral breast jagruti (3D mammographic acquisition) in the CC and MLO projections. 2-D mediolateral oblique (MLO) and craniocaudad (CC) views of both breasts were obtained. CAD: Full Field Digital Mammography with Computer Added Detection was performed. COMPARISON: Comparison is made with prior study dated December 09, 2022 and December 08, 2021. FINDINGS: Breast Composition: The breasts are heterogeneously dense, which may obscure small masses. There are no dominant masses or suspicious calcifications. No other significant abnormalities are identified. There has been no significant change since the prior study. BI/SCREEN MAMM (CAD) W/JAGRUTI UNI R IMPRESSION: Stable unilateral screening mammogram. Yearly follow-up mammogram recommended. (A) ASSESSMENT CATEGORY: BIRADS Category 2: Benign. A letter regarding these results will be sent to the patient by the facility within 30 days. Approximately 10% of breast cancers are not detected by mammography. A normal mammogram should not delay biopsy of a clinically suspicious abnormality. [id number] Electronically Signed: Marvin Merrill MD at 12:22 EST ,
== END | disposition home or self-care (01) ==
LOC: OPBI 11:47
PROVIDERS: PCP Internal Medicine; Referring Provider Internal Medicine; Visit Provider Internal Medicine
DX: Z12.31 Encounter for screening mammogram for malignant neoplasm of breast (principal); Z85.3 Personal history of malignant neoplasm of breast; Z90.12 Acquired absence of left breast and nipple
CPT/HCPCS: 77063; 77067

== ENCOUNTER → 2024-09-06 | Outpatient (CLI) | payer MEDICARE, SELFPAY ==
[2024-04-12 09:59] VITALS: BMI 31.8
--- NOTE | 2024-09-06 13:56 | ECHOD_ITS ---
Reason For Study: AORTIC STENOSIS Procedure This was a 2D Doppler, Color Flow transthoracic echocardiogram. Exam performed in department. Left Ventricle Normal LV size. Left ventricular systolic function is normal. The left ventricular ejection fraction is 65 %. No regional wall motion abnormalities noted. Right Ventricle Normal RV size. Normal systolic function. Atria Normal left atrium. Normal right atrium. Mitral Valve There is mild mitral annular calcification. Tricuspid Valve Normal tricuspid valve. Mild (1+) tricuspid valve insufficiency. Pulmonary artery systolic pressure is 27 mmHg. Aortic Valve Trisinus/trileaflet aortic valve. Moderate focal aortic valve calcification. Peak aortic valve gradient 34 mmHg. Mean aortic valve gradient 19 mmHg. Mild to moderate aortic stenosis. Pulmonic Valve Normal pulmonic valve. Great Vessels Normal aortic root. The pulmonary artery is normal size. Inferior vena cava collapse with respiration. Pericardium/Pleural No pericardial effusion. MMode/2D Measurements & Calculations LVIDd: 4.3 cm IVSd: 1.1 cm LVOT diam: 2.0 cm LVIDs: 2.6 cm LVPWd: 1.1 cm LVOT area: 3.2 cm2 RVDd: 3.2 cm FS: 38.3 % Ao root diam: 2.9 cm LAV(MOD-bp): 29.6 ml LVAd ap4: 24.6 cm2 LAV(MOD-bp) Indexed: 16.5 ml/m2 LVLd ap4: 6.9 cm LAV(MOD-sp2): 30.7 ml EDV(MOD-sp4): 71.1 ml LAV(MOD-sp4): 28.9 ml EDV(sp4-el): 74.6 ml LVAs ap4: 13.1 cm2 LVLs ap4: 5.8 cm ESV(MOD-sp4): 23.9 ml ESV(sp4-el): 25.0 ml EF(MOD-sp4): 66.3 % EF(sp4-el): 66.5 % SV(MOD-sp4): 47.1 ml SV(sp4-el): 49.6 ml LA A4 area: 13.0 cm2 SI(MOD-sp4): 26.3 ml/m2 LA dimension(2D): 3.2 cm RA A4 area: 11.3 cm2 TAPSE: 2.2 cm Time Measurements MV dec time: 0.23 sec Doppler Measurements & Calculations MV E max [place]: 77.9 cm/sec Lat Peak E' [place]: 5.5 cm/sec Med Peak E' [place]: 6.5 cm/sec MV A max [place]: 117.2 cm/sec E/E' lat: 14.1 E/E' med: 11.9 MV E/A: 0.66 Ao V2 max: 292.8 cm/sec LV V1 max: 140.0 cm/sec SV(LVOT): 92.8 ml Ao max P.3 mmHg LV V1 max P.9 mmHg Ao V2 mean: 204.5 cm/sec LV V1 mean P.7 mmHg Ao mean P.7 mmHg LV V1 mean: 88.6 cm/sec Ao V2 VTI: 62.9 cm LV V1 VTI: 29.0 cm AV (velocity ratio): 0.46 ARMANDO(I,D): 1.5 cm2 ARMANDO(V,D): 1.5 cm2 PA V2 max: 126.7 cm/sec TR max [place]: 246.6 cm/sec TR max P.3 mmHg ECHO/Echo Complete Interpretation Summary Normal LV size. Left ventricular systolic function is normal. The left ventricular ejection fraction is 65 %. There is mild mitral annular calcification. Mean aortic valve gradient 19 mmHg. Moderate focal aortic valve calcification. Mild to moderate aortic stenosis. Ordering Physician: Cat Sauceda Referring Physician: Cat Sauceda Performed By: Chhaya Clemens RDCS
== END | disposition home or self-care (01) ==
LOC: CVS 13:55
PROVIDERS: PCP Internal Medicine; Referring Provider Internal Medicine; Visit Provider Internal Medicine
DX: I35.0 Nonrheumatic aortic (valve) stenosis (principal)
CPT/HCPCS: 93306

== ENCOUNTER → 2024-10-11 | Outpatient (CLI) | payer MEDICARE, SELFPAY ==
[2024-04-12 09:59] VITALS: BMI 31.8
[2024-10-11 10:09] LABS: Hematocrit 32.3 % (37-47); Hemoglobin 10.4 g/dL (12.0-15.0); Mean Corp Hgb Conc 32.2 g/dL (32-36); Mean Corpuscular Hgb 28.7 pg (27.0-32.0); Mean Platelet Vol. 9.2 fl (6.2-12.0); Platelet Count 267 K/mm3 (150-450); RBC Distribution Width CV 13.2 % (11.6-14.6); RBC Distribution Width SD 42.9 fl (35.1-43.9); Red Blood Count 3.63 M/mm3 (4.2-5.4); White Blood Count 8.2 K/mm3 (4.4-11.0)
[2024-10-11 10:45] LABS: PTHIN 47.9 pg/mL (18.4-80.1)
[2024-10-11 12:06] LABS: Albumin, Serum 3.6 g/dL (3.2-5.0); BUN 38 mg/dL (7-18); BUN/Creat Ratio 19.4 RATIO (10-20); Calcium,Total 9.8 mg/dL (8.5-10.1); Chloride 108 mmol/L (98-107); Creatinine, Serum 1.96 mg/dL (0.55-1.02); EST Glomerular Filtration Rate 26 mL/min (>60); Est Glom Filt Rate - Afr Amer 31 mL/min (>60); Ferritin 103 ng/mL (8-252); Glucose 108 mg/dL (74-106); Iron 57 ug/dL (50-170); Iron Binding Capacity,Total 270 ug/dL (250-450); PERCENT IRON SATURATION 21.1 % (15.0-55.0); Phosphorus 3.9 mg/dL (2.5-4.9); Potassium 4.9 mmol/L (3.5-5.1); Sodium Level 138 mmol/L (136-145)
== END | disposition home or self-care (01) ==
PROVIDERS: PCP Internal Medicine; Referring Provider Internal Medicine Nephrology; Visit Provider Internal Medicine Nephrology
DX: N18.4 Chronic kidney disease, stage 4 (severe) (principal); D50.9 Iron deficiency anemia, unspecified
CPT/HCPCS: 36415; 80069; 82728; 83540; 83550; 83970; 85027

== ENCOUNTER → 2024-11-10 | Outpatient (CLI) | payer MEDICARE, SELFPAY ==
[2024-04-12 09:59] VITALS: BMI 31.8
--- NOTE | 2024-11-10 09:38 | CDU_ITS ---
Reason For Study Reason For Study: S/P TCAR Rt. Velocities/BP Lt. Velocities/BP Prox CCA 60.7/11.6 cm/sec. Prox CCA 82.6/9 cm/sec. Mid CCA 52.2/10.7 cm/sec. Mid CCA 70.4/11.4 cm/sec. CCA distal, pre stent, 43.7/6.9 cm/sec. Dist CCA 59.3/10.2 cm/sec. Bulb, prox stent, 93.7/24.3 cm/sec. Prox ICA 109.7/15.1 cm/sec. Prox ICA, mid stent, 93.7/20.6 cm/sec. Mid ICA 77.7/22.5 cm/sec. Mid ICA, distal stent, 101/20.6 cm/sec. Dist ICA 87.6/18.8 cm/sec. Distal ICA, post stent, 98.6/24.9 cm/sec. Lt. ICA/CCA = 1.56. Rt. ICA/CCA = 1.93. Prox ECA 94.9 cm/sec. Prox ECA 304.8 cm/sec. Lt. Vert. 58.1/11.4 cm/sec. Rt. Vert. 53.2/9 cm/sec. Right Extracranial There is heterogeneous, irregular atherosclerotic plaque noted in the right common carotid artery. There is heterogeneous, irregular atherosclerotic plaque noted in the right internal carotid artery. Stent noted in the right Bulb- ICA mid. There is heterogeneous, irregular atherosclerotic plaque noted in the right external carotid artery. Antegrade flow is noted in the right vertebral artery. Left Extracranial There is heterogeneous, irregular atherosclerotic plaque noted in the left common carotid artery. There is heterogeneous, irregular atherosclerotic plaque noted in the left internal carotid artery. The atherosclerotic plaque causes acoustic shadowing. There is heterogeneous, irregular atherosclerotic plaque noted in the left external carotid artery. Antegrade flow is noted in the left vertebral artery. Procedure Carotid Duplex 33745. This is a Carotid Duplex examination using B-mode, color flow and specral Doppler. The study was technically difficult. Exam performed in department. VL/Carotid Duplex Ultrasound Interpretation Summary Mild (<50%) stenosis right extracranial internal carotid. Mild (<50%) stenosis left extracranial internal carotid. Patent and antegrade vertebrals bilaterally. Ordering Physician: Helen Montoya Referring Physician: Cat Sauceda M.D. Performed By: Perla Lopez RVT
== END | disposition home or self-care (01) ==
LOC: CVS 09:38
PROVIDERS: PCP Internal Medicine; Referring Provider Physician Assistant; Visit Provider Physician Assistant
DX: Z48.812 Encounter for surgical aftercare following surgery on the circulatory system (principal); I65.23 Occlusion and stenosis of bilateral carotid arteries
CPT/HCPCS: 93880

== ENCOUNTER 2025-01-17 19:23 | Emergency (ER) | payer MEDICARE, SELFPAY ==
[2024-04-12 09:59] VITALS: BMI 31.8
[2025-01-17 19:24] VITALS: BP 194/60; PULSE 71; RESP 18; TEMP 36.6; O2SAT 98
[2025-01-17 20:38] LABS: Bacteria 0 SEEN /hpf (None Seen); Mucous, Urine 0 SEEN /hpf (<or=2+)
--- NOTE | 2025-01-17 20:38 | EX.ED.DYSGE1 ---
HPI History of Present Illness Chief Complaint: Complaint Informant: patient Onset/Context/Timing Onset: Today Context: Gradual Onset Timing: Continuous Quality: Burning Location: Suprapubic area Worsened by: Urination Relieved by: Nothing Narrative Narrative: Patient presents with dysuria that began today. Patient states it has gradually gotten worse. Patient states she has some burning with urination. Patient denies any fevers or chills. Patient denies any nausea or vomiting. Patient denies any back or flank pain. Patient states nothing makes it better and nothing makes it worse. Patient states this feels similar to prior urinary tract infections. Prior similar symptoms: Yes PFSH [facility] Medical History (Updated 01/17/25 @ 21:[address] Abe Lentz, DO) Wears glasses Post-menopausal Cancer Thyroid disease Arthritis History of renal disease Anemia History of edema History of echocardiogram Cardiology follow-up encounter Carotid stenosis, bilateral Aortic stenosis, moderate Hyperlipidemia Atherosclerotic heart disease of [place] coronary artery without angina pectoris Essential (primary) hypertension Hypothyroidism NSTEMI (non-ST elevated myocardial infarction) (12/07/20) Home Medications ?Medication ?Instructions ?Recorded ?Last Taken ?Type levothyroxine 25 mcg tablet 37.5 mcg PO DAILY THYROID 06/19/13 04/24/24 History atorvastatin 40 mg tablet 40 mg PO QHS cholesterol 12/07/20 04/24/24 History donepezil 10 mg tablet 10 mg PO QHS MEMORY #30 tabs 12/10/20 04/24/24 Rx cholecalciferol (vitamin D3) 50 50 mcg PO DAILY SUPPLEMENT 12/31/20 04/24/24 History mcg (2,000 unit) capsule losartan 50 mg tablet 50 mg PO DAILY BP 12/31/20 04/24/24 History multivitamin (Daily Multi-Vitamin 1 tablet PO DAILY SUPPLEMENT 12/31/20 04/24/24 History tablet) diltiazem HCl 120 mg 120 mg PO DAILY BP 05/24/21 04/24/24 History capsule,extended release 24 hr (Cartia XT) pyridoxine (vitamin B6) 50 mg 50 mg PO DAILY SUPPLEMENT 12/05/21 04/24/24 History tablet isosorbide mononitrate 60 mg 60 mg PO DAILY HEART #90 tabs 11/04/22 04/24/24 Rx tablet,extended release 24 hr hydrochlorothiazide 25 mg tablet 25 mg PO DAILY BP 12/07/22 04/24/24 History clopidogrel 75 mg tablet 75 mg PO DAILY BLOOD THINNER #90 09/02/23 04/25/24 04:10 Rx tabs carvedilol 3.125 mg tablet 3.125 mg PO BID BID 04/10/24 04/24/24 History Held on 04/26/24. Instructions: Resume on 05/03/24. Hold until systolic blood pressure (top number) >140 aspirin 81 mg capsule 81 mg PO DAILY #30 caps 04/26/24 Unknown Rx oxycodone 5 mg tablet 5 mg PO Q8H PRN PRN Pain Score 04/26/24 Unknown Rx 4-10 3 days #9 tabs amoxicillin 875 mg-potassium 1 tab PO BID #14 tabs 07/08/24 Unknown Rx clavulanate 125 mg tablet doxycycline hyclate 100 mg capsule 100 mg PO BID #14 caps 07/15/24 Unknown Rx cephalexin 500 mg capsule 500 mg PO Q6 #20 CAPSULES 01/17/25 Unknown Rx Allergy/AdvReac Type Severity Reaction Status Date / Time milk Allergy Intermediate GI upset Verified 01/17/25 19:26 Family History Father Myocardial infarction Mother Myocardial infarction Hypertension Sister Myocardial infarction Surgical History (Updated 01/17/25 @ 20:[address] Abe Lentz DO) History of right-sided carotid endarterectomy History of cardiac catheterization Hx of shoulder surgery Hx of mastectomy Hx of total hip arthroplasty Hx of total knee replacement History of coronary artery stent placement (12/09/20) Social History Smoking Status: Never smoker alcohol intake: never substance use type: does not use caffeine: Yes Type: carbonated beverages ROS ROS ED Constitutional Constitutional ED: Denies chills or fever(s) Eyes Eyes: Denies blurry vision or change in vision ENT ENT ED: Denies rhinorrhea or sore throat Cardiovascular Cardiovascular: Denies chest pain or palpitations Respiratory/Chest Respiratory/Chest: Denies cough or dyspnea Gastrointestinal Gastrointestinal: Denies nausea or vomiting Genitourinary Genitourinary ED: Reports dysuria; Denies hematuria Musculoskeletal Musculoskeletal: Denies back pain or neck pain Integumentary Denies abscess or rash Neurologic Neurologic: Denies headache(s) or weakness Allergic/Immunologic Allergic/Immunologic ED: Denies mouth swelling or urticaria EXAM Physical Exam Const Vital Signs: 01/17/25 19:24 Temperature 97.9 F Temperature Source Oral Pulse Rate 71 Respiratory Rate 18 Blood Pressure 194/60 H Blood Pressure Mean 104 Pulse Ox 98 Oxygen Delivery Method Room Air Positive well nourished and well developed General Appearance ED: well developed and NAD HEENT Reports moist mucous membranes Neck supple and no JVD Resp normal respiratory effort and clear to auscultation bilaterally Cardio regular rate and regular rhythm GI non-tender and non-distended Palpation: soft Neuro oriented x3, CN's II-XII intact bilaterally and no sensory deficits noted Sensorium / Orientation: alert Motor Exam: strength 5/5 throughout Psych mental status grossly normal MDM MDM MDM Narrative Medical decision making narrative: Differential diagnosis includes urinary tract infection and dysuria. Urinalysis will be obtained to assess for urinary tract infection. Lab Data Attestation: I reviewed the patient's lab results. Lab results narrative: Urinalysis was reviewed. Leukocyte esterase was 500. There are 10-25 white blood cells. The remainder was within normal limits. Labs: Laboratory Results - last 24 hr 01/17/25 20:19 Urine Color Straw Urine Clarity Clear Urine pH 6.0 Ur Specific [place] 1.010 Urine Protein TNP Urine Glucose (UA) Normal Urine Ketones Negative Urine Occult Blood Negative Urine Nitrite Negative Urine Bilirubin Negative Urine Urobilinogen Normal Ur Leukocyte Esterase 500 H Urine RBC 0-5 SEEN Urine WBC 10-25 SEEN Ur Squamous Epith Cells 0-5 SEEN Urine Bacteria 0 SEEN Urine Mucus 0 SEEN Treatment and Re-Evaluation :: Patient was advised of her findings. Patient was given a dose of Keflex here. Patient is given a prescription for Keflex. Patient was instructed to drink plenty of fluids. Patient was instructed to follow-up with her primary care physician in 5 to 7 days. Patient understood and was agreeable with the plan. All questions were answered. Discharge Plan Triage Chief Complaint: Complaint ED Provider: Abe Lentz Dx/Rx/DC Orders Clinical Impression: Urinary tract infection, Essential (primary) hypertension Instructions: ED Cystitis Female Adult Prescriptions: New cephalexin 500 mg capsule 500 mg PO Q6 Qty: 20 0RF No Action losartan 50 mg tablet 50 mg PO DAILY multivitamin [Daily Multi-Vitamin] Tablet 1 tablet PO DAILY cholecalciferol (vitamin D3) 50 mcg (2,000 unit) capsule 50 mcg PO DAILY pyridoxine (vitamin B6) 50 mg tablet 50 mg PO DAILY levothyroxine 25 MCG tablet 37.5 mcg PO DAILY atorvastatin 40 MG tablet 40 mg PO QHS donepezil 10 MG tablet 10 mg PO QHS Qty: 30 0RF diltiazem HCl [Cartia XT] 120 mg Capsule,Extended Release 24hr 120 mg PO DAILY carvedilol 3.125 mg tablet 3.125 mg PO BID Rx Instructions: TAKE 1 TABLET TWICE A DAY oxycodone 5 mg Tablet 5 mg PO Q8H PRN PRN (Reason: Pain Score 4-10) 3 Days Qty: 9 0RF aspirin 81 mg capsule 81 mg PO DAILY Qty: 30 0RF amoxicillin-pot clavulanate 875-125 mg tablet 1 tab PO BID Qty: 14 0RF doxycycline hyclate 100 mg capsule 100 mg PO BID Qty: 14 0RF isosorbide mononitrate 60 mg tablet extended release 24 hr 60 mg PO DAILY Qty: 90 3RF hydrochlorothiazide 25 mg tablet 25 mg PO DAILY clopidogrel 75 mg tablet 75 mg PO DAILY Qty: 90 3RF Primary Care Provider: Cat Sauceda Referrals: Cat Sauceda DO [Primary Care Provider] - 3-5 Days Print Language: Danish Disposition Disposition: Home, Self Care
[2025-01-17 20:51] LABS: Color, Urine Straw (Yellow); Glucose, Dipstick Normal (Normal); Ketone-Dipstick Negative (Negative); Leukocyte Esterase-Dipstick 500 /ul (Negative); Nitrite-Dipstick Negative (Negative); Occult Blood-Urine Negative /ul (Negative); Urine Bilirubin Dipstick Negative (Negative); Urine Clarity Clear (Clear); Urine Urobilinogen Normal (Normal)
[2025-01-17 21:00] LABS: White Blood Cells 10-25 SEEN /hpf (0-5)
[2025-01-17 21:01] LABS: Red Blood Cells-Urine 0-5 SEEN /hpf (0-5); Squamous Epithelial Cells - UA 0-5 SEEN /hpf (5-10)
[2025-01-17] MEDS: Cephalexin 500 MG Capsule PO (21:22)
[2025-01-17 21:23] VITALS: BP 162/60; PULSE 68; RESP 18; TEMP 36.6; O2SAT 98
[2025-01-17 21:37] LABS: Protein, Urine (Random) < 6.0 mg/dL (0.0-12.0)
== END 2025-01-17 21:24 | disposition home or self-care (01) ==
PROVIDERS: Emergency Provider Emergency Medicine; PCP Internal Medicine; Visit Provider Emergency Medicine
DX: N39.0 Urinary tract infection, site not specified (principal); I25.10 Atherosclerotic heart disease of native coronary artery without angina pectoris; I10 Essential (primary) hypertension; E78.5 Hyperlipidemia, unspecified; E03.9 Hypothyroidism, unspecified; Z79.82 Long term (current) use of aspirin; Z79.02 Long term (current) use of antithrombotics/antiplatelets; Z79.899 Other long term (current) drug therapy; I25.2 Old myocardial infarction; Z79.890 Hormone replacement therapy
CPT/HCPCS: 81001; 84156; 99282

== ENCOUNTER → 2025-03-21 | Outpatient (CLI) | payer MEDICARE, SELFPAY ==
[2024-04-12 09:59] VITALS: BMI 31.8
[2025-03-21 09:05] LABS: Hematocrit 29.4 % (37-47); Hemoglobin 9.4 g/dL (12.0-15.0); Mean Corp Hgb Conc 32.0 g/dL (32-36); Mean Corpuscular Volume 91.0 fL (81-99); Mean Platelet Vol. 8.8 fl (6.2-12.0); Platelet Count 258 K/mm3 (150-450); RBC Distribution Width CV 13.3 % (11.6-14.6); RBC Distribution Width SD 44.5 fl (35.1-43.9); Red Blood Count 3.23 M/mm3 (4.2-5.4); White Blood Count 8.5 K/mm3 (4.4-11.0)
[2025-03-21 10:06] LABS: Albumin, Serum 4.0 g/dL (3.4-4.8); Anion Gap 10 (5-15); BUN 37 mg/dL (4-19); BUN/Creat Ratio 19.7 RATIO (10-20); Calcium,Total 9.6 mg/dL (7.6-11.0); Carbon Dioxide 21.2 mmol/L (21.0-32.0); Chloride 110 mmol/L (98-108); Ferritin 273 ng/mL (22-378); Glucose 92 mg/dL (70-99); Iron 48 ug/dL (50-170); Iron Binding Capacity,Unsat 190 ug/dL (228-428); Potassium 5.6 mmol/L (3.3-5.1); Vitamin D,25 Hydroxy 36.6 ng/mL (30-100)
[2025-03-21 10:12] LABS: Iron Binding Capacity,Total 238 ug/dL (250-450)
== END | disposition home or self-care (01) ==
LOC: LAB.FUTURE 08:46 → LAB 10:12
PROVIDERS: PCP Internal Medicine; Referring Provider Internal Medicine Nephrology; Visit Provider Internal Medicine Nephrology
DX: N18.4 Chronic kidney disease, stage 4 (severe) (principal); D50.9 Iron deficiency anemia, unspecified
CPT/HCPCS: 36415; 80069; 82306; 82728; 83540; 83550; 85027

== ENCOUNTER → 2025-05-22 | Outpatient (CLI) | payer MEDICARE, SELFPAY ==
[2024-04-12 09:59] VITALS: BMI 31.8
--- NOTE | 2025-05-22 13:59 | CDU_ITS ---
Reason For Study Reason For Study: S/P RT TCAR Rt. Velocities/BP Lt. Velocities/BP Prox CCA 66.7/5.3 cm/sec. Prox CCA 111.3/15.5 cm/sec. Mid CCA 65.8/12.8 cm/sec. Mid CCA 73.2/14.2 cm/sec. Dist CCA 62.9/8.1 cm/sec. Dist CCA 73.2/15.5 cm/sec. Prox ICA 113.3/16.7 cm/sec. Prox ICA 117.7/32.0 cm/sec. Mid ICA 146.2/38.6 cm/sec. Mid ICA 119.9/32.0 cm/sec. Dist ICA 111.1/23.3 cm/sec. Dist ICA 126.4/23.3 cm/sec. Rt. ICA/CCA = 146.2/65.8=2.2. Prox ECA 116.0/0.0 cm/sec. Prox ECA 471.3/16.7 cm/sec. Lt. Vert. 81.8/19.2 cm/sec. Rt. Vert. 59.8/11.9 cm/sec. Right Extracranial There is heterogeneous, irregular atherosclerotic plaque noted in the right common carotid artery. STENT noted RT BULB to MID ICA. There is heterogeneous, irregular atherosclerotic plaque noted in the right internal carotid artery. The atherosclerotic plaque causes acoustic shadowing. There is heterogeneous, irregular atherosclerotic plaque noted in the right external carotid artery. Antegrade flow is noted in the right vertebral artery. Left Extracranial There is heterogeneous, irregular atherosclerotic plaque noted in the left common carotid artery. There is heterogeneous, irregular atherosclerotic plaque noted in the left internal carotid artery. The atherosclerotic plaque causes acoustic shadowing. There is heterogeneous, irregular atherosclerotic plaque noted in the left external carotid artery. Antegrade flow is noted in the left vertebral artery. Procedure Carotid Duplex 71140. This is a Carotid Duplex examination using B-mode, color flow and specral Doppler. The study was technically difficult. Exam performed in department. VL/Carotid Duplex Ultrasound Interpretation Summary Mild (<70%) stenosis right extracranial internal carotid. Moderate (50-69%) stenosis left extracranial internal carotid. Patent and antegrade vertebrals bilaterally. Ordering Physician: Helen Montoya Referring Physician: Cat Sauceda Performed By: Lisa Hernandez, ANGELINA, RVT
== END | disposition home or self-care (01) ==
LOC: CVS 13:55
PROVIDERS: PCP Internal Medicine; Referring Provider Physician Assistant; Visit Provider Physician Assistant
DX: Z48.812 Encounter for surgical aftercare following surgery on the circulatory system (principal); I65.23 Occlusion and stenosis of bilateral carotid arteries
CPT/HCPCS: 93880

== ENCOUNTER 2025-07-08 08:42 | Emergency (ER) | payer MEDICARE, SELFPAY ==
[2024-04-12 09:59] VITALS: BMI 31.8
[2025-07-08 08:43] VITALS: BP 158/57; PULSE 55; RESP 18; TEMP 36.4; O2SAT 100; BMI 30.2
[2025-07-08 09:15] LABS: Mucous, Urine 0 SEEN /hpf (<or=2+); Red Blood Cells-Urine 0 SEEN /hpf (0-5)
[2025-07-08 09:16] LABS: Color, Urine Yellow (Yellow); Glucose, Dipstick Normal (Normal); Ketone-Dipstick Negative (Negative); Leukocyte Esterase-Dipstick 500 /ul (Negative); Nitrite-Dipstick Negative (Negative); Occult Blood-Urine 10 /ul (Negative); Protein-Dipstick 30 mg/dl (Negative); Specific Gravity, Urine 1.015 (1.002-1.030); Urine Bilirubin Dipstick Negative (Negative)
[2025-07-08 09:34] LABS: Squamous Epithelial Cells - UA 0-5 SEEN /hpf (5-10)
[2025-07-08 09:51] VITALS: BP 151/82; PULSE 48; RESP 18; TEMP 36.7; O2SAT 97
[2025-07-08 10:25] VITALS: BP 145/51; PULSE 53; RESP 18; TEMP 36.8; O2SAT 96
== END 2025-07-08 10:36 | disposition home or self-care (01) ==
LOC: ED 09:10
PROVIDERS: Emergency Provider Emergency Medicine; PCP Internal Medicine; Visit Provider Emergency Medicine
DX: N39.0 Urinary tract infection, site not specified (principal); I25.10 Atherosclerotic heart disease of native coronary artery without angina pectoris; I10 Essential (primary) hypertension; E78.5 Hyperlipidemia, unspecified; E03.9 Hypothyroidism, unspecified; I25.2 Old myocardial infarction; Z79.82 Long term (current) use of aspirin; Z79.02 Long term (current) use of antithrombotics/antiplatelets
CPT/HCPCS: 81001; 87077; 87086; 87088; 87186; 99283

== ENCOUNTER → 2025-07-25 | Outpatient (CLI) | payer MEDICARE, SELFPAY ==
[2024-04-12 09:59] VITALS: BMI 31.8
[2025-07-25 15:13] LABS: Color, Urine Yellow (Yellow); Glucose, Dipstick Normal (Normal); Ketone-Dipstick Negative (Negative); Leukocyte Esterase-Dipstick 500 /ul (Negative); Nitrite-Dipstick Negative (Negative); Occult Blood-Urine 10 /ul (Negative); Protein-Dipstick 30 mg/dl (Negative); Specific Gravity, Urine 1.015 (1.002-1.030); Urine Bilirubin Dipstick Negative (Negative)
== END | disposition home or self-care (01) ==
LOC: LAB 14:14
PROVIDERS: PCP Internal Medicine; Referring Provider Internal Medicine; Visit Provider Internal Medicine
DX: N39.0 Urinary tract infection, site not specified (principal)
CPT/HCPCS: 81002; 87077; 87086; 87088

== ENCOUNTER 2025-08-04 16:16 | Emergency (ER) | payer MEDICARE, SELFPAY ==
[2024-04-12 09:59] VITALS: BMI 31.8
[2025-08-04 16:17] VITALS: BP 175/72; PULSE 56; RESP 18; TEMP 36.9; O2SAT 98; BMI 30.8
--- NOTE | 2025-08-04 17:31 | ED.VIS.LOWEX ---
HPI History of Present Illness Chief Complaint: Lower Extremity Injury Narrative Narrative: Patient is an 85-year-old female presenting to the emergency department for bilateral lower extremity "zinging". Patient has a past medical history of aortic stenosis, hyperlipidemia, CAD with stent placement in 2020, hypertension and hypothyroidism. Patient states that it started 2 days ago. She denies any injury or falls. Denies any back pain. Denies any history of diabetes. Denies any numbness or weakness in her legs. Denies any pain in her legs. Denies history of DVT or PE. Denies any recent travel, hospitalizations or surgeries. Denies any leg swelling. [facility] Medical History Wears glasses Post-menopausal Cancer Thyroid disease Arthritis History of renal disease Anemia History of edema History of echocardiogram Cardiology follow-up encounter Carotid stenosis, bilateral Aortic stenosis, moderate Hyperlipidemia Atherosclerotic heart disease of [place] coronary artery without angina pectoris Essential (primary) hypertension Hypothyroidism NSTEMI (non-ST elevated myocardial infarction) (12/07/20) Home Medications Medication Instructions Recorded Last Taken Type atorvastatin 40 mg tablet 40 mg PO QHS cholesterol 12/07/20 04/24/24 History donepezil 10 mg tablet 10 mg PO QHS MEMORY #30 tabs 12/10/20 04/24/24 Rx cholecalciferol (vitamin D3) 50 50 mcg PO DAILY SUPPLEMENT 12/31/20 04/24/24 History mcg (2,000 unit) capsule multivitamin (Daily Multi-Vitamin 1 tablet PO DAILY SUPPLEMENT 12/31/20 04/24/24 History tablet) diltiazem HCl 120 mg 120 mg PO DAILY BP 05/24/21 04/24/24 History capsule,extended release 24 hr (Cartia XT) pyridoxine (vitamin B6) 50 mg 50 mg PO DAILY SUPPLEMENT 12/05/21 04/24/24 History tablet isosorbide mononitrate 60 mg 60 mg PO DAILY HEART #90 tabs 11/04/22 04/24/24 Rx tablet,extended release 24 hr hydrochlorothiazide 25 mg tablet 25 mg PO DAILY BP 12/07/22 04/24/24 History carvedilol 3.125 mg tablet 3.125 mg PO BID BID 04/10/24 04/24/24 History aspirin 81 mg capsule 81 mg PO DAILY #30 caps 04/26/24 Unknown Rx amoxicillin 500 mg capsule 2,000 mg PO PRN 01/23/25 Unknown History phenazopyridine 100 mg tablet 100 mg PO TID PRN pain 6 doses #6 07/17/25 Unknown Rx (Pyridium) tabs ciprofloxacin HCl 500 mg tablet 500 mg PO BID #20 tabs 07/26/25 Unknown Rx (Cipro) dupilumab 300 mg/2 mL subcutaneous 600 mg subcut MONTHLY 07/26/25 Unknown History pen injector losartan 50 mg tablet 50 mg PO DAILY BP 07/26/25 Unknown History levothyroxine 25 mcg tablet 37.5 mcg (1.5 x 25 mcg) PO DAILY 08/03/25 Unknown Rx THYROID #45 tabs Allergy/AdvReac Type Severity Reaction Status Date / Time milk Allergy Intermediate GI upset Verified 08/04/25 16:17 Family History Father Myocardial infarction Mother Myocardial infarction Hypertension Sister Myocardial infarction Surgical History History of right-sided carotid endarterectomy History of cardiac catheterization Hx of shoulder surgery Hx of mastectomy Hx of total hip arthroplasty Hx of total knee replacement History of coronary artery stent placement (12/09/20) Social History Smoking Status: Never smoker alcohol intake: never substance use type: does not use caffeine: Yes Type: carbonated beverages ROS ROS ED ROS Narrative See HPI EXAM Physical Exam Narrative Exam Narrative: Vital signs: Reviewed General: Alert and oriented x 3. No acute distress HEENT: Head is normocephalic and atraumatic, sinuses nontender, pupils equal round and reactive. Nares are patent. Oropharynx and throat exams normal. Neck: Supple without lymphadenopathy nontender Cardiovascular: Regular rate and rhythm, no murmurs. No rubs or gallops. Normal S1 and S2 Respiratory: Clear to auscultation bilaterally. No wheezes, rales, rhonchi Abdominal: Soft and nontender. Normal bowel sounds. No guarding or rebound. Nonsurgical abdomen Extremities: DP and PT pulses are intact bilaterally. No lower extremity edema. No pain on palpation of the calves. No palpable cords. No tenderness to palpation of bilateral ankles, shins, knees, upper leg or hips. No midline thoracic or lumbar spinal tenderness to palpation. No step-offs or deformities. No bruising. Normal range of motion. Normal 5/5 strength in bilateral lower extremities. Normal flexion and extension at hips and knees. Normal plantarflexion and dorsiflexion. Normal sensation in bilateral lower extremities. Skin: No rash or redness. Neurological: Cranial nerves II through XII are grossly intact. Normal strength and sensation. Normal cerebellar function The rest of the physical exam is unremarkable Const Vital Signs: 08/04/25 16:17 08/04/25 19:08 Temperature 98.4 F 98.7 F Temperature Source Oral Pulse Rate 56 L 78 Respiratory Rate 18 16 Blood Pressure 175/72 H 134/78 H Blood Pressure Mean 106 96 Pulse Ox 98 99 Oxygen Delivery Method Room Air MDM MDM MDM Narrative Medical decision making narrative: Patient is an 85-year-old female presenting to the emergency department for bilateral "zinging" in her lower extremities. Patient was seen and examined. Vitals are stable. Patient resting bed comfortably no acute distress. Patient had no trauma or falls, I do not think there is any reason for x-ray imaging to evaluate for fractures or dislocations. Patient has no asymmetric swelling or tenderness to palpation of the calves I do not think this is a DVT bilaterally. She has no back pain I do not think this is a spinal cord issue that is causing her symptoms. Normal strength and sensation in bilateral lower extremities I do not think this is a stroke. Will check electrolytes and hemoglobin level to evaluate for any abnormalities that might be causing her symptoms. states that they recently decreased their liquid IV intake and thinks this may have caused the symptoms. CBC with no leukocytosis and chronic anemia 9.1. BMP with similar kidney dysfunction to prior. No other acute abnormalities. I updated the patient and at bedside on the negative lab work. Patient ambulated without difficulty here. Patient discharged from the Emergency Department. I do not feel that the patient's evaluation reveals any acute reason for admission at this time. I instructed them to either follow-up with their primary care physician or promptly return to the Emergency Department for reevaluation should symptoms worsen or new symptoms develop. I explained what symptoms would indicate the need to return to the emergency department. Shared decision making was used. The patient voiced understanding of the treatment plan and is agreeable with it. Clinical impression: Tingling sensation CKD Chronic anemia History & Record Review Discussion w/independent historian: Patient and Significant other Additional record(s) reviewed:: Prior labs Lab Data Attestation: I reviewed the patient's lab results. Labs: Laboratory Results - last 24 hr 08/04/25 17:49 WBC 9.7 RBC 3.18 L Hgb 9.1 L Hct 28.9 L MCV 90.9 MCH 28.6 MCHC 31.5 L RDW Std Deviation 53.3 H RDW Coeff of [place] 16.2 H Plt Count 264 MPV 9.2 Immature Gran % (Auto) 0.300 Neut % (Auto) 62.9 Lymph % (Auto) 20.6 [place] % (Auto) 12.7 H Eos % (Auto) 2.6 Baso % (Auto) 0.9 Absolute Neuts (auto) 6.1 Absolute Lymphs (auto) 2.00 Nucleated RBC % 0 Sodium 140 Potassium 4.4 Chloride 108 Carbon Dioxide 20.8 L Anion Gap 11 BUN 39 H Creatinine 2.20 H Estim Creat Clear Calc 16.57 L Est GFR (MDRD) Non-Af 21 L BUN/Creatinine Ratio 17.7 Glucose 90 Calcium 9.0 Discharge Plan Triage Chief Complaint: Lower Extremity Injury ED Provider: Lorna Fuchs Dx/Rx/DC Orders Clinical Impression: Tingling sensation, CKD (chronic kidney disease), Chronic anemia Instructions: Anemia and Kidney Disease Prescriptions: No Action multivitamin [Daily Multi-Vitamin] Tablet 1 tablet PO DAILY cholecalciferol (vitamin D3) 50 mcg (2,000 unit) capsule 50 mcg PO DAILY losartan 50 mg tablet 50 mg PO DAILY pyridoxine (vitamin B6) 50 mg tablet 50 mg PO DAILY amoxicillin 500 mg capsule 2,000 mg PO PRN dupilumab 300 mg/2 mL pen injector 600 mg subcut MONTHLY Rx Instructions: as a single dose phenazopyridine [Pyridium] 100 mg tablet 100 mg PO TID PRN (Reason: pain) Qty: 6 0RF atorvastatin 40 MG tablet 40 mg PO QHS donepezil 10 MG tablet 10 mg PO QHS Qty: 30 0RF diltiazem HCl [Cartia XT] 120 mg Capsule,Extended Release 24hr 120 mg PO DAILY carvedilol 3.125 mg tablet 3.125 mg PO BID Rx Instructions: TAKE 1 TABLET TWICE A DAY aspirin 81 mg capsule 81 mg PO DAILY Qty: 30 0RF isosorbide mononitrate 60 mg tablet extended release 24 hr 60 mg PO DAILY Qty: 90 3RF hydrochlorothiazide 25 mg tablet 25 mg PO DAILY ciprofloxacin HCl [Cipro] 500 mg tablet 500 mg PO BID Qty: 20 0RF levothyroxine 25 mcg tablet 37.5 mcg PO DAILY Qty: 45 6RF Primary Care Provider: Cat Sauceda Referrals: Cat Sauceda DO [Primary Care Provider, Internal Medicine] - As soon as possible Activity Restrictions/Additional Instructions: Your evaluation in the Emergency Department did not reveal any acute reason for admission. However, I want to emphasize that you may be early in the course of a disease process or illness even if it is not present. For this reason you should follow-up within 24 hours for reevaluation with either your primary care physician or if necessary back here in the Emergency Department. You should return to the Emergency Department immediately if your symptoms worsen or new symptoms develop. Print Language: Citizen Of [place] Disposition Disposition: Home, Self Care Discharge Date/Time: 08/04/25 19:09
[2025-08-04 18:06] LABS: Hematocrit 28.9 % (37-47); Hemoglobin 9.1 g/dL (12.0-15.0); Immature Granulocytes Count 0.030 X10^3/uL (0.0-0.0); Mean Corp Hgb Conc 31.5 g/dL (32-36); Mean Corpuscular Volume 90.9 fL (81-99); Mean Platelet Vol. 9.2 fl (6.2-12.0); NRBC Flagged by Analyzer 0 % (0-5); Platelet Count 264 K/mm3 (150-450); RBC Distribution Width CV 16.2 % (11.6-14.6); RBC Distribution Width SD 53.3 fl (35.1-43.9); Red Blood Count 3.18 M/mm3 (4.2-5.4); White Blood Count 9.7 K/mm3 (4.4-11.0)
[2025-08-04 18:35] LABS: Anion Gap 11 (5-15); BUN 39 mg/dL (4-19); BUN/Creat Ratio 17.7 RATIO (10-20); Calcium,Total 9.0 mg/dL (7.6-11.0); Carbon Dioxide 20.8 mmol/L (21.0-32.0); Chloride 108 mmol/L (98-108); Estimated Creatinine Clearance 16.57 ml/min (50-250); Glucose 90 mg/dL (70-99); Potassium 4.4 mmol/L (3.3-5.1)
[2025-08-04 19:08] VITALS: BP 134/78; PULSE 78; RESP 16; TEMP 37.1; O2SAT 99
== END 2025-08-04 19:09 | disposition home or self-care (01) ==
PROVIDERS: Emergency Provider Student in an Organized Health Care Education/Training Program; PCP Internal Medicine; Visit Provider Student in an Organized Health Care Education/Training Program
DX: R20.2 Paresthesia of skin (principal); I12.9 Hypertensive chronic kidney disease with stage 1 through stage 4 chronic kidney disease, or unspecified chronic kidney disease; N18.9 Chronic kidney disease, unspecified; D63.1 Anemia in chronic kidney disease; Z79.899 Other long term (current) drug therapy
CPT/HCPCS: 80048; 85025; 99282

== ENCOUNTER → 2025-08-06 | Outpatient (CLI) | payer MEDICARE, SELFPAY ==
[2024-04-12 09:59] VITALS: BMI 31.8
[2025-08-06 16:32] LABS: Mucous, Urine 0 SEEN /hpf (<or=2+)
[2025-08-06 18:04] LABS: Color, Urine Straw (Yellow); Glucose, Dipstick Normal (Normal); Ketone-Dipstick Negative (Negative); Leukocyte Esterase-Dipstick 25 /ul (Negative); Nitrite-Dipstick Negative (Negative); Occult Blood-Urine 10 /ul (Negative); Protein-Dipstick 15 mg/dl (Negative); Specific Gravity, Urine 1.020 (1.002-1.030); Urine Bilirubin Dipstick Negative (Negative)
[2025-08-06 18:42] LABS: Red Blood Cells-Urine 0-5 SEEN /hpf (0-5); Squamous Epithelial Cells - UA 0-5 SEEN /hpf (5-10)
== END | disposition home or self-care (01) ==
LOC: CIMLAB 16:28
PROVIDERS: PCP Internal Medicine; Referring Provider Internal Medicine; Visit Provider Internal Medicine
DX: R30.0 Dysuria (principal); D64.9 Anemia, unspecified
CPT/HCPCS: 81001; 82436; 84133; 84300; 87086

== ENCOUNTER → 2025-08-09 | Outpatient (CLI) | payer MEDICARE, SELFPAY ==
[2024-04-12 09:59] VITALS: BMI 31.8
[2025-08-09 10:17] LABS: Hematocrit 28.9 % (37-47); Hemoglobin 9.1 g/dL (12.0-15.0); Mean Corp Hgb Conc 31.5 g/dL (32-36); Mean Corpuscular Volume 91.5 fL (81-99); Mean Platelet Vol. 9.3 fl (6.2-12.0); Platelet Count 309 K/mm3 (150-450); RBC Distribution Width CV 15.9 % (11.6-14.6); RBC Distribution Width SD 53.2 fl (35.1-43.9); Red Blood Count 3.16 M/mm3 (4.2-5.4); White Blood Count 8.9 K/mm3 (4.4-11.0)
[2025-08-09 11:12] LABS: Anion Gap 10 (5-15); BUN 32 mg/dL (4-19); BUN/Creat Ratio 15.1 RATIO (10-20); Calcium,Total 8.9 mg/dL (7.6-11.0); Carbon Dioxide 25.1 mmol/L (21.0-32.0); Chloride 106 mmol/L (98-108); Ferritin 204 ng/mL (22-378); Glucose 100 mg/dL (70-99); Iron 39 ug/dL (50-170); Iron Binding Capacity,Total 248 ug/dL (250-450); Iron Binding Capacity,Unsat 209 ug/dL (228-428); Potassium 4.6 mmol/L (3.3-5.1); Vitamin B12 399 pg/mL (180-914)
[2025-08-10 14:09] LABS: PROEL- A/G Ratio 1.2 (0.7-1.7); PROEL- Albumin 3.2 g/dL (2.9-4.4); PROEL- Alpha-1 Globulin 0.3 g/dL (0.0-0.4); PROEL- Alpha-2 Globulin 0.9 g/dL (0.4-1.0); PROEL- Beta Globulin 0.9 g/dL (0.7-1.3); PROEL- Gamma Globulin 0.5 g/dL (0.4-1.8); PROEL- Globulin, Total 2.6 g/dL (2.2-3.9); PROEL- TOTAL PROTEIN 5.8 g/dL (6.0-8.5); PROEL-M-Spike Comment: g/dL (Not Observed)
== END | disposition home or self-care (01) ==
PROVIDERS: PCP Internal Medicine; Referring Provider Internal Medicine; Visit Provider Internal Medicine
DX: D64.9 Anemia, unspecified (principal); N18.9 Chronic kidney disease, unspecified; E03.9 Hypothyroidism, unspecified; M79.2 Neuralgia and neuritis, unspecified
CPT/HCPCS: 36415; 80048; 82607; 82728; 83540; 83550; 84165; 84443; 85027

== ENCOUNTER → 2025-08-29 | Outpatient (CLI) | payer MEDICARE, SELFPAY ==
[2024-04-12 09:59] VITALS: BMI 31.8
[2025-08-29 09:21] LABS: Hematocrit 33.1 % (37-47); Hemoglobin 10.3 g/dL (12.0-15.0); Mean Corp Hgb Conc 31.1 g/dL (32-36); Mean Corpuscular Volume 91.7 fL (81-99); Mean Platelet Vol. 9.2 fl (6.2-12.0); Platelet Count 281 K/mm3 (150-450); RBC Distribution Width CV 15.5 % (11.6-14.6); RBC Distribution Width SD 51.8 fl (35.1-43.9); Red Blood Count 3.61 M/mm3 (4.2-5.4); White Blood Count 11.1 K/mm3 (4.4-11.0)
[2025-08-29 10:00] LABS: PTHIN 50 pg/mL (11-61)
[2025-08-29 10:04] LABS: Albumin, Serum 4.1 g/dL (3.4-4.8); Anion Gap 11 (5-15); BUN 35 mg/dL (4-19); BUN/Creat Ratio 17.9 RATIO (10-20); Calcium,Total 9.5 mg/dL (7.6-11.0); Carbon Dioxide 24.2 mmol/L (21.0-32.0); Chloride 106 mmol/L (98-108); Glucose 107 mg/dL (70-99); Potassium 4.8 mmol/L (3.3-5.1)
[2025-08-29 17:05] LABS: Xtra Tube Kwok EXTRA TUBE
== END | disposition home or self-care (01) ==
LOC: POLAB3 09:00
PROVIDERS: PCP Internal Medicine; Visit Provider Internal Medicine Nephrology
DX: E78.5 Hyperlipidemia, unspecified (principal); N18.4 Chronic kidney disease, stage 4 (severe)
CPT/HCPCS: 36415; 80069; 83970; 85027